=== PATIENT | male | born 1970 | race Caucasian/White ===

== ENCOUNTER 2016-08-19 01:20 | Emergency (ER) | payer OTHER, SELFPAY ==
[2016-08-19 01:26] VITALS: BP 137/78; PULSE 76; O2SAT 100
--- NOTE | 2016-08-19 01:47 | ERPHSYRPT ---
- History of Present Illness Time Seen by Provider: 08/19/16 01:30 Source: patient Exam Limitations: clinical condition Patient Subjective Stated Complaint: reports that a heavy bottle fell from a top shelf et struck his left shoulder while at work - reports continued pain x 2 days Triage Nursing Assessment: ambulatory to treatment area - steady gait - moves all extremities with equal strength. alert/oriented - pleasant affect. skin pwd - no rash/injury. resps easy - non-labored Physician History: PATIENT STATES WHILE AT WORK 4 DAYS AGO A CLEANING BOTTLE FELL OFF TOP SHELF ONTO THE PATIENTS'S LEFT SHOULDER WHILE USING A MOP. HE HAS PERSISTENT PAIN DISCOMFORT, DENIES SWELLING OR DEFORMITY OF SHOUDLER. Occurred: days ago Method of Injury: direct blow Quality: constant Severity of Pain-Max: mild Severity of Pain-Current: mild Extremities Pain Location: shoulder: left Modifying Factors: Improves With: movement Associated Symptoms: none Allergies/Adverse Reactions: "breathing treatments" Allergy (Severe, Uncoded 08/19/16 01:27) Home Medications: Alprazolam 0.25 mg [xanAX 0.25 MG] 0.25 mg PO BID 01/12/15 [History] Carvedilol 3.125 mg [Coreg 3.125 MG] 3.125 mg PO BID 09/07/15 [History] Lisinopril 5 mg [Zestril 5 MG] 5 mg PO BID 09/07/15 [History] Omeprazole 20 MG [Prilosec 20 mg] 20 mg PO DAILY 09/07/15 [History] Amitriptyline HCl 25 mg [Elavil 25 mg] 25 mg PO DAILY 04/22/16 [History] Fexofenadine HCl [Dominique] 180 mg PO DAILY 04/22/16 [History] Hx Tetanus, Diphtheria Vaccination/Date Given: Yes Hx Influenza Vaccination/Date Given: No Hx Pneumococcal Vaccination/Date Given: No Immunizations Up to Date: Yes - Review of Systems Constitutional: No Fever, No Chills Eyes: No Symptoms Ears, Nose, & Throat: No Symptoms Respiratory: No Symptoms, No Cough, No Dyspnea Cardiac: No Chest Pain, No Edema, No Syncope Abdominal/Gastrointestinal: No Abdominal Pain, No Nausea, No Vomiting, No Diarrhea Genitourinary Symptoms: No Dysuria Musculoskeletal: Joint Pain, No Back Pain, No Neck Pain Skin: No Rash Neurological: No Dizziness, No Focal Weakness, No Sensory Changes Psychological: No Symptoms Endocrine: No Symptoms All Other Systems: Reviewed and Negative - Past Medical History Pertinent Past Medical History: Yes Neurological History: Seizures ENT History: No Pertinent History Cardiac History: Hypertension Respiratory History: Bronchitis, COPD Endocrine Medical History: No Pertinent History Musculoskeletal History: No Pertinent History GI Medical History: Esophageal Disorder, GERD History: No Pertinent History Psycho-Social History: Anxiety Male Reproductive Disorders: No Pertinent History Other Medical History: arachnoid cyst, hiatal hernia. - Past Surgical History Past Surgical History: Yes Neuro Surgical History: No Pertinent History Cardiac: Cardiac Catheterization Respiratory: No Pertinent History Gastrointestinal: No Pertinent History Genitourinary: No Pertinent History Musculoskeletal: No Pertinent History Male Surgical History: No Pertinent History Other Surgical History: endoscpopy to examine for gastric ulcers as stated per pt - Social History Smoking Status: Never smoker Exposure to second hand smoke: No Drug Use: none Patient Lives Alone: No - Nursing Vital Signs Nursing Vital Signs: Initial Vital Signs Temperature 99.0 F Temperature Source Oral Pulse Rate 76 Respiratory Rate 16 Blood Pressure [Right Arm] 137/78 Pain Intensity 2 - Physical Exam General Appearance: alert Eyes, Ears, Nose, Throat Exam: moist mucous membranes Neck Exam: non-tender, supple Cardiovascular/Respiratory Exam: chest non-tender, normal breath sounds, regular rate/rhythm, no respiratory distress Abdominal Exam: non-tender, No guarding Back Exam: normal inspection, No vertebral tenderness Elbow/Forearm Exam: normal inspection, normal ROM, soft tissue tenderness (OVER LEFT A-C JOINT, NO DEFORMITY OR ECCHYMOSIS) Hand Exam: normal inspection DTR - Upper Extremity Exam: bicep (R): 2+, bicep (L): 2+, tricep (R): 2+, tricep (L): 2+ Neuro/Tendon Exam: normal sensation, normal motor functions Mental Status Exam: alert, 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, cooperative Skin Exam: normal color, warm, dry SpO2 Interpretation: normal SpO2: 100 Oxygen Delivery: Room Air Ordered Tests: Active Orders 24 hr Category Date Time Status SHOULDER Stat Exams 08/19/16 01:40 Taken - Progress Counseled pt/family regarding: diagnosis, need for follow-up, rad results - Departure Time of Disposition: 02:12 Departure Disposition: Home Clinical Impression: LEFT SHOULDER CONTUSION/STRAIN Condition: Stable Critical Care Time: No Referrals: TUAN NOBLE MD [Primary Care Provider] - Additional Instructions: CONTINUE TYLENOL OR MOTRIN NEEDED FOR PAIN DISCOMFORT. CONSULT YOUR FAMILY PHYSICIAN FOR EVALUATION IN THE WEEK.
--- NOTE | 2016-08-19 08:56 | XRAY ---
Indication: Pain following fall. Comparison: None 3 views of the left shoulder obtained. No bony, articular, or soft tissue abnormalities.
== END 2016-08-19 02:33 | disposition home or self-care (01) ==
LOC: ED 01:20
DX: S40.012A Contusion of left shoulder, initial encounter (principal); S43.402A Unspecified sprain of left shoulder joint, initial encounter; W20.8XXA Other cause of strike by thrown, projected or falling object, initial encounter; Y92.69 Other specified industrial and construction area as the place of occurrence of the external cause; Y99.0 Civilian activity done for income or pay
CPT/HCPCS: 73030; 80307; 99283

== ENCOUNTER 2016-09-03 23:35 | Emergency (ER) | payer SELFPAY ==
--- NOTE | 2016-09-04 00:05 | ERPHSYRPT ---
- History of Present Illness Time Seen by Provider: 09/03/16 23:55 Source: patient Exam Limitations: no limitations Patient Subjective Stated Complaint: STATES THAT HE HAS HAD A SINUS INFECTION X 5 DAYS WITH COUGHING - STATES THAT WHILE HE WAS AT WORK, HE GOT DIZZY, FEELING LIKE HIS HEAD WAS SPINNING AND NEARLY PASSED OUT WITH SOME DIAPHORESIS AT THE TIME - STATES HE HAD SOME SHAKING Triage Nursing Assessment: AMBULATORY TO TREATMENT AREA - STEADY GAIT - MOVES ALL EXTREMITIES WITH EQUAL STRENGTH. ALERT/ORIENTED - FLAT AFFECT. SKIN PWD - NO RASH/INJURY. RESPS EASY - NON-LABORED Physician History: The patient is a 46-year-old male who complains of a frontal sinus headache for 5 hours that led to a dizzy spell with shaking and sweating. He denies chest pain. He denies shortness of breath. He says several episodes of sinus headaches in the past. He has taken antibiotics for similar episodes. His past medical history is significant for sinusitis, high blood pressure, GERD, and allergies. He does not smoke. Timing/Duration: hour(s) (5) Severity: mild Modifying Factors: Improves With: other Associated Symptoms: diaphoresis Allergies/Adverse Reactions: "breathing treatments" Allergy (Severe, Uncoded 09/03/16 23:46) Home Medications: Alprazolam 0.25 mg [xanAX 0.25 MG] 0.25 mg PO BID 01/12/15 [History] Carvedilol 3.125 mg [Coreg 3.125 MG] 3.125 mg PO BID 09/07/15 [History] Lisinopril 5 mg [Zestril 5 MG] 5 mg PO BID 09/07/15 [History] Omeprazole 20 MG [Prilosec 20 mg] 20 mg PO DAILY 09/07/15 [History] Amitriptyline HCl 25 mg [Elavil 25 mg] 25 mg PO DAILY 04/22/16 [History] Fexofenadine HCl [Dominique] 180 mg PO DAILY 04/22/16 [History] Hx Tetanus, Diphtheria Vaccination/Date Given: Yes Hx Influenza Vaccination/Date Given: No Hx Pneumococcal Vaccination/Date Given: No Immunizations Up to Date: Yes - Review of Systems Constitutional: No Fever, No Chills Eyes: No Symptoms Ears, Nose, & Throat: No Symptoms Respiratory: Cough Cardiac: No Chest Pain, No Edema, No Syncope Abdominal/Gastrointestinal: No Abdominal Pain, No Nausea, No Vomiting, No Diarrhea Genitourinary Symptoms: No Dysuria Musculoskeletal: No Back Pain, No Neck Pain Skin: No Rash Neurological: Dizziness Psychological: No Symptoms Endocrine: No Symptoms Hematologic/Lymphatic: No Symptoms Immunological/Allergic: No Symptoms All Other Systems: Reviewed and Negative - Past Medical History Pertinent Past Medical History: Yes Neurological History: Seizures ENT History: No Pertinent History Cardiac History: Hypertension Respiratory History: Bronchitis, COPD Endocrine Medical History: No Pertinent History Musculoskeletal History: No Pertinent History GI Medical History: Esophageal Disorder, GERD History: No Pertinent History Psycho-Social History: Anxiety Male Reproductive Disorders: No Pertinent History Other Medical History: arachnoid cyst, hiatal hernia. - Past Surgical History Past Surgical History: Yes Neuro Surgical History: No Pertinent History Cardiac: Cardiac Catheterization Respiratory: No Pertinent History Gastrointestinal: No Pertinent History Genitourinary: No Pertinent History Musculoskeletal: No Pertinent History Male Surgical History: No Pertinent History Other Surgical History: endoscpopy to examine for gastric ulcers as stated per pt - Social History Smoking Status: Never smoker Exposure to second hand smoke: No Drug Use: none Patient Lives Alone: No - Nursing Vital Signs Nursing Vital Signs: Initial Vital Signs Temperature 97.8 F Temperature Source Oral Pulse Rate 64 Respiratory Rate 16 Blood Pressure [Right Arm] 136/83 Pain Intensity 5 - Physical Exam General Appearance: no apparent distress, alert Eye Exam: PERRL/EOMI, eyes nml inspection Ears, Nose, Throat Exam: normal ENT inspection, TMs normal, pharynx normal, moist mucous membranes Neck Exam: normal inspection, non-tender, supple, full range of motion Respiratory Exam: normal breath sounds, lungs clear, No respiratory distress Cardiovascular Exam: regular rate/rhythm, normal heart sounds, normal peripheral pulses Rectal Exam: not done Back Exam: normal inspection, normal range of motion, No CVA tenderness, No vertebral tenderness Extremity Exam: normal inspection, normal range of motion, pelvis stable Neurologic Exam: alert, 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, cooperative, normal mood/affect, nml cerebellar function, nml station & gait, sensation nml, No motor deficits Skin Exam: normal color, warm, dry, No rash Lymphatic Exam: No adenopathy SpO2 Interpretation: normal SpO2: 99 Oxygen Delivery: Room Air - Course EKG Interpreted by Me: RATE, Sinus Rhythm, NORMAL AXIS, NORMAL INTERVALS, NORMAL ST-T - Radiology Exams Chest X-ray Interpretation: Interpreted by me, Negative Ordered Tests: Active Orders 24 hr Category Date Time Status ACCUCHECK [Accucheck] STAT Care 09/03/16 23:50 Active Clean Catch Urine Specimen STAT Care 09/04/16 00:00 Active EKG-ER Only STAT Care 09/03/16 23:53 Active IV Insertion STAT Care 09/03/16 23:52 Active CHEST 2 VIEWS (PA AND LAT) Stat Exams 09/04/16 00:09 Taken CBC W DIFF Stat Lab 09/04/16 00:18 Completed CMP Stat Lab 09/04/16 00:18 Completed TROPONIN Stat Lab 09/04/16 00:18 Completed UA Stat Lab 09/04/16 00:00 Completed Medication Summary Generic Name Dose Route Start Last Admin Trade Name Freq PRN Reason Stop Dose Admin Sodium Chloride 1,000 mls @ 999 mls/hr 09/04/16 00:09 09/04/16 00:14 Sodium Chloride 0.9% 1000 Ml IV 09/04/16 01:09 999 mls/hr .[id number] STA Administration Discontinued Medications Generic Name Dose Route Start Last Admin Trade Name Freq PRN Reason Stop Dose Admin Sodium Chloride Confirm 09/04/16 00:12 Sodium Chloride 0.9% 1000 Ml Administered 09/04/16 00:13 Dose 1,000 mls @ ud .ROUTE .STK-MED ONE Lab/Rad Data: Laboratory Result Diagrams 09/04/16 00:18 09/04/16 00:18 Laboratory Results 09/04/16 09/04/16 09/04/16 Range/Units 00:18 00:18 00:00 WBC 8.9 (4.0-10.5) K/mm3 RBC 4.41 (4.1-5.6) M/mm3 Hgb 12.9 (12.5-18.0) gm/dl Hct 39.0 L (42-50) % MCV 88.4 (78-100) fl MCH 29.3 (26-32) pg MCHC 33.1 (32-36) g/dl RDW 13.4 (11.5-14.0) % Plt Count 236 (150-450) K/mm3 MPV 9.1 (6-9.5) fl Gran % 61.0 (36.0-66.0) % Lymphocytes % 25.3 (24.0-44.0) % Monocytes % 9.6 (0.0-12.0) % Eosinophils % 3.9 (0.00-5.0) % Basophils % 0.2 (0.0-0.4) % Basophils # 0.02 (0-0.4) Sodium 141 (136-145) mEq/L Potassium 4.2 (3.5-5.1) mEq/L Chloride 103 (98-107) mEq/L Carbon Dioxide 28.6 (21-32) mEq/L Anion Gap 14.0 (5-15) MEQ/L BUN 19 (9-20) mg/dL Creatinine 1.40 H (0.55-1.30) mg/dl Estimated GFR 58 ML/MIN Glucose 98 (70-110) MG/DL Calcium 8.6 (8.5-10.1) mg/dL Total Bilirubin 0.3 (0.2-1.0) mg/dL AST 18 (15-37) U/L ALT 27 (12-78) U/L Alkaline Phosphatase 77 (46-116) U/L Troponin I < 0.017 (0.000-0.056) ng/ml Serum Total Protein 7.5 (6.4-8.2) gm/dL Albumin 4.2 (3.4-5.0) g/dL Ur Collection Type CLEAN CATCH Urine Color YELLOW (YELLOW) Urine Appearance CLEAR (CLEAR) Urine pH 5.0 (5-6) Ur Specific [place] 1.020 (1.005-1.025) Urine Protein NEGATIVE (Negative) Urine Glucose (UA) NEGATIVE (NEGATIVE) mg/dL Urine Ketones NEGATIVE (NEGATIVE) Urine Nitrite NEGATIVE (NEGATIVE) Urine Bilirubin NEGATIVE (NEGATIVE) Urine Urobilinogen 0.2 (0-1) mg/dL Urine WBC (Auto) NEGATIVE (NEGATIVE) Urine RBC (Auto) NEGATIVE (0-5) Brad/ul Specimen Received 09/04/17:0000 - Progress Progress: improved Counseled pt/family regarding: lab results, diagnosis, rad results - Departure Time of Disposition: 01:02 Departure Disposition: Home Clinical Impression: Sinusitis, Dizziness Condition: Stable Critical Care Time: No Additional Instructions: You have sinusitis that led to some dizziness tonight. You were given normal saline 1 L by IV in the ER. Take the Augmentin 875 twice a day for 10 days. You were given a work excuse for today and for tomorrow. Follow-up as needed. Prescriptions: Amoxicillin/Potassium Clav [Augmentin 875-125 Tablet] 875 mg PO BID #20 tablet
[2016-09-04] MEDS ORDERED: Sodium Chloride 0.9% 1000 ML 1,000 ML IV STA (00:09)
[2016-09-04] MEDS ORDERED: Sodium Chloride 0.9% 1000 ML 1,000 ML ONE (00:12)
[2016-09-04 00:22] LABS: COMPLETE URINE MICROSCOPIC? NO; Collection Type CLEAN CATCH
[2016-09-04 00:23] LABS: BASOPHIL % 0.2 % (0.0-0.4); Eosinophil % 3.9 % (0.00-5.0); Lymphocytes % 25.3 % (24.0-44.0); Mean Cell Volume 88.4 fl (78-100); Mean Corpuscular Hemoglobin 29.3 pg (26-32); Mean Platelet Volume 9.1 fl (6-9.5); Monocytes % 9.6 % (0.0-12.0); Platelet Count 236 K/mm3 (150-450); Red Blood Count 4.41 M/mm3 (4.1-5.6); Red Cell Distribution Width 13.4 % (11.5-14.0); White Blood Count 8.9 K/mm3 (4.0-10.5)
[2016-09-04 00:40] VITALS: BP 136/83; PULSE 64
[2016-09-04 00:42] LABS: ALBUMIN 4.2 g/dL (3.4-5.0); ALKALINE PHOSPHATASE 77 U/L (46-116); BILIRUBIN,TOTAL 0.3 mg/dL (0.2-1.0); BLOOD UREA NITROGEN 19 mg/dL (9-20); CHLORIDE 103 mEq/L (98-107); Carbon Dioxide 28.6 mEq/L (21-32); Glucose 98 MG/DL (70-110); Potassium 4.2 mEq/L (3.5-5.1); SGOT/AST 18 U/L (15-37); SGPT/ALT 27 U/L (12-78); SODIUM 141 mEq/L (136-145); Total Protein 7.5 gm/dL (6.4-8.2)
[2016-09-04 00:52] LABS: TROPONIN < 0.017 ng/ml (0.000-0.056)
[2016-09-04 01:06] VITALS: O2SAT 99
--- NOTE | 2016-09-04 09:10 | XRAY ---
Indication: Dizziness. Comparison: April 22, 2016. PA/lateral chest again demonstrates a few calcified granulomas. No focal infiltrate, consolidation, or large effusion. Heart is not enlarged. Vascularity normal. Bony thorax intact again with mild degenerative changes. Impression: Stable nonacute chest.
== END 2016-09-04 01:14 | disposition home or self-care (01) ==
LOC: ED 23:35
DX: J32.9 Chronic sinusitis, unspecified (principal); R42 Dizziness and giddiness; I10 Essential (primary) hypertension
CPT/HCPCS: 36000; 36415; 71020; 80053; 81002; 82962; 84484; 85025; 93005; 99284

== ENCOUNTER 2017-01-07 22:35 | Emergency (ER) | payer SELFPAY ==
[2017-01-07] MEDS ORDERED: Sodium Chloride 0.9% 1000 ML 1,000 ML IV STA (22:55)
--- NOTE | 2017-01-07 23:03 | ERPHSYRPT ---
- History of Present Illness Source: patient, family () Exam Limitations: no limitations Physician History: Patient had presyncopal episode while working at [employer] this evening. He is taking a Z-Rayshawn for a sinus infection that was not responsive to Bactrim. He also takes lisinopril and beta tyshawn. Had a pre-syncopal spell similar to this for months ago. Did not fall or have any injuries he was caught by a coworker. There was no loss of consciousness. Apparently gives a history of regular meals and fluid intake. No recent fever or chills. Does have new severe headache however. This is generalized. Witnessed: other (coworker) Prior Episodes: single episode today Precipitating Factors: diaphoresis, pain (RIGHT FLANK AND SEVERE DIFFUSE HEADACHE), rapid heart beat Context: standing, other (ABDOMINAL PAIN WITH NAUSEA) Loss of Consciousness: no loss of consciousness Charcter of event(s): felt faint, almost passed out Allergies/Adverse Reactions: "breathing treatments" Allergy (Severe, Uncoded 09/03/16 23:46) Home Medications: Alprazolam 0.25 mg [xanAX 0.25 MG] 0.25 mg PO BID 01/12/15 [History] Carvedilol 3.125 mg [Coreg 3.125 MG] 3.125 mg PO BID 09/07/15 [History] Lisinopril 5 mg [Zestril 5 MG] 5 mg PO BID 09/07/15 [History] Omeprazole 20 MG [Prilosec 20 mg] 20 mg PO DAILY 09/07/15 [History] Amitriptyline HCl 25 mg [Elavil 25 mg] 25 mg PO DAILY 04/22/16 [History] Fexofenadine HCl [Dominique] 180 mg PO DAILY 04/22/16 [History] Hx Tetanus, Diphtheria Vaccination/Date Given: Yes Hx Influenza Vaccination/Date Given: No Hx Pneumococcal Vaccination/Date Given: No - Past Medical History Pertinent Past Medical History: Yes Neurological History: Seizures ENT History: No Pertinent History Cardiac History: Hypertension Respiratory History: Bronchitis, COPD Endocrine Medical History: No Pertinent History Musculoskeletal History: No Pertinent History GI Medical History: Esophageal Disorder, GERD History: No Pertinent History Psycho-Social History: Anxiety Male Reproductive Disorders: No Pertinent History Other Medical History: arachnoid cyst, hiatal hernia. - Past Surgical History Past Surgical History: Yes Neuro Surgical History: No Pertinent History Cardiac: Cardiac Catheterization Respiratory: No Pertinent History Gastrointestinal: No Pertinent History Genitourinary: No Pertinent History Musculoskeletal: No Pertinent History Male Surgical History: No Pertinent History Other Surgical History: endoscpopy to examine for gastric ulcers as stated per pt - Social History Smoking Status: Never smoker Exposure to second hand smoke: No Drug Use: none Patient Lives Alone: No - Review of Systems Constitutional: No Symptoms Eyes: No Symptoms Ears, Nose, & Throat: No Symptoms Respiratory: No Symptoms Cardiac: No Symptoms Abdominal/Gastrointestinal: Abdominal Pain, Nausea Genitourinary Symptoms: Flank Pain Musculoskeletal: No Symptoms Skin: No Symptoms Neurological: Headache Psychological: No Symptoms Endocrine: No Symptoms Hematologic/Lymphatic: No Symptoms Immunological/Allergic: No Symptoms Physical Exam - Nursing Vital Signs Nursing Vital Signs: Initial Vital Signs Pulse Rate 70 01/07/17 23:14 Respiratory Rate 18 01/07/17 23:14 Blood Pressure 132/84 01/07/17 23:14 O2 Sat by Pulse Oximetry 99 01/07/17 23:14 Pain Scale Pain Intensity 2 - Mcnabb Coma Scale Best Eye Response (Mcnabb): (4) open spontaneously Best Verbal Response (Suzi): (5) oriented Best Motor Response (Mcnabb): (6) obeys commands Suzi Total: 15 - Physical Exam General Appearance: moderate distress Eye Exam: bilateral eye: normal inspection, PERRL, EOMI Ears, Nose, Throat Exam: other (palpable tenderness over the bilateral frontal sinus area.) Neck Exam: supple, full range of motion, No non-tender, No meningismus, No Brudzinski, No Kernig's Respiratory: normal breath sounds, lungs clear Cardiovascular: regular rate/rhythm, normal heart sounds, capillary refill <2 sec Gastrointestinal: tenderness (diffuse and right flank), distention, No guarding , No rebound, No hernia, No hepatomegaly Male Genitalia: normal genitalia, No hernia, No testicular tenderness, No testicular mass Rectal Exam: deferred Back Exam: CVA tenderness (Right) Extremity Exam: normal inspection, normal range of motion, pelvis stable, No calf tenderness, No deformities, No lacerations, No parasthesia, No paralysis, No concha's sign, No inflammation, No swelling Mental Status: alert, 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, 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, 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 Exam: normal hearing, normal speech, PERRL, No abnormal eye position, No abnormal speech, No facial paresthesias, No hearing deficit (L) Coordination/Gait: normal finger to nose Motor/Sensory: no motor deficit, no sensory deficit Skin Exam: normal color, warm, dry, No rash, No petechiae, No jaundice, No abrasion SpO2 Interpretation: normal SpO2: 99 Oxygen Delivery: Room Air - CT Exams Head CT Interpretation: Tele-radiologist Report, Other Abdomen/Pelvis CT Interpretation: Tele-radiologist Report, Other (RETAINED STOOL ASCENDING AND TRANSVERSE COLON ONLY ABNORMALITY) Ordered Tests: Active Orders 24 hr Category Date Time Status Accucheck STAT Care 01/07/17 22:55 Active Senior Manager STAT Care 01/07/17 22:55 Active Clean Catch Urine Specimen STAT Care 01/07/17 23:06 Active EKG-ER Only STAT Care 01/07/17 22:55 Active IV Insertion STAT Care 01/07/17 22:55 Active Orthostatic Vital Signs STAT Care 01/07/17 22:55 Active Pulse Oximetry (ED) STAT Care 01/07/17 22:55 Active ABDOMEN AND PELVIS W/0 CONTRAS [CT] Stat Exams 01/07/17 22:51 Taken HEAD WITHOUT CONTRAST [CT] Stat Exams 01/07/17 23:09 Taken CBC W DIFF Stat Lab 01/07/17 22:55 Completed CMP Stat Lab 01/07/17 22:55 Completed MAGNESIUM Stat Lab 01/07/17 22:55 Completed TROPONIN Q3H Lab 01/07/17 22:55 Completed UA W/RFX UR CULTURE Stat Lab 01/07/17 22:55 Completed Urine Triage Profile Stat Lab 01/07/17 23:04 Completed Medication Summary Discontinued Medications Generic Name Dose Route Start Last Admin Trade Name Freq PRN Reason Stop Dose Admin Sodium Chloride 1,000 mls @ 999 mls/hr 01/07/17 22:55 01/07/17 23:18 Sodium Chloride 0.9% 1000 Ml IV 01/07/17 23:55 999 mls/hr .Q1H1M STA Administration Sodium Chloride Confirm 01/07/17 23:18 Sodium Chloride 0.9% 1000 Ml Administered 01/07/17 23:19 Dose 1,000 mls @ ud .ROUTE .STK-MED ONE Lab/Rad Data: Laboratory Result Diagrams 01/07/17 22:55 01/07/17 22:55 Laboratory Results 01/07/17 01/07/17 01/07/17 Range/Units 23:04 22:55 22:55 WBC (4.0-10.5) K/mm3 RBC (4.1-5.6) M/mm3 Hgb (12.5-18.0) gm/dl Hct (42-50) % MCV (78-100) fl MCH (26-32) pg MCHC (32-36) g/dl RDW (11.5-14.0) % Plt Count (150-450) K/mm3 MPV (6-9.5) fl Gran % (36.0-66.0) % Lymphocytes % (24.0-44.0) % Monocytes % (0.0-12.0) % Eosinophils % (0.00-5.0) % Basophils % (0.0-0.4) % Basophils # (0-0.4) Sodium (136-145) mEq/L Potassium (3.5-5.1) mEq/L Chloride (98-107) mEq/L Carbon Dioxide (21-32) mEq/L Anion Gap (5-15) MEQ/L BUN (9-20) mg/dL Creatinine (0.55-1.30) mg/dl Estimated GFR ML/MIN Glucose (70-110) MG/DL Calcium (8.5-10.1) mg/dL Magnesium 1.8 (1.8-2.4) mg/dL Total Bilirubin (0.2-1.0) mg/dL AST (15-37) U/L ALT (12-78) U/L Alkaline Phosphatase (46-116) U/L Troponin I < 0.017 (0.000-0.056) ng/ml Serum Total Protein (6.4-8.2) gm/dL Albumin (3.4-5.0) g/dL Ur Collection Type Urine Color (YELLOW) Urine Appearance (CLEAR) Urine pH (5-6) Ur Specific Rhodelia (1.005-1.025) Urine Protein (Negative) Urine Ketones (NEGATIVE) Urine Blood (0-5) Brad/ul Urine Nitrite (NEGATIVE) Urine Bilirubin (NEGATIVE) Urine Urobilinogen (0-1) mg/dL Ur Leukocyte Esterase (NEGATIVE) Urine Glucose (NEGATIVE) mg/dL Urine Opiates Level NEG. (NEGATIVE) Ur Methadone NEG. (NEGATIVE) Urine Barbiturates NEG. (NEGATIVE) Ur Phencyclidine (PCP) NEG. (NEGATIVE) Urine Amphetamine NEG. (NEGATIVE) U Benzodiazepine Level POS. (NEGATIVE) Urine Cocaine NEG. (NEGATIVE) Urine Marijuana (THC) NEG. (NEGATIVE) Specimen Received 01/07/17 01/07/17 01/07/17 Range/Units 22:55 22:55 22:55 WBC 10.4 (4.0-10.5) K/mm3 RBC 4.62 (4.1-5.6) M/mm3 Hgb 13.7 (12.5-18.0) gm/dl Hct 41.0 L (42-50) % MCV 88.7 (78-100) fl MCH 29.7 (26-32) pg MCHC 33.4 (32-36) g/dl RDW 13.2 (11.5-14.0) % Plt Count 234 (150-450) K/mm3 MPV 9.7 H (6-9.5) fl Gran % 59.2 (36.0-66.0) % Lymphocytes % 28.4 (24.0-44.0) % Monocytes % 7.1 (0.0-12.0) % Eosinophils % 4.7 (0.00-5.0) % Basophils % 0.6 (0.0-0.4) % Basophils # 0.06 (0-0.4) Sodium 140 (136-145) mEq/L Potassium 3.6 (3.5-5.1) mEq/L Chloride 102 (98-107) mEq/L Carbon Dioxide 27.6 (21-32) mEq/L Anion Gap 13.7 (5-15) MEQ/L BUN 11 (9-20) mg/dL Creatinine 1.27 (0.55-1.30) mg/dl Estimated GFR > 60 ML/MIN Glucose 93 (70-110) MG/DL Calcium 9.0 (8.5-10.1) mg/dL Magnesium (1.8-2.4) mg/dL Total Bilirubin 0.20 (0.2-1.0) mg/dL AST 21 (15-37) U/L ALT 20 (12-78) U/L Alkaline Phosphatase 78 (46-116) U/L Troponin I (0.000-0.056) ng/ml Serum Total Protein 8.0 (6.4-8.2) gm/dL Albumin 4.4 (3.4-5.0) g/dL Ur Collection Type CLEAN CATCH Urine Color YELLOW (YELLOW) Urine Appearance CLEAR (CLEAR) Urine pH 5.0 (5-6) Ur Specific Rhodelia 1.025 (1.005-1.025) Urine Protein NEGATIVE (Negative) Urine Ketones NEGATIVE (NEGATIVE) Urine Blood NEGATIVE (0-5) Brad/ul Urine Nitrite NEGATIVE (NEGATIVE) Urine Bilirubin NEGATIVE (NEGATIVE) Urine Urobilinogen NORMAL (0-1) mg/dL Ur Leukocyte Esterase NEGATIVE (NEGATIVE) Urine Glucose NEGATIVE (NEGATIVE) mg/dL Urine Opiates Level (NEGATIVE) Ur Methadone (NEGATIVE) Urine Barbiturates (NEGATIVE) Ur Phencyclidine (PCP) (NEGATIVE) Urine Amphetamine (NEGATIVE) U Benzodiazepine Level (NEGATIVE) Urine Cocaine (NEGATIVE) Urine Marijuana (THC) (NEGATIVE) Specimen Received 01/07/17:2255 - Progress Progress: improved Progress Note: 01/08/17 00:41Patient feels markedly improved able to emboli without difficulty. No further nausea vomiting abdominal pain and headache is also improved. Abnormal CT of the head was noted. Abdomen is soft without organomegaly masses or rigidity had been slightly distended and tender on admission. Slight right flank pain is also gone. Urinalysis with specific gravity slightly elevated at 1.025 and no blood. EKG cardiac workup negative. Will change her lisinopril to only once a day as it is a most likely medication that causes syncope/presyncope especially in the face of patients on beta blockers which she is on also. No work next 2 days will follow up with Dr. NOBLE on Thursday return to ER for any issues. See discharge diagnosis and instructions. - Departure Time of Disposition: 00:46 Departure Disposition: Home Clinical Impression: Pre-syncope, Intracranial arachnoid cyst, Flank pain, acute Ethmoid sinusitis Qualifiers: Chronicity: subacute Qualified Code(s): J01.20 - Acute ethmoidal sinusitis, unspecified Cephalgia Qualifiers: Headache type: unspecified Headache chronicity pattern: acute headache Intractability: not intractable Qualified Code(s): R51 - Headache Abdominal pain Qualifiers: Abdominal location: generalized Qualified Code(s): R10.84 - Generalized abdominal pain Retained feces Qualifiers: Constipation type: unspecified constipation type Qualified Code(s): K59.00 - Constipation, unspecified Medication adverse effect Qualifiers: Encounter type: initial encounter Qualified Code(s): T88.7XXA - Unspecified adverse effect of drug or medicament, initial encounter Condition: Stable Critical Care Time: No Referrals: TUAN NOBLE MD [Primary Care Provider] - 01/09/17 Instructions: Fainting, Sinusitis, Abdominal Pain-Adult Additional Instructions: Recommend only taking 5 mg lisinopril once a day instead of twice. Otherwise continue other medications.Drink at least 2 quarts of either Powerade or Gatorade daily. No work or Thursday see Dr Noble for recheck on Thursday. Return to emergency room for significant concerns or issues. Rest with no strenuous activity next 2 days.
[2017-01-07 23:09] LABS: BASOPHIL % 0.6 % (0.0-0.4); Collection Type CLEAN CATCH; Eosinophil % 4.7 % (0.00-5.0); Glucose NEGATIVE (NEGATIVE); Granulocytes % 59.2 % (36.0-66.0); Leukocyte Esterase NEGATIVE (NEGATIVE); Lymphocytes % 28.4 % (24.0-44.0); Mean Cell Volume 88.7 fl (78-100); Mean Corpuscular Hemoglobin 29.7 pg (26-32); Mean Platelet Volume 9.7 fl (6-9.5); Monocytes % 7.1 % (0.0-12.0); Platelet Count 234 K/mm3 (150-450); Red Blood Count 4.62 M/mm3 (4.1-5.6); Red Cell Distribution Width 13.2 % (11.5-14.0); White Blood Count 10.4 K/mm3 (4.0-10.5)
[2017-01-07 23:10] LABS: ADD URINE CULTURE? NO (NO); Bilirubin NEGATIVE (NEGATIVE); Blood NEGATIVE Ery/ul (0-5); COMPLETE URINE MICROSCOPIC? NO
[2017-01-07] MEDS ORDERED: Sodium Chloride 0.9% 1000 ML 1,000 ML ONE (23:18)
[2017-01-07 23:32] LABS: ALBUMIN 4.4 g/dL (3.4-5.0); ALKALINE PHOSPHATASE 78 U/L (46-116); ANION GAP 13.7 MEQ/L (5-15); BLOOD UREA NITROGEN 11 mg/dL (9-20); CHLORIDE 102 mEq/L (98-107); Carbon Dioxide 27.6 mEq/L (21-32); Glucose 93 MG/DL (70-110); Potassium 3.6 mEq/L (3.5-5.1); SGOT/AST 21 U/L (15-37); SGPT/ALT 20 U/L (12-78); SODIUM 140 mEq/L (136-145)
[2017-01-08 01:15] VITALS: BP 128/78; PULSE 78
[2017-01-08 05:43] VITALS: O2SAT 99
--- NOTE | 2017-01-08 11:29 | XRAY ---
Exam: CT of the head without IV contrast from 01/07/2017. CTDI: 69.38 Comparison: CT of the head without IV contrast from 04/13/2015. Indication: Near syncopal episode this afternoon while at work. Technique: Non-IV contrast axial images were obtained through the brain. Reconstructed coronal and sagittal images were created and reviewed. Findings: I again see a stable large arachnoid cyst within the left middle cranial fossa measuring approximately 4.7 cm x 4.5 cm x 5.4 cm. The ventricles are of normal size and are midline. No acute intracranial hemorrhage or abnormal extra-axial fluid collection is seen. No focal mass effect or midline shift is seen. The samaniego matter-white matter differentiation appears normal. No acute territorial infarct is seen. The cortical sulci appear unremarkable. I note moderate scattered soft tissue density within both ethmoid sinuses consistent with sinus disease/sinusitis. There also couple small polyps or retention cysts at the anterior medial aspect of the right maxillary sinus. The remainder of the visualized sinuses appears unremarkable. The mastoid air cells appear normal. The calvarium of the skull is intact. Impression: 1. A large arachnoid cyst is again seen filling the left middle cranial fossa representing no change. 2. No acute intracranial bleed or other acute intracranial process is seen. 3. Bilateral ethmoid sinus disease/sinusitis. This appears mildly increased as compared to 04/13/2015. There also couple very small polyps or retention cysts at the anterior medial aspect of the right maxillary sinus.
--- NOTE | 2017-01-08 11:32 | XRAY ---
Exam: CT of the abdomen and pelvis without IV contrast from 01/07/2017. CTDI: 23.65 Comparison: None. Indication: Right upper quadrant abdominal/flank pain, near syncopal episode this afternoon while at work. Technique: Non-IV contrast axial images were obtained through the abdomen and pelvis. Reconstructed coronal and sagittal images were created and reviewed. Findings: The visualized lung bases appear clear. Evaluation of the solid organs is limited without the use of IV contrast, but no gross abnormality of the liver, spleen, pancreas, adrenal glands, or kidneys is seen. Specifically, no renal calculi or hydronephrosis is seen. Both ureters appear of normal diameter and reveal no ureterolith. No urinary bladder stone is seen. The gallbladder is minimally distended, but is grossly unremarkable. No dense calcifications are seen within the gallbladder. The abdominal aorta appears of normal diameter. No abnormal retroperitoneal lymphadenopathy is seen. There is no free intraperitoneal air. A tiny amount of protrusion of intraperitoneal fat into the base of the umbilicus is seen on midline sagittal image #87. No significant ventral abdominal wall defect is seen. No significant bowel distention or obstruction is seen. A moderate amount of stool is seen within the ascending colon and transverse colon. The appendix appears normal. No enlarged pelvic lymph nodes are seen. No free intraperitoneal fluid is seen. The seminal vesicles and prostate gland appear unremarkable. There is some mild herniation of intraperitoneal fat into the proximal inguinal canals, right greater than left. No bowel containing inguinal hernia is seen. Some small nonspecific postinflammatory lymph nodes are seen within each groin. I see no acute fracture or aggressive osseous lesion. There is a prominent Schmorl's node at the anterior aspect of the superior vertebral endplate of L5. There is moderate narrowing of the L4-L5 interspace height which may indicate some degenerative disc disease at this level.. There is also a more subtle Schmorl's node within the anterior aspect of the superior vertebral endplate of L2. Mild osteoarthritic spurring is seen within the lower thoracic spine. Impression: 1. No acute process is seen within the abdomen or pelvis. Specifically, no renal/ureteral stones, hydronephrosis, or obstructive uropathy is seen. 2. Moderate stool retention is seen within the cecum, ascending colon, and transverse colon. The appendix is normal. 3. Small fat-containing bilateral inguinal hernias, a bit larger on the right than left. No bowel containing hernias are seen. 4. Skeletal findings as discussed above.
== END 2017-01-08 01:16 | disposition home or self-care (01) ==
LOC: ED 22:35
DX: R51 Headache (principal); R10.84 Generalized abdominal pain; K59.00 Constipation, unspecified; T88.7XXA Unspecified adverse effect of drug or medicament, initial encounter; R55 Syncope and collapse; G93.0 Cerebral cysts; R10.9 Unspecified abdominal pain; Z79.899 Other long term (current) drug therapy; R11.0 Nausea
CPT/HCPCS: 36000; 36415; 70450; 74176; 80053; 80307; 81002; 82962; 83735; 84484; 85025; 93005; 93041; 96360; 99284

== ENCOUNTER 2017-07-14 00:57 | Emergency (ER) | payer OTHER ==
[2017-07-14] MEDS ORDERED: NORCO 5/325 MG PO ONE (01:22)
[2017-07-14] MEDS ORDERED: NORCO 5/325 MG ONE (01:26)
--- NOTE | 2017-07-14 01:28 | ERPHSYRPT ---
- History of Present Illness Time Seen by Provider: 07/14/17 01:15 Source: patient Exam Limitations: no limitations Patient Subjective Stated Complaint: cough, congestion, chills, dyspnea Triage Nursing Assessment: patient alert and oriented x3, able to answer all questions appropriately, ambulated with steady gait, states dyspnea worse with exertion, none noted during ambulation Physician History: FOR THE PAST 5 DAYS PT HAS HAD A FRONTAL HEADACHE, CHILLS AND A SORE THROAT; FOR THE PAST 2 DAYS A NON-PRODUCTIVE COUGH. PT WAS RX'ED ZITHROMAX AND TESSALON PERLES 4 DAYS AGO BUT DOES NOT FEEL ANY IMPROVEMENT. PT DENIES CHEST PAIN, ABDOMINAL PAIN, NAUSEA, VOMITING. FEVER. Allergies/Adverse Reactions: "breathing treatments" Allergy (Severe, Uncoded 09/03/16 23:46) Home Medications: Alprazolam 0.25 mg [xanAX 0.25 MG] 0.25 mg PO BID 01/12/15 [History] Carvedilol 3.125 mg [Coreg 3.125 MG] 3.125 mg PO BID 09/07/15 [History] Lisinopril 5 mg [Zestril 5 MG] 5 mg PO BID 09/07/15 [History] Omeprazole 20 MG [Prilosec 20 mg] 20 mg PO DAILY 09/07/15 [History] Fexofenadine HCl [Dominique] 180 mg PO DAILY 04/22/16 [History] Azithromycin 250 mg [Zithromax 250 MG TABLET] 250 mg PO ZPACK 07/14/17 [ History] Benzonatate 100 mg PO 07/14/17 [History] Fluticasone Propionate [Flovent Diskus] 50 mcg IH 07/14/17 [History] Hx Tetanus, Diphtheria Vaccination/Date Given: No Hx Influenza Vaccination/Date Given: No Hx Pneumococcal Vaccination/Date Given: No - Review of Systems Constitutional: Chills, No Fever Ears, Nose, & Throat: Throat Pain Respiratory: Cough Cardiac: No Chest Pain Abdominal/Gastrointestinal: No Abdominal Pain, No Nausea, No Vomiting Neurological: Headache (FRONTAL) All Other Systems: Reviewed and Negative - Past Medical History Pertinent Past Medical History: Yes Neurological History: Migraines, Stroke ENT History: No Pertinent History Cardiac History: Coronary Artery Disease, Hypertension, Other Respiratory History: No Pertinent History Endocrine Medical History: No Pertinent History Musculoskeletal History: No Pertinent History GI Medical History: GERD History: No Pertinent History Psycho-Social History: No Pertinent History Male Reproductive Disorders: No Pertinent History Other Medical History: arachnoid cyst, hiatal hernia. - Past Surgical History Past Surgical History: No Neuro Surgical History: No Pertinent History Cardiac: No Pertinent History Respiratory: No Pertinent History Gastrointestinal: No Pertinent History Genitourinary: No Pertinent History Musculoskeletal: No Pertinent History Male Surgical History: No Pertinent History Other Surgical History: endoscpopy to examine for gastric ulcers as stated per pt - Social History Smoking Status: Former smoker How long have you smoked: years Exposure to second hand smoke: No Drug Use: none Patient Lives Alone: No - Nursing Vital Signs Nursing Vital Signs: Initial Vital Signs Temperature 98.2 F 07/14/17 01:05 Pulse Rate 96 H 07/14/17 01:05 Respiratory Rate 20 07/14/17 01:05 Blood Pressure 177/104 07/14/17 01:05 O2 Sat by Pulse Oximetry 99 07/14/17 01:05 Pain Scale Pain Intensity 2 - Physical Exam General Appearance: alert Eye Exam: PERRL/EOMI Ears, Nose, Throat Exam: TMs normal, moist mucous membranes, pharyngeal erythema , other (NASAL TURBINATES ERYTHEMATOUS AND MILDLY EDEMATOUS.) Neck Exam: normal inspection Respiratory Exam: lungs clear Cardiovascular Exam: normal heart sounds Gastrointestinal/Abdomen Exam: soft, normal bowel sounds Back Exam: normal range of motion Extremity Exam: normal inspection, No pedal edema Neurologic Exam: alert, cooperative Skin Exam: warm, dry SpO2 Interpretation: normal SpO2: 99 Oxygen Delivery: Room Air - Course Nursing assessment & vital signs reviewed: Yes Ordered Tests: Active Orders 24 hr Category Date Time Status CBC W DIFF Stat Lab 07/14/17 01:38 Completed CMP Stat Lab 07/14/17 01:38 Completed CULTURE, THROAT Stat Lab 07/14/17 01:38 Received Erythrocyte Sedimentation Rate Stat Lab 07/14/17 01:38 Completed [place] Screen Stat Lab 07/14/17 01:38 Completed STREP SCREEN-BETA A Stat Lab 07/14/17 01:38 Completed Medication Summary Discontinued Medications Generic Name Dose Route Start Last Admin Trade Name Freq PRN Reason Stop Dose Admin Hydrocodone Bitart/Acetaminophen 2 tab 07/14/17 01:22 07/14/17 01:27 [place] 5/325 Mg PO 07/14/17 01:23 2 tab STAT ONE Administration Hydrocodone Bitart/Acetaminophen Confirm 07/14/17 01:26 [place] 5/325 Mg Administered 07/14/17 01:27 Dose 2 tab .ROUTE .STK-MED ONE Diphenhydramine HCl 25 mg 07/14/17 02:19 07/14/17 02:21 Benadryl 25 Mg Capsule PO 07/14/17 02:20 25 mg STAT ONE Administration Diphenhydramine HCl Confirm 07/14/17 02:21 Benadryl 25 Mg Capsule Administered 07/14/17 02:22 Dose 25 mg .ROUTE .STK-MED ONE Lab/Rad Data: Laboratory Result Diagrams 07/14/17 01:38 07/14/17 01:38 Laboratory Results 07/14/17 07/14/17 07/14/17 Range/Units 01:38 01:38 01:38 WBC (4.0-10.5) K/mm3 RBC (4.1-5.6) M/mm3 Hgb (12.5-18.0) gm/dl Hct (42-50) % MCV (78-100) fl MCH (26-32) pg MCHC (32-36) g/dl RDW (11.5-14.0) % Plt Count (150-450) K/mm3 MPV (6-9.5) fl Gran % (36.0-66.0) % Lymphocytes % (24.0-44.0) % Monocytes % (0.0-12.0) % Eosinophils % (0.00-5.0) % Basophils % (0.0-0.4) % Basophils # (0-0.4) ESR (0-15) mm/hr Sodium (136-145) mEq/L Potassium (3.5-5.1) mEq/L Chloride (98-107) mEq/L Carbon Dioxide (21-32) mEq/L Anion Gap (5-15) MEQ/L BUN (9-20) mg/dL Creatinine (0.55-1.30) mg/dl Estimated GFR ML/MIN Glucose (70-110) MG/DL Calcium (8.5-10.1) mg/dL Total Bilirubin (0.2-1.0) mg/dL AST (15-37) U/L ALT (12-78) U/L Alkaline Phosphatase (46-116) U/L Serum Total Protein (6.4-8.2) gm/dL Albumin (3.4-5.0) g/dL Monoscreen NEGATIVE (Negative) Influenza Type A Ag NEGATIVE (NEGATIVE) Influenza Type B Ag POSITIVE (NEGATIVE) RSV (PCR) NEGATIVE (Negative) Streptococcus Screen NEGATIVE (Negative) 07/14/17 07/14/17 Range/Units 01:38 01:38 WBC 3.8 L (4.0-10.5) K/mm3 RBC 4.46 (4.1-5.6) M/mm3 Hgb 13.0 (12.5-18.0) gm/dl Hct 39.2 L (42-50) % MCV 87.9 (78-100) fl MCH 29.1 (26-32) pg MCHC 33.2 (32-36) g/dl RDW 13.7 (11.5-14.0) % Plt Count 132 L (150-450) K/mm3 MPV 9.3 (6-9.5) fl Gran % 49.7 (36.0-66.0) % Lymphocytes % 30.1 (24.0-44.0) % Monocytes % 15.4 H (0.0-12.0) % Eosinophils % 4.5 (0.00-5.0) % Basophils % 0.3 (0.0-0.4) % Basophils # 0.01 (0-0.4) ESR 12 (0-15) mm/hr Sodium 138 (136-145) mEq/L Potassium 3.9 (3.5-5.1) mEq/L Chloride 103 (98-107) mEq/L Carbon Dioxide 25.6 (21-32) mEq/L Anion Gap 13.6 (5-15) MEQ/L BUN 11 (9-20) mg/dL Creatinine 1.16 (0.55-1.30) mg/dl Estimated GFR > 60 ML/MIN Glucose 93 (70-110) MG/DL Calcium 8.7 (8.5-10.1) mg/dL Total Bilirubin 0.30 (0.2-1.0) mg/dL AST 18 (15-37) U/L ALT 14 (12-78) U/L Alkaline Phosphatase 54 (46-116) U/L Serum Total Protein 7.5 (6.4-8.2) gm/dL Albumin 4.0 (3.4-5.0) g/dL Monoscreen (Negative) Influenza Type A Ag (NEGATIVE) Influenza Type B Ag (NEGATIVE) RSV (PCR) (Negative) Streptococcus Screen (Negative) - Departure Time of Disposition: 03:00 Departure Disposition: Home Clinical Impression: PHARYNGITIS, SINUSITIS, INFLUENZA "B" Condition: Stable Critical Care Time: No Referrals: TUAN NOBLE MD [Primary Care Provider] - Instructions: Flu Additional Instructions: FOLLOW UP WITH PRIVATE DOCTOR TOMORROW.
[2017-07-14 01:42] LABS: BASOPHIL % 0.3 % (0.0-0.4); Basophil (Absolute #) 0.01 (0-0.4); Eosinophil % 4.5 % (0.00-5.0); Eosinophil (Absolute #) 0.17 (0-0.5); Granulocytes % 49.7 % (36.0-66.0); Hematocrit 39.2 % (42-50); Lymphocyte (Absolute #) 1.15 (1.0-4.6); Lymphocytes % 30.1 % (24.0-44.0); Mean Cell Volume 87.9 fl (78-100); Mean Corpuscular Hemoglobin 29.1 pg (26-32); Mean Corpuscular Hgb Concent. 33.2 g/dl (32-36); Mean Platelet Volume 9.3 fl (6-9.5); Monocyte (Absolute #) 0.59 (0.0-1.3); Monocytes % 15.4 % (0.0-12.0); Platelet Count 132 K/mm3 (150-450); Red Blood Count 4.46 M/mm3 (4.1-5.6); Red Cell Distribution Width 13.7 % (11.5-14.0); White Blood Count 3.8 K/mm3 (4.0-10.5)
[2017-07-14 01:57] LABS: Erythrocyte Sedimentation Rate 12 mm/hr (0-15)
[2017-07-14 02:01] LABS: ALKALINE PHOSPHATASE 54 U/L (46-116); ANION GAP 13.6 MEQ/L (5-15); BLOOD UREA NITROGEN 11 mg/dL (9-20); CHLORIDE 103 mEq/L (98-107); Calcium 8.7 mg/dL (8.5-10.1); Carbon Dioxide 25.6 mEq/L (21-32); Creatinine 1 1.16 mg/dl (0.55-1.30); EST GLOMERULAR FILTRATION RATE > 60 ML/MIN; Glucose 93 MG/DL (70-110); Potassium 3.9 mEq/L (3.5-5.1); SGOT/AST 18 U/L (15-37); SGPT/ALT 14 U/L (12-78); SODIUM 138 mEq/L (136-145); Total Protein 7.5 gm/dL (6.4-8.2)
[2017-07-14] MEDS ORDERED: BENADRYL 25 MG CAPSULE PO ONE ×2 (02:19→02:58)
[2017-07-14] MEDS ORDERED: BENADRYL 25 MG CAPSULE ONE ×2 (02:21→03:00)
[2017-07-14 02:53] LABS: INFLUENZA A NEGATIVE (NEGATIVE); RESPIRATORY SYNCTIAL VIRUS NEGATIVE (Negative)
[2017-07-14 02:55] LABS: INFLUENZA B POSITIVE (NEGATIVE)
[2017-07-14 03:05] VITALS: BP 123/78; PULSE 70; O2SAT 97
== END 2017-07-14 03:06 | disposition home or self-care (01) ==
LOC: ED 00:57
DX: J02.9 Acute pharyngitis, unspecified (principal); J32.9 Chronic sinusitis, unspecified; J11.1 Influenza due to unidentified influenza virus with other respiratory manifestations
CPT/HCPCS: 36415; 80053; 85025; 85652; 86308; 87070; 87430; 87631; 99283; 99284; A9270-GY

== ENCOUNTER 2017-10-14 00:06 | Emergency (ER) | payer OTHER ==
[2017-10-14] MEDS: BABY ASPIRIN 81 MG CHEW PO ONE (00:26)
[2017-10-14] MEDS ORDERED: BABY ASPIRIN 81 MG CHEW ONE (00:27)
--- NOTE | 2017-10-14 00:32 | ERPHSYRPT ---
- History of Present Illness Time Seen by Provider: 10/14/17 00:25 Source: patient Exam Limitations: no limitations Patient Subjective Stated Complaint: pt states he was sitting outside with his and did not feel good; had a headache, chest pain, and generally did not feel right; took bp at home and it was high so he came in. Triage Nursing Assessment: pt a&o x3; skin p, w, & d; ambulated to room per self ; appears slightly anxious about htn at home; no other distress noted upon arrival. Physician History: 47-year-old white male with history of migraines, CVA, coronary artery disease, high blood pressure, GERD, was had an arachnoid cyst in the past as well as hiatal hernia and anxiety. States that about an hour ago he just didn't feel well had a headache than a half an hour ago began to have pain in the left anterior chest. He said the no real shortness of breath no nausea no vomiting Patient states he took his blood pressure is noted to be high again he also stated his monitor stated that he had an irregular heart rate. Patient complaining of some dull pain in the left anterior chest no shortness of breath no nausea no vomiting. Past medical history includes migraines, CVA, coronary artery disease, high blood pressure, GERD, arachnoid cyst, hiatal hernia, anxiety Past surgical history includes endoscopy for gastric ulcers Timing/Duration: today Severity: moderate Modifying Factors: Improves With: nothing Associated Symptoms: chest pain, headaches, malaise, No nausea, No vomiting, No abdominal pain, No shortness of breath, No heartburn, No diaphoresis, No cough, No chills, No fever, No loss of appetite, No rash, No syncope, No seizure, No weakness Allergies/Adverse Reactions: "breathing treatments" Allergy (Severe, Uncoded 10/14/17 00:21) Home Medications: Carvedilol 3.125 mg [Coreg 3.125 MG] 3.125 mg PO BID 09/07/15 [History] Omeprazole 20 MG [Prilosec 20 mg] 20 mg PO DAILY 09/07/15 [History] Fexofenadine HCl [Dominique] 180 mg PO DAILY 04/22/16 [History] Fluticasone Propionate [Flovent Diskus] 50 mcg IH 07/14/17 [History] Sacubitril/Valsartan [Entresto 49 mg-51 mg Tablet] 49 - 52 mg PO BID 10/14/17 [ History] diazePAM [Diazepam] 2 mg PO BID 10/14/17 [History] Hx Tetanus, Diphtheria Vaccination/Date Given: No Hx Influenza Vaccination/Date Given: No Hx Pneumococcal Vaccination/Date Given: Yes Immunizations Up to Date: No - Review of Systems Constitutional: No Fever, No Chills Eyes: No Symptoms Ears, Nose, & Throat: No Symptoms Respiratory: No Cough, No Dyspnea Cardiac: Chest Pain, No Edema, No Palpitations, No Syncope, No Orthopnea, No PND Abdominal/Gastrointestinal: No Abdominal Pain, No Nausea, No Vomiting, No Diarrhea Genitourinary Symptoms: No Dysuria Musculoskeletal: No Back Pain, No Neck Pain Skin: No Rash Neurological: Headache, No Dizziness, No Focal Weakness, No Irritability, No Lethargy, No Paralysis, No Parasthesia, No Seizure, No Sensory Changes, No Speech Changes, No Tics, No Tremors, No Vertigo Psychological: No Symptoms Endocrine: No Symptoms All Other Systems: Reviewed and Negative - Past Medical History Pertinent Past Medical History: Yes Neurological History: Migraines, Stroke ENT History: No Pertinent History Cardiac History: Coronary Artery Disease, Hypertension, Other Respiratory History: No Pertinent History Endocrine Medical History: No Pertinent History Musculoskeletal History: No Pertinent History GI Medical History: GERD History: No Pertinent History Psycho-Social History: No Pertinent History Male Reproductive Disorders: No Pertinent History Other Medical History: arachnoid cyst, hiatal hernia. - Past Surgical History Past Surgical History: No Neuro Surgical History: No Pertinent History Cardiac: No Pertinent History Respiratory: No Pertinent History Gastrointestinal: No Pertinent History Genitourinary: No Pertinent History Musculoskeletal: No Pertinent History Male Surgical History: No Pertinent History Other Surgical History: endoscpopy to examine for gastric ulcers as stated per pt - Social History Smoking Status: Never smoker How long have you smoked: years Exposure to second hand smoke: Yes Drug Use: none Patient Lives Alone: No - Nursing Vital Signs Nursing Vital Signs: Initial Vital Signs Temperature 97.3 F 10/14/17 00:12 Pulse Rate 92 H 10/14/17 00:12 Respiratory Rate 18 10/14/17 00:12 Blood Pressure 171/101 10/14/17 00:12 O2 Sat by Pulse Oximetry 100 10/14/17 00:12 Pain Scale Pain Intensity 1 - Physical Exam General Appearance: no apparent distress, alert Eye Exam: PERRL/EOMI, eyes nml inspection Ears, Nose, Throat Exam: normal ENT inspection, TMs normal, pharynx normal, moist mucous membranes Neck Exam: normal inspection, non-tender, supple, full range of motion Respiratory Exam: normal breath sounds, lungs clear, No respiratory distress Cardiovascular Exam: regular rate/rhythm, normal heart sounds, normal peripheral pulses Gastrointestinal/Abdomen Exam: soft, normal bowel sounds, No tenderness, No mass Back Exam: normal inspection, normal range of motion, No CVA tenderness, No vertebral tenderness Extremity Exam: normal inspection, normal range of motion, pelvis stable Neurologic Exam: alert, 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, cooperative, normal mood/affect, nml cerebellar function, nml station & gait, sensation nml, No motor deficits Skin Exam: normal color Lymphatic Exam: No adenopathy SpO2 Interpretation: normal (100 Tylenol with him at the left and hi%) SpO2: 100 Oxygen Delivery: Room Air - Course Nursing assessment & vital signs reviewed: Yes EKG Interpreted by Me: RATE (89 bpm), NORMAL AXIS, Other (EKG: Sinus rhythm 89 bpm normal axis no acute ST or T wave changes poor R-wave progression anteriorly no acute changes as compared to January 07 2017) - Radiology Exams Chest X-ray Interpretation: Interpreted by me, Other (no acute disease process) Ordered Tests: Active Orders 24 hr Category Date Time Status EKG-ER Only STAT Care 10/14/17 00:23 Active IV Insertion STAT Care 10/14/17 00:23 Active Pulse Oximetry (ED) STAT Care 10/14/17 00:23 Active CHEST 1 VIEW (PORTABLE) Stat Exams 10/14/17 00:23 Taken CBC W DIFF Stat Lab 10/14/17 00:40 Completed CMP Stat Lab 10/14/17 00:40 Completed D-DIMER QUANTITATION Stat Lab 10/14/17 00:40 Completed TROPONIN Q3H Lab 10/14/17 00:40 Completed TROPONIN Q3H Lab 10/14/17 03:10 Completed TROPONIN Q3H Lab 10/14/17 06:30 Ordered TROPONIN Q3H Lab 10/14/17 09:30 Ordered TROPONIN Q3H Lab 10/14/17 12:30 Ordered Medication Summary Generic Name Dose Route Start Last Admin Trade Name Freq PRN Reason Stop Dose Admin Sodium Chloride 1,000 mls @ 999 mls/hr 10/14/17 03:40 10/14/17 03:30 Sodium Chloride 0.9% 1000 Ml IV 10/14/17 04:40 999 mls/hr .Q1H1M STA Administration Discontinued Medications Generic Name Dose Route Start Last Admin Trade Name Tio PRN Reason Stop Dose Admin Aspirin 324 mg 10/14/17 00:23 10/14/17 00:26 Baby Aspirin 81 Mg Chew PO 10/14/17 00:24 324 mg STAT ONE Administration Aspirin Confirm 10/14/17 00:27 Baby Aspirin 81 Mg Chew Administered 10/14/17 00:28 Dose 324 mg .ROUTE .STK-MED ONE Sodium Chloride Confirm 10/14/17 03:41 Sodium Chloride 0.9% 1000 Ml Administered 10/14/17 03:42 Dose 1,000 mls @ ud .ROUTE .[employer]-MED ONE Lab/Rad Data: Laboratory Result Diagrams 10/14/17 00:40 10/14/17 00:40 Laboratory Results 10/14/17 10/14/17 10/14/17 Range/Units 03:10 00:40 00:40 WBC (4.0-10.5) K/mm3 RBC (4.1-5.6) M/mm3 Hgb (12.5-18.0) gm/dl Hct (42-50) % MCV (78-100) fl MCH (26-32) pg MCHC (32-36) g/dl RDW (11.5-14.0) % Plt Count (150-450) K/mm3 MPV (6-9.5) fl Gran % (36.0-66.0) % Eos # (Auto) (0-0.5) Absolute Lymphs (auto) (1.0-4.6) Absolute Monos (auto) (0.0-1.3) Lymphocytes % (24.0-44.0) % Monocytes % (0.0-12.0) % Eosinophils % (0.00-5.0) % Basophils % (0.0-0.4) % Absolute Granulocytes (1.4-6.9) Basophils # (0-0.4) D-Dimer < 215 L (215-500) ng/mL Sodium (137-145) mmol/L Potassium (3.5-5.1) mmol/L Chloride (98-107) mmol/L Carbon Dioxide (22-30) mmol/L Anion Gap (5-15) MEQ/L BUN (9-20) mg/dL Creatinine (0.66-1.25) mg/dL Estimated GFR ML/MIN Glucose (74-106) mg/dL Calcium (8.4-10.2) mg/dL Total Bilirubin (0.2-1.3) mg/dL AST (17-59) U/L ALT (0-50) U/L Alkaline Phosphatase (38-126) U/L Troponin I < 0.012 < 0.012 (0.000-0.034) ng/mL Serum Total Protein (6.3-8.2) g/dL Albumin (3.5-5.0) g/dL 10/14/17 10/14/17 Range/Units 00:40 00:40 WBC 8.0 (4.0-10.5) K/mm3 RBC 5.36 (4.1-5.6) M/mm3 Hgb 16.1 (12.5-18.0) gm/dl Hct 47.5 (42-50) % MCV 88.6 (78-100) fl MCH 30.0 (26-32) pg MCHC 33.9 (32-36) g/dl RDW 13.1 (11.5-14.0) % Plt Count 188 (150-450) K/mm3 MPV 9.3 (6-9.5) fl Gran % 64.0 (36.0-66.0) % Eos # (Auto) 0.23 (0-0.5) Absolute Lymphs (auto) 2.08 (1.0-4.6) Absolute Monos (auto) 0.52 (0.0-1.3) Lymphocytes % 26.2 (24.0-44.0) % Monocytes % 6.5 (0.0-12.0) % Eosinophils % 2.9 (0.00-5.0) % Basophils % 0.4 (0.0-0.4) % Absolute Granulocytes 5.09 (1.4-6.9) Basophils # 0.03 (0-0.4) D-Dimer (215-500) ng/mL Sodium 143 (137-145) mmol/L Potassium 3.8 (3.5-5.1) mmol/L Chloride 99 (98-107) mmol/L Carbon Dioxide 26 (22-30) mmol/L Anion Gap 21.8 H (5-15) MEQ/L BUN 12 (9-20) mg/dL Creatinine 1.12 (0.66-1.25) mg/dL Estimated GFR > 60.0 ML/MIN Glucose 79 (74-106) mg/dL Calcium 10.5 H (8.4-10.2) mg/dL Total Bilirubin 0.50 (0.2-1.3) mg/dL AST 26 (17-59) U/L ALT 24 (0-50) U/L Alkaline Phosphatase 88 (38-126) U/L Troponin I (0.000-0.034) ng/mL Serum Total Protein 9.6 H (6.3-8.2) g/dL Albumin 5.5 H (3.5-5.0) g/dL - Progress Progress: improved Progress Note: 10/14/17 03:41 47-year-old white male with history of migraines CVA coronary artery disease high blood pressure GERD was had an arachnoid cyst also history of anxiety. Arrives with complaints of headache followed by left-sided chest pain approximately one hour. Patient with a essentially normal EKG initial troponin within normal limits Patient's chemistry shows an increased anion gap of 21 O2 sats are within normal limits CBC within normal limits chest x-ray unremarkable d-dimer is normal limits. Will give patient 1 L of normal saline. Repeat troponin is pending. 10/14/17 04:38 Patient's blood pressure is improved patient has a normal troponin 2 normal EKG normal chest x-ray. Chemistry essentially normal except for elevated anion gap. Patient was given aspirin in the emergency room. Patient given 1 L of fluids. Case is discussed with Dr. Noble Will plan on discharging patient patient to return home plenty of fluids Tylenol every 4 hours as needed for pain follow-up with Dr. Noble call his office to schedule a follow-up. Return for acute distress or for severe symptoms. - Departure Time of Disposition: 04:37 Departure Disposition: Home Clinical Impression: Non-cardiac chest pain, increased anion gap Hypertension Qualifiers: Hypertension type: unspecified Qualified Code(s): I10 - Essential (primary) hypertension Condition: Fair Critical Care Time: No Referrals: TUAN NOBLE MD [Primary Care Provider] - Additional Instructions: Return home, rest. Plenty of fluids. Follow-up with Dr. Noble. Return for acute distress or for severe symptoms. Tylenol every 4 hours as needed for pain.
[2017-10-14 02:49] LABS: BASOPHIL % 0.4 % (0.0-0.4); Basophil (Absolute #) 0.03 (0-0.4); Eosinophil % 2.9 % (0.00-5.0); Eosinophil (Absolute #) 0.23 (0-0.5); Granulocyte Absolute (ANC) 5.09 (1.4-6.9); Hematocrit 47.5 % (42-50); Hemoglobin 16.1 gm/dl (12.5-18.0); Lymphocyte (Absolute #) 2.08 (1.0-4.6); Lymphocytes % 26.2 % (24.0-44.0); Mean Cell Volume 88.6 fl (78-100); Mean Corpuscular Hgb Concent. 33.9 g/dl (32-36); Mean Platelet Volume 9.3 fl (6-9.5); Monocyte (Absolute #) 0.52 (0.0-1.3); Monocytes % 6.5 % (0.0-12.0); Platelet Count 188 K/mm3 (150-450); Red Blood Count 5.36 M/mm3 (4.1-5.6); Red Cell Distribution Width 13.1 % (11.5-14.0)
[2017-10-14 02:52] LABS: ALBUMIN 5.5 g/dL (3.5-5.0); ALKALINE PHOSPHATASE 88 U/L (38-126); BLOOD UREA NITROGEN 12 mg/dL (9-20); CHLORIDE 99 mmol/L (98-107); Calcium 10.5 mg/dL (8.4-10.2); Carbon Dioxide 26 mmol/L (22-30); Creatinine 1 1.12 mg/dL (0.66-1.25); Glucose 79 mg/dL (74-106); Potassium 3.8 mmol/L (3.5-5.1); SGOT/AST 26 U/L (17-59); SGPT/ALT 24 U/L (0-50); SODIUM 143 mmol/L (137-145); Total Protein 9.6 g/dL (6.3-8.2)
[2017-10-14 02:54] LABS: ANION GAP 21.8 MEQ/L (5-15)
[2017-10-14] MEDS: Sodium Chloride 0.9% 1000 ML 1,000 ML IV STA (03:30)
[2017-10-14 03:36] VITALS: O2SAT 100
[2017-10-14] MEDS ORDERED: Sodium Chloride 0.9% 1000 ML 1,000 ML ONE (03:41)
[2017-10-14 04:51] VITALS: BP 149/89; PULSE 56
--- NOTE | 2017-10-14 08:54 | XRAY ---
Indication: Chest pain. Comparison: September 04, 2016. Portable chest underinflated today crowding the lung bases. There remains a few tiny scattered calcified granulomas. No focal infiltrate, consolidation, or large effusion. Heart is not enlarged. Bony thorax intact again with mild degenerative changes. Impression: Nonacute underinflated chest with chronic features.
== END 2017-10-14 05:02 | disposition home or self-care (01) ==
LOC: ED 00:06
DX: R07.89 Other chest pain (principal); I10 Essential (primary) hypertension; R79.89 Other specified abnormal findings of blood chemistry; R51 Headache; Z79.899 Other long term (current) drug therapy
CPT/HCPCS: 36000; 36415; 71045; 80053; 84484; 85025; 85379; 93005; 96360; 99284; A9270-GY

== ENCOUNTER 2018-02-07 18:05 | Emergency (ER) | payer SELFPAY ==
[2018-02-07 18:28] VITALS: O2SAT 99
--- NOTE | 2018-02-07 18:43 | ERPHSYRPT ---
- History of Present Illness Time Seen by Provider: 02/07/18 18:25 Source: patient, family Patient Subjective Stated Complaint: states sinus surgery last thursday and today developed a lump under left eye. slightly tender to touch. Triage Nursing Assessment: small raised red area to left cheek just below eye Physician History: 47 y/o white male presents to ER 5 days after sinus surgery. pt is on norco and keflex. pt concerned about sl red and raised area on left cheek. no increase in pain. no fever. Timing/Duration: gradual onset Severity: mild ENT Location: facial (left cheek) Prearrival Treatment: no prearrival treatment Modifying Factors: Improves With: nothing Associated Symptoms: denies symptoms Allergies/Adverse Reactions: "breathing treatments" Allergy (Severe, Uncoded 02/07/18 18:14) Home Medications: Carvedilol 3.125 mg [Coreg 3.125 MG] 3.125 mg PO BID 09/07/15 [History] Omeprazole 20 MG [Prilosec 20 mg] 20 mg PO DAILY 09/07/15 [History] Fexofenadine HCl [Dominique] 180 mg PO DAILY 04/22/16 [History] Fluticasone Propionate [Flovent Diskus] 50 mcg IH 07/14/17 [History] Sacubitril/Valsartan [Entresto 49 mg-51 mg Tablet] 49 - 52 mg PO BID 10/14/17 [ History] diazePAM [Diazepam] 2 mg PO BID 10/14/17 [History] Hx Tetanus, Diphtheria Vaccination/Date Given: No Hx Influenza Vaccination/Date Given: No Hx Pneumococcal Vaccination/Date Given: Yes - Review of Systems Constitutional: No Symptoms, No Fever, No Chills Eyes: No Symptoms, No Discharge Ears, Nose, & Throat: No Symptoms, No Ear Pain, No Ear Discharge Respiratory: No Symptoms, No Cough, No Dyspnea, No Dyspnea on Exertion (ESTRADA), No Stridor, No Wheezing Cardiac: No Symptoms, No Chest Pain, No Palpitations, No Syncope Abdominal/Gastrointestinal: No Symptoms, No Abdominal Pain, No Nausea, No Vomiting, No Diarrhea Genitourinary Symptoms: No Symptoms, No Dysuria, No Frequency, No Hematuria, No Flank Pain Musculoskeletal: No Symptoms Skin: Other (raised area left cheek) Neurological: No Symptoms Psychological: No Symptoms Endocrine: No Symptoms Hematologic/Lymphatic: No Symptoms Immunological/Allergic: No Symptoms All Other Systems: Reviewed and Negative - Past Medical History Pertinent Past Medical History: Yes Neurological History: Migraines, Stroke ENT History: No Pertinent History Cardiac History: Coronary Artery Disease, Hypertension, Other Respiratory History: No Pertinent History Endocrine Medical History: No Pertinent History Musculoskeletal History: No Pertinent History GI Medical History: GERD History: No Pertinent History Psycho-Social History: No Pertinent History Male Reproductive Disorders: No Pertinent History Other Medical History: arachnoid cyst, hiatal hernia. - Past Surgical History Past Surgical History: Yes Neuro Surgical History: No Pertinent History Cardiac: No Pertinent History Respiratory: No Pertinent History Gastrointestinal: No Pertinent History Genitourinary: No Pertinent History Musculoskeletal: No Pertinent History Male Surgical History: No Pertinent History Other Surgical History: endoscpopy to examine for gastric ulcers as stated per pt; sinus surgery - Social History Smoking Status: Never smoker How long have you smoked: years Exposure to second hand smoke: Yes Drug Use: none Patient Lives Alone: No - Nursing Vital Signs Nursing Vital Signs: Initial Vital Signs Temperature 98 F 02/07/18 18:18 Pulse Rate 66 02/07/18 18:18 Respiratory Rate 16 02/07/18 18:18 Blood Pressure 121/88 02/07/18 18:18 O2 Sat by Pulse Oximetry 99 02/07/18 18:18 Pain Scale Pain Intensity [Left Face] 2 Pain Intensity 2 - Physical Exam General Appearance: no apparent distress, alert Eye Exam: bilateral eye: normal inspection, PERRL, EOMI Ear Exam: bilateral ear: auricle normal Nasal Exam: sinus tenderness (post op) Throat Exam: normal, pharynx normal, No dental tenderness Neck Exam: normal inspection, non-tender, supple, full range of motion, trachea midline Cardiovascular/Respiratory Exam: chest non-tender, normal breath sounds, regular rate/rhythm, heart sounds normal Abdominal Exam: non-tender Neurologic Exam: alert, 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, cooperative, manager of creative services II-XII nml as tested Skin Exam: normal color, warm, dry, other (1cm x 1cm sl raised well circumscribed soft mass well away from surgical site. ? mild localized swelling) SpO2 Interpretation: normal SpO2: 99 Oxygen Delivery: Room Air - Course Nursing assessment & vital signs reviewed: Yes - Progress Progress: unchanged Counseled pt/family regarding: diagnosis, need for follow-up - Departure Time of Disposition: 19:05 Departure Disposition: Home Clinical Impression: Encounter for postoperative wound check Condition: Stable Critical Care Time: No Referrals: TUAN NOBLE MD [Primary Care Provider] - Additional Instructions: continue following postoperative instructions
[2018-02-07 19:11] VITALS: BP 112/85; PULSE 95
== END 2018-02-07 19:12 | disposition home or self-care (01) ==
LOC: ED 18:05
DX: Z48.00 Encounter for change or removal of nonsurgical wound dressing (principal)
CPT/HCPCS: 99283

== ENCOUNTER 2018-02-20 01:06 | Emergency (ER) | payer OTHER ==
--- NOTE | 2018-02-20 01:17 | ERPHSYRPT ---
- History of Present Illness Time Seen by Provider: 02/20/18 01:17 Source: patient, family Exam Limitations: no limitations Physician History: 47 y/o white male presents with right lower extremity discomfort specifically in the calf. denies injury. pt s/p sinus surgery 2 weeks ago. pt here last week with a different postop complaint. pt did not mention any leg issues at that time. Method of Injury: other (no injury. s/p sinus surgery) Occurred: days ago ( a few days ago) Severity of Pain-Max: mild Severity of Pain-Current: mild Lower Extremities Pain: other: right (post calf) Modifying Factors: Improves With: movement Associated Symptoms: No unable to bear weight, No dizzy, No fainted, No seizure , No snapping sensation, No popping sensation Allergies/Adverse Reactions: "breathing treatments" Allergy (Severe, Uncoded 02/07/18 18:14) Home Medications: Carvedilol 3.125 mg [Coreg 3.125 MG] 3.125 mg PO BID 09/07/15 [History] Omeprazole 20 MG [Prilosec 20 mg] 20 mg PO DAILY 09/07/15 [History] Fexofenadine HCl [Dominique] 180 mg PO DAILY 04/22/16 [History] Fluticasone Propionate [Flovent Diskus] 50 mcg IH 07/14/17 [History] Sacubitril/Valsartan [Entresto 49 mg-51 mg Tablet] 49 - 52 mg PO BID 10/14/17 [ History] diazePAM [Diazepam] 2 mg PO BID 10/14/17 [History] Hx Tetanus, Diphtheria Vaccination/Date Given: No Hx Influenza Vaccination/Date Given: No Hx Pneumococcal Vaccination/Date Given: Yes - Review of Systems Constitutional: No Symptoms, No Fever, No Chills Eyes: No Symptoms, No Discharge, No Eye Pain Ears, Nose, & Throat: No Symptoms, No Ear Pain, No Ear Discharge Respiratory: No Symptoms, No Cough, No Dyspnea, No Stridor, No Wheezing Cardiac: No Symptoms, No Chest Pain, No Edema, No Palpitations, No Syncope Abdominal/Gastrointestinal: No Symptoms, No Abdominal Pain, No Nausea, No Vomiting, No Diarrhea Genitourinary Symptoms: No Symptoms, No Dysuria, No Frequency, No Hematuria Musculoskeletal: Other Neurological: No Symptoms, No Gait Changes, No Headache, No Irritability ( tender right calf to palpation) Psychological: Anxiety Endocrine: No Symptoms Hematologic/Lymphatic: No Symptoms Immunological/Allergic: No Symptoms All Other Systems: Reviewed and Negative - Past Medical History Pertinent Past Medical History: Yes Neurological History: Migraines, Stroke ENT History: No Pertinent History Cardiac History: Coronary Artery Disease, Hypertension, Other Respiratory History: No Pertinent History Endocrine Medical History: No Pertinent History Musculoskeletal History: No Pertinent History GI Medical History: GERD History: No Pertinent History Psycho-Social History: No Pertinent History Male Reproductive Disorders: No Pertinent History Other Medical History: arachnoid cyst, hiatal hernia. - Past Surgical History Past Surgical History: Yes Neuro Surgical History: No Pertinent History Cardiac: No Pertinent History Respiratory: No Pertinent History Gastrointestinal: No Pertinent History Genitourinary: No Pertinent History Musculoskeletal: No Pertinent History Male Surgical History: No Pertinent History Other Surgical History: endoscpopy to examine for gastric ulcers as stated per pt; sinus surgery - Social History Smoking Status: Never smoker How long have you smoked: years Exposure to second hand smoke: Yes Drug Use: none Patient Lives Alone: No - Nursing Vital Signs Nursing Vital Signs: Initial Vital Signs Pulse Rate 78 02/20/18 01:06 Respiratory Rate 16 02/20/18 01:06 Blood Pressure 107/72 02/20/18 01:06 O2 Sat by Pulse Oximetry 98 02/20/18 01:06 Pain Scale Pain Intensity 3 - Physical Exam General Appearance: no apparent distress, alert, anxiety Eyes, Ears, Nose, Throat Exam: normal ENT inspection Neck Exam: normal inspection, non-tender, supple, full range of motion Cardiovascular/Respiratory Exam: chest non-tender, normal breath sounds, regular rate/rhythm, heart sounds normal, no respiratory distress Gastrointestinal/Abdominal Exam: non-tender, soft, No guarding Back Exam: normal inspection, normal range of motion, No CVA tenderness, No vertebral tenderness Hips Exam: bilateral: non-tender, normal inspection, normal range of motion, no evidence of injury Legs Exam: bilateral leg: non-tender, normal inspection, normal range of motion , no evidence of injury Knees Exam: bilateral knee: non-tender, normal inspection, normal range of motion, no evidence of injury Ankle Exam: bilateral ankle: non-tender, normal inspection, normal range of motion, no evidence of injury Foot Exam: bilateral foot: non-tender, normal inspection, normal range of motion , no evidence of injury Neuro/Tendon Exam: normal sensation, normal motor functions, normal tendon functions Mental Status Exam: alert, 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, cooperative Skin Exam: normal color, warm, dry SpO2 Interpretation: normal Oxygen Delivery: Room Air - Course Nursing assessment & vital signs reviewed: Yes Ordered Tests: Active Orders 24 hr Category Date Time Status D-DIMER QUANTITATION Stat Lab 02/20/18 01:53 Ordered - Progress Progress: unchanged Counseled pt/family regarding: lab results, diagnosis, need for follow-up - Departure Time of Disposition: 01:53 Departure Disposition: Home Clinical Impression: Musculoskeletal pain Condition: Stable Critical Care Time: No Referrals: TUAN NOBLE MD [Primary Care Provider] - Additional Instructions: ambulate often at home. follow up with primary doctor for further management
[2018-02-20 02:21] VITALS: BP 102/68; PULSE 74; O2SAT 99
== END 2018-02-20 02:38 | disposition home or self-care (01) ==
LOC: ED 01:06
DX: M79.1 Myalgia (principal); Z79.899 Other long term (current) drug therapy; Z98.890 Other specified postprocedural states
CPT/HCPCS: 36415; 85379; 99283

== ENCOUNTER 2018-03-06 23:26 | Emergency (ER) | payer OTHER ==
[2018-03-06 23:39] VITALS: O2SAT 100
[2018-03-06] MEDS ORDERED: MORPHINE SULFATE 4 MG INJ IM ONE (23:48)
[2018-03-06] MEDS ORDERED: AMOXIL 500 MG PO ONE (23:49)
[2018-03-06] MEDS ORDERED: MORPHINE SULFATE 4 MG INJ ONE (23:51)
[2018-03-06] MEDS ORDERED: AMOXIL 500 MG ONE (23:51)
--- NOTE | 2018-03-06 23:55 | ERPHSYRPT ---
- History of Present Illness Time Seen by Provider: 03/06/18 23:43 Source: patient Exam Limitations: no limitations Patient Subjective Stated Complaint: Toothache on the left upper side Triage Nursing Assessment: Pt c/o of toothache pain on left side of mouth that started on the top but now the entire left side hurts, pain began last night, BP 173/117, afebrile, rates pain 8/10, hand on face guarding cheek, no other issues at this time Physician History: 47-year-old white male arrives with complaint of a toothache since yesterday evening. Patient states the pain began near his left upper incisor yesterday evening and has progressed to include a the left anterior maxillary teeth. Patient with history of dental caries. Past medical history includes migraines, stroke, coronary artery disease, high blood pressure, GERD, arachnoid cyst, hiatal hernia. Past surgical history includes endoscopy. Patient is a former smoker he does chew tobacco. Patient denies alcohol or illicit drug use. Timing/Duration: yesterday Severity: moderate Modifying Factors: Improves With: nothing Associated Symptoms: No nausea, No vomiting, No abdominal pain, No shortness of breath, No heartburn, No diaphoresis, No cough, No chills, No chest pain, No fever, No headaches, No loss of appetite, No malaise, No rash, No syncope, No seizure, No weakness Allergies/Adverse Reactions: "breathing treatments" Allergy (Severe, Uncoded 02/07/18 18:14) Home Medications: Carvedilol 3.125 mg [Coreg 3.125 MG] 12.5 mg PO BID 09/07/15 [History] Omeprazole 20 MG [Prilosec 20 mg] 20 mg PO DAILY 09/07/15 [History] Fexofenadine HCl [Dominique] 180 mg PO DAILY 04/22/16 [History] Fluticasone Propionate [Flovent Diskus] 50 mcg IH BID 07/14/17 [History] Sacubitril/Valsartan [Entresto 49 mg-51 mg Tablet] 49 - 52 mg PO BID 10/14/17 [ History] diazePAM [Diazepam] 2 mg PO BID 10/14/17 [History] Hx Tetanus, Diphtheria Vaccination/Date Given: No Hx Influenza Vaccination/Date Given: No Hx Pneumococcal Vaccination/Date Given: Yes - Review of Systems Constitutional: No Fever, No Chills Eyes: No Symptoms Ears, Nose, & Throat: Mouth Pain, No Ear Pain, No Ear Discharge, No Hearing Changes, No Tinnitus, No Nose Pain, No Nose Congestion, No Nose Discharge, No Sinus Drainage, No Epistaxis (acute), No Mouth Swelling, No Loose Teeth, No Throat Pain, No Throat Swelling, No Hoarse, No Painful Swallowing, No Snoring, No Stridor Respiratory: No Cough, No Dyspnea Cardiac: No Chest Pain, No Edema, No Syncope Abdominal/Gastrointestinal: No Abdominal Pain, No Nausea, No Vomiting, No Diarrhea Genitourinary Symptoms: No Dysuria Musculoskeletal: No Back Pain, No Neck Pain Skin: No Rash Neurological: No Dizziness, No Focal Weakness, No Sensory Changes Psychological: No Symptoms Endocrine: No Symptoms All Other Systems: Reviewed and Negative - Past Medical History Pertinent Past Medical History: Yes Neurological History: Migraines, Stroke ENT History: No Pertinent History Cardiac History: Coronary Artery Disease, Hypertension, Other Respiratory History: No Pertinent History Endocrine Medical History: No Pertinent History Musculoskeletal History: No Pertinent History GI Medical History: GERD History: No Pertinent History Psycho-Social History: No Pertinent History Male Reproductive Disorders: No Pertinent History Other Medical History: arachnoid cyst, hiatal hernia. - Past Surgical History Past Surgical History: Yes Neuro Surgical History: No Pertinent History Cardiac: No Pertinent History Respiratory: No Pertinent History Gastrointestinal: No Pertinent History Genitourinary: No Pertinent History Musculoskeletal: No Pertinent History Male Surgical History: No Pertinent History Other Surgical History: endoscpopy to examine for gastric ulcers as stated per pt; sinus surgery - Social History Smoking Status: Former smoker How long have you smoked: years Exposure to second hand smoke: Yes Drug Use: none Patient Lives Alone: No - Nursing Vital Signs Nursing Vital Signs: Initial Vital Signs Temperature 97.9 F 03/06/18 23:31 Pulse Rate 60 03/06/18 23:31 Blood Pressure 173/117 03/06/18 23:31 O2 Sat by Pulse Oximetry 100 03/06/18 23:31 Pain Scale Pain Intensity 8 - Physical Exam General Appearance: mild distress Eye Exam: PERRL/EOMI, eyes nml inspection, other (fundi are unremarkable) Ears, Nose, Throat Exam: normal ENT inspection, TMs normal, pharynx normal, moist mucous membranes, other (patient with poor dentition left maxillary incisor tender) Neck Exam: normal inspection, non-tender, supple, full range of motion Respiratory Exam: normal breath sounds, lungs clear, No respiratory distress Cardiovascular Exam: regular rate/rhythm, normal heart sounds, normal peripheral pulses Gastrointestinal/Abdomen Exam: soft, normal bowel sounds, No tenderness, No mass Back Exam: normal inspection, normal range of motion, No CVA tenderness, No vertebral tenderness Extremity Exam: normal inspection, normal range of motion, pelvis stable Neurologic Exam: alert, 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, cooperative, web applications architect II-XII nml as tested, normal mood/affect, nml cerebellar function, nml station & gait, sensation nml, No motor deficits Skin Exam: normal color, warm, dry, No rash Lymphatic Exam: No adenopathy SpO2 Interpretation: normal (100%) SpO2: 100 Oxygen Delivery: Room Air - Course Nursing assessment & vital signs reviewed: Yes Ordered Tests: Medication Summary Discontinued Medications Generic Name Dose Route Start Last Admin Trade Name Priteshq PRN Reason Stop Dose Admin Amoxicillin 500 mg 03/06/18 23:49 03/06/18 23:52 Amoxil 500 Mg PO 03/06/18 23:50 500 mg STAT ONE Administration Amoxicillin Confirm 03/06/18 23:51 Amoxil 500 Mg Administered 03/06/18 23:52 Dose 500 mg .ROUTE .STK-MED ONE Morphine Sulfate 4 mg 03/06/18 23:48 03/06/18 23:53 Morphine Sulfate 4 Mg Inj IM 03/06/18 23:49 4 mg STAT ONE Administration Morphine Sulfate Confirm 03/06/18 23:51 Morphine Sulfate 4 Mg Inj Administered 03/06/18 23:52 Dose 4 mg .ROUTE .STK-MED ONE - Progress Progress: improved Progress Note: 03/06/18 23:52 Patient with carious tooth and dental pain symptoms since last night. Patient states the pain began in the left maxillary central incisors and radiated to the other anterior lateral left maxillary teeth. Patient with extremely poor dentition patient does chew tobacco. Patient's blood pressure is markedly elevated today however he states he saw his family doctor yesterday it was normal likely blood pressure elevation secondary to pain. Will go ahead and give patient morphine 4 mg IM amoxicillin 500 mg by mouth. Will send patient home with amoxicillin 500 mg orally 3 times a day for 10 days also will send patient home with a small amount of Depue. Patient denies substance abuse or dependency. check inspect was queried patient without any recent narcotic prescriptions. 03/07/18 00:38 Patient feeling better states she is pain-free. Blood pressure still elevated however patient states he plans to take his entresto and carvedilol when he gets home. Will discharge. - Departure Time of Disposition: 00:39 Departure Disposition: Home Clinical Impression: Pain, dental, Dental caries Condition: Fair Critical Care Time: No Referrals: TUAN NOBLE MD [Primary Care Provider] - Additional Instructions: Return home. Amoxicillin as prescribed. Depue as prescribed. Chewing tobacco is hazardous to your health you should stop. Follow-up with your dentist. Return for acute distress or for severe symptoms. Prescriptions: Amoxicillin 500 mg PO TID #30 capsule Hydrocodone/Acetaminophen [Depue 5-325 Tablet] 1 each PO Q4-6HPRN PRN #12 tablet MDD 6 tablets PRN Reason: Pain
[2018-03-07 00:54] VITALS: BP 159/106; PULSE 68
== END 2018-03-07 00:57 | disposition home or self-care (01) ==
LOC: ED 23:26
DX: K08.89 Other specified disorders of teeth and supporting structures (principal); K02.9 Dental caries, unspecified; Z79.899 Other long term (current) drug therapy
CPT/HCPCS: 96372; 99283; J2270; A9270-GY

== ENCOUNTER 2018-03-19 21:13 | Emergency (ER) | payer OTHER ==
--- NOTE | 2018-03-19 22:02 | ERPHSYRPT ---
- History of Present Illness Time Seen by Provider: 03/19/18 21:52 Source: patient, family Exam Limitations: no limitations Patient Subjective Stated Complaint: pt is alert and oriented. pt is ambulatory. pt comes in with c/o sob since 1915. pt was working at the time of onset. pt also has c/o dizziness, lightheadedness, headache, left arm and leg numbness and tingling, left "breast area" pain. pt radial pulses equal. no diaphoresis noted. Triage Nursing Assessment: see above Physician History: The patient is a 47-year-old male with his complaining that while working at [employer] this evening around 7:15 PM he became lightheaded and felt like he might pass out, blurry vision, nauseated, trembling, and headache. He tried to rest for several minutes and finally after 2 hours he left work to come into the ER. He has a history of migraine headaches and states this is similar. He had a heart catheterization in 2014 that was "clean". He has a past medical history of migraine headaches, intracranial arachnoid cyst, stable aortic aneurysm, hypertension, and COPD. Timing/Duration: today, hour(s) (2), sudden, improved Severity: moderate Modifying Factors: Improves With: nothing Associated Symptoms: nausea, shortness of breath, syncope (near syncope) Allergies/Adverse Reactions: "breathing treatments" Allergy (Severe, Uncoded 02/07/18 18:14) Home Medications: Carvedilol 3.125 mg [Coreg 3.125 MG] 12.5 mg PO BID 09/07/15 [History] Omeprazole 20 MG [Prilosec 20 mg] 20 mg PO DAILY 09/07/15 [History] Fexofenadine HCl [Dominique] 180 mg PO DAILY 04/22/16 [History] Fluticasone Propionate [Flovent Diskus] 50 mcg IH BID 07/14/17 [History] Sacubitril/Valsartan [Entresto 49 mg-51 mg Tablet] 49 - 51 mg PO BID 10/14/17 [ History] diazePAM [Diazepam] 2 mg PO BID 10/14/17 [History] Hx Tetanus, Diphtheria Vaccination/Date Given: No Hx Influenza Vaccination/Date Given: No Hx Pneumococcal Vaccination/Date Given: Yes Immunizations Up to Date: Yes - Review of Systems Constitutional: No Fever, No Chills Eyes: No Symptoms Ears, Nose, & Throat: No Symptoms Respiratory: Dyspnea on Exertion (ESTRADA) (mild) Cardiac: No Chest Pain, No Edema, No Syncope Abdominal/Gastrointestinal: Nausea Genitourinary Symptoms: No Dysuria Musculoskeletal: No Back Pain, No Neck Pain Skin: No Rash Neurological: No Dizziness, No Focal Weakness, No Sensory Changes Psychological: No Symptoms Endocrine: No Symptoms Hematologic/Lymphatic: No Symptoms Immunological/Allergic: No Symptoms All Other Systems: Reviewed and Negative - Past Medical History Pertinent Past Medical History: Yes Neurological History: Migraines, Stroke ENT History: No Pertinent History Cardiac History: Coronary Artery Disease, Hypertension, Other Respiratory History: No Pertinent History Endocrine Medical History: No Pertinent History Musculoskeletal History: No Pertinent History GI Medical History: GERD History: No Pertinent History Psycho-Social History: No Pertinent History Male Reproductive Disorders: No Pertinent History Other Medical History: arachnoid cyst, hiatal hernia. respiratory arrest 2016 after "breathing treatment". - Past Surgical History Past Surgical History: Yes Neuro Surgical History: No Pertinent History Cardiac: No Pertinent History Respiratory: No Pertinent History Gastrointestinal: No Pertinent History Genitourinary: No Pertinent History Musculoskeletal: No Pertinent History Male Surgical History: No Pertinent History Other Surgical History: endoscpopy to examine for gastric ulcers as stated per pt; sinus surgery - Social History Smoking Status: Former smoker How long have you smoked: years Exposure to second hand smoke: Yes Drug Use: none Patient Lives Alone: No - Nursing Vital Signs Nursing Vital Signs: Initial Vital Signs Temperature 97.7 F 03/19/18 21:14 Pulse Rate 63 03/19/18 21:14 Respiratory Rate 16 03/19/18 21:14 Blood Pressure 184/98 03/19/18 21:14 O2 Sat by Pulse Oximetry 100 03/19/18 21:14 Pain Scale Pain Intensity 6 - Physical Exam General Appearance: no apparent distress, alert Eye Exam: PERRL/EOMI, eyes nml inspection Ears, Nose, Throat Exam: normal ENT inspection, TMs normal, pharynx normal, moist mucous membranes Neck Exam: normal inspection, non-tender, supple, full range of motion Respiratory Exam: normal breath sounds, lungs clear, No respiratory distress Cardiovascular Exam: regular rate/rhythm, normal heart sounds, normal peripheral pulses Gastrointestinal/Abdomen Exam: soft, normal bowel sounds, No tenderness, No mass Rectal Exam: not done Back Exam: normal inspection, normal range of motion, No CVA tenderness, No vertebral tenderness Extremity Exam: normal inspection, normal range of motion, pelvis stable Neurologic Exam: alert, 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, cooperative, normal mood/affect, nml cerebellar function, nml station & gait, sensation nml, No motor deficits Skin Exam: normal color, warm, dry, No rash Lymphatic Exam: No adenopathy SpO2 Interpretation: normal SpO2: 100 Oxygen Delivery: Room Air - Course EKG Interpreted by Me: RATE, Sinus Rhythm, NORMAL AXIS, NORMAL INTERVALS, NORMAL QRS, NORMAL ST-T, Other (no changes compared to EKG from 10/14/17.) - Radiology Exams Chest X-ray Interpretation: Interpreted by me, Negative (stable nonacute under inflated chest, comp 1V chest 10/14/17.) Ordered Tests: Active Orders 24 hr Category Date Time Status EKG-ER Only STAT Care 03/19/18 22:06 Active IV Insertion STAT Care 03/19/18 22:06 Active Orthostatic Vital Signs STAT Care 03/19/18 22:07 Active CHEST 2 VIEWS (PA AND LAT) Stat Exams 03/19/18 22:06 Taken CBC W DIFF Stat Lab 03/19/18 22:00 Completed CMP Stat Lab 03/19/18 22:00 Completed TROPONIN Q3H Lab 03/19/18 22:00 Completed TROPONIN Q3H Lab 03/20/18 01:15 Ordered TROPONIN Q3H Lab 03/20/18 04:15 Ordered TROPONIN Q3H Lab 03/20/18 07:15 Ordered TROPONIN Q3H Lab 03/20/18 10:15 Ordered Medication Summary Discontinued Medications Generic Name Dose Route Start Last Admin Trade Name Freq PRN Reason Stop Dose Admin Sodium Chloride 1,000 mls @ 999 mls/hr 03/19/18 22:06 03/19/18 22:35 Sodium Chloride 0.9% 1000 Ml IV 03/19/18 23:06 999 mls/hr .Q1H1M STA Administration Sodium Chloride Confirm 03/19/18 22:30 Sodium Chloride 0.9% 1000 Ml Administered 03/19/18 22:31 Dose 1,000 mls @ ud .ROUTE .STK-MED ONE Ketorolac Tromethamine 30 mg 03/19/18 22:06 03/19/18 22:35 Toradol 30 Mg Injection IV 03/19/18 22:07 30 mg STAT ONE Administration Ketorolac Tromethamine Confirm 03/19/18 22:30 Toradol 30 Mg Injection Administered 03/19/18 22:31 Dose 30 mg .ROUTE .STK-MED ONE Promethazine HCl 25 mg 03/19/18 22:06 03/19/18 22:36 Phenergan 25 Mg Inj IV 03/19/18 22:07 25 mg STAT ONE Administration Promethazine HCl Confirm 03/19/18 22:30 Phenergan 25 Mg Inj Administered 03/19/18 22:31 Dose 25 mg .ROUTE .STK-MED ONE Lab/Rad Data: Laboratory Result Diagrams 03/19/18 22:00 03/19/18 22:00 Laboratory Results 03/19/18 03/19/18 03/19/18 Range/Units 22:00 22:00 22:00 WBC 7.8 (4.0-10.5) K/mm3 RBC 4.88 (4.1-5.6) M/mm3 Hgb 14.6 (12.5-18.0) gm/dl Hct 44.2 (42-50) % MCV 90.6 (78-100) fl MCH 29.9 (26-32) pg MCHC 33.0 (32-36) g/dl RDW 13.9 (11.5-14.0) % Plt Count 190 (150-450) K/mm3 MPV 9.4 (6-9.5) fl Gran % 64.5 (36.0-66.0) % Eos # (Auto) 0.25 (0-0.5) Absolute Lymphs (auto) 1.92 (1.0-4.6) Absolute Monos (auto) 0.58 (0.0-1.3) Lymphocytes % 24.7 (24.0-44.0) % Monocytes % 7.5 (0.0-12.0) % Eosinophils % 3.2 (0.00-5.0) % Basophils % 0.1 (0.0-0.4) % Absolute Granulocytes 5.00 (1.4-6.9) Basophils # 0.01 (0-0.4) Sodium 141 (137-145) mmol/L Potassium 4.6 (3.5-5.1) mmol/L Chloride 100 (98-107) mmol/L Carbon Dioxide 29 (22-30) mmol/L Anion Gap 15.5 H (5-15) MEQ/L BUN 11 (9-20) mg/dL Creatinine 1.14 (0.66-1.25) mg/dL Estimated GFR > 60.0 ML/MIN Glucose 87 (74-106) mg/dL Calcium 10.0 (8.4-10.2) mg/dL Total Bilirubin 0.50 (0.2-1.3) mg/dL AST 25 (17-59) U/L ALT 17 (0-50) U/L Alkaline Phosphatase 76 (38-126) U/L Troponin I < 0.012 (0.000-0.034) ng/mL Serum Total Protein 8.8 H (6.3-8.2) g/dL Albumin 5.4 H (3.5-5.0) g/dL - Progress Progress: improved Counseled pt/family regarding: lab results, diagnosis, need for follow-up, rad results - Departure Time of Disposition: 23:24 Departure Disposition: Home Clinical Impression: Headache, Dizziness Condition: Stable Critical Care Time: No Referrals: TUAN NOBLE MD [Primary Care Provider] - Additional Instructions: You had a headache and dizziness that we treated with Toradol 30 mg, Phenergan 25 mg, and fluids by IV in the ER. Your laboratory results including an evaluation of the heart were all normal. Follow-up with your primary medical doctor early next week.
[2018-03-19] MEDS ORDERED: Sodium Chloride 0.9% 1000 ML 1,000 ML IV STA (22:06)
[2018-03-19] MEDS ORDERED: Phenergan 25 MG INJ IV ONE (22:06)
[2018-03-19] MEDS ORDERED: TORAdol 30 mg Injection IV ONE (22:06)
[2018-03-19 22:14] LABS: BASOPHIL % 0.1 % (0.0-0.4); Basophil (Absolute #) 0.01 (0-0.4); Eosinophil % 3.2 % (0.00-5.0); Eosinophil (Absolute #) 0.25 (0-0.5); Granulocytes % 64.5 % (36.0-66.0); Hematocrit 44.2 % (42-50); Hemoglobin 14.6 gm/dl (12.5-18.0); Lymphocyte (Absolute #) 1.92 (1.0-4.6); Lymphocytes % 24.7 % (24.0-44.0); Mean Cell Volume 90.6 fl (78-100); Mean Corpuscular Hemoglobin 29.9 pg (26-32); Mean Platelet Volume 9.4 fl (6-9.5); Monocyte (Absolute #) 0.58 (0.0-1.3); Monocytes % 7.5 % (0.0-12.0); Platelet Count 190 K/mm3 (150-450); Red Blood Count 4.88 M/mm3 (4.1-5.6); Red Cell Distribution Width 13.9 % (11.5-14.0); White Blood Count 7.8 K/mm3 (4.0-10.5)
[2018-03-19 22:23] LABS: ALBUMIN 5.4 g/dL (3.5-5.0); ALKALINE PHOSPHATASE 76 U/L (38-126); ANION GAP 15.5 MEQ/L (5-15); BLOOD UREA NITROGEN 11 mg/dL (9-20); CHLORIDE 100 mmol/L (98-107); Carbon Dioxide 29 mmol/L (22-30); Creatinine 1 1.14 mg/dL (0.66-1.25); Glucose 87 mg/dL (74-106); Potassium 4.6 mmol/L (3.5-5.1); SGOT/AST 25 U/L (17-59); SGPT/ALT 17 U/L (0-50); SODIUM 141 mmol/L (137-145); Total Protein 8.8 g/dL (6.3-8.2)
[2018-03-19] MEDS ORDERED: Sodium Chloride 0.9% 1000 ML 1,000 ML ONE (22:30)
[2018-03-19] MEDS ORDERED: Phenergan 25 MG INJ ONE (22:30)
[2018-03-19] MEDS ORDERED: TORAdol 30 mg Injection ONE (22:30)
[2018-03-19 23:54] VITALS: BP 135/88; PULSE 65; O2SAT 97
--- NOTE | 2018-03-20 07:45 | XRAY ---
Indication: Dizziness. Comparison: October 14, 2017. AP/lateral chest remains slightly underinflated without focal infiltrate, consolidation, or large effusion. Heart and mediastinal structures within normal limits. Bony thorax intact again with mild degenerative changes. Impression: Stable nonacute underinflated chest with chronic features.
== END 2018-03-19 23:57 | disposition home or self-care (01) ==
LOC: ED 21:13
DX: R51 Headache (principal); R42 Dizziness and giddiness; R06.02 Shortness of breath; R55 Syncope and collapse; I10 Essential (primary) hypertension; Z79.899 Other long term (current) drug therapy; I25.10 Atherosclerotic heart disease of native coronary artery without angina pectoris
CPT/HCPCS: 36000; 36415; 71046; 80053; 84484; 85025; 93005; 96360; 96374; 96375; 99284; J1885; J2550

== ENCOUNTER 2018-07-19 21:19 | Emergency (ER) | payer OTHER ==
[2018-07-19 21:38] VITALS: O2SAT 100
--- NOTE | 2018-07-19 21:42 | ERPHSYRPT ---
- History of Present Illness Time Seen by Provider: 07/19/18 21:35 Source: patient, family Exam Limitations: no limitations Patient Subjective Stated Complaint: pt states he has had a migraine for the last 4 days. states he has been nauseated for the last 4 days and dry heaving today Triage Nursing Assessment: pt alert and oriented, asnwers questions approp. pt ambulatoryw ith steady gait noted. respirations nonlabored with lungs cta. occasiobnal nonproductive cough noted. pupils equal and reactive. bilat uopper and lower ext strength wnl and equal Physician History: 48 y/o white male presents with 3 to 4 days h/o typical migraine. pt has a cough and pt is being tx for this. his migraine meds are not working. pt has had mild photophobia and n/v. denies cp, abd pain. denies neck pain. denies fever. Timing/Duration: day(s) (3 to 4) Quality: aching, throbbing Head Pain Location: frontal Severity of Pain-Max: moderate Severity of Pain-Current: moderate Recent Head Trauma: no recent headache/trauma, occasional headaches Associated Symptoms: nausea/vomiting, sensitive to light, No confusion, No dizziness, No loss of consciousness, No neck pain Previous symptoms: no recent treatment Allergies/Adverse Reactions: albuterol Allergy (Verified 07/19/18 21:39) Home Medications: Omeprazole 20 MG [Prilosec 20 mg] 20 mg PO DAILY 09/07/15 [History] Fexofenadine HCl [Dominique] 180 mg PO DAILY 04/22/16 [History] Fluticasone Propionate [Flovent Diskus] 50 mcg IH BID 07/14/17 [History] Sacubitril/Valsartan [Entresto 49 mg-51 mg Tablet] 49 - 51 mg PO BID 10/14/17 [ History] diazePAM [Diazepam] 2 mg PO BID 10/14/17 [History] Cephalexin Mh 500 mg [Keflex 500 mg] 500 mg PO QID 07/19/18 [History] Propranolol HCl [Inderal Xl] 80 mg PO HS 07/19/18 [History] Hx Tetanus, Diphtheria Vaccination/Date Given: No Hx Influenza Vaccination/Date Given: No Hx Pneumococcal Vaccination/Date Given: No Immunizations Up to Date: No - Review of Systems Constitutional: No Symptoms Eyes: Photophobia Ears, Nose, & Throat: No Symptoms Respiratory: Cough Cardiac: No Symptoms, No Chest Pain, No Palpitations, No Syncope Abdominal/Gastrointestinal: No Symptoms, No Abdominal Pain, No Nausea, No Vomiting, No Diarrhea Genitourinary Symptoms: No Symptoms, No Dysuria, No Frequency, No Hematuria Musculoskeletal: No Symptoms Skin: No Symptoms Neurological: No Symptoms Psychological: No Symptoms Endocrine: No Symptoms Hematologic/Lymphatic: No Symptoms Immunological/Allergic: No Symptoms All Other Systems: Reviewed and Negative - Past Medical History Pertinent Past Medical History: Yes Neurological History: Migraines, Stroke ENT History: No Pertinent History Cardiac History: Coronary Artery Disease, Hypertension, Other Respiratory History: No Pertinent History Endocrine Medical History: No Pertinent History Musculoskeletal History: No Pertinent History GI Medical History: GERD History: No Pertinent History Psycho-Social History: No Pertinent History Male Reproductive Disorders: No Pertinent History Other Medical History: arachnoid cyst, hiatal hernia. respiratory arrest 2016 after "breathing treatment". - Past Surgical History Past Surgical History: Yes Neuro Surgical History: No Pertinent History Cardiac: No Pertinent History Respiratory: No Pertinent History Gastrointestinal: No Pertinent History Genitourinary: No Pertinent History Musculoskeletal: No Pertinent History Male Surgical History: No Pertinent History Other Surgical History: endoscpopy to examine for gastric ulcers as stated per pt; sinus surgery - Social History Smoking Status: Former smoker How long have you smoked: years Exposure to second hand smoke: Yes Drug Use: none Patient Lives Alone: No - Nursing Vital Signs Nursing Vital Signs: Initial Vital Signs Temperature 97.5 F 07/19/18 21:28 Pulse Rate 63 07/19/18 21:28 Respiratory Rate 18 07/19/18 21:28 Blood Pressure 136/80 07/19/18 21:28 O2 Sat by Pulse Oximetry 100 07/19/18 21:28 Pain Scale Pain Intensity 5 - Physical Exam General Appearance: mild distress, alert, anxiety Eye Exam: PERRL/EOMI, eyes nml inspection Ears, Nose, Throat Exam: normal ENT inspection, moist mucous membranes Neck Exam: normal inspection, non-tender, supple, full range of motion Respiratory Exam: normal breath sounds, lungs clear, airway intact, No chest tenderness, No respiratory distress, No accessory muscle use, No rhonchi, No wheezing, No stridor Cardiovascular Exam: regular rate/rhythm, normal heart sounds, normal peripheral pulses Gastrointestinal/Abdominal Exam: soft, normal bowel sounds, No tenderness, No guarding, No rebound Back Exam: normal inspection, normal range of motion, No CVA tenderness, No vertebral tenderness Extremity Exam: normal inspection, normal range of motion, pelvis stable Mental Status Exam: alert, 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, cooperative warper tender Exam: normal hearing, normal speech, PERRL, tongue midline Coordination/Gait Exam: normal finger to nose, normal gait Motor/Sensory Exam: no motor deficit, no sensory deficit, no pronator drift Skin Exam: normal color, warm, dry Lymphatic Exam: No adenopathy SpO2 Interpretation: normal SpO2: 100 O2 Delivery: Room Air - Course Nursing assessment & vital signs reviewed: Yes Ordered Tests: Medication Summary Discontinued Medications Generic Name Dose Route Start Last Admin Trade Name Priteshq PRN Reason Stop Dose Admin Hydromorphone HCl 1 mg 07/19/18 21:57 Hydromorphone 1 Mg/Ml Ampule IM 07/19/18 21:58 STAT ONE Promethazine HCl 25 mg 07/19/18 21:57 Phenergan 25 Mg Inj IM 07/19/18 21:58 STAT ONE - Progress Progress: re-examined, unchanged Air Movement: good Blood Culture(s) Obtained: No Antibiotics given: No Counseled pt/family regarding: diagnosis, need for follow-up - Departure Time of Disposition: 22:05 Departure Disposition: Home Clinical Impression: Migraine headache Condition: Stable Critical Care Time: No Referrals: TUAN NOBLE MD [Primary Care Provider] - Additional Instructions: follow up with primary doctor for further management.
[2018-07-19] MEDS ORDERED: Hydromorphone 1 mg/ml Ampule IM ONE (21:57)
[2018-07-19] MEDS ORDERED: Phenergan 25 MG INJ IM ONE (21:57)
[2018-07-19] MEDS ORDERED: Hydromorphone 1 mg/ml Ampule ONE (22:05)
[2018-07-19] MEDS ORDERED: Phenergan 25 MG INJ ONE (22:05)
[2018-07-19 22:26] VITALS: BP 104/72; PULSE 60
== END 2018-07-19 22:40 | disposition home or self-care (01) ==
LOC: ED 21:19
DX: G43.909 Migraine, unspecified, not intractable, without status migrainosus (principal); I10 Essential (primary) hypertension; I25.10 Atherosclerotic heart disease of native coronary artery without angina pectoris; K21.9 Gastro-esophageal reflux disease without esophagitis; Z86.73 Personal history of transient ischemic attack (TIA), and cerebral infarction without residual deficits; Z79.899 Other long term (current) drug therapy
CPT/HCPCS: 96372; 99284; J1170; J2550

== ENCOUNTER 2018-12-03 17:52 | Emergency (ER) | payer MEDICAID, OTHER ==
[2018-12-03] MEDS ORDERED: Sodium Chloride 0.9% 1000 ML 1,000 ML IV SCH (18:15)
[2018-12-03] MEDS ORDERED: TYLENOL 325 MG PO STA (18:21)
--- NOTE | 2018-12-03 18:28 | ERPHSYRPT ---
- History of Present Illness Time Seen by Provider: 12/03/18 18:00 Source: patient Exam Limitations: clinical condition Patient Subjective Stated Complaint: states he was dizzy at work and felt like he was going to pass out Triage Nursing Assessment: pt alert and oriented x3, able to ambulate by self, gait was steady, removed his own socks shoes and shirt with no difficulties. skin warm dry and intact, pupils perrla2, Physician History: PATIENT WITH A HISTORY OF CHRONIC MIGRAINE HEADACHE AND DIZZINESS COMPLAINS OF FRONTAL HEADACHE ONSET SINCE 1629 LOCALIZED TO RIGHT FRONTAL SINUS AND ONSET OF DIZZINESS 1 HOUR PRIOR TO ARRIVAL. FELT LIKE HE WAS GOING TO PAST. PRESENTLY EVALUATED BY NEUROLOGIST AND TREATED WITH PROPANOLOL, BRAIN MRI IN PAST CONSISTENT WITH ARACHNOID CYST. HAS A HISTORY OF HEADACHES AND DIZZINESS DAILY. DENIES BLURRED VISION, SLURRED SPEECH, FOCAL NUMBNESS, TINGLING OR WEAKNESS IN EXTREMITIES. Timing/Duration: today Severity: moderate Modifying Factors: Improves With: movement Associated Symptoms: other (FRONTAL HEADACHE WITH DIZZINESS, FELT LIKE ROOM SPINNING) Allergies/Adverse Reactions: albuterol Allergy (Verified 07/19/18 21:39) Home Medications: Omeprazole 20 MG [Prilosec 20 mg] 20 mg PO DAILY 09/07/15 [History] Fexofenadine HCl [Dominique] 180 mg PO DAILY 04/22/16 [History] Fluticasone Propionate [Flovent Diskus] 50 mcg IH BID 07/14/17 [History] Sacubitril/Valsartan [Entresto 49 mg-51 mg Tablet] 49 - 51 mg PO BID 10/14/17 [ History] diazePAM [Diazepam] 2 mg PO BID 10/14/17 [History] Cephalexin Mh 500 mg [Keflex 500 mg] 500 mg PO QID 07/19/18 [History] Propranolol HCl [Inderal Xl] 80 mg PO HS 07/19/18 [History] Hx Tetanus, Diphtheria Vaccination/Date Given: Yes Hx Influenza Vaccination/Date Given: No Hx Pneumococcal Vaccination/Date Given: No Immunizations Up to Date: Yes - Review of Systems Constitutional: No Fever, No Chills Eyes: No Symptoms Ears, Nose, & Throat: No Symptoms Respiratory: No Symptoms, No Cough, No Dyspnea Cardiac: No Symptoms, No Chest Pain, No Edema, No Syncope Abdominal/Gastrointestinal: No Symptoms, No Abdominal Pain, No Nausea, No Vomiting, No Diarrhea Genitourinary Symptoms: No Symptoms, No Dysuria Musculoskeletal: No Symptoms, No Back Pain, No Neck Pain Skin: Skin Lesions, No Rash Neurological: Dizziness, Headache, No Focal Weakness, No Sensory Changes Psychological: No Symptoms Endocrine: No Symptoms Hematologic/Lymphatic: No Symptoms Immunological/Allergic: No Symptoms All Other Systems: Reviewed and Negative - Past Medical History Pertinent Past Medical History: Yes Neurological History: Migraines, Stroke ENT History: No Pertinent History Cardiac History: Coronary Artery Disease, Hypertension, Other Respiratory History: No Pertinent History Endocrine Medical History: No Pertinent History Musculoskeletal History: No Pertinent History GI Medical History: GERD History: No Pertinent History Psycho-Social History: No Pertinent History Male Reproductive Disorders: No Pertinent History Other Medical History: arachnoid cyst, hiatal hernia. respiratory arrest 2016 after "breathing treatment". - Past Surgical History Past Surgical History: Yes Neuro Surgical History: No Pertinent History Cardiac: No Pertinent History Respiratory: No Pertinent History Gastrointestinal: No Pertinent History Genitourinary: No Pertinent History Musculoskeletal: No Pertinent History Male Surgical History: No Pertinent History Other Surgical History: endoscpopy to examine for gastric ulcers as stated per pt; sinus surgery - Social History Smoking Status: Former smoker How long have you smoked: years Exposure to second hand smoke: Yes Drug Use: none Patient Lives Alone: No - Nursing Vital Signs Nursing Vital Signs: Initial Vital Signs Temperature 97.8 F 12/03/18 17:53 Pulse Rate 58 L 12/03/18 17:53 Respiratory Rate 18 12/03/18 17:53 Blood Pressure 153/91 12/03/18 17:53 O2 Sat by Pulse Oximetry 99 12/03/18 17:53 Pain Scale Pain Intensity 5 - Physical Exam General Appearance: no apparent distress, alert Eye Exam: PERRL/EOMI, eyes nml inspection Ears, Nose, Throat Exam: normal ENT inspection, TMs normal, pharynx normal, moist mucous membranes, other (PERCUSSION TENDERNESS FRONTAL SINUSES) Neck Exam: normal inspection, non-tender, supple, full range of motion Respiratory Exam: normal breath sounds, lungs clear, No respiratory distress Cardiovascular Exam: regular rate/rhythm, normal heart sounds, normal peripheral pulses Gastrointestinal/Abdomen Exam: soft, normal bowel sounds, No tenderness, No mass Back Exam: normal inspection, normal range of motion, No CVA tenderness, No vertebral tenderness Extremity Exam: normal inspection, normal range of motion, pelvis stable Neurologic Exam: alert, 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, cooperative, normal mood/affect, nml cerebellar function, nml station & gait, sensation nml, No motor deficits Skin Exam: normal color, warm, dry, No rash Lymphatic Exam: No adenopathy SpO2 Interpretation: normal SpO2: 99 - Course EKG Interpreted by Me: RATE, Sinus Sd, NORMAL AXIS (RATE 52, WITH INFERIOR ANTEROSEPTAL T-WAVE INVERSION) - CT Exams Head CT Interpretation: Tele-radiologist Report (STABLE LARGE 5.1 X 4.4 X 3.8 CM LOW DENSITHY LESION IN THE LEFT ANTERIOR MIDDLE CRANIAL FOSSA C/W ARACHNOID CYST, NO ACUTE INTRCRANIAL FINDINGS.) Ordered Tests: Active Orders 24 hr Category Date Time Status Human Resources Recruiter STAT Care 12/03/18 18:12 Active EKG-ER Only STAT Care 12/03/18 18:14 Active IV Insertion STAT Care 12/03/18 18:20 Active Orthostatic Vital Signs STAT Care 12/03/18 18:15 Active HEAD WITHOUT CONTRAST [CT] Stat Exams 12/03/18 18:13 Taken BMP Stat Lab 12/03/18 18:12 Completed CBC W DIFF Stat Lab 12/03/18 18:12 Completed Medication Summary Generic Name Dose Route Start Last Admin Trade Name Freq PRN Reason Stop Dose Admin Sodium Chloride 1,000 mls @ 100 mls/hr 12/03/18 18:15 12/03/18 18:38 Sodium Chloride 0.9% 1000 Ml IV 01/02/19 18:14 100 mls/hr .Q10H ALEX Administration Discontinued Medications Generic Name Dose Route Start Last Admin Trade Name Freq PRN Reason Stop Dose Admin Acetaminophen 650 mg 12/03/18 18:21 12/03/18 18:38 Tylenol 325 Mg PO 12/03/18 18:22 650 mg STAT STA Administration Acetaminophen Confirm 12/03/18 18:35 Tylenol 325 Mg Administered 12/03/18 18:36 Dose 650 mg .ROUTE .[facility] Lab/Rad Data: Laboratory Result Diagrams 12/03/18 18:12 12/03/18 18:12 Laboratory Results 12/03/18 12/03/18 Range/Units 18:12 18:12 WBC 6.8 (4.0-10.5) K/mm3 RBC 4.58 (4.1-5.6) M/mm3 Hgb 13.6 (12.5-18.0) gm/dl Hct 40.4 L (42-50) % MCV 88.2 (78-100) fl MCH 29.7 (26-32) pg MCHC 33.7 (32-36) g/dl RDW 13.4 (11.5-14.0) % Plt Count 212 (150-450) K/mm3 MPV 10.2 H (6-9.5) fl Gran % 57.4 (36.0-66.0) % Eos # (Auto) 0.12 (0-0.5) Absolute Lymphs (auto) 2.14 (1.0-4.6) Absolute Monos (auto) 0.62 (0.0-1.3) Lymphocytes % 31.4 (24.0-44.0) % Monocytes % 9.1 (0.0-12.0) % Eosinophils % 1.8 (0.00-5.0) % Basophils % 0.3 (0.0-0.4) % Absolute Granulocytes 3.91 (1.4-6.9) Basophils # 0.02 (0-0.4) Sodium 140 (137-145) mmol/L Potassium 3.6 (3.5-5.1) mmol/L Chloride 101 (98-107) mmol/L Carbon Dioxide 29 (22-30) mmol/L Anion Gap 14.1 (5-15) MEQ/L BUN 7 L (9-20) mg/dL Creatinine 1.00 (0.66-1.25) mg/dL Estimated GFR > 60.0 ML/MIN Glucose 90 (74-106) mg/dL Calcium 9.4 (8.4-10.2) mg/dL - Progress Progress Note: 12/03/18 18:31 IV NORMAL SALINE 100ML/HR, TYLENOL 650MG ORALLY - Departure Departure Disposition: Home Clinical Impression: CHRONIC CEPHALGIA, INTRACRANIAL ARACHNOID CYST Condition: Stable Critical Care Time: No Referrals: TUAN NOBLE MD [Primary Care Provider] - Additional Instructions: FOLLOWUP WITH YOUR PRIMARY CARE PROVIDER FOR REFERRAL TO [facility] FOR EVALUATION. TYLENOL OR MOTRIN NEEDED FOR PAIN.
[2018-12-03] MEDS ORDERED: TYLENOL 325 MG ONE (18:35)
[2018-12-03] MEDS ORDERED: Sodium Chloride 0.9% 1000 ML 1,000 ML ONE (18:35)
[2018-12-03 18:55] LABS: BASOPHIL % 0.3 % (0.0-0.4); Basophil (Absolute #) 0.02 (0-0.4); Eosinophil % 1.8 % (0.00-5.0); Eosinophil (Absolute #) 0.12 (0-0.5); Granulocyte Absolute (ANC) 3.91 (1.4-6.9); Granulocytes % 57.4 % (36.0-66.0); Hematocrit 40.4 % (42-50); Hemoglobin 13.6 gm/dl (12.5-18.0); Lymphocyte (Absolute #) 2.14 (1.0-4.6); Lymphocytes % 31.4 % (24.0-44.0); Mean Cell Volume 88.2 fl (78-100); Mean Corpuscular Hemoglobin 29.7 pg (26-32); Mean Corpuscular Hgb Concent. 33.7 g/dl (32-36); Mean Platelet Volume 10.2 fl (6-9.5); Monocyte (Absolute #) 0.62 (0.0-1.3); Monocytes % 9.1 % (0.0-12.0); Platelet Count 212 K/mm3 (150-450); Red Blood Count 4.58 M/mm3 (4.1-5.6); Red Cell Distribution Width 13.4 % (11.5-14.0); White Blood Count 6.8 K/mm3 (4.0-10.5)
[2018-12-03 19:04] VITALS: BP 152/88; PULSE 54
[2018-12-03 19:07] LABS: ANION GAP 14.1 MEQ/L (5-15); BLOOD UREA NITROGEN 7 mg/dL (9-20); CHLORIDE 101 mmol/L (98-107); Calcium 9.4 mg/dL (8.4-10.2); Carbon Dioxide 29 mmol/L (22-30); Glucose 90 mg/dL (74-106); Potassium 3.6 mmol/L (3.5-5.1); SODIUM 140 mmol/L (137-145)
[2018-12-03 19:24] VITALS: O2SAT 99
--- NOTE | 2018-12-03 22:07 | XRAY ---
Indication: Headache. Dizziness. Multiple contiguous axial images obtained through the head without contrast. Comparison: January 07, 2017. Stable large left middle fossa arachnoid cyst. No acute intracranial hemorrhage, hydrocephalus, or midline shifting. Magnaa-white matter differentiation preserved. Bony calvarium intact. Visualized paranasal sinuses and mastoid air cells are clear. Impression: 1. Stable large left middle fossa arachnoid cyst. 2. No new or acute intracranial abnormalities. Comment: Preliminary interpretation was made by [facility]. No critical discrepancy. CTDI 68.32
== END 2018-12-03 19:44 | disposition home or self-care (01) ==
LOC: ED 17:52
DX: R51 Headache (principal); G93.0 Cerebral cysts; I10 Essential (primary) hypertension; I25.10 Atherosclerotic heart disease of native coronary artery without angina pectoris; Z86.73 Personal history of transient ischemic attack (TIA), and cerebral infarction without residual deficits; Z79.899 Other long term (current) drug therapy
CPT/HCPCS: 36000; 36415; 70450; 80048; 85025; 93005; 93041; 96360; 99284; A9270-GY

== ENCOUNTER 2019-01-26 22:34 | Emergency (ER) | payer MEDICAID ==
[2019-01-26] MEDS ORDERED: ULTRAM 50 MG PO ONE (23:27)
[2019-01-26] MEDS ORDERED: Sodium Chloride 0.9% 1000 ML 1,000 ML IV SCH (23:30)
[2019-01-27] MEDS ORDERED: ULTRAM 50 MG ONE (00:02)
[2019-01-27] MEDS ORDERED: Sodium Chloride 0.9% 1000 ML 1,000 ML ONE (00:02)
[2019-01-27 00:04] LABS: BASOPHIL % 0.2 % (0.0-0.4); Basophil (Absolute #) 0.01 (0-0.4); Eosinophil % 1.8 % (0.00-5.0); Eosinophil (Absolute #) 0.11 (0-0.5); Granulocyte Absolute (ANC) 3.49 (1.4-6.9); Granulocytes % 58.4 % (36.0-66.0); Hematocrit 42.3 % (42-50); Hemoglobin 13.8 gm/dl (12.5-18.0); Lymphocyte (Absolute #) 1.33 (1.0-4.6); Lymphocytes % 22.3 % (24.0-44.0); Mean Cell Volume 89.4 fl (78-100); Mean Corpuscular Hemoglobin 29.2 pg (26-32); Mean Corpuscular Hgb Concent. 32.6 g/dl (32-36); Mean Platelet Volume 8.9 fl (6-9.5); Monocyte (Absolute #) 1.03 (0.0-1.3); Monocytes % 17.3 % (0.0-12.0); Platelet Count 143 K/mm3 (150-450); Red Blood Count 4.73 M/mm3 (4.1-5.6); Red Cell Distribution Width 14.3 % (11.5-14.0)
[2019-01-27 00:16] LABS: ALBUMIN 4.3 g/dL (3.5-5.0); ALKALINE PHOSPHATASE 63 U/L (38-126); ANION GAP 11.5 MEQ/L (5-15); BLOOD UREA NITROGEN 8 mg/dL (9-20); CHLORIDE 102 mmol/L (98-107); Carbon Dioxide 31 mmol/L (22-30); Creatinine 1 0.88 mg/dL (0.66-1.25); Glucose 98 mg/dL (74-106); Potassium 4.1 mmol/L (3.5-5.1); SGOT/AST 19 U/L (17-59); SGPT/ALT 15 U/L (0-50); SODIUM 140 mmol/L (137-145); Total Protein 7.4 g/dL (6.3-8.2)
[2019-01-27 00:39] LABS: Group A Strep NEGATIVE (NEGATIVE); INFLUENZA A NEGATIVE (NEGATIVE); INFLUENZA B NEGATIVE (NEGATIVE); RESPIRATORY SYNCTIAL VIRUS NEGATIVE (Negative)
--- NOTE | 2019-01-27 00:52 | ERPHSYRPT ---
- History of Present Illness Source: patient Exam Limitations: no limitations Patient Subjective Stated Complaint: pt states he has been having generalized body aches, cough, and headache at home since yesterday. states his grandkids have recently been diagnosed with viral respiratory infection Triage Nursing Assessment: pt alert and oriented, answers questions approp. pt ambulatory with steady gait noted, respirations nonlabored with lungs cta. occasional nonprodictive cough noted. skin pink warm and dry. Physician History: Pt is a 48 y/o male with a h/o few days of myalgia, cough and sputum. Pt did not take any medication OTC, and today came to the ED. Pt has subjective fevers , but in the ED, his vitals were stable. No chest pain or palpitations. No N/V /D or abdominal pain. No wheezing. No dysuria, frequency and urgency. Timing/Duration: today Cough Quality/Degree: dry cough Modifying Factors: Improves With: nothing Associated Symptoms: fever, cough, other (myalgia) Allergies/Adverse Reactions: albuterol Allergy (Verified 01/26/19 22:53) Home Medications: Omeprazole 20 MG [Prilosec 20 mg] 20 mg PO DAILY 09/07/15 [History] Fexofenadine HCl [Dominique] 180 mg PO DAILY 04/22/16 [History] Sacubitril/Valsartan [Entresto 49 mg-51 mg Tablet] 49 - 51 mg PO BID 10/14/17 [ History] diazePAM [Diazepam] 2 mg PO BID 10/14/17 [History] Propranolol HCl [Inderal Xl] 80 mg PO HS 07/19/18 [History] Hx Tetanus, Diphtheria Vaccination/Date Given: Yes Hx Influenza Vaccination/Date Given: No Hx Pneumococcal Vaccination/Date Given: No Immunizations Up to Date: Yes - Review of Systems Constitutional: Fever, Fatigue, Malaise Eyes: No Symptoms Ears, Nose, & Throat: No Symptoms Respiratory: Cough Cardiac: No Chest Pain, No Edema, No Syncope Abdominal/Gastrointestinal: No Symptoms Musculoskeletal: Myalgias Neurological: No Dizziness, No Focal Weakness, No Sensory Changes - Past Medical History Pertinent Past Medical History: Yes Neurological History: Migraines, Stroke ENT History: No Pertinent History Cardiac History: Coronary Artery Disease, Hypertension, Other Respiratory History: No Pertinent History Endocrine Medical History: No Pertinent History Musculoskeletal History: No Pertinent History GI Medical History: GERD History: No Pertinent History Psycho-Social History: No Pertinent History Male Reproductive Disorders: No Pertinent History Other Medical History: arachnoid cyst, hiatal hernia. respiratory arrest 2016 after "breathing treatment". - Past Surgical History Past Surgical History: Yes Neuro Surgical History: No Pertinent History Cardiac: No Pertinent History Respiratory: No Pertinent History Gastrointestinal: No Pertinent History Genitourinary: No Pertinent History Musculoskeletal: No Pertinent History Male Surgical History: No Pertinent History Other Surgical History: endoscpopy to examine for gastric ulcers as stated per pt; sinus surgery - Social History Smoking Status: Former smoker How long have you smoked: years Exposure to second hand smoke: Yes Drug Use: none Patient Lives Alone: No - Nursing Vital Signs Nursing Vital Signs: Initial Vital Signs Temperature 98.8 F 01/26/19 22:47 Pulse Rate 77 01/26/19 22:47 Respiratory Rate 16 01/26/19 22:47 Blood Pressure 168/94 01/26/19 22:47 O2 Sat by Pulse Oximetry 100 01/26/19 22:47 Pain Scale Pain Intensity 6 - Physical Exam General Appearance: moderate distress Eye Exam: PERRL/EOMI, eyes nml inspection Ears, Nose, Throat Exam: normal ENT inspection, TMs normal, pharynx normal, moist mucous membranes Neck Exam: normal inspection, non-tender, supple, full range of motion Respiratory Exam: normal breath sounds, lungs clear, No respiratory distress Cardiovascular Exam: regular rate/rhythm, normal heart sounds Gastrointestinal/Abdomen Exam: soft, No tenderness Extremity Exam: normal inspection, normal range of motion Neurologic Exam: alert, 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, cooperative, normal mood/affect, sensation nml, No motor deficits SpO2: 98 - Course Nursing assessment & vital signs reviewed: Yes - Radiology Exams Chest X-ray Interpretation: Interpreted by me (underinflated lungs. No PNA or fluid overload.) Ordered Tests: Active Orders 24 hr Category Date Time Status IV Insertion STAT Care 01/27/19 00:00 Active CHEST 2 VIEWS (PA AND LAT) Routine Exams 01/27/19 Ordered CHEST 2 VIEWS (PA AND LAT) Stat Exams 01/26/19 23:25 Ordered CBC W DIFF Stat Lab 01/26/19 23:55 Completed CMP Stat Lab 01/26/19 23:55 Completed D-DIMER QUANTITATION Stat Lab 01/26/19 23:55 Completed Medication Summary Generic Name Dose Route Start Last Admin Trade Name Freq PRN Reason Stop Dose Admin Sodium Chloride 1,000 mls @ 100 mls/hr 01/26/19 23:30 01/27/19 00:05 Sodium Chloride 0.9% 1000 Ml IV 02/25/19 23:29 100 mls/hr .Q10H ALEX Administration Discontinued Medications Generic Name Dose Route Start Last Admin Trade Name Tio PRN Reason Stop Dose Admin Tramadol HCl 50 mg 01/26/19 23:27 01/27/19 00:06 Ultram 50 Mg PO 01/26/19 23:28 50 mg STAT ONE Administration Tramadol HCl Confirm 01/27/19 00:02 Ultram 50 Mg Administered 01/27/19 00:03 Dose 50 mg .ROUTE .[facility] Lab/Rad Data: Laboratory Result Diagrams 01/26/19 23:55 01/26/19 23:55 Laboratory Results 01/26/19 01/26/19 01/26/19 Range/Units 23:55 23:55 23:55 WBC 6.0 (4.0-10.5) K/mm3 RBC 4.73 (4.1-5.6) M/mm3 Hgb 13.8 (12.5-18.0) gm/dl Hct 42.3 (42-50) % MCV 89.4 (78-100) fl MCH 29.2 (26-32) pg MCHC 32.6 (32-36) g/dl RDW 14.3 H (11.5-14.0) % Plt Count 143 L (150-450) K/mm3 MPV 8.9 (6-9.5) fl Gran % 58.4 (36.0-66.0) % Eos # (Auto) 0.11 (0-0.5) Absolute Lymphs (auto) 1.33 (1.0-4.6) Absolute Monos (auto) 1.03 (0.0-1.3) Lymphocytes % 22.3 L (24.0-44.0) % Monocytes % 17.3 H (0.0-12.0) % Eosinophils % 1.8 (0.00-5.0) % Basophils % 0.2 (0.0-0.4) % Absolute Granulocytes 3.49 (1.4-6.9) Basophils # 0.01 (0-0.4) D-Dimer < 215 L (215-500) ng/mL Sodium 140 (137-145) mmol/L Potassium 4.1 (3.5-5.1) mmol/L Chloride 102 (98-107) mmol/L Carbon Dioxide 31 H (22-30) mmol/L Anion Gap 11.5 (5-15) MEQ/L BUN 8 L (9-20) mg/dL Creatinine 0.88 (0.66-1.25) mg/dL Estimated GFR > 60.0 ML/MIN Glucose 98 (74-106) mg/dL Calcium 9.0 (8.4-10.2) mg/dL Total Bilirubin 0.50 (0.2-1.3) mg/dL AST 19 (17-59) U/L ALT 15 (0-50) U/L Alkaline Phosphatase 63 (38-126) U/L Serum Total Protein 7.4 (6.3-8.2) g/dL Albumin 4.3 (3.5-5.0) g/dL Influenza Type A Ag (NEGATIVE) Influenza Type B Ag (NEGATIVE) RSV (PCR) (Negative) Group A Strep Antibody (NEGATIVE) 01/26/19 Range/Units 23:45 WBC (4.0-10.5) K/mm3 RBC (4.1-5.6) M/mm3 Hgb (12.5-18.0) gm/dl Hct (42-50) % MCV (78-100) fl MCH (26-32) pg MCHC (32-36) g/dl RDW (11.5-14.0) % Plt Count (150-450) K/mm3 MPV (6-9.5) fl Gran % (36.0-66.0) % Eos # (Auto) (0-0.5) Absolute Lymphs (auto) (1.0-4.6) Absolute Monos (auto) (0.0-1.3) Lymphocytes % (24.0-44.0) % Monocytes % (0.0-12.0) % Eosinophils % (0.00-5.0) % Basophils % (0.0-0.4) % Absolute Granulocytes (1.4-6.9) Basophils # (0-0.4) D-Dimer (215-500) ng/mL Sodium (137-145) mmol/L Potassium (3.5-5.1) mmol/L Chloride (98-107) mmol/L Carbon Dioxide (22-30) mmol/L Anion Gap (5-15) MEQ/L BUN (9-20) mg/dL Creatinine (0.66-1.25) mg/dL Estimated GFR ML/MIN Glucose (74-106) mg/dL Calcium (8.4-10.2) mg/dL Total Bilirubin (0.2-1.3) mg/dL AST (17-59) U/L ALT (0-50) U/L Alkaline Phosphatase (38-126) U/L Serum Total Protein (6.3-8.2) g/dL Albumin (3.5-5.0) g/dL Influenza Type A Ag NEGATIVE (NEGATIVE) Influenza Type B Ag NEGATIVE (NEGATIVE) RSV (PCR) NEGATIVE (Negative) Group A Strep Antibody NEGATIVE (NEGATIVE) - Progress Progress: unchanged Air Movement: good Progress Note: 01/27/19 00:50 Pt was seen and examined. His lungs were CTA, and on labs, he had no leukocytosis, and normal CMP. CXR showed under inflated lungs, with no infiltrated. Respiratory panel was negative. Pt was safe for d/c to home, and he should get OTC meds, for symptoms relief. He should drink plenty of fluid. Blood Culture(s) Obtained: No Antibiotics given: No Will see patient in: office Counseled pt/family regarding: need for follow-up - Departure Departure Disposition: Home Clinical Impression: Viral URI Condition: Stable Critical Care Time: No Referrals: TUAN NOBLE MD [Primary Care Provider] - Additional Instructions: Pt should f/u with PCP. Drink plenty of fluids, and use OTC meds for symptomatic relief.
[2019-01-27 01:02] VITALS: BP 116/56; PULSE 100; O2SAT 93
--- NOTE | 2019-01-27 10:27 | XRAY ---
Indication: Chest pain, cough, weakness, and malaise. Comparison: January 17, 2018. PA/lateral chest remains slightly underinflated and clear. Heart is not enlarged. Bony thorax intact again with mild degenerative changes. Impression: Stable nonacute chest.
== END 2019-01-27 01:08 | disposition home or self-care (01) ==
LOC: ED 22:34
DX: J06.9 Acute upper respiratory infection, unspecified (principal)
CPT/HCPCS: 36000; 36415; 71046; 80053; 85025; 85379; 87631; 87651; 99284; A9270-GY

== ENCOUNTER 2019-05-12 09:06 | Emergency (ER) | payer SELFPAY ==
[2019-05-12] MEDS ORDERED: Zofran 4 MG/2 ML VIAL IV ONE (09:35)
[2019-05-12] MEDS ORDERED: BABY ASPIRIN 81 MG CHEW PO ONE (09:35)
[2019-05-12] MEDS ORDERED: Nitrostat 0.4 MG (ED) SL ONE ×2 (09:35→09:41)
[2019-05-12] MEDS ORDERED: Sodium Chloride 0.9% 1000 ML 1,000 ML IV STA (09:35)
[2019-05-12] MEDS ORDERED: BABY ASPIRIN 81 MG CHEW ONE (09:41)
[2019-05-12] MEDS ORDERED: Zofran 4 MG/2 ML VIAL ONE (09:41)
[2019-05-12] MEDS ORDERED: Sodium Chloride 0.9% 1000 ML 1,000 ML ONE (09:41)
--- NOTE | 2019-05-12 09:43 | ERPHSYRPT ---
- History of Present Illness Time Seen by Provider: 05/12/19 09:10 Patient Subjective Stated Complaint: Pt states "I woke up this morning and I started to have left leg tingling and then my chest started to hurt a little then my left arm was tingling. the back of my neck has been hurting this morning." Triage Nursing Assessment: Pt presented alert and oriented X 3, skin pwd. Pt ambulates with an upright steady gait, able to speak in clear full sentences. Pt in no apparent respiratory distress. 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 Patient states he slept on his left side last night. This AM he awoke around 7:30 AM. He described tingling in his left arm and leg. Shortly after, his left chest started to hurt. He describes it as achy, non-radiating, associated with no SOB/N/V. He has not tried anything to make it better or worse. He has no falls or trauma. He is otherwise healthy without fever, chills, SOB. He did describe some neck tingling as well. Timing/Duration: today Activities at Onset: none Quality: aching Location: substernal Chest Pain Radiation: no radiation Severity of Pain-Max: none Severity of Pain-Current: none Modifying Factors: Improves With: nothing Associated Symptoms: denies symptoms Aspirin Treatment Today: no aspirin today Allergies/Adverse Reactions: albuterol Allergy (Verified 01/26/19 22:53) Home Medications: Omeprazole 20 MG [Prilosec 20 mg] 20 mg PO DAILY 09/07/15 [History] Fexofenadine HCl [Dominique] 180 mg PO DAILY 04/22/16 [History] Sacubitril/Valsartan [Entresto 49 mg-51 mg Tablet] 49 - 51 mg PO BID 10/14/17 [ History] diazePAM [Diazepam] 2 mg PO BID 10/14/17 [History] Propranolol HCl [Inderal Xl] 80 mg PO HS 07/19/18 [History] Hx Tetanus, Diphtheria Vaccination/Date Given: No Hx Influenza Vaccination/Date Given: No Hx Pneumococcal Vaccination/Date Given: No Immunizations Up to Date: Yes - Review of Systems Constitutional: No Fever, No Chills Eyes: No Symptoms Ears, Nose, & Throat: No Symptoms Respiratory: No Cough, No Dyspnea Cardiac: No Chest Pain, No Edema, No Syncope Abdominal/Gastrointestinal: No Abdominal Pain, No Nausea, No Vomiting, No Diarrhea Genitourinary Symptoms: No Dysuria Musculoskeletal: Other (leg and arm "tingling"), No Back Pain, No Neck Pain Skin: Other, No Rash Neurological: No Dizziness, No Focal Weakness, No Sensory Changes Psychological: No Symptoms Endocrine: No Symptoms All Other Systems: Reviewed and Negative - Past Medical History Pertinent Past Medical History: Yes Neurological History: Migraines, Stroke ENT History: No Pertinent History Cardiac History: Coronary Artery Disease, Hypertension, Other Respiratory History: No Pertinent History Endocrine Medical History: No Pertinent History Musculoskeletal History: No Pertinent History GI Medical History: GERD History: No Pertinent History Psycho-Social History: No Pertinent History Male Reproductive Disorders: No Pertinent History Other Medical History: arachnoid cyst, hiatal hernia. respiratory arrest 2016 after "breathing treatment". - Past Surgical History Past Surgical History: Yes Neuro Surgical History: No Pertinent History Cardiac: No Pertinent History Respiratory: No Pertinent History Gastrointestinal: No Pertinent History Genitourinary: No Pertinent History Musculoskeletal: No Pertinent History Male Surgical History: No Pertinent History Other Surgical History: endoscpopy to examine for gastric ulcers as stated per pt; sinus surgery - Social History Smoking Status: Never smoker How long have you smoked: years Exposure to second hand smoke: Yes Drug Use: none Patient Lives Alone: No - Nursing Vital Signs Nursing Vital Signs: Initial Vital Signs Temperature 98.1 F 05/12/19 09:13 Pulse Rate 56 L 05/12/19 09:13 Respiratory Rate 16 05/12/19 09:13 Blood Pressure 156/93 05/12/19 09:13 O2 Sat by Pulse Oximetry 99 05/12/19 09:13 Pain Scale Pain Intensity 0 - Physical Exam General Appearance: no apparent distress, alert Eye Exam: PERRL/EOMI, eyes nml inspection Ears, Nose, Throat Exam: normal ENT inspection, moist mucous membranes Neck Exam: normal inspection, non-tender, supple, full range of motion Respiratory Exam: normal breath sounds, lungs clear, No respiratory distress Cardiovascular Exam: regular rate/rhythm, normal heart sounds Gastrointestinal/Abdomen Exam: soft, No tenderness, No mass Back Exam: normal inspection, No CVA tenderness, No vertebral tenderness Extremity Exam: normal inspection, normal range of motion Neurologic Exam: alert, 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, cooperative, normal mood/affect, sensation nml, No motor deficits Skin Exam: normal color, warm, dry SpO2: 99 Ordered Tests: Active Orders 24 hr Category Date Time Status Caramel Candy Maker STAT Care 05/12/19 09:36 Active EKG-ER Only STAT Care 05/12/19 09:35 Active IV Insertion STAT Care 05/12/19 09:35 Active CHEST 2 VIEWS (PA AND LAT) Stat Exams 05/12/19 09:36 Completed CBC W DIFF Stat Lab 05/12/19 09:51 Completed CMP Stat Lab 05/12/19 09:35 Completed NT PRO BNP Stat Lab 05/12/19 09:35 Completed TROPONIN Q3H Lab 05/12/19 09:45 Completed TROPONIN Q3H Lab 05/12/19 12:32 Completed Medication Summary Discontinued Medications Generic Name Dose Route Start Last Admin Trade Name Freq PRN Reason Stop Dose Admin Aspirin 324 mg 05/12/19 09:35 05/12/19 09:44 Baby Aspirin 81 Mg Chew PO 05/12/19 09:36 324 mg STAT ONE Administration Aspirin Confirm 05/12/19 09:41 Baby Aspirin 81 Mg Chew Administered 05/12/19 09:42 Dose 324 mg .ROUTE .STK-MED ONE Sodium Chloride 1,000 mls @ 999 mls/hr 05/12/19 09:35 05/12/19 10:57 Sodium Chloride 0.9% 1000 Ml IV 05/12/19 10:35 Infused .Q1H1M STA Infusion Sodium Chloride Confirm 05/12/19 09:41 Sodium Chloride 0.9% 1000 Ml Administered 05/12/19 09:42 Dose 1,000 mls @ ud .ROUTE .STK-MED ONE Nitroglycerin 0.4 mg 05/12/19 09:35 05/12/19 09:44 Nitrostat 0.4 Mg (Ed) SL 05/12/19 09:36 0.4 mg STAT ONE Administration Nitroglycerin Confirm 05/12/19 09:41 Nitrostat 0.4 Mg (Ed) Administered 05/12/19 09:42 Dose 0.4 mg SL .STK-MED ONE Ondansetron HCl 4 mg 05/12/19 09:35 05/12/19 09:43 Zofran 4 Mg/2 Ml Vial IV 12/12/19 09:36 4 mg STAT ONE Administration Ondansetron HCl Confirm 05/12/19 09:41 Zofran 4 Mg/2 Ml Vial Administered 05/12/19 09:42 Dose 4 mg .ROUTE .STK-MED ONE Lab/Rad Data: Laboratory Result Diagrams 05/12/19 09:51 05/12/19 09:35 Laboratory Results 05/12/19 05/12/19 05/12/19 Range/Units 12:32 09:51 09:45 WBC 7.6 (4.0-10.5) K/mm3 RBC 4.50 (4.1-5.6) M/mm3 Hgb 13.5 (12.5-18.0) gm/dl Hct 40.4 L (42-50) % MCV 89.8 (78-100) fl MCH 30.0 (26-32) pg MCHC 33.4 (32-36) g/dl RDW 13.2 (11.5-14.0) % Plt Count 215 (150-450) K/mm3 MPV 9.4 (6-9.5) fl Gran % 61.7 (36.0-66.0) % Eos # (Auto) 0.14 (0-0.5) Absolute Lymphs (auto) 1.97 (1.0-4.6) Absolute Monos (auto) 0.76 (0.0-1.3) Lymphocytes % 26.0 (24.0-44.0) % Monocytes % 10.0 (0.0-12.0) % Eosinophils % 1.8 (0.00-5.0) % Basophils % 0.5 (0.0-0.4) % Absolute Granulocytes 4.68 (1.4-6.9) Basophils # 0.04 (0-0.4) Sodium (137-145) mmol/L Potassium (3.5-5.1) mmol/L Chloride (98-107) mmol/L Carbon Dioxide (22-30) mmol/L Anion Gap (5-15) MEQ/L BUN (9-20) mg/dL Creatinine (0.66-1.25) mg/dL Estimated GFR ML/MIN Glucose (74-106) mg/dL Calcium (8.4-10.2) mg/dL Total Bilirubin (0.2-1.3) mg/dL AST (17-59) U/L ALT (0-50) U/L Alkaline Phosphatase (38-126) U/L Troponin I < 0.012 < 0.012 (0.000-0.034) ng/mL NT-Pro-B Natriuret Pep (0-450) pg/mL Serum Total Protein (6.3-8.2) g/dL Albumin (3.5-5.0) g/dL 05/12/19 Range/Units 09:35 WBC (4.0-10.5) K/mm3 RBC (4.1-5.6) M/mm3 Hgb (12.5-18.0) gm/dl Hct (42-50) % MCV (78-100) fl MCH (26-32) pg MCHC (32-36) g/dl RDW (11.5-14.0) % Plt Count (150-450) K/mm3 MPV (6-9.5) fl Gran % (36.0-66.0) % Eos # (Auto) (0-0.5) Absolute Lymphs (auto) (1.0-4.6) Absolute Monos (auto) (0.0-1.3) Lymphocytes % (24.0-44.0) % Monocytes % (0.0-12.0) % Eosinophils % (0.00-5.0) % Basophils % (0.0-0.4) % Absolute Granulocytes (1.4-6.9) Basophils # (0-0.4) Sodium 144 (137-145) mmol/L Potassium 3.7 (3.5-5.1) mmol/L Chloride 106 (98-107) mmol/L Carbon Dioxide 30 (22-30) mmol/L Anion Gap 11.9 (5-15) MEQ/L BUN 7 L (9-20) mg/dL Creatinine 1.04 (0.66-1.25) mg/dL Estimated GFR > 60.0 ML/MIN Glucose 100 (74-106) mg/dL Calcium 9.5 (8.4-10.2) mg/dL Total Bilirubin 0.50 (0.2-1.3) mg/dL AST 20 (17-59) U/L ALT 12 (0-50) U/L Alkaline Phosphatase 61 (38-126) U/L Troponin I (0.000-0.034) ng/mL NT-Pro-B Natriuret Pep 60.6 (0-450) pg/mL Serum Total Protein 8.3 H (6.3-8.2) g/dL Albumin 4.6 (3.5-5.0) g/dL - Progress Progress: improved Air Movement: good Progress Note: 05/12/19 09:41 Diff dx includes LA, STEMI, PNA, arryhtimia, muskloskeletal problem. -We will obtain EKG, basic labs, aspirin, troponin, fluids, CXR EKG- patient has ST depression in V1-V4, these are present on a previous EKG. 05/12/19 13:33 On reevaluation work up largerly negative. We repeated a 3 hour troponin. This returned a negative again. Patient has no EKG changes or new changes in cardiac markers. Given this, I do believe patient is safe to go home and follow up with architectural draftsperson. I did discuss patient may be having unstable angina. Therefore, if he should develop new or changing chest pain. He should return here immediately. He states his understanding. - Departure Departure Disposition: Home Clinical Impression: Atypical chest pain Condition: Stable Critical Care Time: No Referrals: TUAN NOBLE MD [Primary Care Provider] - Instructions: Angina (DC), Atypical Chest Pain
[2019-05-12 09:50] LABS: Absolute Neutrophil Ct (ANC) 4.68 (1.4-6.9); BASOPHIL % 0.5 % (0.0-0.4); Basophil (Absolute #) 0.04 (0-0.4); Eosinophil % 1.8 % (0.00-5.0); Eosinophil (Absolute #) 0.14 (0-0.5); Hematocrit 40.4 % (42-50); Hemoglobin 13.5 gm/dl (12.5-18.0); Lymphocyte (Absolute #) 1.97 (1.0-4.6); Mean Cell Volume 89.8 fl (78-100); Mean Corpuscular Hgb Concent. 33.4 g/dl (32-36); Mean Platelet Volume 9.4 fl (6-9.5); Monocyte (Absolute #) 0.76 (0.0-1.3); Neutrophil % 61.7 % (36.0-66.0); Platelet Count 215 K/mm3 (150-450); Red Cell Distribution Width 13.2 % (11.5-14.0); White Blood Count 7.6 K/mm3 (4.0-10.5)
[2019-05-12 10:15] LABS: ALBUMIN 4.6 g/dL (3.5-5.0); ALKALINE PHOSPHATASE 61 U/L (38-126); ANION GAP 11.9 MEQ/L (5-15); BLOOD UREA NITROGEN 7 mg/dL (9-20); CHLORIDE 106 mmol/L (98-107); Calcium 9.5 mg/dL (8.4-10.2); Carbon Dioxide 30 mmol/L (22-30); Creatinine 1 1.04 mg/dL (0.66-1.25); Glucose 100 mg/dL (74-106); NT PRO BNP 60.6 pg/mL (0-450); Potassium 3.7 mmol/L (3.5-5.1); SGOT/AST 20 U/L (17-59); SGPT/ALT 12 U/L (0-50); SODIUM 144 mmol/L (137-145); Total Protein 8.3 g/dL (6.3-8.2)
--- NOTE | 2019-05-12 10:23 | XRAY ---
Indication: Short of breath, chest pain, and cough. COPD. Comparison: January 27, 2019. PA/lateral chest remains clear. Heart and mediastinal structures within normal limits. Bony thorax intact again with mild degenerative changes. Impression: Stable nonacute chest.
[2019-05-12 13:08] VITALS: BP 100/78; PULSE 47
[2019-05-12 13:21] VITALS: O2SAT 99
== END 2019-05-12 13:48 | disposition home or self-care (01) ==
LOC: ED 09:06
DX: R07.89 Other chest pain (principal)
CPT/HCPCS: 36000; 36415; 71046; 80053; 83880; 84484; 85025; 93005; 93041; 96360; 96374; 96375; 99284; J2405; A9270-GY

== ENCOUNTER 2019-06-28 10:03 | Emergency (ER) | payer OTHER ==
--- NOTE | 2019-06-28 10:08 | ERPHSYRPT ---
- History of Present Illness Time Seen by Provider: 06/28/19 10:07 Source: patient Exam Limitations: no limitations Physician History: The patient's a 49-year-old male who presents with a chief complaint of diarrhea. He also has secondary complaints of nausea, vomiting and abdominal cramping. Onset reportedly was last night. He reports having multiple episodes of watery diarrhea and noticed some blood whenever he wipes however he does endorse having a history of external hemorrhoids. He denies hematemesis and coffee-ground vomitus. He complained of a subjective fever and chills that started last night as well. His abdominal cramping waxes and wanes and is primarily located to the left lower quadrant. Currently, he is pain-free. He denies recent travel outside of the country her recent sick contacts. The patient is not taking anticoagulants. He denies recent antibiotic use. Timing/Duration: other (Last night) Associated Symptoms: nausea, vomiting, abdominal pain, chills, other (Diarrhea) , No shortness of breath, No diaphoresis, No cough, No chest pain, No headaches Allergies/Adverse Reactions: albuterol Allergy (Verified 06/28/19 10:15) Home Medications: Omeprazole 20 MG [Prilosec 20 mg] 20 mg PO DAILY 09/07/15 [History] Fexofenadine HCl [Dominique] 180 mg PO DAILY 04/22/16 [History] Sacubitril/Valsartan [Entresto 49 mg-51 mg Tablet] 49 - 51 mg PO BID 10/14/17 [ History] diazePAM [Diazepam] 2 mg PO BID 10/14/17 [History] Propranolol HCl [Inderal Xl] 80 mg PO HS 07/19/18 [History] Hx Tetanus, Diphtheria Vaccination/Date Given: No Hx Influenza Vaccination/Date Given: No Hx Pneumococcal Vaccination/Date Given: No - Review of Systems Constitutional: Fever, Chills Eyes: No Symptoms Ears, Nose, & Throat: No Symptoms Respiratory: No Cough, No Cyanosis, No Dyspnea Cardiac: No Symptoms Abdominal/Gastrointestinal: Abdominal Pain, Nausea, Vomiting, Diarrhea, Appetite Changes, No Constipation, No Hematemesis, No Hematochezia, No Melena Genitourinary Symptoms: No Symptoms Musculoskeletal: No Symptoms Skin: No Symptoms Neurological: No Symptoms Psychological: No Symptoms All Other Systems: Reviewed and Negative - Past Medical History Pertinent Past Medical History: Yes Neurological History: Migraines, Stroke ENT History: No Pertinent History Cardiac History: Coronary Artery Disease, Hypertension, Other Respiratory History: No Pertinent History Endocrine Medical History: No Pertinent History Musculoskeletal History: No Pertinent History GI Medical History: GERD History: No Pertinent History Psycho-Social History: No Pertinent History Male Reproductive Disorders: No Pertinent History Other Medical History: arachnoid cyst, hiatal hernia. respiratory arrest 2016 after "breathing treatment". - Past Surgical History Past Surgical History: Yes Neuro Surgical History: No Pertinent History Cardiac: No Pertinent History Respiratory: No Pertinent History Gastrointestinal: No Pertinent History Genitourinary: No Pertinent History Musculoskeletal: No Pertinent History Male Surgical History: No Pertinent History Other Surgical History: endoscpopy to examine for gastric ulcers as stated per pt; sinus surgery - Social History Smoking Status: Never smoker How long have you smoked: years Exposure to second hand smoke: Yes Drug Use: none Patient Lives Alone: No - Nursing Vital Signs Nursing Vital Signs: Initial Vital Signs Temperature 98.9 F 06/28/19 10:06 Pulse Rate 84 06/28/19 10:06 Respiratory Rate 16 06/28/19 10:06 Blood Pressure 127/95 06/28/19 10:06 O2 Sat by Pulse Oximetry 99 06/28/19 10:06 Pain Scale Pain Intensity 2 - Physical Exam General Appearance: no apparent distress Eye Exam: PERRL/EOMI, No photophobia Ears, Nose, Throat Exam: normal ENT inspection, moist mucous membranes Neck Exam: normal inspection, supple Respiratory Exam: normal breath sounds, lungs clear, airway intact, No chest tenderness, No respiratory distress, No diminished breath sounds, No accessory muscle use Cardiovascular Exam: regular rate/rhythm, normal heart sounds, normal peripheral pulses, capillary refill <2 sec, No murmur, No friction rub, No gallop, No tachycardia, No edema Gastrointestinal/Abdomen Exam: soft, normal bowel sounds, No tenderness, No distention, No mass, No guarding, No ecchymosis Back Exam: normal inspection Extremity Exam: normal inspection Neurologic Exam: alert, 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, cooperative Skin Exam: normal color, warm, dry, No rash, No petechiae SpO2 Interpretation: normal O2 Delivery: Room Air Ordered Tests: Active Orders 24 hr Category Date Time Status IV Insertion STAT Care 06/28/19 10:21 Active PO Fluid Challenge STAT Care 06/28/19 10:22 Active BMP Stat Lab 06/28/19 10:20 Completed CBC W DIFF Stat Lab 06/28/19 10:20 Completed Medication Summary Discontinued Medications Generic Name Dose Route Start Last Admin Trade Name Tio PRN Reason Stop Dose Admin Sodium Chloride 1,000 mls @ 999 mls/hr 06/28/19 10:21 06/28/19 12:29 Sodium Chloride 0.9% 1000 Ml IV 06/28/19 11:21 Infused .Q1H1M STA Infusion Sodium Chloride Confirm 06/28/19 10:27 Sodium Chloride 0.9% 1000 Ml Administered 06/28/19 10:28 Dose 1,000 mls @ ud .ROUTE .STK-MED ONE Ondansetron HCl 4 mg 06/28/19 10:21 06/28/19 10:28 Zofran 4 Mg/2 Ml Vial IV 06/28/19 10:22 4 mg STAT ONE Administration Ondansetron HCl Confirm 06/28/19 10:26 Zofran 4 Mg/2 Ml Vial Administered 06/28/19 10:27 Dose 4 mg .ROUTE .STK-MED ONE Lab/Rad Data: Laboratory Result Diagrams 06/28/19 10:20 06/28/19 10:20 Laboratory Results 06/28/19 06/28/19 Range/Units 10:20 10:20 WBC 8.1 (4.0-10.5) K/mm3 RBC 4.85 (4.1-5.6) M/mm3 Hgb 14.3 (12.5-18.0) gm/dl Hct 42.6 (42-50) % MCV 87.8 (78-100) fl MCH 29.5 (26-32) pg MCHC 33.6 (32-36) g/dl RDW 13.5 (11.5-14.0) % Plt Count 186 (150-450) K/mm3 MPV 9.2 (7.5-11.0) fl Gran % 76.5 H (36.0-66.0) % Eos # (Auto) 0.14 (0-0.5) Absolute Lymphs (auto) 0.96 L (1.0-4.6) Absolute Monos (auto) 0.78 (0.0-1.3) Lymphocytes % 11.9 L (24.0-44.0) % Monocytes % 9.7 (0.0-12.0) % Eosinophils % 1.7 (0.00-5.0) % Basophils % 0.2 (0.0-0.4) % Absolute Granulocytes 6.18 (1.4-6.9) Basophils # 0.02 (0-0.4) Sodium 140 (137-145) mmol/L Potassium 3.8 (3.5-5.1) mmol/L Chloride 103 (98-107) mmol/L Carbon Dioxide 26 (22-30) mmol/L Anion Gap 15.2 H (5-15) MEQ/L BUN 8 L (9-20) mg/dL Creatinine 0.96 (0.66-1.25) mg/dL Estimated GFR > 60.0 ML/MIN Glucose 101 (74-106) mg/dL Calcium 9.3 (8.4-10.2) mg/dL - Progress Progress: improved Progress Note: 06/28/19 12:31 The patient was updated with a flap results and diagnosis. He also reportedly was feeling better and his nausea resolved. He is drinking water from a cup without difficulty. He is comfortable with being discharged home. 06/28/19 16:23 Nontoxic in appearance. Labs are reviewed and relatively benign. His abdominal exam is relatively benign, specifically no right lower quadrant tenderness to suggest appendicitis. My suspicion for a serious bacterial illness is low as well.The patient's clinical symptoms seem consistent with a viral gastroenteritis at this time given his vomiting and diarrhea. The reported blood seen on the toilet paper is likely from his external hemorrhoids. The patient was treated symptomatically in the department and ultimately discharged home with a prescription for ondansetron, Bentyl as well as loperamide. He is instructed to remain hydrated and return if his symptoms were to become worse. He agreed with verbally understood the discharge plan. Counseled pt/family regarding: lab results, diagnosis, need for follow-up - Departure Departure Disposition: Home Clinical Impression: Gastroenteritis Condition: Stable Critical Care Time: No Referrals: TUAN NOBLE MD [Primary Care Provider] - Instructions: Nausea -- Adult, Vomiting -- Adult, Viral Gastroenteritis Prescriptions: Dicyclomine HCl 20 mg [Bentyl 20 mg] 20 mg PO Q6H PRN PRN #20 tablet PRN Reason: Pain Ondansetron ODT 4 MG [Zofran Odt 4 mg] 4 mg PO Q6H PRN PRN #10 tab.rapdis PRN Reason: Nausea/Vomiting Loperamide HCl [Loperamide] 2 mg PO Q6-8HPRN PRN #30 tablet PRN Reason: Diarrhea
[2019-06-28 10:15] VITALS: O2SAT 99
[2019-06-28] MEDS ORDERED: Sodium Chloride 0.9% 1000 ML 1,000 ML IV STA (10:21)
[2019-06-28] MEDS ORDERED: Zofran 4 MG/2 ML VIAL IV ONE (10:21)
[2019-06-28] MEDS ORDERED: Zofran 4 MG/2 ML VIAL ONE (10:26)
[2019-06-28] MEDS ORDERED: Sodium Chloride 0.9% 1000 ML 1,000 ML ONE (10:27)
[2019-06-28 10:32] LABS: Absolute Neutrophil Ct (ANC) 6.18 (1.4-6.9); BASOPHIL % 0.2 % (0.0-0.4); Basophil (Absolute #) 0.02 (0-0.4); Eosinophil % 1.7 % (0.00-5.0); Eosinophil (Absolute #) 0.14 (0-0.5); Hematocrit 42.6 % (42-50); Hemoglobin 14.3 gm/dl (12.5-18.0); Lymphocyte (Absolute #) 0.96 (1.0-4.6); Lymphocytes % 11.9 % (24.0-44.0); Mean Cell Volume 87.8 fl (78-100); Mean Corpuscular Hemoglobin 29.5 pg (26-32); Mean Corpuscular Hgb Concent. 33.6 g/dl (32-36); Mean Platelet Volume 9.2 fl (7.5-11.0); Monocyte (Absolute #) 0.78 (0.0-1.3); Monocytes % 9.7 % (0.0-12.0); Neutrophil % 76.5 % (36.0-66.0); Platelet Count 186 K/mm3 (150-450); Red Blood Count 4.85 M/mm3 (4.1-5.6); Red Cell Distribution Width 13.5 % (11.5-14.0); White Blood Count 8.1 K/mm3 (4.0-10.5)
[2019-06-28 10:51] LABS: ANION GAP 15.2 MEQ/L (5-15); BLOOD UREA NITROGEN 8 mg/dL (9-20); CHLORIDE 103 mmol/L (98-107); Calcium 9.3 mg/dL (8.4-10.2); Carbon Dioxide 26 mmol/L (22-30); Creatinine 1 0.96 mg/dL (0.66-1.25); Glucose 101 mg/dL (74-106); Potassium 3.8 mmol/L (3.5-5.1); SODIUM 140 mmol/L (137-145)
[2019-06-28 12:42] VITALS: BP 98/68; PULSE 72
== END 2019-06-28 12:46 | disposition home or self-care (01) ==
LOC: ED 10:03
DX: K52.9 Noninfective gastroenteritis and colitis, unspecified (principal)
CPT/HCPCS: 36000; 36415; 80048; 85025; 96360; 96374; 99284; J2405

== ENCOUNTER 2019-07-28 03:03 | Emergency (ER) | payer OTHER ==
--- NOTE | 2019-07-28 03:47 | ERPHSYRPT ---
- History of Present Illness Time Seen by Provider: 07/28/19 03:30 Source: patient, family Exam Limitations: no limitations Patient Subjective Stated Complaint: pt states that he was at work from 1700- 0100, pt states that he went home and realized that he had swelling in both ankles, pt states he stands the majority of the time at work, pt states he sees a manager personnel selection Triage Nursing Assessment: pt ambulated into the er, pt is axo x3, pt is anxious , hypertensive, trace edema to bilaterial ankles, clear heart tones, strong pedal pulses, strong radial pulses, c/o 2/10 pain BLE Physician History: This is a 49-year-old white male who states that he was standing for 10-1/2 hours while at work today. He noticed that his ankles on both sides were swollen. The right worse than the left. He has some mild pain present on the right ankle. Patient does have a history of coronary artery disease patient denies chest pain and he denies shortness of breath. Patient is not on any anticoagulation therapy. He is not on any diuretics. Patient sees his manager personnel selection, Dr. Richards, next week. His primary care doctor is Dr. Noble. Timing/Duration: today Severity: mild Associated Symptoms: denies symptoms Allergies/Adverse Reactions: albuterol Allergy (Verified 07/28/19 03:26) Home Medications: Omeprazole 20 MG [Prilosec 20 mg] 20 mg PO DAILY 09/07/15 [History] Fexofenadine HCl [Dominique] 180 mg PO DAILY 04/22/16 [History] Sacubitril/Valsartan [Entresto 49 mg-51 mg Tablet] 49 - 51 mg PO BID 10/14/17 [ History] diazePAM [Diazepam] 2 mg PO BID 10/14/17 [History] Propranolol HCl [Inderal Xl] 80 mg PO HS 07/19/18 [History] Hx Tetanus, Diphtheria Vaccination/Date Given: No (unknown) Hx Influenza Vaccination/Date Given: No Hx Pneumococcal Vaccination/Date Given: No - Review of Systems Constitutional: No Symptoms Eyes: No Symptoms Ears, Nose, & Throat: No Symptoms Respiratory: No Symptoms Cardiac: No Symptoms Abdominal/Gastrointestinal: No Symptoms Genitourinary Symptoms: No Symptoms Musculoskeletal: No Symptoms Skin: No Symptoms Neurological: No Symptoms Psychological: No Symptoms Endocrine: No Symptoms Hematologic/Lymphatic: No Symptoms Immunological/Allergic: No Symptoms All Other Systems: Reviewed and Negative - Past Medical History Pertinent Past Medical History: Yes Neurological History: Migraines, Stroke ENT History: No Pertinent History Cardiac History: Coronary Artery Disease, Hypertension, Other Respiratory History: No Pertinent History Endocrine Medical History: No Pertinent History Musculoskeletal History: No Pertinent History GI Medical History: GERD History: No Pertinent History Psycho-Social History: No Pertinent History Male Reproductive Disorders: No Pertinent History Other Medical History: arachnoid cyst, hiatal hernia. respiratory arrest 2016 after "breathing treatment". - Past Surgical History Past Surgical History: Yes Neuro Surgical History: No Pertinent History Cardiac: No Pertinent History Respiratory: No Pertinent History Gastrointestinal: No Pertinent History Genitourinary: No Pertinent History Musculoskeletal: No Pertinent History Male Surgical History: No Pertinent History Other Surgical History: endoscpopy to examine for gastric ulcers as stated per pt; sinus surgery - Social History Smoking Status: Never smoker How long have you smoked: years Exposure to second hand smoke: Yes Drug Use: none Patient Lives Alone: No - Nursing Vital Signs Nursing Vital Signs: Initial Vital Signs Temperature 97.8 F 07/28/19 03:15 Pulse Rate 62 07/28/19 03:15 Blood Pressure 183/103 07/28/19 03:15 O2 Sat by Pulse Oximetry 100 07/28/19 03:15 Pain Scale Pain Intensity 2 - Physical Exam General Appearance: no apparent distress, alert, anxiety Eye Exam: PERRL/EOMI, eyes nml inspection Ears, Nose, Throat Exam: normal ENT inspection, moist mucous membranes Neck Exam: normal inspection, non-tender, supple, full range of motion Respiratory Exam: normal breath sounds, lungs clear, airway intact, No chest tenderness, No respiratory distress Gastrointestinal/Abdomen Exam: No tenderness Rectal Exam: not done Back Exam: normal inspection, normal range of motion, No CVA tenderness, No vertebral tenderness Extremity Exam: normal range of motion, pelvis stable, other (I am not convinced the patient has much swelling in his feet or ankles on either side. Possibly trace on the right side. There is no pitting edema on either side. Pedal pulses are present, adequate and equal bilaterally.) Neurologic Exam: alert, 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, cooperative, weblogic developer II-XII nml as tested, nml cerebellar function, nml station & gait Skin Exam: normal color, warm, dry Lymphatic Exam: No adenopathy SpO2 Interpretation: normal SpO2: 100 O2 Delivery: Room Air Ordered Tests: Active Orders 24 hr Category Date Time Status D-DIMER QUANTITATIVE Stat Lab 07/28/19 04:00 Completed Lab/Rad Data: Laboratory Results 07/28/19 Range/Units 04:00 D-Dimer 367 (215-500) ng/mL - Progress Progress: unchanged Counseled pt/family regarding: lab results, need for follow-up - Departure Departure Disposition: Home Clinical Impression: Bilateral swelling of feet and ankles Condition: Stable Critical Care Time: No Referrals: TUAN NOBLE MD [Primary Care Provider] - Additional Instructions: Follow-up with your primary doctor and manager personnel selection for further management. When not up and ambulating, keep both lower extremities elevated above the level of your heart.
[2019-07-28 04:35] VITALS: BP 146/89; PULSE 58; O2SAT 98
== END 2019-07-28 04:35 | disposition home or self-care (01) ==
LOC: ED 03:03
DX: M79.89 Other specified soft tissue disorders (principal); M25.472 Effusion, left ankle; M25.471 Effusion, right ankle; I10 Essential (primary) hypertension; I25.10 Atherosclerotic heart disease of native coronary artery without angina pectoris; K21.9 Gastro-esophageal reflux disease without esophagitis; Z79.899 Other long term (current) drug therapy
CPT/HCPCS: 36415; 85379; 99283

== ENCOUNTER 2020-08-14 13:58 | Emergency (ER) | payer OTHER ==
--- NOTE | 2020-08-14 14:02 | ERPHSYRPT ---
- History of Present Illness Time Seen by Provider: 08/14/20 14:01 Source: patient, EMS Exam Limitations: no limitations Physician History: This is a 50-year-old white male who has a history of gastroesophageal reflux disease, hypertension, coronary artery disease and migraine headaches and presents to the emergency department via EMS secondary to a fall. Patient has 3 steps going into his home. The second step gave way and he fell hitting his right shoulder right wrist and right knee on the ground. Patient has some neck pain and arrives with a cervical collar in place. He did not hit his head and he has had no loss of consciousness. He is not on any anticoagulation therapy. Patient has no abdominal pain. He denies chest pain. Occurred: just prior to arrival Reason for Fall: fell from standing pos (Middle step of [address] and patient fell) Injuries/Pain Location: neck, upper extremity (Right shoulder right wrist), lower extremity (Right knee) Loss of Consciousness: no loss of consciousness Severity of Pain-Max: mild Severity of Pain-Current: mild Modifying Factors: Improves With: movement Associated Symptoms (Fall): extremity injury, neck pain, No abdominal pain, No back pain, No confusion, No chest pain, No nausea, No shortness of breath, No slurred speech, No vision changes Allergies/Adverse Reactions: albuterol Allergy (Verified 07/28/19 03:26) Home Medications: Omeprazole 20 MG [Prilosec 20 mg] 20 mg PO DAILY 09/07/15 [History] Fexofenadine HCl [Dominique] 180 mg PO DAILY 04/22/16 [History] Sacubitril/Valsartan [Entresto 49 mg-51 mg Tablet] 49 - 51 mg PO BID 10/14/17 [ History] diazePAM [Diazepam] 2 mg PO BID 10/14/17 [History] Propranolol HCl [Inderal Xl] 80 mg PO HS 07/19/18 [History] Hx Tetanus, Diphtheria Vaccination/Date Given: No (unknown) Hx Influenza Vaccination/Date Given: No Hx Pneumococcal Vaccination/Date Given: No Travel Risk - International Travel Have you traveled outside of the country in past 3 weeks: No - Coronavirus Screening Are you exhibiting any of the following symptoms?: No Close contact with a COVID-19 positive Pt in past 14-21 Days: No - Review of Systems Constitutional: No Symptoms Eyes: No Symptoms Ears, Nose, & Throat: No Symptoms Respiratory: No Symptoms Cardiac: No Symptoms Abdominal/Gastrointestinal: No Symptoms Genitourinary Symptoms: No Symptoms Musculoskeletal: Fall, Injury Neurological: No Symptoms Psychological: No Symptoms Endocrine: No Symptoms Hematologic/Lymphatic: No Symptoms Immunological/Allergic: No Symptoms All Other Systems: Reviewed and Negative - Past Medical History Pertinent Past Medical History: Yes Neurological History: Migraines, Stroke ENT History: No Pertinent History Cardiac History: Coronary Artery Disease, Hypertension, Other Respiratory History: No Pertinent History Endocrine Medical History: No Pertinent History Musculoskeletal History: No Pertinent History GI Medical History: GERD History: No Pertinent History Psycho-Social History: No Pertinent History Male Reproductive Disorders: No Pertinent History Other Medical History: arachnoid cyst, hiatal hernia. respiratory arrest 2016 after "breathing treatment". - Past Surgical History Past Surgical History: Yes Neuro Surgical History: No Pertinent History Cardiac: No Pertinent History Respiratory: No Pertinent History Gastrointestinal: No Pertinent History Genitourinary: No Pertinent History Musculoskeletal: No Pertinent History Male Surgical History: No Pertinent History Other Surgical History: endoscpopy to examine for gastric ulcers as stated per pt; sinus surgery - Social History Smoking Status: Never smoker How long have you smoked: years Exposure to second hand smoke: Yes Drug Use: none Patient Lives Alone: No - Nursing Vital Signs Nursing Vital Signs: Initial Vital Signs Temperature 98.2 F 08/14/20 14:00 Pulse Rate 83 08/14/20 14:00 Respiratory Rate 20 08/14/20 14:00 Blood Pressure 145/92 08/14/20 14:00 O2 Sat by Pulse Oximetry 98 08/14/20 14:00 Pain Scale Pain Intensity 4 - [place] Coma Score Best Eye Response ([place]): (4) open spontaneously Best Verbal Response ([place]): (5) oriented Best Motor Response ([place]): (6) obeys commands [place] Total: 15 - Physical Exam General Appearance: no apparent distress, alert, anxiety Head Injury: no evidence of injury Eye Exam: PERRL/EOMI, eyes nml inspection ENT Exam: airway nml, nml ext.inspection, No evidence of ENT injury Neck Exam: supple, trachea midline, normal inspection, c-collar in place Respiratory/Chest Exam: normal breath sounds, No chest tenderness, No respira tory distress, No ecchymosis, No crepitus Cardiovascular Exam: normal heart sounds, regular rate/rhythm Gastrointestinal Exam: soft, normal bowel sounds, No tenderness Back Exam: normal inspection, normal range of motion, No CVA tenderness, No vertebral tenderness Extremity Exam: normal range of motion, pelvis stable, bony point tenderness (Right shoulder, right wrist and right knee) Neurologic Exam: alert, 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, 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, 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, normal mood/affect, sensation nml Skin Exam: normal color, warm, dry, abrasion (Bilateral anterior knees) SpO2 Interpretation: normal O2 Delivery: Room Air - Course Nursing assessment & vital signs reviewed: Yes Ordered Tests: Active Orders 24 hr Category Date Time Status CERVICAL SPINE (2 OR 3 VIEW) Stat Exams 08/14/20 14:02 Completed KNEE (3 VIEWS) Stat Exams 08/14/20 14:02 Completed SHOULDER Stat Exams 08/14/20 14:02 Completed WRIST (MIN 3 VIEWS) Stat Exams 08/14/20 14:02 Completed - Progress Progress: improved, pain not gone completely, re-examined Progress Note: 08/14/20 15:24 All x-rays performed on this patient are negative for any acute fracture or dislocation. The patient was on his way to see his primary care physician for evaluation and treatment of recurrent sinusitis. He had asked me if I could write him a prescription for antibiotics to treat this. He states that is similar to his other episodes of sinusitis. I will do this for him. He was told to follow-up with his primary care physician for any further management of pain issues or sinusitis issues. Counseled pt/family regarding: diagnosis, need for follow-up, rad results - Departure Departure Disposition: Home Clinical Impression: Fall with injury, Abrasion of knee, bilateral, Sinusitis Condition: Stable Critical Care Time: No Referrals: TUAN NOBLE MD [Primary Care Provider] - Additional Instructions: Take your medication as prescribed. Follow-up with your primary care physician for further management of pain issues and sinusitis issues. Keep your abrasion sites clean with soap and water and may use daily antibiotic ointment of choice to abrasion sites. Prescriptions: Hydrocodone/APAP 5/325 [[place] 5/325 mg] 1 each PO Q8H PRN PRN #6 tablet MDD 3 PRN Reason: Pain Azithromycin 250 mg [Zithromax 250 MG TABLET] 250 mg PO ZPACK #6 tablet
[2020-08-14 14:06] VITALS: O2SAT 98
--- NOTE | 2020-08-14 15:12 | XRAY ---
Indication: Pain following fall. Comparison: None 3 view right shoulder obtained. No bony, articular, or soft tissue abnormalities.
--- NOTE | 2020-08-14 15:12 | XRAY ---
Indication: Pain following fall. Comparison: None 5 view cervical spine demonstrates normal alignment with vertebral body heights/disc spaces maintained. Minimal multilevel anterior endplate spurring. No other bony, articular, or soft tissue abnormalities.
--- NOTE | 2020-08-14 15:14 | XRAY ---
Indication: Pain following fall. Comparison: None 3 view right wrist obtained. No bony, articular, or soft tissue abnormalities.
--- NOTE | 2020-08-14 15:14 | XRAY ---
Indication: Pain following fall. Comparison: None 3 view right knee demonstrates small elliptical lateral femoral condyle bone island. No other bony, articular, or soft tissue abnormalities.
[2020-08-14 15:18] VITALS: BP 146/98; PULSE 81
[2020-08-14] MEDS ORDERED: NORCO 5/325 MG PO ONE (15:23)
[2020-08-14] MEDS ORDERED: NORCO 5/325 MG ONE (15:27)
== END 2020-08-14 15:53 | disposition home or self-care (01) ==
LOC: ED 13:58
DX: S80.211A Abrasion, right knee, initial encounter (principal); S80.212A Abrasion, left knee, initial encounter; S40.011A Contusion of right shoulder, initial encounter; S60.211A Contusion of right wrist, initial encounter; S80.01XA Contusion of right knee, initial encounter; W10.8XXA Fall (on) (from) other stairs and steps, initial encounter; J32.9 Chronic sinusitis, unspecified; K21.9 Gastro-esophageal reflux disease without esophagitis; I10 Essential (primary) hypertension; I25.10 Atherosclerotic heart disease of native coronary artery without angina pectoris; Z79.899 Other long term (current) drug therapy; M54.2 Cervicalgia
CPT/HCPCS: 72040; 73030; 73110; 73562; 99284; A9270-GY

== ENCOUNTER 2020-08-23 18:02 | Observation (INO) | payer OTHER ==
[2020-08-23] MEDS: Sodium Chloride 0.9% 1000 ML 1,000 ML IV SCH (18:28)
[2020-08-23 18:37] LABS: Absolute Neutrophil Ct (ANC) 4.57 (1.4-6.9); BASOPHIL % 0.4 % (0.0-0.4); Basophil (Absolute #) 0.03 (0-0.4); Eosinophil % 3.1 % (0.00-5.0); Eosinophil (Absolute #) 0.25 (0-0.5); Hematocrit 38.6 % (42-50); Hemoglobin 12.5 gm/dl (12.5-18.0); Lymphocyte (Absolute #) 2.39 (1.0-4.6); Mean Cell Volume 88.7 fl (78-100); Mean Corpuscular Hemoglobin 28.7 pg (26-32); Mean Corpuscular Hgb Concent. 32.4 g/dl (32-36); Mean Platelet Volume 9.2 fl (7.5-11.0); Monocyte (Absolute #) 0.73 (0.0-1.3); Monocytes % 9.2 % (0.0-12.0); Neutrophil % 57.3 % (36.0-66.0); Platelet Count 217 K/mm3 (150-450); Red Blood Count 4.35 M/mm3 (4.1-5.6); Red Cell Distribution Width 13.6 % (11.5-14.0)
[2020-08-23 19:00] LABS: ALBUMIN 4.5 g/dL (3.5-5.0); ALKALINE PHOSPHATASE 73 U/L (38-126); ANION GAP 18.5 MEQ/L (5-15); BLOOD UREA NITROGEN 10 mg/dL (9-20); CHLORIDE 103 mmol/L (98-107); Calcium 9.6 mg/dL (8.4-10.2); Carbon Dioxide 23 mmol/L (22-30); Creatinine 1 1.02 mg/dL (0.66-1.25); EST GLOMERULAR FILTRATION RATE > 60.0 ML/MIN; ETHYL ALCOHOL < 10 mg/dL (0-10); Glucose 93 mg/dL (74-106); MAGNESIUM 2.2 mg/dL (1.6-2.3); SGOT/AST 42 U/L (17-59); SGPT/ALT 30 U/L (0-50); SODIUM 140 mmol/L (137-145); Total Protein 7.7 g/dL (6.3-8.2)
--- NOTE | 2020-08-23 19:07 | ERPHSYRPT ---
- History of Present Illness Time Seen by Provider: 08/23/20 18:20 Source: patient Exam Limitations: no limitations Patient Subjective Stated Complaint: Pt states that he got a headache around noon and then around 1430 he took some Tylenol and he continues to have a headac he but feels his right side of his face tingling, pt states that he feels his whole body shaking Triage Nursing Assessment: Pt was brought to the ER by his , hypertensive, rates head pain as 6/10, passed NIHS, pulses normal, doesn't appear to be in any distress Physician History: Patient is a 50-year-old male who presents to our ED with complaints of headache. Patient has a history of migraine headaches. Headache today is typical of his usual migraine headaches. Headache started at around noon today. Patient took Tylenol at approximately 1430. Shortly thereafter patient experienced a tingling to the right side of his face. Patient became concerned and came to our ED. Patient's headache rated 6 out of 10. No trauma. No fever. Patient advised that he has a history of a arachnoid cyst in his brain. No associated weakness. No focal or lateralizing symptoms. No fever no neck pain no photophobia. Patient has no meningeal signs. Symptoms are mild to moderate in intensity. No specific worsening improving factors. Patient voices no other complaints or concerns at this time. NIH was performed at bedside immediately upon arrival. NIH score was 0. Timing/Duration: today Severity: moderate Modifying Factors: Improves With: nothing Associated Symptoms: denies symptoms Allergies/Adverse Reactions: albuterol Allergy (Verified 08/23/20 18:17) Home Medications: Omeprazole 20 MG [Prilosec 20 mg] 20 mg PO DAILY 09/07/15 [History] Fexofenadine HCl [Dominique] 180 mg PO DAILY 04/22/16 [History] diazePAM [Diazepam] 2 mg PO BID 10/14/17 [History] Propranolol HCl [Inderal Xl] 80 mg PO HS 07/19/18 [History] Amitriptyline HCl 25 mg [Elavil 25 mg] 25 mg PO DAILY 08/23/20 [History] Losartan Potassium 50 mg [Cozaar 50 MG] 50 mg PO DAILY 08/23/20 [History] Meloxicam 7.5 mg PO DAILY 08/23/20 [History] Hx Tetanus, Diphtheria Vaccination/Date Given: No (unknown) Hx Influenza Vaccination/Date Given: No Hx Pneumococcal Vaccination/Date Given: No Travel Risk - International Travel Have you traveled outside of the country in past 3 weeks: No - Coronavirus Screening Are you exhibiting any of the following symptoms?: No Close contact with a COVID-19 positive Pt in past 14-21 Days: No - Review of Systems Constitutional: No Symptoms, No Fever, No Chills Eyes: No Symptoms Ears, Nose, & Throat: No Symptoms Respiratory: No Symptoms, No Cough, No Dyspnea Cardiac: No Symptoms, No Chest Pain, No Edema, No Syncope Abdominal/Gastrointestinal: No Symptoms, No Abdominal Pain, No Nausea, No Vom iting, No Diarrhea Genitourinary Symptoms: No Symptoms, No Dysuria Musculoskeletal: No Symptoms, No Back Pain, No Neck Pain Skin: No Symptoms, No Rash Neurological: No Symptoms, No Dizziness, No Focal Weakness, No Sensory Changes Psychological: No Symptoms Endocrine: No Symptoms Hematologic/Lymphatic: No Symptoms Immunological/Allergic: No Symptoms All Other Systems: Reviewed and Negative - Past Medical History Pertinent Past Medical History: Yes Neurological History: Migraines, Stroke ENT History: No Pertinent History Cardiac History: Coronary Artery Disease, Hypertension, Other Respiratory History: No Pertinent History Endocrine Medical History: No Pertinent History Musculoskeletal History: No Pertinent History GI Medical History: GERD History: No Pertinent History Psycho-Social History: No Pertinent History Male Reproductive Disorders: No Pertinent History Other Medical History: arachnoid cyst, hiatal hernia. respiratory arrest 2016 after "breathing treatment". - Past Surgical History Past Surgical History: Yes Neuro Surgical History: No Pertinent History Cardiac: No Pertinent History Respiratory: No Pertinent History Gastrointestinal: No Pertinent History Genitourinary: No Pertinent History Musculoskeletal: No Pertinent History Male Surgical History: No Pertinent History Other Surgical History: endoscpopy to examine for gastric ulcers as stated per pt; sinus surgery - Social History Smoking Status: Never smoker How long have you smoked: years Exposure to second hand smoke: Yes Drug Use: none Patient Lives Alone: No - Nursing Vital Signs Nursing Vital Signs: Initial Vital Signs Pulse Rate 85 08/23/20 18:06 Blood Pressure 154/102 08/23/20 18:06 O2 Sat by Pulse Oximetry 100 08/23/20 18:06 Pain Scale Pain Intensity 2 - Physical Exam General Appearance: no apparent distress, alert Eye Exam: PERRL/EOMI, eyes nml inspection Ears, Nose, Throat Exam: normal ENT inspection, TMs normal, pharynx normal, moist mucous membranes Neck Exam: normal inspection, non-tender, supple, full range of motion Respiratory Exam: normal breath sounds, lungs clear, No respiratory distress Cardiovascular Exam: regular rate/rhythm, normal heart sounds, normal peripheral pulses Gastrointestinal/Abdomen Exam: soft, normal bowel sounds, No tenderness, No mass Back Exam: normal inspection, normal range of motion, No CVA tenderness, No vertebral tenderness Extremity Exam: normal inspection, normal range of motion, pelvis stable Neurologic Exam: alert, 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, cooperative, normal mood/affect, nml cerebellar function, nml station & gait, sensation nml, No motor deficits Skin Exam: normal color, warm, dry, No rash Lymphatic Exam: No adenopathy SpO2 Interpretation: normal SpO2: 100 O2 Delivery: Room Air - Course Nursing assessment & vital signs reviewed: Yes EKG Interpreted by Me: RATE (75), Sinus Rhythm, NORMAL AXIS, NORMAL INTERVALS - CT Exams Head CT Interpretation: Tele-radiologist Report (12/03/2018, left middle fossa arachnoid cyst. No new acute findings.) Ordered Tests: Active Orders 24 hr Category Date Time Status Memorandum Statement Clerk STAT Care 08/23/20 18:21 Active EKG-ER Only STAT Care 08/23/20 18:20 Active IV Insertion STAT Care 08/23/20 18:20 Active Pulse Oximetry (ED) STAT Care 08/23/20 18:20 Active HEAD WITHOUT CONTRAST [CT] Stat Exams 08/23/20 18:20 Taken CBC W DIFF Stat Lab 08/23/20 18:34 Completed CMP Stat Lab 08/23/20 18:34 Completed ETHYL ALCOHOL Stat Lab 08/23/20 18:34 Completed MAGNESIUM Stat Lab 08/23/20 18:34 Completed TROPONIN Q3H Lab 08/23/20 18:34 Completed TROPONIN Q3H Lab 08/23/20 21:30 Completed TROPONIN Q3H Lab 08/24/20 00:30 Ordered TROPONIN Q3H Lab 08/24/20 03:30 Ordered TROPONIN Q3H Lab 08/24/20 06:30 Ordered TSH [TSH, 3RD Generation] Stat Lab 08/23/20 18:34 Completed UA W/RFX UR CULTURE Stat Lab 08/23/20 20:31 Completed Urine Triage Profile Stat Lab 08/23/20 20:31 Completed Medication Summary Generic Name Dose Route Start Last Admin Trade Name Priteshq PRN Reason Stop Dose Admin Sodium Chloride 1,000 mls @ 75 mls/hr 08/23/20 18:30 08/23/20 18:28 Sodium Chloride 0.9% 1000 Ml IV 09/22/20 18:29 75 mls/hr .[id number] ALEX Administration Sodium Chloride 1,000 mls @ 75 mls/hr 08/23/20 21:30 Sodium Chloride 0.9% 1000 Ml IV 09/22/20 21:29 .[id number] ALEX Discontinued Medications Generic Name Dose Route Start Last Admin Trade Name Priteshq PRN Reason Stop Dose Admin Aspirin 324 mg 08/23/20 19:15 08/23/20 19:35 Baby Aspirin 81 Mg Chew PO 08/23/20 19:16 324 mg STAT ONE Administration Prochlorperazine Edisylate 10 mg 08/23/20 21:30 08/23/20 21:44 Compazine 10 Mg/2 Ml IV 08/23/20 21:31 10 mg STAT ONE Administration Prochlorperazine Edisylate Confirm 08/23/20 21:33 Compazine 10 Mg/2 Ml Administered 08/23/20 21:34 Dose 10 mg .ROUTE .[facility] Lab/Rad Data: Laboratory Result Diagrams 08/23/20 18:34 08/23/20 18:34 Laboratory Results 08/23/20 08/23/20 08/23/20 Range/Units 21:31 21:30 20:31 WBC (4.0-10.5) K/mm3 RBC (4.1-5.6) M/mm3 Hgb (12.5-18.0) gm/dl Hct (42-50) % MCV (78-100) fl MCH (26-32) pg MCHC (32-36) g/dl RDW (11.5-14.0) % Plt Count (150-450) K/mm3 MPV (7.5-11.0) fl Gran % (36.0-66.0) % Eos # (Auto) (0-0.5) Absolute Lymphs (auto) (1.0-4.6) Absolute Monos (auto) (0.0-1.3) Lymphocytes % (24.0-44.0) % Monocytes % (0.0-12.0) % Eosinophils % (0.00-5.0) % Basophils % (0.0-0.4) % Absolute Granulocytes (1.4-6.9) Basophils # (0-0.4) Sodium (137-145) mmol/L Potassium (3.5-5.1) mmol/L Chloride (98-107) mmol/L Carbon Dioxide (22-30) mmol/L Anion Gap (5-15) MEQ/L BUN (9-20) mg/dL Creatinine (0.66-1.25) mg/dL Estimated GFR ML/MIN Glucose (74-106) mg/dL Calcium (8.4-10.2) mg/dL Magnesium (1.6-2.3) mg/dL Total Bilirubin (0.2-1.3) mg/dL AST (17-59) U/L ALT (0-50) U/L Alkaline Phosphatase (38-126) U/L Troponin I < 0.012 (0.000-0.034) ng/mL Serum Total Protein (6.3-8.2) g/dL Albumin (3.5-5.0) g/dL TSH 3rd Generation (0.47-4.68) mIU/L Urine Color (YELLOW) Urine Appearance (CLEAR) Urine pH (5-6) Ur Specific [place] (1.005-1.025) Urine Protein (Negative) Urine Ketones (NEGATIVE) Urine Blood (0-5) Brad/ul Urine Nitrite (NEGATIVE) Urine Bilirubin (NEGATIVE) Urine Urobilinogen (0-1) mg/dL Ur Leukocyte Esterase (NEGATIVE) Urine WBC (Auto) (0-5) /HPF Urine RBC (Auto) (0-2) /HPF U Epithel Cells (Auto) (FEW) /HPF Urine Bacteria (Auto) (NEGATIVE) /HPF Urine Mucus (Auto) (NEGATIVE) /HPF Urine Culture Reflexed (NO) Urine Glucose (NEGATIVE) mg/dL Urine Opiates Level NEGATIVE (NEGATIVE) Ur Methadone NEGATIVE (NEGATIVE) Urine Barbiturates NEGATIVE (NEGATIVE) Ur Phencyclidine (PCP) NEGATIVE (NEGATIVE) Urine Amphetamine NEGATIVE (NEGATIVE) U Benzodiazepine Level POSITIVE (NEGATIVE) Urine Cocaine NEGATIVE (NEGATIVE) Urine Marijuana (THC) NEGATIVE (NEGATIVE) Ethyl Alcohol (0-10) mg/dL Influenza Type A Ag NEGATIVE (NEGATIVE) Influenza Type B Ag NEGATIVE (NEGATIVE) RSV (PCR) NEGATIVE (Negative) SARS-CoV-2 (PCR) NEGATIVE (NEGATIVE) 08/23/20 08/23/20 08/23/20 Range/Units 20:31 18:34 18:34 WBC (4.0-10.5) K/mm3 RBC (4.1-5.6) M/mm3 Hgb (12.5-18.0) gm/dl Hct (42-50) % MCV (78-100) fl MCH (26-32) pg MCHC (32-36) g/dl RDW (11.5-14.0) % Plt Count (150-450) K/mm3 MPV (7.5-11.0) fl Gran % (36.0-66.0) % Eos # (Auto) (0-0.5) Absolute Lymphs (auto) (1.0-4.6) Absolute Monos (auto) (0.0-1.3) Lymphocytes % (24.0-44.0) % Monocytes % (0.0-12.0) % Eosinophils % (0.00-5.0) % Basophils % (0.0-0.4) % Absolute Granulocytes (1.4-6.9) Basophils # (0-0.4) Sodium (137-145) mmol/L Potassium (3.5-5.1) mmol/L Chloride (98-107) mmol/L Carbon Dioxide (22-30) mmol/L Anion Gap (5-15) MEQ/L BUN (9-20) mg/dL Creatinine (0.66-1.25) mg/dL Estimated GFR ML/MIN Glucose (74-106) mg/dL Calcium (8.4-10.2) mg/dL Magnesium (1.6-2.3) mg/dL Total Bilirubin (0.2-1.3) mg/dL AST (17-59) U/L ALT (0-50) U/L Alkaline Phosphatase (38-126) U/L Troponin I < 0.012 (0.000-0.034) ng/mL Serum Total Protein (6.3-8.2) g/dL Albumin (3.5-5.0) g/dL TSH 3rd Generation 2.080 (0.47-4.68) mIU/L Urine Color COLORLESS (YELLOW) Urine Appearance CLEAR (CLEAR) Urine pH 6.0 (5-6) Ur Specific [place] 1.004 (1.005-1.025) Urine Protein NEGATIVE (Negative) Urine Ketones NEGATIVE (NEGATIVE) Urine Blood NEGATIVE (0-5) Brad/ul Urine Nitrite NEGATIVE (NEGATIVE) Urine Bilirubin NEGATIVE (NEGATIVE) Urine Urobilinogen NEGATIVE (0-1) mg/dL Ur Leukocyte Esterase NEGATIVE (NEGATIVE) Urine WBC (Auto) NONE (0-5) /HPF Urine RBC (Auto) NONE (0-2) /HPF U Epithel Cells (Auto) NONE (FEW) /HPF Urine Bacteria (Auto) NONE (NEGATIVE) /HPF Urine Mucus (Auto) SLIGHT (NEGATIVE) /HPF Urine Culture Reflexed NO (NO) Urine Glucose NEGATIVE (NEGATIVE) mg/dL Urine Opiates Level (NEGATIVE) Ur Methadone (NEGATIVE) Urine Barbiturates (NEGATIVE) Ur Phencyclidine (PCP) (NEGATIVE) Urine Amphetamine (NEGATIVE) U Benzodiazepine Level (NEGATIVE) Urine Cocaine (NEGATIVE) Urine Marijuana (THC) (NEGATIVE) Ethyl Alcohol (0-10) mg/dL Influenza Type A Ag (NEGATIVE) Influenza Type B Ag (NEGATIVE) RSV (PCR) (Negative) SARS-CoV-2 (PCR) (NEGATIVE) 08/23/20 08/23/20 Range/Units 18:34 18:34 WBC 8.0 (4.0-10.5) K/mm3 RBC 4.35 (4.1-5.6) M/mm3 Hgb 12.5 (12.5-18.0) gm/dl Hct 38.6 L (42-50) % MCV 88.7 (78-100) fl MCH 28.7 (26-32) pg MCHC 32.4 (32-36) g/dl RDW 13.6 (11.5-14.0) % Plt Count 217 (150-450) K/mm3 MPV 9.2 (7.5-11.0) fl Gran % 57.3 (36.0-66.0) % Eos # (Auto) 0.25 (0-0.5) Absolute Lymphs (auto) 2.39 (1.0-4.6) Absolute Monos (auto) 0.73 (0.0-1.3) Lymphocytes % 30.0 (24.0-44.0) % Monocytes % 9.2 (0.0-12.0) % Eosinophils % 3.1 (0.00-5.0) % Basophils % 0.4 (0.0-0.4) % Absolute Granulocytes 4.57 (1.4-6.9) Basophils # 0.03 (0-0.4) Sodium 140 (137-145) mmol/L Potassium 4.0 (3.5-5.1) mmol/L Chloride 103 (98-107) mmol/L Carbon Dioxide 23 (22-30) mmol/L Anion Gap 18.5 H (5-15) MEQ/L BUN 10 (9-20) mg/dL Creatinine 1.02 (0.66-1.25) mg/dL Estimated GFR > 60.0 ML/MIN Glucose 93 (74-106) mg/dL Calcium 9.6 (8.4-10.2) mg/dL Magnesium 2.2 (1.6-2.3) mg/dL Total Bilirubin 0.50 (0.2-1.3) mg/dL AST 42 (17-59) U/L ALT 30 (0-50) U/L Alkaline Phosphatase 73 (38-126) U/L Troponin I (0.000-0.034) ng/mL Serum Total Protein 7.7 (6.3-8.2) g/dL Albumin 4.5 (3.5-5.0) g/dL TSH 3rd Generation (0.47-4.68) mIU/L Urine Color (YELLOW) Urine Appearance (CLEAR) Urine pH (5-6) Ur Specific [place] (1.005-1.025) Urine Protein (Negative) Urine Ketones (NEGATIVE) Urine Blood (0-5) Brad/ul Urine Nitrite (NEGATIVE) Urine Bilirubin (NEGATIVE) Urine Urobilinogen (0-1) mg/dL Ur Leukocyte Esterase (NEGATIVE) Urine WBC (Auto) (0-5) /HPF Urine RBC (Auto) (0-2) /HPF U Epithel Cells (Auto) (FEW) /HPF Urine Bacteria (Auto) (NEGATIVE) /HPF Urine Mucus (Auto) (NEGATIVE) /HPF Urine Culture Reflexed (NO) Urine Glucose (NEGATIVE) mg/dL Urine Opiates Level (NEGATIVE) Ur Methadone (NEGATIVE) Urine Barbiturates (NEGATIVE) Ur Phencyclidine (PCP) (NEGATIVE) Urine Amphetamine (NEGATIVE) U Benzodiazepine Level (NEGATIVE) Urine Cocaine (NEGATIVE) Urine Marijuana (THC) (NEGATIVE) Ethyl Alcohol < 10 (0-10) mg/dL Influenza Type A Ag (NEGATIVE) Influenza Type B Ag (NEGATIVE) RSV (PCR) (Negative) SARS-CoV-2 (PCR) (NEGATIVE) - Progress Progress: improved Progress Note: 08/23/20 21:20 Neurologist advises admission for MRI/MRA. Patient received aspirin in our ED. IV fluids infused at 75 cc/h. CT head shows temporal arachnoid cyst. We will admit patient to Dr. Noble who accepts admission pending Covid test result. Plan of care discussed with patient. He agrees to admission at [facility] for further evaluation and treatment. Covid test negative. 08/23/20 22:[address] Yany Will see patient in: hospital (observation) Counseled pt/family regarding: lab results, diagnosis, rad results - Departure Departure Disposition: Observation Clinical Impression: Arachnoid cyst, Migraine, Paresthesia Condition: Stable Critical Care Time: No Referrals: TUNA NOBLE MD [Primary Care Provider] -
[2020-08-23] MEDS ORDERED: BABY ASPIRIN 81 MG CHEW PO ONE (19:15)
[2020-08-23] MEDS ORDERED: Compazine 10 MG/2 ML IV ONE (21:30)
[2020-08-23] MEDS ORDERED: Sodium Chloride 0.9% 1000 ML 1,000 ML IV SCH (21:30)
[2020-08-23] MEDS ORDERED: Compazine 10 MG/2 ML ONE (21:33)
[2020-08-23 21:40] LABS: Appearance CLEAR (CLEAR); Bilirubin NEGATIVE (NEGATIVE); Blood NEGATIVE Ery/ul (0-5); Glucose NEGATIVE (NEGATIVE); Ketones NEGATIVE (NEGATIVE); Leukocyte Esterase NEGATIVE (NEGATIVE); Mucus SLIGHT /HPF (NEGATIVE); Nitrite NEGATIVE (NEGATIVE); Protein,Urine Dip NEGATIVE (Negative); Specific Gravity 1.004 (1.005-1.025); Urobilinogen NEGATIVE mg/dL (0-1)
[2020-08-23 21:53] LABS: Amphetamine,Urine NEGATIVE (NEGATIVE); Barbiturate,Urine NEGATIVE (NEGATIVE); Benzodiazepine,Urine POSITIVE (NEGATIVE); Cocaine,Urine NEGATIVE (NEGATIVE); Methadone,Urine NEGATIVE (NEGATIVE); Opiate,Urine NEGATIVE (NEGATIVE); PCP,Urine NEGATIVE (NEGATIVE); THC,Urine NEGATIVE (NEGATIVE)
[2020-08-23 22:10] LABS: INFLUENZA A NEGATIVE (NEGATIVE); INFLUENZA B NEGATIVE (NEGATIVE); RESPIRATORY SYNCTIAL VIRUS NEGATIVE (Negative)
[2020-08-24] MEDS ORDERED: ELAVIL 25 MG PO SCH (00:18)
[2020-08-24] MEDS ORDERED: CLARITIN 10 MG PO SCH (00:19)
[2020-08-24] MEDS ORDERED: Cozaar 50 MG PO SCH ×2 (00:21→22:00)
[2020-08-24] MEDS ORDERED: MELOXICAM PO SCH (00:21)
[2020-08-24] MEDS ORDERED: Protonix 40MG Tablet PO SCH (00:23)
[2020-08-24] MEDS ORDERED: Inderal 20 MG PO SCH (00:24)
[2020-08-24] MEDS ORDERED: TYLENOL 325 MG PO PRN (00:49)
[2020-08-24] MEDS ORDERED: Cozaar 50 MG ONE (00:58)
[2020-08-24 05:33] LABS: Absolute Neutrophil Ct (ANC) 3.01 (1.4-6.9); BASOPHIL % 0.5 % (0.0-0.4); Basophil (Absolute #) 0.03 (0-0.4); Eosinophil % 4.2 % (0.00-5.0); Eosinophil (Absolute #) 0.25 (0-0.5); Hematocrit 34.7 % (42-50); Hemoglobin 11.2 gm/dl (12.5-18.0); Lymphocyte (Absolute #) 2.01 (1.0-4.6); Lymphocytes % 33.9 % (24.0-44.0); Mean Corpuscular Hemoglobin 28.7 pg (26-32); Mean Corpuscular Hgb Concent. 32.3 g/dl (32-36); Mean Platelet Volume 9.1 fl (7.5-11.0); Monocyte (Absolute #) 0.63 (0.0-1.3); Monocytes % 10.6 % (0.0-12.0); Neutrophil % 50.8 % (36.0-66.0); Platelet Count 171 K/mm3 (150-450); Red Cell Distribution Width 13.6 % (11.5-14.0); White Blood Count 5.9 K/mm3 (4.0-10.5)
[2020-08-24 05:50] LABS: ALBUMIN 3.6 g/dL (3.5-5.0); ALKALINE PHOSPHATASE 67 U/L (38-126); ANION GAP 13.2 MEQ/L (5-15); BLOOD UREA NITROGEN 10 mg/dL (9-20); CHLORIDE 104 mmol/L (98-107); Calcium 8.9 mg/dL (8.4-10.2); Carbon Dioxide 28 mmol/L (22-30); EST GLOMERULAR FILTRATION RATE > 60.0 ML/MIN; Glucose 115 mg/dL (74-106); Potassium 3.8 mmol/L (3.5-5.1); SGOT/AST 27 U/L (17-59); SGPT/ALT 23 U/L (0-50); SODIUM 141 mmol/L (137-145); Total Protein 6.3 g/dL (6.3-8.2)
[2020-08-24 07:18] VITALS: BP 119/74
[2020-08-24] MEDS: Sodium Chloride 0.9% 1000 ML 1,000 ML IV SCH (08:28)
--- NOTE | 2020-08-24 08:44 | XRAY ---
Indication: Headache and numbness. Multiple contiguous axial images obtained through the head without contrast. Comparison: December 03, 2018. Stable large left middle fossa arachnoid cyst. No acute intracranial hemorrhage, hydrocephalus, or mass effect. Fourth ventricle is midline. [place]-white matter differentiation is preserved. Bony calvarium intact. Visualized paranasal sinuses and mastoid air cells are clear. Impression: 1. Stable left middle fossa arachnoid cyst. 2. No new/acute intracranial abnormalities.
[2020-08-24] MEDS ORDERED: Valium 5 MG PO SCH (10:00)
[2020-08-24] MEDS ORDERED: DIAZEPAM 2 MG PO SCH (10:00)
--- NOTE | 2020-08-24 11:34 | XRAY ---
Indication: Migraine, dizziness, and high blood pressure. Right body tingling. Multi-slab 3-D [id number] MRA [place] was performed. Comparison: None. Distal internal carotid arteries are bilaterally symmetric without critical stenosis, obstruction, or AV malformation. Normal carotid terminus with normal branching A1 and M1 segments bilaterally. More distal anterior cerebral, middle cerebral, anterior communicating, and right posterior communicating arteries are normal in MRA appearance. Left posterior communicating artery not seen either occluded or too small for resolution of exam. Posterior circulation demonstrates normal MRA appearance to the basilar artery with normal branching posterior cerebral, superior cerebellar, and anterior inferior cerebellar arteries bilaterally. Impression: Nonvisualization left posterior communicating artery. Remaining MRA [place] is negative.
--- NOTE | 2020-08-24 11:35 | XRAY ---
Indication: Migraine, dizziness, and high blood pressure. Right body tingling. Sagittal, coronal, and axial MRI brain was performed without contrast using T1, T2, FLAIR, diffusion, and ADC sequences. Comparison: September 29, 2008. Grossly stable 4.9 x 5.0 x 5.2 cm left middle fossa arachnoid cyst. No acute intracranial hemorrhage, hydrocephalus, or midline shifting. Diffusion images remain negative for restricted signal. Fourth ventricle is midline. 7/8 cranial nerve complex bilaterally symmetric. Normal flow-void signal within the major intracerebral circulation. Normal appearing craniocervical junction and sella turcica. Paranasal sinuses are clear. Impression: 1. Stable left middle fossa arachnoid cyst. 2. Remaining MRI brain without contrast exam continues to be negative.
[2020-08-24 12:34] VITALS: PULSE 68; O2SAT 97
[2020-08-24] MEDS ORDERED: PROPRANOLOL HCL 80 MG PO SCH (22:00)
--- NOTE | 2020-08-27 16:41 | PCM.SSS ---
History of Present Illness - Chief Complaint Chief Complaint: headache for 1 day History of Present Illness: is a 50 year old male who presents to our ED with complaints of headache. Patient has a history of migraine headaches. Headache today is typical of his usual migraine headaches. Headache started at around noon today. Patient took Tylenol at approximately 1430. Shortly thereafter patient experienced a tingling to the right side of his face. Patient became concerned and came to our ED. Patient's headache rated 6 out of 10. No trauma. No fever. Patient advised that he has a history of a arachnoid cyst in his brain. No associated weakness. No focal or lateralizing symptoms. No fever no neck pain no photophobia. Patient has no meningeal signs. Symptoms are mild to moderate in intensity. No specific worsening improving factors. Patient voices no other complaints or concerns at this time. NIH was performed at bedside immediately upon arrival. NIH score was 0.. - Review of Systems Constitutional: No Fever, No Chills Eyes: No Symptoms Ears, Nose, & Throat: No Symptoms Respiratory: No Cough, No Short Of Breath Cardiac: No Chest Pain, No Edema, No Syncope Abdominal/Gastrointestinal: No Abdominal Pain, No Nausea, No Vomiting, No Diarrhea Genitourinary Symptoms: No Dysuria Musculoskeletal: No Back Pain, No Neck Pain Skin: No Rash Neurological: Headache, Parasthesia, No Dizziness, No Focal Weakness, No Sensory Changes Psychological: No Symptoms Endocrine: No Symptoms Hematologic/Lymphatic: No Symptoms Immunological/Allergic: No Symptoms Medications & Allergies Home Medications: Home Medication List Omeprazole 20 MG [Prilosec 20 mg] 20 mg PO HS 09/07/15 [History Confirmed 08/24/20] Fexofenadine HCl [Dominique] 180 mg PO HS 04/22/16 [History Confirmed 08/24/20] diazePAM [Diazepam] 2 mg PO BID 10/14/17 [History Confirmed 08/23/20] Propranolol HCl [Inderal Xl] 80 mg PO HS 07/19/18 [History Confirmed 08/23/20] Amitriptyline HCl 25 mg [Elavil 25 mg] 25 mg PO HS 08/23/20 [History Confirmed 08/24/20] Losartan Potassium 50 mg [Cozaar 50 MG] 50 mg PO HS 08/23/20 [History Confirmed 08/24/20] Meloxicam 7.5 mg PO HS 08/23/20 [History Confirmed 08/24/20] Allergies/Adverse Reactions: Allergies Allergy/AdvReac Type Severity Reaction Status Date / Time albuterol Allergy Verified 08/23/20 18:17 - Past Medical History Past Medical History: Yes Neurological History: Migraines, Stroke ENT History: No Pertinent History Cardiac History: Coronary Artery Disease, Hypertension, Other Respiratory History: No Pertinent History Endocrine Medical History: No Pertinent History Musculoskelatal History: No Pertinent History GI Medical History: GERD History: No Pertinent History Pyscho-Social History: No Pertinent History Male Reproductive Disorders: No Pertinent History Comment: arachnoid cyst, hiatal hernia. respiratory arrest 2016 after "breathing treatment". - Past Surgical History Past Surgical History: Yes Neuro Surgical History: No Pertinent History Cardiac History: No Pertinent History Respiratory Surgery: No Pertinent History GI Surgical History: No Pertinent History Genitourinary Surgical Hx: No Pertinent History Musculskeletal Surgical Hx: No Pertinent History Male Surgical History: No Pertinent History Other Surgical History: endoscpopy to examine for gastric ulcers as stated per pt; sinus surgery - Social History Smoking Status: Unknown if ever smoked How long have you smoked: years Exposure to second hand smoke: Yes Alcohol: None Drug Use: none - Physical Exam General Appearance: no apparent distress, alert Neurologic Exam: alert, 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, cooperative, normal mood/affect, nml cerebellar function, nml station & gait, sensation nml, No motor deficits Eye Exam: PERRL/EOMI, eyes nml inspection Ears, Nose, Throat Exam: normal ENT inspection, TMs normal, pharynx normal, moist mucous membranes Neck Exam: normal inspection, non-tender, supple, full range of motion Respiratory Exam: normal breath sounds, lungs clear, No respiratory distress Cardiovascular Exam: regular rate/rhythm, normal heart sounds, normal peripheral pulses Gastrointestinal/Abdomen Exam: soft, normal bowel sounds, No tenderness, No mass Back Exam: normal inspection, normal range of motion, No CVA tenderness, No vertebral tenderness Extremity Exam: normal inspection, normal range of motion, pelvis stable Skin Exam: normal color, warm, dry, No rash Lymphatic Exam: No adenopathy Assessment/Plan (1) Headache Status: Acute Qualifiers: Headache type: other headache syndrome Qualified Code(s): G44.89 - Other headache syndrome Code(s): R51 - HEADACHE * DO NOT USE * (2) Intracranial arachnoid cyst Status: Chronic Code(s): G93.0 - CEREBRAL CYSTS Hospital Summary - Hospital Course Hospital Course: Chief Complaint Diagnosis arachnoid cyst, migraine, paresthesia Allergies Allergy/AdvReac Type Severity Reaction Status Date / Time albuterol Allergy Verified 08/23/20 18:17 Home Medications Medication Instructions Recorded Confirmed Last Taken Type Amitriptyline HCl 25 mg [Elavil 25 mg PO HS 08/23/20 08/24/20 08/22/20 History 25 mg] Losartan Potassium 50 mg 50 mg PO HS 08/23/20 08/24/20 08/22/20 History [Cozaar 50 MG] Meloxicam 7.5 mg PO HS 08/23/20 08/24/20 08/22/20 History Current Medications Discontinued Medications Generic Name Dose Route Start Last Admin Trade Name Freq PRN Reason Stop Dose Admin Acetaminophen 650 mg 08/24/20 00:49 Tylenol 325 Mg PO 09/23/20 00:48 Q6H PRN PRN PAIN AND/OR FEVER Amitriptyline HCl 25 mg 08/24/20 00:18 08/24/20 01:02 Elavil 25 Mg PO 09/23/20 00:17 25 mg HS ALEX Administration Aspirin 324 mg 08/23/20 19:15 08/23/20 19:35 Baby Aspirin 81 Mg Chew PO 08/23/20 19:16 324 mg STAT ONE Administration Diazepam 2.5 mg 08/24/20 10:00 08/24/20 10:03 Valium 5 Mg PO 09/23/20 09:59 2.5 mg BID ALEX Administration Sodium Chloride 1,000 mls @ 75 mls/hr 08/23/20 18:30 08/24/20 08:28 Sodium Chloride 0.9% 1000 Ml IV 09/22/20 18:29 75 mls/hr .[id number] ALEX Administration Sodium Chloride 1,000 mls @ 75 mls/hr 08/23/20 21:30 08/24/20 01:07 Sodium Chloride 0.9% 1000 Ml IV 09/22/20 21:29 Not Given .[id number] ALEX Loratadine 10 mg 08/24/20 00:19 08/24/20 01:03 Claritin 10 Mg PO 09/23/20 00:18 10 mg HS ALEX Administration Losartan Potassium 50 mg 08/24/20 00:21 08/24/20 01:02 Cozaar 50 Mg PO 09/23/20 00:20 50 mg DAILY ALEX Administration Losartan Potassium Confirm 08/24/20 00:58 Cozaar 50 Mg Administered 08/24/20 00:59 Dose 50 mg .ROUTE .STK-MED ONE Losartan Potassium 50 mg 08/24/20 22:00 Cozaar 50 Mg PO 09/23/20 21:59 HS ALEX Meloxicam 7.5 mg 08/24/20 00:21 08/24/20 01:02 Meloxicam PO 09/23/20 00:20 7.5 mg HS ALEX Administration Non-Formulary Drug : 80 mg 08/24/20 22:00 (Propranolol Hcl [ PO 09/23/20 21:59 Inderal Xl] 80 Mg) HS [facility] Pantoprazole Sodium 40 mg 08/24/20 00:23 08/24/20 01:03 Protonix 40mg Tablet PO 09/23/20 00:22 40 mg HS ALEX Administration Prochlorperazine Edisylate 10 mg 08/23/20 21:30 08/23/20 21:44 Compazine 10 Mg/2 Ml IV 08/23/20 21:31 10 mg STAT ONE Administration Prochlorperazine Edisylate Confirm 08/23/20 21:33 Compazine 10 Mg/2 Ml Administered 08/23/20 21:34 Dose 10 mg .ROUTE .STK-MED ONE Propranolol HCl 80 mg 08/24/20 00:24 08/24/20 01:03 Inderal 20 Mg PO 09/23/20 00:23 80 mg HS ALEX Administration Intake & Output (Last 24 hours) 08/25/20 08/26/20 08/27/20 08/28/20 11:59 11:59 11:59 11:59 Intake Total 240 Balance 240 - Vitals & Intake/Output Vital Signs: Vital Signs Temperature 97.9 F 08/24/20 07:17 Pulse Rate 68 08/24/20 12:00 Respiratory Rate 18 08/24/20 12:00 Blood Pressure 119/74 08/24/20 07:17 O2 Sat by Pulse Oximetry 97 08/24/20 12:00 Intake & Output: Intake & Output 08/25/20 08/26/20 08/27/20 08/28/20 11:59 11:59 11:59 11:59 Intake Total 240 Balance 240 - Lab Result Diagrams: 08/24/20 04:30 08/24/20 04:30 - Discharge Discharge Date: 08/24/20 Disposition: Home, Self-Care Condition: Stable Prescriptions: Continue Omeprazole 20 MG [Prilosec 20 mg] 20 mg PO HS Fexofenadine HCl [Dominique] 180 mg PO HS diazePAM [Diazepam] 2 mg PO BID Propranolol HCl [Inderal Xl] 80 mg PO HS Meloxicam 7.5 mg PO HS Losartan Potassium 50 mg [Cozaar 50 MG] 50 mg PO HS Amitriptyline HCl 25 mg [Elavil 25 mg] 25 mg PO HS Instructions: Cysts in the Brain Follow up with: TUAN NOBLE MD [Primary Care Provider] - 08/30/20 2:15 pm Forms: Discharge Instructions, Work/School Release Form
== END 2020-08-24 12:47 | disposition home or self-care (01) ==
LOC: ED 18:02 → MED SURG 22:23
PROVIDERS: ADMIT General Practice; ATTEND General Practice
DX: R51.9 Headache, unspecified (principal); Z79.899 Other long term (current) drug therapy; R20.2 Paresthesia of skin; G93.0 Cerebral cysts; I25.10 Atherosclerotic heart disease of native coronary artery without angina pectoris; I10 Essential (primary) hypertension
CPT/HCPCS: 0241U; 36000; 36415; 70450; 70544; 70551; 80053; 80307; 81001; 83735; 84443; 84484; 85025; 93005; 93041; 93268; 94760; 96374; 99285; G0378; G0480; A9270-GY

== ENCOUNTER 2021-03-08 16:46 | Emergency (ER) | payer OTHER ==
[2021-03-08] MEDS ORDERED: Catapres 0.1 MG PO ONE (16:59)
[2021-03-08] MEDS ORDERED: NORVASC 5 MG PO ONE (16:59)
[2021-03-08] MEDS ORDERED: Sodium Chloride 0.9% 1000 ML 1,000 ML IV SCH (17:00)
[2021-03-08 17:28] LABS: Absolute Neutrophil Ct (ANC) 4.51 (1.4-6.9); BASOPHIL % 0.4 % (0.0-0.4); Basophil (Absolute #) 0.03 (0-0.4); Eosinophil % 1.7 % (0.00-5.0); Eosinophil (Absolute #) 0.13 (0-0.5); Hematocrit 37.3 % (42-50); Hemoglobin 12.3 gm/dl (12.5-18.0); Lymphocyte (Absolute #) 2.15 (1.0-4.6); Lymphocytes % 28.9 % (24.0-44.0); Mean Cell Volume 88.8 fl (78-100); Mean Corpuscular Hemoglobin 29.3 pg (26-32); Monocyte (Absolute #) 0.61 (0.0-1.3); Monocytes % 8.2 % (0.0-12.0); Neutrophil % 60.8 % (36.0-66.0); Platelet Count 217 K/mm3 (150-450); Red Cell Distribution Width 13.2 % (11.5-14.0); White Blood Count 7.4 K/mm3 (4.0-10.5)
[2021-03-08 17:37] LABS: PROTIME 11.8 SECONDS (9.4-12.5)
[2021-03-08 17:49] LABS: ALBUMIN 4.4 g/dL (3.5-5.0); ALKALINE PHOSPHATASE 78 U/L (38-126); AMYLASE 78 U/L (30-110); ANION GAP 13.8 MEQ/L (5-15); BLOOD UREA NITROGEN 9 mg/dL (9-20); CHLORIDE 104 mmol/L (98-107); Calcium 9.4 mg/dL (8.4-10.2); Carbon Dioxide 26 mmol/L (22-30); Creatinine 1 1.06 mg/dL (0.66-1.25); EST GLOMERULAR FILTRATION RATE > 60.0 ML/MIN; Glucose 97 mg/dL (74-106); LIPASE 187 U/L (23-300); MAGNESIUM 2.1 mg/dL (1.6-2.3); NT PRO BNP 179 pg/mL (0-450); Potassium 4.2 mmol/L (3.5-5.1); SGOT/AST 24 U/L (17-59); SGPT/ALT 23 U/L (0-50); SODIUM 139 mmol/L (137-145); Total Protein 7.5 g/dL (6.3-8.2)
[2021-03-08] MEDS ORDERED: Sodium Chloride 0.9% 1000 ML 1,000 ML ONE (18:13)
[2021-03-08] MEDS ORDERED: Catapres 0.1 MG ONE (18:13)
[2021-03-08] MEDS ORDERED: NORVASC 5 MG ONE (18:13)
--- NOTE | 2021-03-08 19:55 | ERPHSYRPT ---
- History of Present Illness Time Seen by Provider: 03/08/21 17:20 Historian: patient Exam Limitations: no limitations Patient Subjective Stated Complaint: HTN and AYERS Triage Nursing Assessment: pt to ED c/o HTN and AYERS onset today. pt was at Dr Cantrell office today and BP read 160s/100. pt went home after appointment and checked BP on home monitor and it read 170/107 and with increasing AYERS pt decided to come to ED for eval. on way here [facility] office called him to let him know they called in a new prescription for norvasc and pt stated he was heading to ED. 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 Timing/Duration: today Activities at Onset: none Quality: aching, tightness Location: substernal Chest Pain Radiation: no radiation Severity of Pain-Max: mild Modifying Factors: Improves With: nothing Prior Chest Pain/Cardiac Workup: no prior cardiac workup Nitro Today/Relief: no nitro taken today Aspirin Treatment Today: no aspirin today Allergies/Adverse Reactions: albuterol Allergy (Verified 08/23/20 18:17) Home Medications: Omeprazole 20 MG [Prilosec 20 mg] 20 mg PO HS 09/07/15 [History] Fexofenadine HCl [Dominique] 180 mg PO HS 04/22/16 [History] diazePAM [Diazepam] 2 mg PO BID 10/14/17 [History] Propranolol HCl [Inderal Xl] 80 mg PO HS 07/19/18 [History] Amitriptyline HCl 25 mg [Elavil 25 mg] 25 mg PO HS 08/23/20 [History] Losartan Potassium 50 mg [Cozaar 50 MG] 50 mg PO BID 08/23/20 [History] Meloxicam 7.5 mg PO HS 08/23/20 [History] Primidone 25 mg PO DAILY 09/24/20 [History] Hx Tetanus, Diphtheria Vaccination/Date Given: No Hx Influenza Vaccination/Date Given: No Hx Pneumococcal Vaccination/Date Given: No Immunizations Up to Date: No Travel Risk - International Travel Have you traveled outside of the country in past 3 weeks: No - Coronavirus Screening Are you exhibiting any of the following symptoms?: No Close contact with a COVID-19 positive Pt in past 14-21 Days: No - Vaccine Status Have you recieved a Covid-19 vaccination: No - Review of Systems Constitutional: No Fever, No Chills Eyes: No Symptoms Ears, Nose, & Throat: No Symptoms Respiratory: No Cough, No Dyspnea Cardiac: Chest Pain, No Edema, No Syncope Abdominal/Gastrointestinal: No Abdominal Pain, No Nausea, No Vomiting, No Diarrhea Genitourinary Symptoms: No Dysuria Musculoskeletal: No Back Pain, No Neck Pain Skin: No Rash Neurological: Headache, No Dizziness, No Focal Weakness, No Sensory Changes Psychological: No Symptoms Endocrine: No Symptoms All Other Systems: Reviewed and Negative - Past Medical History Pertinent Past Medical History: Yes Neurological History: Migraines, Stroke ENT History: No Pertinent History Cardiac History: Coronary Artery Disease, Hypertension, Other Respiratory History: No Pertinent History Endocrine Medical History: No Pertinent History Musculoskeletal History: No Pertinent History GI Medical History: GERD History: No Pertinent History Psycho-Social History: No Pertinent History Male Reproductive Disorders: No Pertinent History Other Medical History: arachnoid cyst, hiatal hernia. respiratory arrest 2016 after "breathing treatment". - Past Surgical History Past Surgical History: Yes Neuro Surgical History: No Pertinent History Cardiac: No Pertinent History Respiratory: No Pertinent History Gastrointestinal: No Pertinent History Genitourinary: No Pertinent History Musculoskeletal: No Pertinent History Male Surgical History: No Pertinent History Other Surgical History: Endoscpopy to examine for gastric ulcers as stated per pt; sinus surgery - Social History Smoking Status: Never smoker How long have you smoked: years Exposure to second hand smoke: Yes Drug Use: none Patient Lives Alone: No Significant Family History: no pertinent family hx - Nursing Vital Signs Nursing Vital Signs: Initial Vital Signs Temperature 98.2 F 03/08/21 17:13 Pulse Rate 67 03/08/21 17:13 Respiratory Rate 13 03/08/21 17:13 Blood Pressure 173/110 03/08/21 17:13 O2 Sat by Pulse Oximetry 97 03/08/21 17:13 Pain Scale Pain Intensity 6 - Physical Exam General Appearance: mild distress, alert Eye Exam: PERRL/EOMI, eyes nml inspection Ears, Nose, Throat Exam: normal ENT inspection, moist mucous membranes Neck Exam: normal inspection, non-tender, supple, full range of motion Respiratory Exam: normal breath sounds, lungs clear, No respiratory distress Cardiovascular Exam: regular rate/rhythm, normal heart sounds Gastrointestinal/Abdomen Exam: soft, No tenderness, No mass Back Exam: normal inspection, No CVA tenderness, No vertebral tenderness Extremity Exam: normal inspection, normal range of motion Neurologic Exam: alert, 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, cooperative, normal mood/affect, sensation nml, No motor deficits Skin Exam: normal color, warm, dry SpO2: 100 - Course Nursing assessment & vital signs reviewed: Yes EKG Interpreted by Me: RATE (70), Sinus Rhythm, NORMAL AXIS, NORMAL INTERVALS, NORMAL QRS, Non-specific ST Changes - Radiology Exams Chest X-ray Interpretation: Interpreted by me, Negative (Negative for acute findings) C-Spine X-ray Interpretation: Interpreted by me, Other (Soft tissue of the neck negative) Ordered Tests: Active Orders 24 hr Category Date Time Status Bobbin Marker STAT Care 03/08/21 17:00 Active EKG-ER Only STAT Care 03/08/21 16:59 Active IV Insertion STAT Care 03/08/21 16:59 Active CHEST 1 VIEW (PORTABLE) Stat Exams 03/08/21 17:00 Taken NECK SOFT TISSUE Stat Exams 03/08/21 19:40 Taken AMYLASE Stat Lab 03/08/21 17:17 Completed CBC W DIFF Stat Lab 03/08/21 17:17 Completed CMP Stat Lab 03/08/21 17:17 Completed D-DIMER QUANTITATIVE Stat Lab 03/08/21 17:17 Completed LIPASE Stat Lab 03/08/21 17:17 Completed Lactic Acid Stat Lab 03/08/21 17:17 Completed MAGNESIUM Stat Lab 03/08/21 17:17 Completed NT PRO BNP Stat Lab 03/08/21 17:17 Completed PROTIME WITH INR Stat Lab 03/08/21 17:17 Completed TROPONIN Q3H Lab 03/08/21 17:17 Completed TROPONIN Q3H Lab 03/08/21 20:00 Ordered TROPONIN Q3H Lab 03/08/21 23:00 Ordered TROPONIN Q3H Lab 03/09/21 02:00 Ordered TROPONIN Q3H Lab 03/09/21 05:00 Ordered UA W/RFX UR CULTURE Stat Lab 03/08/21 17:00 Ordered Medication Summary Generic Name Dose Route Start Last Admin Trade Name Freq PRN Reason Stop Dose Admin Sodium Chloride 1,000 mls @ 50 mls/hr 03/08/21 17:00 03/08/21 18:16 Sodium Chloride 0.9% 1000 Ml IV 04/07/21 16:59 50 mls/hr .Q20H ALEX Administration Discontinued Medications Generic Name Dose Route Start Last Admin Trade Name Freq PRN Reason Stop Dose Admin Amlodipine Besylate 10 mg 03/08/21 16:59 03/08/21 18:16 Norvasc 5 Mg PO 03/08/21 17:00 10 mg STAT ONE Administration Amlodipine Besylate Confirm 03/08/21 18:13 Norvasc 5 Mg Administered 03/08/21 18:14 Dose 10 mg .ROUTE .STK-MED ONE Clonidine 0.1 mg 03/08/21 16:59 03/08/21 18:16 Catapres 0.1 Mg PO 03/08/21 17:00 0.1 mg STAT ONE Administration Clonidine Confirm 03/08/21 18:13 Catapres 0.1 Mg Administered 03/08/21 18:14 Dose 0.1 mg .ROUTE .STK-MED ONE Lab/Rad Data: Laboratory Result Diagrams 03/08/21 17:17 03/08/21 17:17 Laboratory Results 03/08/21 03/08/21 03/08/21 Range/Units 17:17 17:17 17:17 WBC (4.0-10.5) K/mm3 RBC (4.1-5.6) M/mm3 Hgb (12.5-18.0) gm/dl Hct (42-50) % MCV (78-100) fl MCH (26-32) pg MCHC (32-36) g/dl RDW (11.5-14.0) % Plt Count (150-450) K/mm3 MPV (7.5-11.0) fl Gran % (36.0-66.0) % Eos # (Auto) (0-0.5) Absolute Lymphs (auto) (1.0-4.6) Absolute Monos (auto) (0.0-1.3) Lymphocytes % (24.0-44.0) % Monocytes % (0.0-12.0) % Eosinophils % (0.00-5.0) % Basophils % (0.0-0.4) % Absolute Granulocytes (1.4-6.9) Basophils # (0-0.4) PT 11.8 (9.4-12.5) SECONDS INR 1.00 (0.8-3.0) D-Dimer 313 (215-500) ng/mL Sodium 139 (137-145) mmol/L Potassium 4.2 (3.5-5.1) mmol/L Chloride 104 (98-107) mmol/L Carbon Dioxide 26 (22-30) mmol/L Anion Gap 13.8 (5-15) MEQ/L BUN 9 (9-20) mg/dL Creatinine 1.06 (0.66-1.25) mg/dL Estimated GFR > 60.0 ML/MIN Glucose 97 (74-106) mg/dL Lactic Acid (0.4-2.0) Calcium 9.4 (8.4-10.2) mg/dL Magnesium 2.1 (1.6-2.3) mg/dL Total Bilirubin 0.50 (0.2-1.3) mg/dL AST 24 (17-59) U/L ALT 23 (0-50) U/L Alkaline Phosphatase 78 (38-126) U/L Troponin I < 0.012 (0.000-0.034) ng/mL NT-Pro-B Natriuret Pep 179 (0-450) pg/mL Serum Total Protein 7.5 (6.3-8.2) g/dL Albumin 4.4 (3.5-5.0) g/dL Amylase 78 (30-110) U/L Lipase 187 (23-300) U/L 03/08/21 03/08/21 Range/Units 17:17 17:17 WBC 7.4 (4.0-10.5) K/mm3 RBC 4.20 (4.1-5.6) M/mm3 Hgb 12.3 L (12.5-18.0) gm/dl Hct 37.3 L (42-50) % MCV 88.8 (78-100) fl MCH 29.3 (26-32) pg MCHC 33.0 (32-36) g/dl RDW 13.2 (11.5-14.0) % Plt Count 217 (150-450) K/mm3 MPV 9.0 (7.5-11.0) fl Gran % 60.8 (36.0-66.0) % Eos # (Auto) 0.13 (0-0.5) Absolute Lymphs (auto) 2.15 (1.0-4.6) Absolute Monos (auto) 0.61 (0.0-1.3) Lymphocytes % 28.9 (24.0-44.0) % Monocytes % 8.2 (0.0-12.0) % Eosinophils % 1.7 (0.00-5.0) % Basophils % 0.4 (0.0-0.4) % Absolute Granulocytes 4.51 (1.4-6.9) Basophils # 0.03 (0-0.4) PT (9.4-12.5) SECONDS INR (0.8-3.0) D-Dimer (215-500) ng/mL Sodium (137-145) mmol/L Potassium (3.5-5.1) mmol/L Chloride (98-107) mmol/L Carbon Dioxide (22-30) mmol/L Anion Gap (5-15) MEQ/L BUN (9-20) mg/dL Creatinine (0.66-1.25) mg/dL Estimated GFR ML/MIN Glucose (74-106) mg/dL Lactic Acid 0.9 (0.4-2.0) Calcium (8.4-10.2) mg/dL Magnesium (1.6-2.3) mg/dL Total Bilirubin (0.2-1.3) mg/dL AST (17-59) U/L ALT (0-50) U/L Alkaline Phosphatase (38-126) U/L Troponin I (0.000-0.034) ng/mL NT-Pro-B Natriuret Pep (0-450) pg/mL Serum Total Protein (6.3-8.2) g/dL Albumin (3.5-5.0) g/dL Amylase (30-110) U/L Lipase (23-300) U/L - Progress Progress: improved Air Movement: good Blood Culture(s) Obtained: No Antibiotics given: No - Departure Departure Disposition: Home Clinical Impression: Hypertension Condition: Stable Critical Care Time: No Referrals: TUAN NOBLE MD [Primary Care Provider] - Instructions: Malignant Hypertension (DC)
[2021-03-08 20:06] VITALS: BP 122/76; PULSE 64; O2SAT 99
--- NOTE | 2021-03-08 22:16 | XRAY ---
Indication: High blood pressure. Comparison: May 12, 2019. Portable chest slightly underinflated and clear. Heart is not enlarged for AP portable technique. Bony thorax intact again with mild degenerative changes. Impression: Nonacute underinflated chest.
--- NOTE | 2021-03-08 22:18 | XRAY ---
Indication: Left neck pain. Comparison: None AP/lateral soft tissue neck negative for radiopaque foreign body. Normal epiglottis. Visual cervical spine intact with minimal/mild C3-C6 degenerative changes.
== END 2021-03-08 20:04 | disposition home or self-care (01) ==
LOC: ED 16:46
DX: I10 Essential (primary) hypertension (principal); R51.9 Headache, unspecified; Z79.899 Other long term (current) drug therapy; I25.10 Atherosclerotic heart disease of native coronary artery without angina pectoris
CPT/HCPCS: 36000; 36415; 70360; 71045; 80053; 82150; 83605; 83690; 83735; 83880; 84484; 85025; 85379; 85610; 93005; 93041; 99284; A9270-GY

== ENCOUNTER 2021-04-16 16:50 | Emergency (ER) | payer OTHER ==
[2012-01-14 10:03] VITALS: BP 124/80
--- NOTE | 2021-04-16 16:52 | ERPHSYRPT ---
- History of Present Illness Time Seen by Provider: 04/16/21 16:52 Source: patient Exam Limitations: no limitations Physician History: This is a 50-year-old white male who is a patient of Dr. Noble and presents with weakness that began yesterday and persisted throughout today. However, this morning he began noticing some dizziness. He did not hit his head. He does have a history of earwax in both ears. There are no new medications he is taking. He does not have any chest pain or shortness of breath per his report. He has no fevers. No other individuals in the family have similar symptoms. Patient stated that he had a COVID-19 infection 2 months ago and the symptoms are not like that. He has no cough. He has no reported fevers. He just "does not feel well". Patient has a history of migraine headaches, CVA in the past, coronary disease, hypertension and gastroesophageal reflux disease. Timing/Duration: yesterday Quality: pressure (Mild generalized) Head Pain Location: global Severity of Pain-Max: mild Severity of Pain-Current: mild Recent Head Trauma: no recent headache/trauma Associated Symptoms: dizziness, weakness, No loss of consciousness, No nausea/vomiting, No sensitive to light Previous symptoms: no prior history Allergies/Adverse Reactions: amlodipine [From Norvasc] Allergy (Intermediate, Verified 04/16/21 17:01) Hives albuterol Allergy (Verified 08/23/20 18:17) sulfamethoxazole [From Bactrim] Adverse Reaction (Intermediate, Verified 04/16/21 17:02) Diarrhea trimethoprim [From Bactrim] Adverse Reaction (Intermediate, Verified 04/16/21 17:02) Diarrhea Home Medications: Omeprazole 20 MG [Prilosec 20 mg] 20 mg PO HS 09/07/15 [History] Fexofenadine HCl [Dominique] 180 mg PO HS 04/22/16 [History] diazePAM [Diazepam] 2 mg PO BID 10/14/17 [History] Propranolol HCl [Inderal Xl] 80 mg PO HS 07/19/18 [History] Amitriptyline HCl 25 mg [Elavil 25 mg] 25 mg PO HS 08/23/20 [History] Losartan Potassium 50 mg [Cozaar 50 MG] 50 mg PO BID 08/23/20 [History] Meloxicam 7.5 mg PO HS 08/23/20 [History] Primidone 25 mg PO DAILY 09/24/20 [History] Hydralazine HCl 10 mg PO BID 04/16/21 [History] Hx Tetanus, Diphtheria Vaccination/Date Given: No Hx Influenza Vaccination/Date Given: No Hx Pneumococcal Vaccination/Date Given: No Travel Risk - International Travel Have you traveled outside of the country in past 3 weeks: No - Coronavirus Screening Are you exhibiting any of the following symptoms?: No Close contact with a COVID-19 positive Pt in past 14-21 Days: No - Vaccine Status Have you recieved a Covid-19 vaccination: No - Review of Systems Constitutional: Weakness Eyes: No Symptoms Ears, Nose, & Throat: No Symptoms Respiratory: No Symptoms Cardiac: No Symptoms Abdominal/Gastrointestinal: No Symptoms Genitourinary Symptoms: No Symptoms Musculoskeletal: No Symptoms Skin: No Symptoms Neurological: Dizziness, Headache Psychological: No Symptoms Endocrine: No Symptoms Hematologic/Lymphatic: No Symptoms Immunological/Allergic: No Symptoms All Other Systems: Reviewed and Negative - Past Medical History Pertinent Past Medical History: Yes Neurological History: Migraines, Stroke ENT History: No Pertinent History Cardiac History: Coronary Artery Disease, Hypertension, Other Respiratory History: No Pertinent History Endocrine Medical History: No Pertinent History Musculoskeletal History: No Pertinent History GI Medical History: GERD History: No Pertinent History Psycho-Social History: No Pertinent History Male Reproductive Disorders: No Pertinent History Other Medical History: arachnoid cyst, hiatal hernia. respiratory arrest 2016 after "breathing treatment". - Past Surgical History Past Surgical History: Yes Neuro Surgical History: No Pertinent History Cardiac: No Pertinent History Respiratory: No Pertinent History Gastrointestinal: No Pertinent History Genitourinary: No Pertinent History Musculoskeletal: No Pertinent History Male Surgical History: No Pertinent History Other Surgical History: Endoscpopy to examine for gastric ulcers as stated per p t; sinus surgery - Social History Smoking Status: Never smoker How long have you smoked: years Exposure to second hand smoke: Yes Drug Use: none Patient Lives Alone: No Significant Family History: no pertinent family hx - Nursing Vital Signs Nursing Vital Signs: Initial Vital Signs Temperature 98.1 F 04/16/21 16:56 Pulse Rate 86 04/16/21 16:56 Respiratory Rate 20 04/16/21 16:56 Blood Pressure 164/94 04/16/21 16:56 O2 Sat by Pulse Oximetry 99 04/16/21 16:56 Pain Scale Pain Intensity 4 - Physical Exam General Appearance: no apparent distress, alert, anxiety Eye Exam: PERRL/EOMI, eyes nml inspection Ears, Nose, Throat Exam: TMs normal, moist mucous membranes, other (Bilateral cerumen in each ear canal. I was able to visualize the tympanic membranes around each canal) Neck Exam: normal inspection, non-tender, supple, full range of motion Respiratory Exam: normal breath sounds, lungs clear, airway intact, No chest tenderness, No respiratory distress Cardiovascular Exam: regular rate/rhythm, normal heart sounds, normal peripheral pulses Gastrointestinal/Abdominal Exam: soft, normal bowel sounds, No tenderness Back Exam: normal inspection, normal range of motion, No CVA tenderness, No vertebral tenderness Extremity Exam: normal inspection, normal range of motion, pelvis stable Mental Status Exam: alert, 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, 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 Exam: normal hearing, normal speech, PERRL, tongue midline Coordination/Gait Exam: normal finger to nose, normal gait, normal cerebellar function Motor/Sensory Exam: no motor deficit, no sensory deficit Skin Exam: normal color, warm, dry Lymphatic Exam: No adenopathy SpO2 Interpretation: normal - Course Nursing assessment & vital signs reviewed: Yes Ordered Tests: Active Orders 24 hr Category Date Time Status EKG-ER Only STAT Care 04/16/21 17:23 Active IV Insertion STAT Care 04/16/21 17:23 Active HEAD WITHOUT CONTRAST [CT] Stat Exams 04/16/21 17:23 Taken CBC W DIFF Stat Lab 04/16/21 17:40 Completed CMP Stat Lab 04/16/21 17:40 Completed INFLUENZA A+B TAY Stat Lab 04/16/21 17:50 Completed MAGNESIUM Stat Lab 04/16/21 17:40 Completed Person Screen Stat Lab 04/16/21 17:40 Completed TROPONIN Q3H Lab 04/16/21 17:40 Completed TROPONIN Q3H Lab 04/16/21 20:30 Ordered TROPONIN Q3H Lab 04/16/21 23:30 Ordered TROPONIN Q3H Lab 04/17/21 02:30 Ordered TROPONIN Q3H Lab 04/17/21 05:30 Ordered UA W/RFX UR CULTURE Stat Lab 04/16/21 17:23 Completed Medication Summary Discontinued Medications Generic Name Dose Route Start Last Admin Trade Name Freq PRN Reason Stop Dose Admin Sodium Chloride 1,000 mls @ 999 mls/hr 04/16/21 17:23 04/16/21 18:55 Sodium Chloride 0.9% 1000 Ml IV 04/16/21 18:23 Infused .Q1H1M STA Infusion Sodium Chloride Confirm 04/16/21 17:29 Sodium Chloride 0.9% 1000 Ml Administered 04/16/21 17:30 Dose 1,000 mls @ ud .ROUTE .STK-MED ONE Lab/Rad Data: Laboratory Result Diagrams 04/16/21 17:40 04/16/21 17:40 Laboratory Results 04/16/21 04/16/21 04/16/21 Range/Units 17:50 17:50 17:40 WBC (4.0-10.5) K/mm3 RBC (4.1-5.6) M/mm3 Hgb (12.5-18.0) gm/dl Hct (42-50) % MCV (78-100) fl MCH (26-32) pg MCHC (32-36) g/dl RDW (11.5-14.0) % Plt Count (150-450) K/mm3 MPV (7.5-11.0) fl Gran % (36.0-66.0) % Eos # (Auto) (0-0.5) Absolute Lymphs (auto) (1.0-4.6) Absolute Monos (auto) (0.0-1.3) Lymphocytes % (24.0-44.0) % Monocytes % (0.0-12.0) % Eosinophils % (0.00-5.0) % Basophils % (0.0-0.4) % Absolute Granulocytes (1.4-6.9) Basophils # (0-0.4) Sodium (137-145) mmol/L Potassium (3.5-5.1) mmol/L Chloride (98-107) mmol/L Carbon Dioxide (22-30) mmol/L Anion Gap (5-15) MEQ/L BUN (9-20) mg/dL Creatinine (0.66-1.25) mg/dL Estimated GFR ML/MIN Glucose (74-106) mg/dL Calcium (8.4-10.2) mg/dL Magnesium (1.6-2.3) mg/dL Total Bilirubin (0.2-1.3) mg/dL AST (17-59) U/L ALT (0-50) U/L Alkaline Phosphatase (38-126) U/L Troponin I (0.000-0.034) ng/mL Serum Total Protein (6.3-8.2) g/dL Albumin (3.5-5.0) g/dL Urine Color (YELLOW) Urine Appearance (CLEAR) Urine pH (5-6) Ur Specific [place] (1.005-1.025) Urine Protein (Negative) Urine Ketones (NEGATIVE) Urine Blood (0-5) Brad/ul Urine Nitrite (NEGATIVE) Urine Bilirubin (NEGATIVE) Urine Urobilinogen (0-1) mg/dL Ur Leukocyte Esterase (NEGATIVE) Urine WBC (Auto) (0-5) /HPF Urine RBC (Auto) (0-2) /HPF U Epithel Cells (Auto) (FEW) /HPF Urine Bacteria (Auto) (NEGATIVE) /HPF Urine Mucus (Auto) (NEGATIVE) /HPF Urine Culture Reflexed (NO) Urine Glucose (NEGATIVE) mg/dL Monoscreen NEGATIVE (Negative) Influenza Type A Ag NEGATIVE (NEGATIVE) Influenza Type B Ag NEGATIVE (NEGATIVE) Group A Strep Antibody NOT DETECTED (NEGATIVE) 04/16/21 04/16/21 04/16/21 Range/Units 17:40 17:40 17:40 WBC 10.3 (4.0-10.5) K/mm3 RBC 4.84 (4.1-5.6) M/mm3 Hgb 13.9 (12.5-18.0) gm/dl Hct 43.2 (42-50) % MCV 89.3 (78-100) fl MCH 28.7 (26-32) pg MCHC 32.2 (32-36) g/dl RDW 13.6 (11.5-14.0) % Plt Count 240 (150-450) K/mm3 MPV 8.9 (7.5-11.0) fl Gran % 66.7 H (36.0-66.0) % Eos # (Auto) 0.18 (0-0.5) Absolute Lymphs (auto) 2.26 (1.0-4.6) Absolute Monos (auto) 0.93 (0.0-1.3) Lymphocytes % 22.0 L (24.0-44.0) % Monocytes % 9.1 (0.0-12.0) % Eosinophils % 1.8 (0.00-5.0) % Basophils % 0.4 (0.0-0.4) % Absolute Granulocytes 6.85 (1.4-6.9) Basophils # 0.04 (0-0.4) Sodium 141 (137-145) mmol/L Potassium 4.3 (3.5-5.1) mmol/L Chloride 100 (98-107) mmol/L Carbon Dioxide 27 (22-30) mmol/L Anion Gap 18.6 H (5-15) MEQ/L BUN 8 L (9-20) mg/dL Creatinine 1.00 (0.66-1.25) mg/dL Estimated GFR > 60.0 ML/MIN Glucose 89 (74-106) mg/dL Calcium 10.0 (8.4-10.2) mg/dL Magnesium 2.2 (1.6-2.3) mg/dL Total Bilirubin 0.60 (0.2-1.3) mg/dL AST 29 (17-59) U/L ALT 21 (0-50) U/L Alkaline Phosphatase 83 (38-126) U/L Troponin I < 0.012 (0.000-0.034) ng/mL Serum Total Protein 8.8 H (6.3-8.2) g/dL Albumin 4.9 (3.5-5.0) g/dL Urine Color (YELLOW) Urine Appearance (CLEAR) Urine pH (5-6) Ur Specific [place] (1.005-1.025) Urine Protein (Negative) Urine Ketones (NEGATIVE) Urine Blood (0-5) Brad/ul Urine Nitrite (NEGATIVE) Urine Bilirubin (NEGATIVE) Urine Urobilinogen (0-1) mg/dL Ur Leukocyte Esterase (NEGATIVE) Urine WBC (Auto) (0-5) /HPF Urine RBC (Auto) (0-2) /HPF U Epithel Cells (Auto) (FEW) /HPF Urine Bacteria (Auto) (NEGATIVE) /HPF Urine Mucus (Auto) (NEGATIVE) /HPF Urine Culture Reflexed (NO) Urine Glucose (NEGATIVE) mg/dL Monoscreen (Negative) Influenza Type A Ag (NEGATIVE) Influenza Type B Ag (NEGATIVE) Group A Strep Antibody (NEGATIVE) 04/16/21 Range/Units 17:23 WBC (4.0-10.5) K/mm3 RBC (4.1-5.6) M/mm3 Hgb (12.5-18.0) gm/dl Hct (42-50) % MCV (78-100) fl MCH (26-32) pg MCHC (32-36) g/dl RDW (11.5-14.0) % Plt Count (150-450) K/mm3 MPV (7.5-11.0) fl Gran % (36.0-66.0) % Eos # (Auto) (0-0.5) Absolute Lymphs (auto) (1.0-4.6) Absolute Monos (auto) (0.0-1.3) Lymphocytes % (24.0-44.0) % Monocytes % (0.0-12.0) % Eosinophils % (0.00-5.0) % Basophils % (0.0-0.4) % Absolute Granulocytes (1.4-6.9) Basophils # (0-0.4) Sodium (137-145) mmol/L Potassium (3.5-5.1) mmol/L Chloride (98-107) mmol/L Carbon Dioxide (22-30) mmol/L Anion Gap (5-15) MEQ/L BUN (9-20) mg/dL Creatinine (0.66-1.25) mg/dL Estimated GFR ML/MIN Glucose (74-106) mg/dL Calcium (8.4-10.2) mg/dL Magnesium (1.6-2.3) mg/dL Total Bilirubin (0.2-1.3) mg/dL AST (17-59) U/L ALT (0-50) U/L Alkaline Phosphatase (38-126) U/L Troponin I (0.000-0.034) ng/mL Serum Total Protein (6.3-8.2) g/dL Albumin (3.5-5.0) g/dL Urine Color STRAW (YELLOW) Urine Appearance CLEAR (CLEAR) Urine pH 5.0 (5-6) Ur Specific [place] 1.008 (1.005-1.025) Urine Protein NEGATIVE (Negative) Urine Ketones NEGATIVE (NEGATIVE) Urine Blood NEGATIVE (0-5) Brad/ul Urine Nitrite NEGATIVE (NEGATIVE) Urine Bilirubin NEGATIVE (NEGATIVE) Urine Urobilinogen NEGATIVE (0-1) mg/dL Ur Leukocyte Esterase NEGATIVE (NEGATIVE) Urine WBC (Auto) NONE (0-5) /HPF Urine RBC (Auto) NONE (0-2) /HPF U Epithel Cells (Auto) NONE (FEW) /HPF Urine Bacteria (Auto) NONE (NEGATIVE) /HPF Urine Mucus (Auto) SLIGHT (NEGATIVE) /HPF Urine Culture Reflexed NO (NO) Urine Glucose NEGATIVE (NEGATIVE) mg/dL Monoscreen (Negative) Influenza Type A Ag (NEGATIVE) Influenza Type B Ag (NEGATIVE) Group A Strep Antibody (NEGATIVE) - Progress Progress: improved, re-examined Air Movement: good Progress Note: 04/16/21 20:08 CT scan of head without contrast shows stable left middle fossa arachnoid cyst. No new/acute findings. There is a stable remote lacunar infarct right basal ganglia. Blood Culture(s) Obtained: No Antibiotics given: No Counseled pt/family regarding: lab results, diagnosis, need for follow-up, rad results - Departure Departure Disposition: Home Clinical Impression: Dizziness Condition: Stable Critical Care Time: No Referrals: TUAN NOBLE MD [Primary Care Provider] - Follow up/PCP as directed Additional Instructions: Take all your medications as prescribed. Follow-up with your primary care physician and neurologist for further management.
[2021-04-16] MEDS ORDERED: Sodium Chloride 0.9% 1000 ML 1,000 ML IV STA (17:23)
[2021-04-16] MEDS ORDERED: Sodium Chloride 0.9% 1000 ML 1,000 ML ONE (17:29)
[2021-04-16 18:10] LABS: Absolute Neutrophil Ct (ANC) 6.85 (1.4-6.9); BASOPHIL % 0.4 % (0.0-0.4); Basophil (Absolute #) 0.04 (0-0.4); Eosinophil % 1.8 % (0.00-5.0); Eosinophil (Absolute #) 0.18 (0-0.5); Hematocrit 43.2 % (42-50); Hemoglobin 13.9 gm/dl (12.5-18.0); Lymphocyte (Absolute #) 2.26 (1.0-4.6); Mean Cell Volume 89.3 fl (78-100); Mean Corpuscular Hemoglobin 28.7 pg (26-32); Mean Corpuscular Hgb Concent. 32.2 g/dl (32-36); Mean Platelet Volume 8.9 fl (7.5-11.0); Monocyte (Absolute #) 0.93 (0.0-1.3); Monocytes % 9.1 % (0.0-12.0); Neutrophil % 66.7 % (36.0-66.0); Platelet Count 240 K/mm3 (150-450); Red Blood Count 4.84 M/mm3 (4.1-5.6); Red Cell Distribution Width 13.6 % (11.5-14.0); White Blood Count 10.3 K/mm3 (4.0-10.5)
[2021-04-16 18:36] LABS: INFLUENZA A NEGATIVE (NEGATIVE); INFLUENZA B NEGATIVE (NEGATIVE)
[2021-04-16 18:37] LABS: ALBUMIN 4.9 g/dL (3.5-5.0); ALKALINE PHOSPHATASE 83 U/L (38-126); ANION GAP 18.6 MEQ/L (5-15); BLOOD UREA NITROGEN 8 mg/dL (9-20); CHLORIDE 100 mmol/L (98-107); Carbon Dioxide 27 mmol/L (22-30); EST GLOMERULAR FILTRATION RATE > 60.0 ML/MIN; Glucose 89 mg/dL (74-106); MAGNESIUM 2.2 mg/dL (1.6-2.3); Potassium 4.3 mmol/L (3.5-5.1); SGOT/AST 29 U/L (17-59); SGPT/ALT 21 U/L (0-50); SODIUM 141 mmol/L (137-145); Total Protein 8.8 g/dL (6.3-8.2)
[2021-04-16 18:45] LABS: Appearance CLEAR (CLEAR); Bilirubin NEGATIVE (NEGATIVE); Blood NEGATIVE Ery/ul (0-5); Glucose NEGATIVE (NEGATIVE); Ketones NEGATIVE (NEGATIVE); Leukocyte Esterase NEGATIVE (NEGATIVE); Mucus SLIGHT /HPF (NEGATIVE); Nitrite NEGATIVE (NEGATIVE); Protein,Urine Dip NEGATIVE (Negative); Specific Gravity 1.008 (1.005-1.025); Urobilinogen NEGATIVE mg/dL (0-1)
--- NOTE | 2021-04-17 08:48 | XRAY ---
Indication: Dizziness. Multiple contiguous axial images obtained through the head without contrast. Comparison: September 24, 2020. Grossly stable left middle fossa arachnoid cyst. No acute intracranial hemorrhage, hydrocephalus, or mass effect. Fourth ventricle is midline. [place]-white matter differentiation preserved. Bony calvarium intact. Visualized paranasal sinuses and mastoid air cells are clear. Impression: Stable left middle fossa arachnoid cyst. No new or acute intracranial abnormalities.
== END 2021-04-16 20:20 | disposition home or self-care (01) ==
LOC: ED 16:50
DX: R42 Dizziness and giddiness (principal); R53.1 Weakness; I10 Essential (primary) hypertension
CPT/HCPCS: 36000; 36415; 70450; 80053; 81001; 83735; 84484; 85025; 86308; 87400; 87651; 93005; 96360; 99284

== ENCOUNTER 2021-10-23 06:39 | Emergency (ER) | payer OTHER ==
[2021-10-23] MEDS ORDERED: Zofran 4 MG/2 ML VIAL ONE (07:09)
[2021-10-23] MEDS ORDERED: Sodium Chloride 0.9% 1000 ML 1,000 ML ONE (07:09)
[2021-10-23] MEDS: Sodium Chloride 0.9% 1000 ML 1,000 ML IV STA (07:12)
[2021-10-23] MEDS: Zofran 4 MG/2 ML VIAL IV ONE (07:12)
[2021-10-23 07:29] LABS: Absolute Neutrophil Ct (ANC) 5.78 x10^3/uL (1.4-6.9); Basophil (Absolute #) 0.04 x10^3/uL (0-0.4); Eosinophil % 1.2 % (0.00-5.0); Hematocrit 39.5 % (42-50); Hemoglobin 12.7 g/dL (12.5-18.0); Lymphocyte (Absolute #) 1.53 x10^3/uL (1.0-4.6); Lymphocytes % 18.9 % (24.0-44.0); Mean Cell Volume 88.6 fL (78-100); Mean Corpuscular Hemoglobin 28.5 pg (26-32); Mean Corpuscular Hgb Concent. 32.2 g/dL (32-36); Mean Platelet Volume 8.4 fL (7.5-11.0); Monocyte (Absolute #) 0.64 x10^3/uL (0.0-1.3); Monocytes % 7.9 % (0.0-12.0); Neutrophil % 71.4 % (36.0-66.0); Platelet Count 176 x10^3/uL (150-450); Red Blood Count 4.46 x10^6/uL (4.1-5.6); Red Cell Distribution Width 13.1 % (11.5-14.0); White Blood Count 8.1 x10^3/uL (4.0-10.5)
--- NOTE | 2021-10-23 07:33 | ERPHSYRPT ---
- History of Present Illness Time Seen by Provider: 10/23/21 07:00 Historian: patient Exam Limitations: no limitations Patient Subjective Stated Complaint: C/O right sided abdominal pain. Patient states it is hard for him to describe the pain in words. The pain is "constant but not too bad." States he was seen for this on Thursday by Dr. Noble and put on antibiotics; states he has taken 2 doses so far. C/O nausea without vomiting. Triage Nursing Assessment: Patient ambulated into the ED without difficulties. He is alert and oriented and answering questions appropriately. No SOB. Bowel Sounds present. C/O increased tenderness with right abdominal palpation. Physician History: Patient is a 51-year-old male who presents with a chief complaint of right-sided abdominal pain and right flank pain. This started approximately 10 days ago he saw Dr. Adams at on Thursday was diagnosed with abdominal distention for his sy mptoms of being gassy belching and a single diarrhea stool as well as nausea. Dr. Adams put him on Levaquin 1 daily he has had 2 doses. Today he awoke nauseated with the right flank and right abdominal pain he also complained of some neck pain he has had no fever or chills although he has had some sweats and has had no previous abdominal surgeries. Timing/Duration: day(s) (10) Activities at Onset: none Quality: cramping Abdominal Pain Onset Location: RUQ, RLQ, flank Severity of Pain-Max: moderate Severity of Pain-Current: moderate Modifying Factors: Improves With: nothing Associated Symptoms: nausea Allergies/Adverse Reactions: amlodipine [From Norvasc] Allergy (Intermediate, Verified 10/23/21 06:51) Hives albuterol Allergy (Verified 10/23/21 06:51) sulfamethoxazole [From Bactrim] Adverse Reaction (Intermediate, Verified 10/23/21 06:51) Diarrhea trimethoprim [From Bactrim] Adverse Reaction (Intermediate, Verified 10/23/21 06:51) Diarrhea Home Medications: Omeprazole 20 MG [Prilosec 20 mg] 20 mg PO HS 09/07/15 [History] Fexofenadine HCl [Dominique] 180 mg PO HS 04/22/16 [History] diazePAM [Diazepam] 2 mg PO BID 10/14/17 [History] Propranolol HCl [Inderal Xl] 80 mg PO HS 07/19/18 [History] Amitriptyline HCl 25 mg [Amitriptyline 25 mg Tablet] 25 mg PO HS 08/23/20 [History] Losartan Potassium 50 mg [Cozaar 50 MG] 50 mg PO BID 08/23/20 [History] Meloxicam 7.5 mg PO HS 08/23/20 [History] Primidone 25 mg PO DAILY 09/24/20 [History] Atogepant [Qulipta] 60 mg PO DAILY 10/23/21 [History] Doxazosin Mesylate 1 tab PO DAILY 10/23/21 [History] levoFLOXacin [Levofloxacin] 1 tab PO DAILY 10/23/21 [History] Hx Tetanus, Diphtheria Vaccination/Date Given: Yes Hx Influenza Vaccination/Date Given: No Hx Pneumococcal Vaccination/Date Given: No Immunizations Up to Date: Yes Travel Risk - International Travel Have you traveled outside of the country in past 3 weeks: No - Coronavirus Screening Are you exhibiting any of the following symptoms?: No Close contact with a COVID-19 positive Pt in past 14-21 Days: No - Vaccine Status Have you recieved a Covid-19 vaccination: Yes [employer]: [employer] - Vaccination Dates Date of 2cond Vaccination (if applicable): NO - Review of Systems Constitutional: No Fever, No Chills Eyes: No Symptoms Ears, Nose, & Throat: No Symptoms Respiratory: No Cough, No Dyspnea Cardiac: No Chest Pain, No Edema, No Syncope Abdominal/Gastrointestinal: Abdominal Pain, Nausea, No Vomiting, No Diarrhea Genitourinary Symptoms: No Dysuria Musculoskeletal: No Back Pain, No Neck Pain Skin: No Rash Neurological: No Dizziness, No Focal Weakness, No Sensory Changes Psychological: No Symptoms Endocrine: Excessive Sweating All Other Systems: Reviewed and Negative - Past Medical History Pertinent Past Medical History: Yes Neurological History: Migraines, Peripheral Neuropathy, Stroke ENT History: No Pertinent History Cardiac History: Angina, Hypertension Respiratory History: Bronchitis Endocrine Medical History: No Pertinent History Musculoskeletal History: No Pertinent History GI Medical History: GERD History: No Pertinent History Psycho-Social History: Anxiety Male Reproductive Disorders: No Pertinent History Other Medical History: CVA, SEASONAL ALLERGIES - Past Surgical History Past Surgical History: Yes Neuro Surgical History: No Pertinent History Cardiac: No Pertinent History Respiratory: No Pertinent History Gastrointestinal: No Pertinent History Genitourinary: No Pertinent History Musculoskeletal: No Pertinent History Male Surgical History: No Pertinent History Other Surgical History: Endoscpopy to examine for gastric ulcers as stated per pt; sinus surgery - Social History Smoking Status: Never smoker How long have you smoked: years Exposure to second hand smoke: Yes Drug Use: none Patient Lives Alone: No Significant Family History: no pertinent family hx - Nursing Vital Signs Nursing Vital Signs: Initial Vital Signs Temperature 97.4 F 10/23/21 06:52 Pulse Rate 66 10/23/21 06:52 Respiratory Rate 18 10/23/21 06:52 Blood Pressure 127/84 10/23/21 06:52 O2 Sat by Pulse Oximetry 96 10/23/21 06:52 Pain Scale Pain Intensity 5 - Physical Exam General Appearance: no apparent distress, alert Eye Exam: PERRL/EOMI, eyes nml inspection Ears, Nose, Throat Exam: normal ENT inspection, pharynx normal, moist mucous membranes Neck Exam: normal inspection, non-tender, supple, full range of motion Respiratory Exam: normal breath sounds, lungs clear, No respiratory distress Cardiovascular Exam: regular rate/rhythm, normal heart sounds Gastrointestinal/Abdomen Exam: soft, tenderness (Minimal tenderness), No mass Back Exam: normal inspection, normal range of motion, No CVA tenderness, No vertebral tenderness Extremity Exam: normal inspection, normal range of motion, pelvis stable Neurologic Exam: alert, 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, cooperative, normal mood/affect, nml cerebellar function, sensation nml, No motor deficits Skin Exam: normal color, warm, dry SpO2 Interpretation: normal SpO2: 96 O2 Delivery: Room Air - Course Nursing assessment & vital signs reviewed: Yes EKG Interpreted by Me: RATE (64), Sinus Rhythm, NORMAL AXIS, NORMAL INTERVALS, NORMAL QRS, Non-specific ST Changes - Radiology Exams Chest X-ray Interpretation: Interpreted by me (There is evidence of a hiatal hernia but no other acute findings no definite infiltrates) C-Spine X-ray Interpretation: Interpreted by me (No acute findings some degenerative changes.) - CT Exams Abdomen/Pelvis CT Interpretation: Other (No definite abscess obstruction etc.) Ordered Tests: Active Orders 24 hr Category Date Time Status EKG-ER Only STAT Care 10/23/21 07:02 Active IV Insertion STAT Care 10/23/21 07:02 Active ABDOMEN AND PELVIS W/0 CONTRAS [CT] Stat Exams 10/23/21 07:02 Completed CERVICAL SPINE (2 OR 3 VIEW) Stat Exams 10/23/21 08:33 Taken CHEST 1 VIEW (PORTABLE) Stat Exams 10/23/21 07:02 Completed AMYLASE Stat Lab 10/23/21 07:21 Completed CBC W DIFF Stat Lab 10/23/21 07:21 Completed CMP Stat Lab 10/23/21 07:21 Completed LIPASE Stat Lab 10/23/21 07:21 Completed Lactic Acid Stat Lab 10/23/21 07:20 Completed TROPONIN Q3H Lab 10/23/21 07:21 Completed TROPONIN Q3H Lab 10/23/21 10:15 Ordered TROPONIN Q3H Lab 10/23/21 13:15 Ordered TROPONIN Q3H Lab 10/23/21 16:15 Ordered TROPONIN Q3H Lab 10/23/21 19:15 Ordered UA W/RFX CULTURE Stat Lab 10/23/21 07:26 Completed Medication Summary Discontinued Medications Generic Name Dose Route Start Last Admin Trade Name Freq PRN Reason Stop Dose Admin Sodium Chloride 1,000 mls @ 999 mls/hr 10/23/21 07:02 10/23/21 08:25 Sodium Chloride 0.9% 1000 Ml IV 10/23/21 08:02 Infused .Q1H1M STA Infusion Sodium Chloride Confirm 10/23/21 07:09 Sodium Chloride 0.9% 1000 Ml Administered 10/23/21 07:10 Dose 1,000 mls @ ud .ROUTE .STK-MED ONE Ondansetron HCl 4 mg 10/23/21 07:02 10/23/21 07:12 Ondansetron Hcl 4 Mg/2 Ml Vial IV 10/23/21 07:03 4 mg STAT ONE Administration Ondansetron HCl Confirm 10/23/21 07:09 Ondansetron Hcl 4 Mg/2 Ml Vial Administered 10/23/21 07:10 Dose 4 mg .ROUTE .STK-MED ONE Lab/Rad Data: Laboratory Result Diagrams 10/23/21 07:21 10/23/21 07:21 Laboratory Results 10/23/21 10/23/21 10/23/21 Range/Units 07:26 07:21 07:21 WBC (4.0-10.5) x10^3/uL RBC (4.1-5.6) x10^6/uL Hgb (12.5-18.0) g/dL Hct (42-50) % MCV (78-100) fL MCH (26-32) pg MCHC (32-36) g/dL RDW (11.5-14.0) % Plt Count (150-450) x10^3/uL MPV (7.5-11.0) fL Gran % (36.0-66.0) % Immature Gran % (Auto) (0.00-0.4) % Nucleat RBC Rel Count (0.00-0.1) % Eos # (Auto) (0-0.5) x10^3/uL Immature Gran # (Auto) (0.00-0.03) x10^3u/L Absolute Lymphs (auto) (1.0-4.6) x10^3/uL Absolute Monos (auto) (0.0-1.3) x10^3/uL Absolute Nucleated RBC (0.00-0.01) x10^3u/L Lymphocytes % (24.0-44.0) % Monocytes % (0.0-12.0) % Eosinophils % (0.00-5.0) % Basophils % (0.0-0.4) % Absolute Granulocytes (1.4-6.9) x10^3/uL Basophils # (0-0.4) x10^3/uL Sodium 140 (137-145) mmol/L Potassium 4.1 (3.5-5.1) mmol/L Chloride 101 (98-107) mmol/L Carbon Dioxide 29 (22-30) mmol/L Anion Gap 14.5 (5-15) MEQ/L BUN 12 (9-20) mg/dL Creatinine 1.21 (0.66-1.25) mg/dL Estimated GFR > 60.0 ML/MIN Glucose 107 H (74-106) mg/dL Lactic Acid (0.4-2.0) Calcium 9.0 (8.4-10.2) mg/dL Total Bilirubin 0.50 (0.2-1.3) mg/dL AST 18 (17-59) U/L ALT 13 (0-50) U/L Alkaline Phosphatase 72 (38-126) U/L Troponin I < 0.012 (0.000-0.034) ng/mL Serum Total Protein 6.7 (6.3-8.2) g/dL Albumin 3.9 (3.5-5.0) g/dL Amylase 69 (30-110) U/L Lipase 125 (23-300) U/L Urinalys Dipstick Clnc MAIN LAB Urine Color YELLOW (YELLOW) Urine Appearance CLEAR (CLEAR) Urine pH 6.0 (5-6) Ur Specific [place] >=1.030 (1.005-1.025) POC Urine Protein Conf TRACE (Negative) Urine Ketones NEGATIVE (NEGATIVE) Urine Nitrite NEGATIVE (NEGATIVE) Urine Bilirubin NEGATIVE (NEGATIVE) Urine Urobilinogen 0.2 (0-1) mg/dL Urine Leukocytes NEGATIVE (NEGATIVE) Urine WBC (Auto) 0-2 (0-5) /HPF Urine RBC (Auto) NONE (0-2) /HPF U Hyaline Cast (Auto) 26-50 (0-2) /LPF U Epithel Cells (Auto) NONE (FEW) /HPF Urine Bacteria (Auto) NONE (NEGATIVE) /HPF Urine RBC NEGATIVE (0-5) Brad/ul Urine Mucus (Auto) MANY (NEGATIVE) /HPF Ur Culture Indicated? NO Urine Glucose NEGATIVE (NEGATIVE) mg/dL 10/23/21 10/23/21 Range/Units 07:21 07:20 WBC 8.1 (4.0-10.5) x10^3/uL RBC 4.46 (4.1-5.6) x10^6/uL Hgb 12.7 (12.5-18.0) g/dL Hct 39.5 L (42-50) % MCV 88.6 (78-100) fL MCH 28.5 (26-32) pg MCHC 32.2 (32-36) g/dL RDW 13.1 (11.5-14.0) % Plt Count 176 (150-450) x10^3/uL MPV 8.4 (7.5-11.0) fL Gran % 71.4 H (36.0-66.0) % Immature Gran % (Auto) 0.1 (0.00-0.4) % Nucleat RBC Rel Count 0.0 (0.00-0.1) % Eos # (Auto) 0.10 (0-0.5) x10^3/uL Immature Gran # (Auto) 0.01 (0.00-0.03) x10^3u/L Absolute Lymphs (auto) 1.53 (1.0-4.6) x10^3/uL Absolute Monos (auto) 0.64 (0.0-1.3) x10^3/uL Absolute Nucleated RBC 0.00 (0.00-0.01) x10^3u/L Lymphocytes % 18.9 L (24.0-44.0) % Monocytes % 7.9 (0.0-12.0) % Eosinophils % 1.2 (0.00-5.0) % Basophils % 0.5 (0.0-0.4) % Absolute Granulocytes 5.78 (1.4-6.9) x10^3/uL Basophils # 0.04 (0-0.4) x10^3/uL Sodium (137-145) mmol/L Potassium (3.5-5.1) mmol/L Chloride (98-107) mmol/L Carbon Dioxide (22-30) mmol/L Anion Gap (5-15) MEQ/L BUN (9-20) mg/dL Creatinine (0.66-1.25) mg/dL Estimated GFR ML/MIN Glucose (74-106) mg/dL Lactic Acid 1.1 (0.4-2.0) Calcium (8.4-10.2) mg/dL Total Bilirubin (0.2-1.3) mg/dL AST (17-59) U/L ALT (0-50) U/L Alkaline Phosphatase (38-126) U/L Troponin I (0.000-0.034) ng/mL Serum Total Protein (6.3-8.2) g/dL Albumin (3.5-5.0) g/dL Amylase (30-110) U/L Lipase (23-300) U/L Urinalys Dipstick Clnc Urine Color (YELLOW) Urine Appearance (CLEAR) Urine pH (5-6) Ur Specific [place] (1.005-1.025) POC Urine Protein Conf (Negative) Urine Ketones (NEGATIVE) Urine Nitrite (NEGATIVE) Urine Bilirubin (NEGATIVE) Urine Urobilinogen (0-1) mg/dL Urine Leukocytes (NEGATIVE) Urine WBC (Auto) (0-5) /HPF Urine RBC (Auto) (0-2) /HPF U Hyaline Cast (Auto) (0-2) /LPF U Epithel Cells (Auto) (FEW) /HPF Urine Bacteria (Auto) (NEGATIVE) /HPF Urine RBC (0-5) Brad/ul Urine Mucus (Auto) (NEGATIVE) /HPF Ur Culture Indicated? Urine Glucose (NEGATIVE) mg/dL - Progress Progress: unchanged - Departure Departure Disposition: Home Clinical Impression: Gastroenteritis, Cervical pain (neck) Condition: Stable Critical Care Time: No Referrals: TUAN NOBLE MD [Primary Care Provider] - Follow up/PCP as directed Instructions: Viral Gastroenteritis, Adult (DC) Prescriptions: Metronidazole 500 mg [Flagyl 500 MG] 500 mg PO TID #21 tablet
[2021-10-23 07:47] LABS: Hyaline Casts 26-50 /LPF (0-2); Mucus MANY /HPF (NEGATIVE); WBC 0-2 /HPF (0-5)
[2021-10-23 07:48] LABS: Appearance CLEAR (CLEAR); Bilirubin NEGATIVE (NEGATIVE); Glucose NEGATIVE (NEGATIVE); Ketones NEGATIVE (NEGATIVE); Specific Gravity >=1.030 (1.005-1.025)
[2021-10-23 07:49] LABS: Dipstick done @ ? MAIN LAB; Nitrite NEGATIVE (NEGATIVE); Protein,Urine Dip TRACE (Negative); RBC NEGATIVE Ery/ul (0-5); Urobilinogen 0.2 mg/dL (0-1)
[2021-10-23 07:50] LABS: Urine Cultured Indicated? NO
[2021-10-23 08:07] VITALS: PULSE 66
[2021-10-23 08:23] LABS: ALBUMIN 3.9 g/dL (3.5-5.0); ALKALINE PHOSPHATASE 72 U/L (38-126); AMYLASE 69 U/L (30-110); ANION GAP 14.5 MEQ/L (5-15); BLOOD UREA NITROGEN 12 mg/dL (9-20); CHLORIDE 101 mmol/L (98-107); Carbon Dioxide 29 mmol/L (22-30); Creatinine 1 1.21 mg/dL (0.66-1.25); EST GLOMERULAR FILTRATION RATE > 60.0 ML/MIN; Glucose 107 mg/dL (74-106); LIPASE 125 U/L (23-300); Potassium 4.1 mmol/L (3.5-5.1); SGOT/AST 18 U/L (17-59); SGPT/ALT 13 U/L (0-50); SODIUM 140 mmol/L (137-145); Total Protein 6.7 g/dL (6.3-8.2)
--- NOTE | 2021-10-23 09:11 | XRAY ---
Indication: Pain. Comparison: March 08, 2021. Portable chest remains slightly underinflated and clear. Heart not enlarged. Bony thorax intact again with mild degenerative changes. No new/acute findings.
--- NOTE | 2021-10-23 09:11 | XRAY ---
Indication: Right lower quadrant pain. Multiple contiguous axial images obtained through the abdomen and pelvis without contrast. Comparison: January 07, 2017. Lung bases remain clear. Heart not enlarged. Stable small hiatal hernia. Noncontrasted stomach and bowel loops appear nonobstructed again with normal appendix. No free fluid/air. Remaining liver, gallbladder, pancreas, spleen, adrenal glands, kidneys, ureters, bladder, and aorta are unremarkable for noncontrast exam. Osseous structures intact again with L4 Schmorl node. Stable small bilateral fatty inguinal hernias. Impression: 1. Stable small hiatal hernia, small bilateral fatty inguinal hernias, and L4 Schmorl node. 2. Remaining CT abdomen/pelvis without contrast exam is again negative.
[2021-10-23 09:22] VITALS: BP 100/59; O2SAT 98
--- NOTE | 2021-10-23 09:25 | XRAY ---
Indication: Chronic neck pain. No known injury. Comparison: August 14, 2020 AP, lateral, and swimmer's view cervical spine unchanged again demonstrating normal alignment with mild osteopenia and minimal multilevel anterior endplate spurring. No new/acute abnormalities.
== END 2021-10-23 09:25 | disposition home or self-care (01) ==
LOC: ED 06:39
DX: K52.9 Noninfective gastroenteritis and colitis, unspecified (principal); M54.2 Cervicalgia; R10.11 Right upper quadrant pain; R10.31 Right lower quadrant pain; R11.0 Nausea; I10 Essential (primary) hypertension; Z79.899 Other long term (current) drug therapy
CPT/HCPCS: 36000; 36415; 71045; 72040; 74176; 80053; 81015; 82150; 83605; 83690; 84484; 85025; 93005; 96360; 96374; 99284; J2405

== ENCOUNTER 2021-12-29 17:54 | Emergency (ER) | payer OTHER ==
[2021-12-29] MEDS ORDERED: TORAdol 30 mg Injection IM ONE (19:55)
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
[2021-12-29] MEDS ORDERED: TORAdol 30 mg Injection ONE (20:12)
[2021-12-29 20:18] VITALS: BP 183/96; PULSE 63; O2SAT 100
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
== END 2021-12-29 20:25 | disposition home or self-care (01) ==
LOC: ED 17:54
DX: S16.1XXA Strain of muscle, fascia and tendon at neck level, initial encounter (principal); S29.011A Strain of muscle and tendon of front wall of thorax, initial encounter; V87.7XXA Person injured in collision between other specified motor vehicles (traffic), initial encounter; Y92.414 Local residential or business street as the place of occurrence of the external cause; I10 Essential (primary) hypertension; E78.5 Hyperlipidemia, unspecified; Z79.899 Other long term (current) drug therapy
CPT/HCPCS: 70450; 71250; 72125; 96372; 99285; J1885

== ENCOUNTER 2022-01-24 09:59 | Emergency (ER) | payer OTHER ==
--- NOTE | 2022-01-24 10:31 | ERPHSYRPT ---
- History of Present Illness Time Seen by Provider: 01/24/22 10:31 Source: patient Exam Limitations: no limitations Physician History: This is a 51-year-old white male patient of Dr. 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 This includes multiple complaints including dry mouth, headache, body aches, shortnes s of breath and mild abdominal pain. Patient has known gallbladder disease issues and has not had a full evaluation by general surgeon at this point. Patient has appointment to see his primary care provider today at 4:00 PM. However, he was concerned that something was really wrong and wanted to be evaluated beforehand. Patient denies chest pain. He denies nausea vomiting or diarrhea. Patient was tested for COVID a week ago and that test was negative. Patient has a history of migraine headaches, CVA, coronary artery disease, hypertension, gastroesophageal reflux disease, peripheral neuropathy and anxiety issues. Timing/Duration: day(s) (At least 10 days) Severity: mild Character of Deficits: none Deficits: no difficulties Baseline/Normal Cognition: alert 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 Current Cognition: alert 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 Baseline Gait: walks w/o assistance Associated Symptoms: fatigue, weakness Allergies/Adverse Reactions: amlodipine [From Norvasc] Allergy (Intermediate, Verified 01/24/22 10:34) Hives albuterol Allergy (Verified 01/24/22 10:34) sulfamethoxazole [From Bactrim] Adverse Reaction (Intermediate, Verified 01/24/22 10:34) Diarrhea trimethoprim [From Bactrim] Adverse Reaction (Intermediate, Verified 01/24/22 10:34) Diarrhea Home Medications: Omeprazole 20 MG [Prilosec 20 mg] 20 mg PO HS 09/07/15 [History] Fexofenadine HCl [Dominique] 180 mg PO HS 04/22/16 [History] diazePAM [Diazepam] 2 mg PO BID 10/14/17 [History] Propranolol HCl [Inderal Xl] 80 mg PO HS 07/19/18 [History] Amitriptyline HCl 25 mg [Amitriptyline 25 mg Tablet] 25 mg PO HS 08/23/20 [History] Losartan Potassium 50 mg [Cozaar 50 MG] 50 mg PO BID 08/23/20 [History] Meloxicam 7.5 mg PO HS 08/23/20 [History] Atogepant [Qulipta] 60 mg PO DAILY 10/23/21 [History] Doxazosin Mesylate 2 tab PO DAILY 10/23/21 [History] Fluticasone Propionate [24 Hour Allergy] 1 spray IH BID 01/03/22 [History] Hx Tetanus, Diphtheria Vaccination/Date Given: Yes Hx Influenza Vaccination/Date Given: No Hx Pneumococcal Vaccination/Date Given: No Travel Risk - International Travel Have you traveled outside of the country in past 3 weeks: No - Coronavirus Screening Are you exhibiting any of the following symptoms?: Yes Symptoms: Cough: New Onset, Shortness of Breath - Vaccine Status Have you recieved a Covid-19 vaccination: Yes 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: [employer] - Vaccination Dates Date of 2cond Vaccination (if applicable): not received - Review of Systems Constitutional: Weakness Eyes: No Symptoms Ears, Nose, & Throat: No Symptoms Respiratory: Dyspnea (Mild) Cardiac: No Symptoms Abdominal/Gastrointestinal: No Symptoms Genitourinary Symptoms: No Symptoms Musculoskeletal: Arthralgias, Myalgias Skin: No Symptoms Neurological: Headache Psychological: Anxiety Endocrine: No Symptoms Hematologic/Lymphatic: No Symptoms Immunological/Allergic: No Symptoms All Other Systems: Reviewed and Negative - Past Medical History Pertinent Past Medical History: Yes Neurological History: Migraines, Peripheral Neuropathy, Stroke ENT History: No Pertinent History Cardiac History: Angina, Hypertension Respiratory History: Bronchitis Endocrine Medical History: No Pertinent History Musculoskeletal History: No Pertinent History GI Medical History: GERD History: No Pertinent History Psycho-Social History: Anxiety Male Reproductive Disorders: No Pertinent History Other Medical History: CVA, SEASONAL ALLERGIES - Past Surgical History Past Surgical History: Yes Neuro Surgical History: No Pertinent History Cardiac: No Pertinent History Respiratory: No Pertinent History Gastrointestinal: No Pertinent History Genitourinary: No Pertinent History Musculoskeletal: No Pertinent History Male Surgical History: No Pertinent History Other Surgical History: Endoscpopy to examine for gastric ulcers as stated per pt; sinus surgery - Social History Smoking Status: Never smoker How long have you smoked: years Exposure to second hand smoke: Yes Drug Use: none Patient Lives Alone: No Significant Family History: no pertinent family hx - Nursing Vital Signs Nursing Vital Signs: Initial Vital Signs Temperature 96.8 F 01/24/22 10:18 Pulse Rate 74 01/24/22 10:18 Blood Pressure 138/94 01/24/22 10:18 O2 Sat by Pulse Oximetry 99 01/24/22 10:18 Pain Scale Pain Intensity 5 - [place] Coma Scale Best Eye Response ([place]): (4) open spontaneously Best Verbal Response ([place]): (5) oriented Best Motor Response ([place]): (6) obeys commands Suzi Total: 15 - Physical Exam General Appearance: no apparent distress, alert, anxiety Eye Exam: bilateral eye: normal inspection, PERRL, EOMI Ears, Nose, Throat Exam: normal ENT inspection, moist mucous membranes Neck Exam: normal inspection, non-tender, supple, full range of motion Respiratory: normal breath sounds, lungs clear, airway intact, No chest tenderness, No respiratory distress Cardiovascular: regular rate/rhythm, normal heart sounds, normal peripheral pulses Gastrointestinal: soft, normal bowel sounds, No tenderness Rectal Exam: not done Back Exam: normal inspection, normal range of motion, No CVA tenderness, No vertebral tenderness Extremity Exam: normal inspection, normal range of motion, pelvis stable Mental Status: alert, 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, 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 tube wrapper Exam: normal hearing, normal speech, PERRL, tongue midline Coordination/Gait: normal finger to nose, normal gait, normal cerebellar function Motor/Sensory: no motor deficit, no sensory deficit, no pronator drift Skin Exam: normal color, warm, dry SpO2 Interpretation: normal SpO2: 99 O2 Delivery: Room Air - Course Nursing assessment & vital signs reviewed: Yes Ordered Tests: Active Orders 24 hr Category Date Time Status EKG-ER Only STAT Care 01/24/22 10:50 Active IV Insertion STAT Care 01/24/22 10:50 Active CBC W DIFF Stat Lab 01/24/22 11:02 Completed CMP Stat Lab 01/24/22 11:02 Completed MAGNESIUM Stat Lab 01/24/22 11:02 Completed T4 (Thyroxine) Stat Lab 01/24/22 11:02 Completed TROPONIN Q4H Lab 01/24/22 11:02 Completed TROPONIN Q4H Lab 01/24/22 15:00 Ordered TROPONIN Q4H Lab 01/24/22 19:00 Ordered TSH, 3RD Generation Stat Lab 01/24/22 11:02 Completed UA W/RFX CULTURE Stat Lab 01/24/22 10:55 Completed Medication Summary Discontinued Medications Generic Name Dose Route Start Last Admin Trade Name Freq PRN Reason Stop Dose Admin Sodium Chloride 1,000 mls @ 999 mls/hr 01/24/22 10:50 01/24/22 12:17 Sodium Chloride 0.9% 1000 Ml IV 01/24/22 11:50 Infused .Q1H1M STA Infusion Sodium Chloride Confirm 01/24/22 11:01 Sodium Chloride 0.9% 1000 Ml Administered 01/24/22 11:02 Dose 1,000 mls @ ud .ROUTE .K-MED ONE Lab/Rad Data: Laboratory Result Diagrams 01/24/22 11:02 01/24/22 11:02 Laboratory Results 01/24/22 01/24/22 01/24/22 Range/Units 11:04 11:02 11:02 WBC (4.0-10.5) x10^3/uL RBC (4.1-5.6) x10^6/uL Hgb (12.5-18.0) g/dL Hct (42-50) % MCV (78-100) fL MCH (26-32) pg MCHC (32-36) g/dL RDW (11.5-14.0) % Plt Count (150-450) x10^3/uL MPV (7.5-11.0) fL Gran % (36.0-66.0) % Immature Gran % (Auto) (0.00-0.4) % Nucleat RBC Rel Count (0.00-0.1) % Eos # (Auto) (0-0.5) x10^3/uL Immature Gran # (Auto) (0.00-0.03) x10^3u/L Absolute Lymphs (auto) (1.0-4.6) x10^3/uL Absolute Monos (auto) (0.0-1.3) x10^3/uL Absolute Nucleated RBC (0.00-0.01) x10^3u/L Lymphocytes % (24.0-44.0) % Monocytes % (0.0-12.0) % Eosinophils % (0.00-5.0) % Basophils % (0.0-0.4) % Absolute Granulocytes (1.4-6.9) x10^3/uL Basophils # (0-0.4) x10^3/uL Sodium 137 (137-145) mmol/L Potassium 4.4 (3.5-5.1) mmol/L Chloride 104 (98-107) mmol/L Carbon Dioxide 24 (22-30) mmol/L Anion Gap 14.3 (5-15) MEQ/L BUN 15 (9-20) mg/dL Creatinine 1.09 (0.66-1.25) mg/dL Estimated GFR > 60.0 ML/MIN Glucose 117 H (74-106) mg/dL Calcium 9.1 (8.4-10.2) mg/dL Magnesium 2.1 (1.6-2.3) mg/dL Total Bilirubin 0.40 (0.2-1.3) mg/dL AST 24 (17-59) U/L ALT 15 (0-50) U/L Alkaline Phosphatase 73 (38-126) U/L Troponin I < 0.012 (0.000-0.034) ng/mL Serum Total Protein 7.5 (6.3-8.2) g/dL Albumin 4.4 (3.5-5.0) g/dL Thyroxine (T4) 9.20 (5.53-10.96) ug/dL TSH 3rd Generation 1.280 (0.47-4.68) mIU/L Urinalys Dipstick Clnc Urine Color (YELLOW) Urine Appearance (CLEAR) Urine pH (5-6) Ur Specific Embudo (1.005-1.025) POC Urine Protein Conf (Negative) Urine Ketones (NEGATIVE) Urine Nitrite (NEGATIVE) Urine Bilirubin (NEGATIVE) Urine Urobilinogen (0-1) mg/dL Urine Leukocytes (NEGATIVE) Urine WBC (Auto) (0-5) /HPF Urine RBC (Auto) (0-2) /HPF U Epithel Cells (Auto) (FEW) /HPF Urine Bacteria (Auto) (NEGATIVE) /HPF Urine RBC (0-5) Brad/ul Ur Culture Indicated? Urine Glucose (NEGATIVE) mg/dL Influenza Type A Ag NEGATIVE (NEGATIVE) Influenza Type B Ag NEGATIVE (NEGATIVE) RSV (PCR) NEGATIVE (Negative) SARS-CoV-2 (PCR) NEGATIVE (NEGATIVE) 01/24/22 01/24/22 Range/Units 11:02 10:55 WBC 5.6 (4.0-10.5) x10^3/uL RBC 4.08 L (4.1-5.6) x10^6/uL Hgb 11.6 L (12.5-18.0) g/dL Hct 36.1 L (42-50) % MCV 88.5 (78-100) fL MCH 28.4 (26-32) pg MCHC 32.1 (32-36) g/dL RDW 13.0 (11.5-14.0) % Plt Count 166 (150-450) x10^3/uL MPV 8.8 (7.5-11.0) fL Gran % 69.2 H (36.0-66.0) % Immature Gran % (Auto) 0.2 (0.00-0.4) % Nucleat RBC Rel Count 0.0 (0.00-0.1) % Eos # (Auto) 0.14 (0-0.5) x10^3/uL Immature Gran # (Auto) 0.01 (0.00-0.03) x10^3u/L Absolute Lymphs (auto) 1.21 (1.0-4.6) x10^3/uL Absolute Monos (auto) 0.35 (0.0-1.3) x10^3/uL Absolute Nucleated RBC 0.00 (0.00-0.01) x10^3u/L Lymphocytes % 21.5 L (24.0-44.0) % Monocytes % 6.2 (0.0-12.0) % Eosinophils % 2.5 (0.00-5.0) % Basophils % 0.4 (0.0-0.4) % Absolute Granulocytes 3.91 (1.4-6.9) x10^3/uL Basophils # 0.02 (0-0.4) x10^3/uL Sodium (137-145) mmol/L Potassium (3.5-5.1) mmol/L Chloride (98-107) mmol/L Carbon Dioxide (22-30) mmol/L Anion Gap (5-15) MEQ/L BUN (9-20) mg/dL Creatinine (0.66-1.25) mg/dL Estimated GFR ML/MIN Glucose (74-106) mg/dL Calcium (8.4-10.2) mg/dL Magnesium (1.6-2.3) mg/dL Total Bilirubin (0.2-1.3) mg/dL AST (17-59) U/L ALT (0-50) U/L Alkaline Phosphatase (38-126) U/L Troponin I (0.000-0.034) ng/mL Serum Total Protein (6.3-8.2) g/dL Albumin (3.5-5.0) g/dL Thyroxine (T4) (5.53-10.96) ug/dL TSH 3rd Generation (0.47-4.68) mIU/L Urinalys Dipstick Clnc MAIN LAB Urine Color YELLOW (YELLOW) Urine Appearance CLEAR (CLEAR) Urine pH 5.5 (5-6) Ur Specific [place] <=1.005 (1.005-1.025) POC Urine Protein Conf NEGATIVE (Negative) Urine Ketones NEGATIVE (NEGATIVE) Urine Nitrite NEGATIVE (NEGATIVE) Urine Bilirubin NEGATIVE (NEGATIVE) Urine Urobilinogen 0.2 (0-1) mg/dL Urine Leukocytes NEGATIVE (NEGATIVE) Urine WBC (Auto) NONE (0-5) /HPF Urine RBC (Auto) NONE (0-2) /HPF U Epithel Cells (Auto) NONE (FEW) /HPF Urine Bacteria (Auto) RARE (NEGATIVE) /HPF Urine RBC NEGATIVE (0-5) Brad/ul Ur Culture Indicated? NO Urine Glucose NEGATIVE (NEGATIVE) mg/dL Influenza Type A Ag (NEGATIVE) Influenza Type B Ag (NEGATIVE) RSV (PCR) (Negative) SARS-CoV-2 (PCR) (NEGATIVE) - Progress Progress: unchanged - Departure Departure Disposition: Home Clinical Impression: Generalized weakness Condition: Stable Critical Care Time: No Referrals: TUAN NOBLE MD [Primary Care Provider] - Follow up/PCP as directed Additional Instructions: Drink plenty of fluids. Keep your appointment with your primary care provider. Continue your medications as prescribed.
[2022-01-24] MEDS ORDERED: Sodium Chloride 0.9% 1000 ML 1,000 ML IV STA (10:50)
[2022-01-24] MEDS ORDERED: Sodium Chloride 0.9% 1000 ML 1,000 ML ONE (11:01)
[2022-01-24 11:02] LABS: Absolute Neutrophil Ct (ANC) 3.91 x10^3/uL (1.4-6.9); Basophil (Absolute #) 0.02 x10^3/uL (0-0.4); Eosinophil % 2.5 % (0.00-5.0); Eosinophil (Absolute #) 0.14 x10^3/uL (0-0.5); Hematocrit 36.1 % (42-50); Hemoglobin 11.6 g/dL (12.5-18.0); Lymphocyte (Absolute #) 1.21 x10^3/uL (1.0-4.6); Lymphocytes % 21.5 % (24.0-44.0); Mean Cell Volume 88.5 fL (78-100); Mean Corpuscular Hemoglobin 28.4 pg (26-32); Mean Corpuscular Hgb Concent. 32.1 g/dL (32-36); Mean Platelet Volume 8.8 fL (7.5-11.0); Monocyte (Absolute #) 0.35 x10^3/uL (0.0-1.3); Monocytes % 6.2 % (0.0-12.0); Neutrophil % 69.2 % (36.0-66.0); Platelet Count 166 x10^3/uL (150-450); Red Blood Count 4.08 x10^6/uL (4.1-5.6); White Blood Count 5.6 x10^3/uL (4.0-10.5)
[2022-01-24 11:02] LABS: Appearance CLEAR (CLEAR); Bilirubin NEGATIVE (NEGATIVE); Glucose NEGATIVE (NEGATIVE); Ketones NEGATIVE (NEGATIVE); Ph 5.5 (5-6); RBC NEGATIVE Ery/ul (0-5); Specific Gravity <=1.005 (1.005-1.025)
[2022-01-24 11:03] LABS: Bacteria RARE /HPF (NEGATIVE); Dipstick done @ ? MAIN LAB; Nitrite NEGATIVE (NEGATIVE); Protein,Urine Dip NEGATIVE (Negative); Urobilinogen 0.2 mg/dL (0-1)
[2022-01-24 11:04] LABS: Urine Cultured Indicated? NO
[2022-01-24 11:25] VITALS: BP 129/86; PULSE 56
[2022-01-24 11:34] LABS: INFLUENZA A NEGATIVE (NEGATIVE); INFLUENZA B NEGATIVE (NEGATIVE); RESPIRATORY SYNCTIAL VIRUS NEGATIVE (Negative); SARS-CoV-2 Xpert Express NEGATIVE (NEGATIVE)
[2022-01-24 11:44] LABS: ALBUMIN 4.4 g/dL (3.5-5.0); ALKALINE PHOSPHATASE 73 U/L (38-126); ANION GAP 14.3 MEQ/L (5-15); BLOOD UREA NITROGEN 15 mg/dL (9-20); CHLORIDE 104 mmol/L (98-107); Calcium 9.1 mg/dL (8.4-10.2); Carbon Dioxide 24 mmol/L (22-30); Creatinine 1 1.09 mg/dL (0.66-1.25); EST GLOMERULAR FILTRATION RATE > 60.0 ML/MIN; Glucose 117 mg/dL (74-106); MAGNESIUM 2.1 mg/dL (1.6-2.3); Potassium 4.4 mmol/L (3.5-5.1); SGOT/AST 24 U/L (17-59); SGPT/ALT 15 U/L (0-50); SODIUM 137 mmol/L (137-145); Total Protein 7.5 g/dL (6.3-8.2)
[2022-01-24 12:18] VITALS: O2SAT 99
== END 2022-01-24 12:25 | disposition home or self-care (01) ==
LOC: ED 09:59
DX: R53.1 Weakness (principal); R51.9 Headache, unspecified; R68.2 Dry mouth, unspecified; M79.10 Myalgia, unspecified site; R06.02 Shortness of breath; R10.9 Unspecified abdominal pain; I10 Essential (primary) hypertension; Z79.899 Other long term (current) drug therapy
CPT/HCPCS: 0241U; 36000; 36415; 80053; 81015; 83735; 84436; 84443; 84484; 85025; 93005; 96360; 99284

== ENCOUNTER 2022-01-27 22:11 | Emergency (ER) | payer OTHER ==
--- NOTE | 2022-01-27 22:57 | ERPHSYRPT ---
- History of Present Illness Time Seen by Provider: 01/27/22 22:50 Source: patient Exam Limitations: no limitations Physician History: This is a 51-year-old white male patient of Dr. Noble who presents to the emergency department today secondary to multiple complaints including not feeling well, high blood pressure, tachycardia, dry mouth, dizziness, headache and chest pain. In addition he has had some intermittent right lower quadrant abdominal pain. Patient has known gallbladder issues and has not had his surgeon schedule the gallbladder removal as of yet. Patient had the similar symptoms when I saw him in this emergency department on 01/24/2022. Patient was also seen by his primary care physician earlier in the day on 01/27/2022. Patient has a history of hypertension, gastroesophageal reflux disease, peripheral neuropathy, chronic angina, CVA and anxiety issues. Patient has had several radiographic studies in the last less than 1 month time. A CAT scan of the head was done without contrast which is negative for any intracranial abnormality. He is also had a CT of the chest which does not show any intrathoracic acute abnormality. Patient was concerned this evening when he was taking his blood pressure he had a sudden "spike" of his blood pressure and heart rate. He contacted the [employer] 24-hour hotline and they recommended that he be evaluated in the hospital emergency department. His primary care provider gave the patient an injection of steroid as well as an injection of Rocephin to treat sinusitis that the patient was convinced he had. Has sinus pressure. He did not receive any other continued steroid or antibiotic prescription. Timing/Duration: other (Several weeks) Severity: mild Associated Symptoms: nausea, abdominal pain, chest pain, headaches, other (By mouth) Allergies/Adverse Reactions: amlodipine [From Norvasc] Allergy (Intermediate, Verified 01/27/22 22:45) Hives albuterol Allergy (Verified 01/27/22 22:45) sulfamethoxazole [From Bactrim] Adverse Reaction (Intermediate, Verified 01/27/22 22:45) Diarrhea trimethoprim [From Bactrim] Adverse Reaction (Intermediate, Verified 01/27/22 22:45) Diarrhea Home Medications: Omeprazole 20 MG [Prilosec 20 mg] 20 mg PO HS 09/07/15 [History] Fexofenadine HCl [Dominique] 180 mg PO HS 04/22/16 [History] diazePAM [Diazepam] 2 mg PO BID 10/14/17 [History] Propranolol HCl [Inderal Xl] 80 mg PO HS 07/19/18 [History] Amitriptyline HCl 25 mg [Amitriptyline 25 mg Tablet] 25 mg PO HS 08/23/20 [History] Losartan Potassium 50 mg [Cozaar 50 MG] 50 mg PO BID 08/23/20 [History] Meloxicam 7.5 mg PO HS 08/23/20 [History] Atogepant [Qulipta] 60 mg PO QHS 10/23/21 [History] Doxazosin Mesylate 2 mg PO QHS 10/23/21 [History] Fluticasone Propionate [24 Hour Allergy] 1 spray IH BID 01/03/22 [History] Hx Tetanus, Diphtheria Vaccination/Date Given: Yes Hx Influenza Vaccination/Date Given: No Hx Pneumococcal Vaccination/Date Given: No Travel Risk - International Travel Have you traveled outside of the country in past 3 weeks: No - Coronavirus Screening Are you exhibiting any of the following symptoms?: No Close contact with a COVID-19 positive Pt in past 14-21 Days: No - Vaccine Status Have you recieved a Covid-19 vaccination: Yes 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[employer] - Vaccination Dates Date of 2cond Vaccination (if applicable): not received - Review of Systems Constitutional: No Symptoms Eyes: No Symptoms Ears, Nose, & Throat: Other (Dry mouth) Respiratory: No Symptoms Cardiac: Chest Pain Abdominal/Gastrointestinal: Abdominal Pain (Right side), Nausea Genitourinary Symptoms: No Symptoms Musculoskeletal: No Symptoms Skin: No Symptoms Neurological: Dizziness, Headache Psychological: Anxiety Endocrine: No Symptoms Hematologic/Lymphatic: No Symptoms Immunological/Allergic: No Symptoms All Other Systems: Reviewed and Negative - Past Medical History Pertinent Past Medical History: Yes Neurological History: Migraines, Peripheral Neuropathy, Stroke ENT History: No Pertinent History Cardiac History: Angina, Hypertension Respiratory History: Bronchitis Endocrine Medical History: No Pertinent History Musculoskeletal History: No Pertinent History GI Medical History: GERD History: No Pertinent History Psycho-Social History: Anxiety Male Reproductive Disorders: No Pertinent History Other Medical History: CVA, SEASONAL ALLERGIES - Past Surgical History Past Surgical History: Yes Neuro Surgical History: No Pertinent History Cardiac: No Pertinent History Respiratory: No Pertinent History Gastrointestinal: No Pertinent History Genitourinary: No Pertinent History Musculoskeletal: No Pertinent History Male Surgical History: No Pertinent History Other Surgical History: Endoscpopy to examine for gastric ulcers as stated per pt; sinus surgery - Social History Smoking Status: Never smoker How long have you smoked: years Exposure to second hand smoke: Yes Drug Use: none Patient Lives Alone: No Significant Family History: no pertinent family hx - Nursing Vital Signs Nursing Vital Signs: Initial Vital Signs Pulse Rate 77 01/27/22 22:51 Respiratory Rate 20 01/27/22 22:51 Blood Pressure 183/107 01/27/22 22:51 O2 Sat by Pulse Oximetry 95 01/27/22 22:51 Pain Scale Pain Intensity 3 - Physical Exam General Appearance: no apparent distress, alert, anxiety Eye Exam: PERRL/EOMI, eyes nml inspection Ears, Nose, Throat Exam: normal ENT inspection, moist mucous membranes Neck Exam: normal inspection, non-tender, supple, full range of motion Respiratory Exam: normal breath sounds, lungs clear, airway intact, No chest tenderness, No respiratory distress Cardiovascular Exam: regular rate/rhythm, normal heart sounds, normal peripheral pulses Gastrointestinal/Abdomen Exam: soft, normal bowel sounds, No tenderness Rectal Exam: not done Back Exam: normal inspection, normal range of motion, No CVA tenderness, No vertebral tenderness Extremity Exam: normal inspection, normal range of motion, pelvis stable Neurologic Exam: alert, 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, cooperative, 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 nml as tested, normal mood/affect, nml cerebellar function, nml station & gait, sensation nml Skin Exam: normal color, warm, dry Lymphatic Exam: adenopathy SpO2 Interpretation: normal O2 Delivery: Room Air - Course Nursing assessment & vital signs reviewed: Yes EKG Interpreted by Me: RATE (76), Sinus Rhythm, Left [place] Deviation, NORMAL INTERVALS, NORMAL QRS, NORMAL ST-T, Other (No acute ischemic changes on today's EKG.) Ordered Tests: Active Orders 24 hr Category Date Time Status EKG-ER Only STAT Care 01/28/22 00:14 Active BMP Stat Lab 01/28/22 00:25 Completed CBC W DIFF Stat Lab 01/28/22 00:14 Completed TROPONIN Q4H Lab 01/28/22 00:25 Completed TROPONIN Q4H Lab 01/28/22 04:15 Ordered TROPONIN Q4H Lab 01/28/22 08:15 Ordered Lab/Rad Data: Laboratory Result Diagrams 01/28/22 00:14 01/28/22 00:25 Laboratory Results 01/28/22 01/28/22 01/28/22 Range/Units 00:25 00:25 00:14 WBC 13.4 H (4.0-10.5) x10^3/uL RBC 4.62 (4.1-5.6) x10^6/uL Hgb 13.3 (12.5-18.0) g/dL Hct 41.5 L (42-50) % MCV 89.8 (78-100) fL MCH 28.8 (26-32) pg MCHC 32.0 (32-36) g/dL RDW 12.9 (11.5-14.0) % Plt Count 186 (150-450) x10^3/uL MPV 8.8 (7.5-11.0) fL Gran % 94.0 H (36.0-66.0) % Immature Gran % (Auto) 0.3 (0.00-0.4) % Nucleat RBC Rel Count 0.0 (0.00-0.1) % Eos # (Auto) 0 (0-0.5) x10^3/uL Immature Gran # (Auto) 0.04 H (0.00-0.03) x10^3u/L Absolute Lymphs (auto) 0.66 L (1.0-4.6) x10^3/uL Absolute Monos (auto) 0.10 (0.0-1.3) x10^3/uL Absolute Nucleated RBC 0.00 (0.00-0.01) x10^3u/L Lymphocytes % 4.9 L (24.0-44.0) % Monocytes % 0.7 (0.0-12.0) % Eosinophils % 0.0 (0.00-5.0) % Basophils % 0.1 (0.0-0.4) % Absolute Granulocytes 12.54 H (1.4-6.9) x10^3/uL Basophils # 0.02 (0-0.4) x10^3/uL Sodium 136 L (137-145) mmol/L Potassium 4.8 (3.5-5.1) mmol/L Chloride 104 (98-107) mmol/L Carbon Dioxide 21 L (22-30) mmol/L Anion Gap 15.8 H (5-15) MEQ/L BUN 11 (9-20) mg/dL Creatinine 0.98 (0.66-1.25) mg/dL Estimated GFR > 60.0 ML/MIN Glucose 151 H (74-106) mg/dL Calcium 9.5 (8.4-10.2) mg/dL Troponin I < 0.012 (0.000-0.034) ng/mL - Progress Progress: unchanged Counseled pt/family regarding: lab results, diagnosis, need for follow-up, rad results - Departure Departure Disposition: Home Clinical Impression: Sinus pressure Condition: Stable Critical Care Time: No Referrals: TUAN NOBLE MD [Primary Care Provider] - Follow up/PCP as directed Additional Instructions: Take all your medication as prescribed. Take your antibiotics as prescribed. Follow-up with your primary care provider for further evaluation and management. Prescriptions: Azithromycin 250 mg [Zithromax 250 MG TABLET] 250 mg PO ZPACK #6 tablet
[2022-01-28 00:06] VITALS: BP 174/100; PULSE 70; O2SAT 95
[2022-01-28 00:32] LABS: Absolute Neutrophil Ct (ANC) 12.54 x10^3/uL (1.4-6.9); Basophil (Absolute #) 0.02 x10^3/uL (0-0.4); Eosinophil (Absolute #) 0 x10^3/uL (0-0.5); Hematocrit 41.5 % (42-50); Hemoglobin 13.3 g/dL (12.5-18.0); Lymphocyte (Absolute #) 0.66 x10^3/uL (1.0-4.6); Lymphocytes % 4.9 % (24.0-44.0); Mean Cell Volume 89.8 fL (78-100); Mean Corpuscular Hemoglobin 28.8 pg (26-32); Mean Platelet Volume 8.8 fL (7.5-11.0); Monocytes % 0.7 % (0.0-12.0); Platelet Count 186 x10^3/uL (150-450); Red Blood Count 4.62 x10^6/uL (4.1-5.6); Red Cell Distribution Width 12.9 % (11.5-14.0); White Blood Count 13.4 x10^3/uL (4.0-10.5)
[2022-01-28 01:09] LABS: ANION GAP 15.8 MEQ/L (5-15); BLOOD UREA NITROGEN 11 mg/dL (9-20); CHLORIDE 104 mmol/L (98-107); Calcium 9.5 mg/dL (8.4-10.2); Carbon Dioxide 21 mmol/L (22-30); Creatinine 1 0.98 mg/dL (0.66-1.25); EST GLOMERULAR FILTRATION RATE > 60.0 ML/MIN; Glucose 151 mg/dL (74-106); Potassium 4.8 mmol/L (3.5-5.1); SODIUM 136 mmol/L (137-145)
== END 2022-01-28 02:05 | disposition home or self-care (01) ==
LOC: ED 22:11
DX: J32.9 Chronic sinusitis, unspecified (principal); I10 Essential (primary) hypertension; R00.0 Tachycardia, unspecified; R42 Dizziness and giddiness; R51.9 Headache, unspecified; R07.9 Chest pain, unspecified; R10.31 Right lower quadrant pain; R68.2 Dry mouth, unspecified; Z79.899 Other long term (current) drug therapy
CPT/HCPCS: 36415; 80048; 84484; 85025; 93005; 99283

== ENCOUNTER 2022-02-13 05:39 | Day surgery (SDC) | payer OTHER ==
--- NOTE | 2022-01-15 12:34 | HP ---
DATE OF SURGERY: 01/16/2022 HISTORY OF PRESENT ILLNESS: The patient is a 51-year-old male presented to us with biliary dyskinesia. The patient reported some right-side pain and epigastric pain. He reports nausea, vomiting and diarrhea. He does not know of any triggers. He is eating okay. He has no pain with eating. He does report some acid reflux that is getting worse. The patient has not had a colonoscopy to date. PAST MEDICAL HISTORY: Hypertension. Heart disease. Anxiety. PAST SURGICAL HISTORY: Sinus surgery. Heart catheterization. ALLERGIES: ALBUTEROL. MEDICATIONS: Meloxicam, Dominique, losartan, Inderal, diazepam, amitriptyline, dicyclomine, doxazocin, pantoprazole, clonidine, hydralazine. FAMILY HISTORY: Throat cancer. Pancreas cancer. SOCIAL HISTORY: Former smoker. REVIEW OF SYSTEMS: CONSTITUTIONAL: Denies fever or chills. CHEST: Denies shortness of breath. CVS: Denies chest pain. ABDOMEN: Reports abdominal pain. PHYSICAL EXAMINATION: GENERAL: No acute distress. CHEST: Nonlabored. No shortness of breath. CVS: Regular rate and rhythm. ABDOMEN: Soft, nontender. IMPRESSION: A patient with HIDA scan of 15%. However, patient is reporting at this time to have more epigastric pain and reflux-type symptoms. We want to proceed with endoscopy before cholecystectomy at this time. Diagnosis will be epigastric pain and screening colonoscopy. PLAN: EGD and colonoscopy with Dr. Vijay Kellogg. As dictated by Yuridia Booth NP.
--- NOTE | 2022-02-10 15:15 | HP ---
DATE OF SURGERY: 02/13/2022 HISTORY OF PRESENT ILLNESS: The patient is a 51-year-old originally presented to the office for gallbladder. The patient did not want the gallbladder and stated that he is modifying his diet and will see how that goes. He is not up-to-date on colonoscopy. He complains of some right sided pain and epigastric pain obviously probably from the gallbladder. He denies nausea, vomiting, diarrhea. He has reflux and has been on some medicine at some point. PAST MEDICAL HISTORY: Hypertension, heart disease, anxiety. PAST SURGICAL HISTORY: EGD in the past. Sinus surgery. Heart cath. ALLERGIES: AMLODIPINE. ALBUTEROL. SULFAMETHOXAZOLE. TRIMETHOPRIM. MEDICATIONS: Diazepam, losartan, meloxicam, amitriptyline, doxazosin, propranolol, clonidine, hydralazine. FAMILY HISTORY: Throat cancer. Pancreas cancer. SOCIAL HISTORY: Former smoker. REVIEW OF SYSTEMS: CONSTITUTIONAL: Denies fever or chills. CHEST: Denies shortness of breath. CVS: Denies chest pain. ABDOMEN: Reports epigastric pain. Denies nausea, vomiting, diarrhea, constipation or rectal bleeding. PHYSICAL EXAMINATION: GENERAL: No acute distress. CHEST: Nonlabored. No shortness of breath. CVS: Regular rate and rhythm. ABDOMEN: Soft. IMPRESSION: Epigastric pain and screening colonoscopy. PLAN: EGD and colonoscopy with Dr. Vijay Kellogg. As dictated by Yuridia Booth NP.
[2022-02-13] MEDS ORDERED: Lactated Ringers 1,000 ML IV SCH (06:30)
[2022-02-13] MEDS ORDERED: Xylocaine-Mpf 2% 5 Ml Vial ONE (09:34)
[2022-02-13] MEDS ORDERED: DIPRIVAN 200 MG/20 ML IV ONE ×2 (09:34→10:22)
[2022-02-13] MEDS ORDERED: ATROPINE SULFATE 1MG ONE (10:19)
[2022-02-13 11:15] VITALS: BP 109/72; PULSE 65; O2SAT 96
--- NOTE | 2022-02-13 11:46 | OP ---
SURGERY DATE/TIME: 02/13/2022 1001 PREOPERATIVE DIAGNOSES: 1) Epigastric pain, right upper quadrant pain. 2) Patient presents for screening colonoscopic examination. POSTOPERATIVE DIAGNOSES: PROCEDURES: 1) EGD. 2) Colonoscopy with cold biopsy polyp x1. SURGEON: Vijay Kellogg M.D. STOCK MOVER: Sneha Pitts, [facility]. ANESTHESIA: MAC. COMPLICATIONS: None. CONDITION: Stable. INDICATION: A patient requiring evaluation. He has right upper quadrant pain. He may possibly have gallbladder disease. It is felt that he had enough symptoms and they were vague enough to proceed with endoscopic examination first. DESCRIPTION OF PROCEDURE: He is taken to endoscopy. Scope introduced. Esophagus normal down to gastroesophageal junction. Grade 2/4 gastroesophageal reflux disease and a 1 inch hiatal hernia. Fundus, body, antrum satisfactory. Pylorus satisfactory. Duodenal bulb satisfactory. Scope withdrawn looped upon itself. A 1 inch hiatal hernia. Scope withdrawn. Anal digital examination normal. Scope advanced to the cecum. Base of the cecum, ileocecal valve and appendiceal orifice normal. Ascending, hepatic, transverse, splenic, descending, sigmoid, rectum and anus there was some muscular hypertrophy of the sigmoid but there were no diverticula today. There were mild internal hemorrhoids. There was a 4 mm polyp in the mid sigmoid that was taken with cold biopsy forceps. The patient tolerated the procedure satisfactorily. Follow up in five years.
== END 2022-02-13 11:29 | disposition home or self-care (01) ==
LOC: SDC 05:39
PROVIDERS: ATTEND Surgery
DX: Z12.11 Encounter for screening for malignant neoplasm of colon (principal); K44.9 Diaphragmatic hernia without obstruction or gangrene; K21.9 Gastro-esophageal reflux disease without esophagitis; R10.13 Epigastric pain; R10.11 Right upper quadrant pain; K64.8 Other hemorrhoids
CPT/HCPCS: J0461; J2704

== ENCOUNTER 2022-05-08 05:52 | Day surgery (SDC) | payer OTHER ==
--- NOTE | 2022-05-07 11:35 | HP ---
DATE OF SURGERY: 05/08/2022 HISTORY OF PRESENT ILLNESS: The patient is a 52-year-old male who presents with complaints of right-sided abdominal pain, epigastric pain and all of this is radiating to the back. He went to the emergency room. He apparently had a HIDA scan. He does report some nausea, vomiting and diarrhea. He does not really know what the triggers are. He does take acid reflux medication but getting worse. His HIDA scan was 15%. PAST MEDICAL HISTORY: Hypertension, anxiety, reflux, gastroesophageal reflux disease, heart disease, coronary artery disease, arthritis. PAST SURGICAL HISTORY: Sinus surgery. Heart cath. ALLERGIES: AMLODIPINE. ALBUTEROL. AUGMENTIN. BACTRIM. MEDICATIONS: Meloxicam, losartan, Inderal, diazepam, amitriptyline, omeprazole, clonidine. FAMILY HISTORY: Throat cancer. Pancreas cancer. SOCIAL HISTORY: Former smoker. REVIEW OF SYSTEMS: CONSTITUTIONAL: Denies fever or chills. CHEST: Denies shortness of breath. CVS: Denies chest pain. ABDOMEN: Reports epigastric pain, right upper quadrant pain. PHYSICAL EXAMINATION: GENERAL: No acute distress. CHEST: Nonlabored. No shortness of breath. CVS: Regular rate and rhythm. ABDOMEN: Soft. IMPRESSION: Epigastric pain, right upper quadrant pain, screening. PLAN: EGD and colonoscopy with Dr. Vijay Kellogg. As dictated by Yuridia Booth NP.
[2022-05-08] MEDS ORDERED: Reglan 10 MG/2 ML IV ONE (06:17)
[2022-05-08] MEDS ORDERED: Versed 2 MG/2 ML Injection IV ONE (06:17)
[2022-05-08] MEDS ORDERED: Sensorcaine 0.25% 10 ML ONE (06:24)
[2022-05-08] MEDS ORDERED: SUBLIMAZE 100 MCG/2 ML ONE ×3 (06:26→09:56)
[2022-05-08] MEDS ORDERED: DIPRIVAN 200 MG/20 ML IV ONE (06:27)
[2022-05-08] MEDS ORDERED: Decadron 4 MG INJ ONE (06:28)
[2022-05-08] MEDS ORDERED: Zofran 4 MG/2 ML VIAL ONE (06:28)
[2022-05-08] MEDS ORDERED: Zemuron 100 MG/10 ML ONE (06:28)
[2022-05-08] MEDS ORDERED: Xylocaine-Mpf 2% 5 Ml Vial ONE (06:28)
[2022-05-08] MEDS ORDERED: Lactated Ringers 1,000 ML IV SCH ×2 (06:30→09:00)
[2022-05-08] MEDS ORDERED: MEFOXIN 2 GM PREMIX** 2 GM/50 ML ML IV SCH (07:00)
[2022-05-08] MEDS ORDERED: Ephedrine Sulfate 50 MG/ML ONE (08:40)
[2022-05-08] MEDS ORDERED: Epinephrine Preservative Free 1 MG/ML ONE (08:48)
[2022-05-08] MEDS ORDERED: ATROPINE SULFATE 1MG ONE (08:53)
[2022-05-08] MEDS ORDERED: BRIDION 200MG/2ML IV ONE (09:17)
[2022-05-08] MEDS ORDERED: TRANDATE 20 MG/4 ML SYRINGE IV ONE (09:40)
[2022-05-08] MEDS ORDERED: Pepcid 20 MG VIAL IV SCH (10:00)
[2022-05-08] MEDS ORDERED: APRESOLINE 20 MG/ML INJ ONE (10:12)
--- NOTE | 2022-05-08 10:33 | OP ---
SURGERY DATE/TIME: 05/08/2022814 PREOPERATIVE DIAGNOSIS: Nonfunctioning gallbladder. POSTOPERATIVE DIAGNOSIS: Nonfunctioning gallbladder. There were visible cholesterolosis particles. PROCEDURE: Laparoscopic cholecystectomy. SURGEON: Dr. Vijay Kellogg. ANESTHESIA: General. ESTIMATED BLOOD LOSS: None. COMPLICATIONS: None. CONDITION: Stable. INDICATIONS: The patient presents with gallbladder dyskinesia with nonfunctioning gallbladder. DESCRIPTION OF PROCEDURE AND FINDINGS: Taken to surgery. General anesthetic, routine prep and drape. Veress needle was fairly robust having moved up into the left about 2 inches from the umbilicus. Insufflated nicely. Four - 5 ports. He was quite robust. He had a generous amount of fat tissue. With care and patience the liver was elevated upwards. The cystic duct defined. Cystic artery defined. Both structures triply clipped and transected. Clips noted across and well approximated. Gallbladder rolled out of gallbladder fossa. The gallbladder delivered through the epigastric port with mild widening probably to about 8. This was totally tucked in and buried in the fat. There is no way for it to herniate therefore no hole closure device was used. The gallbladder had been successfully extracted. The field was dry. CO2 was exsufflated. Skin closed with 4-0 Vicryl and Steri-Strips. The patient tolerated the procedure satisfactorily.
[2022-05-08 11:44] VITALS: O2SAT 97
[2022-05-08 11:48] VITALS: BP 148/80; PULSE 72
== END 2022-05-08 11:35 | disposition home or self-care (01) ==
LOC: SDC 05:52
PROVIDERS: ATTEND Surgery
DX: K82.4 Cholesterolosis of gallbladder (principal); K82.8 Other specified diseases of gallbladder; Z80.1 Family history of malignant neoplasm of trachea, bronchus and lung; Z80.0 Family history of malignant neoplasm of digestive organs
CPT/HCPCS: 93005; J0171; J0360; J0461; J0694; J1100; J2250; J2405; J2704; J3010

== ENCOUNTER 2022-09-13 18:59 | Observation (INO) | payer OTHER ==
--- NOTE | 2022-09-13 19:28 | ERPHSYRPT ---
- History of Present Illness Time Seen by Provider: 09/13/22 19:22 Historian: patient, old records Exam Limitations: no limitations Patient Subjective Stated Complaint: pt here for chest pain to center of [facility], nonradiating started an hour ago. with high blood pressure, Triage Nursing Assessment: pt alert, resp easy, face mask in place, skin w/d/p, chest clear, Physician History: pt has chest pain and is diagnosed with angina following with cardio but no bypass or stents and had cath in 2014 told no blockages. However was told he had a decreased ejection fraction on echo of heart. seen at heart center last month but not admitted. Chest clear . Ht reg without M. abd soft nontender without peritoneal signs or m asses. Ext with trace edema. Timing/Duration: today Activities at Onset: none Quality: aching, burning Location: substernal Chest Pain Radiation: no radiation Severity of Pain-Max: moderate Severity of Pain-Current: moderate Associated Symptoms: denies symptoms Prior Chest Pain/Cardiac Workup: angina Nitro Today/Relief: 0.4 mg x 1, provided by ED, mild relief (unknown if related to nitro but has gradually decreased over time course.) Aspirin Treatment Today: 81 mg x 4, provided by ED Allergies/Adverse Reactions: albuterol Allergy (Severe, Verified 09/13/22 19:01) Anaphylactic Reaction resp arrest amlodipine [From Norvasc] Allergy (Intermediate, Verified 09/13/22 19:01) Hives amoxicillin [From Augmentin] Adverse Reaction (Intermediate, Verified 09/13/22 19:01) Diarrhea clavulanic acid [From Augmentin] Adverse Reaction (Intermediate, Verified 09/13/22 19:01) Diarrhea sulfamethoxazole [From Bactrim] Adverse Reaction (Intermediate, Verified 09/13/22 19:01) Diarrhea trimethoprim [From Bactrim] Adverse Reaction (Intermediate, Verified 09/13/22 19:01) Diarrhea Home Medications: Omeprazole 20 MG [Prilosec 20 mg] 20 mg PO HS 09/07/15 [History] Fexofenadine HCl [Dominique] 180 mg PO HS 04/22/16 [History] diazePAM [Diazepam] 2 mg PO BID 10/14/17 [History] Propranolol HCl [Inderal Xl] 80 mg PO HS 07/19/18 [History] Amitriptyline HCl 25 mg [Amitriptyline 25 mg Tablet] 25 mg PO HS 08/23/20 [History] Losartan Potassium 50 mg [Cozaar 50 MG] 50 mg PO BID 08/23/20 [History] Atogepant [Qulipta] 60 mg PO QHS 10/23/21 [History] Doxazosin Mesylate 2 mg PO DAILY 10/23/21 [History] Oxcarbazepine [Oxtellar Xr] 150 mg PO DAILY 09/13/22 [History] Hx Tetanus, Diphtheria Vaccination/Date Given: Yes Hx Influenza Vaccination/Date Given: No Hx Pneumococcal Vaccination/Date Given: No Immunizations Up to Date: Yes Travel Risk - International Travel Have you traveled outside of the country in past 3 weeks: No - Coronavirus Screening Are you exhibiting any of the following symptoms?: No Close contact with a COVID-19 positive Pt in past 14-21 Days: No - Vaccine Status Have you recieved a Covid-19 vaccination: Yes 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: [employer] - Vaccination Dates Date of 2cond Vaccination (if applicable): not received - Review of Systems Constitutional: No Fever, No Chills Eyes: No Symptoms Ears, Nose, & Throat: No Symptoms Respiratory: No Cough, No Dyspnea Cardiac: Chest Pain, No Edema, No Syncope Abdominal/Gastrointestinal: No Abdominal Pain, No Nausea, No Vomiting, No Diarrhea Genitourinary Symptoms: No Dysuria Musculoskeletal: No Back Pain, No Neck Pain Skin: No Rash Neurological: No Dizziness, No Focal Weakness, No Sensory Changes Psychological: No Symptoms Endocrine: No Symptoms Hematologic/Lymphatic: No Symptoms Immunological/Allergic: No Symptoms All Other Systems: Reviewed and Negative - Past Medical History Pertinent Past Medical History: Yes Neurological History: Migraines, Peripheral Neuropathy, Stroke, TIA ENT History: No Pertinent History Cardiac History: Angina, Hypertension Respiratory History: Bronchitis Endocrine Medical History: No Pertinent History Musculoskeletal History: No Pertinent History GI Medical History: GERD History: No Pertinent History Psycho-Social History: Anxiety Male Reproductive Disorders: No Pertinent History Other Medical History: CVA, SEASONAL ALLERGIES, leaking valve in heart - Past Surgical History Past Surgical History: Yes Neuro Surgical History: No Pertinent History Cardiac: No Pertinent History Respiratory: No Pertinent History Gastrointestinal: No Pertinent History Genitourinary: No Pertinent History Musculoskeletal: No Pertinent History Male Surgical History: No Pertinent History Other Surgical History: Endoscpopy to examine for gastric ulcers as stated per pt; sinus surgery,egd,colonoscopy - Social History Smoking Status: Never smoker How long have you smoked: years Exposure to second hand smoke: Yes Drug Use: none Patient Lives Alone: No Significant Family History: no pertinent family hx - Nursing Vital Signs Nursing Vital Signs: Initial Vital Signs Temperature 97.8 F 09/13/22 19:03 Pulse Rate 68 09/13/22 19:03 Respiratory Rate 18 09/13/22 19:03 Blood Pressure 175/102 09/13/22 19:03 O2 Sat by Pulse Oximetry 99 09/13/22 19:03 Pain Scale Pain Intensity 2 - Physical Exam General Appearance: no apparent distress, alert Eye Exam: PERRL/EOMI, eyes nml inspection Ears, Nose, Throat Exam: normal ENT inspection, moist mucous membranes Neck Exam: normal inspection, non-tender, supple, full range of motion Respiratory Exam: normal breath sounds, lungs clear, No respiratory distress Cardiovascular Exam: regular rate/rhythm, normal heart sounds Gastrointestinal/Abdomen Exam: soft, No tenderness, No mass Rectal Exam: deferred Back Exam: normal inspection, No CVA tenderness, No vertebral tenderness Extremity Exam: normal inspection, normal range of motion Neurologic Exam: alert, 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, cooperative, normal mood/affect, sensation nml, No motor deficits Skin Exam: normal color, warm, dry SpO2 Interpretation: normal SpO2: 99 O2 Delivery: Room Air - Course Nursing assessment & vital signs reviewed: Yes EKG Interpreted by Me: Sinus Rhythm, NORMAL AXIS, NORMAL INTERVALS, NORMAL QRS, Non-specific ST Changes Ordered Tests: Active Orders 24 hr Category Date Time Status Bicycle Assembler STAT Care 09/13/22 19:30 Active EKG-ER Only STAT Care 09/13/22 19:29 Active IV Insertion STAT Care 09/13/22 19:29 Active Pulse Oximetry (ED) STAT Care 09/13/22 19:29 Active CHEST 1 VIEW (PORTABLE) Stat Exams 09/13/22 19:30 Completed AMYLASE Stat Lab 09/13/22 19:51 Completed CBC W DIFF Stat Lab 09/13/22 19:51 Completed CMP Stat Lab 09/13/22 19:51 Completed D-DIMER QUANTITATIVE Stat Lab 09/13/22 19:51 Completed LIPASE Stat Lab 09/13/22 19:51 Completed Lactic Acid Stat Lab 09/13/22 20:00 Completed NT PRO BNPII Stat Lab 09/13/22 19:51 Completed TROPONIN Q4H Lab 09/13/22 19:51 Completed TROPONIN Q4H Lab 09/13/22 23:30 Ordered TROPONIN Q4H Lab 09/14/22 03:30 Ordered UA W/RFX UR CULTURE Stat Lab 09/13/22 22:20 Ordered Medication Summary Generic Name Dose Route Start Last Admin Trade Name Freq PRN Reason Stop Dose Admin Sodium Chloride 1,000 mls @ 50 mls/hr 09/13/22 19:30 09/13/22 19:51 Sodium Chloride 0.9% 1000 Ml IV 10/13/22 19:29 50 mls/hr .Q20H ALEX Administration Discontinued Medications Generic Name Dose Route Start Last Admin Trade Name Freq PRN Reason Stop Dose Admin Aspirin 324 mg 09/13/22 19:29 09/13/22 19:51 Aspirin 81 Mg Tab.Chew PO 09/13/22 19:30 324 mg STAT ONE Administration Nitroglycerin 0.4 mg 09/13/22 19:29 09/13/22 19:50 Nitroglycerin 0.4 Mg (Ed) 0.4 Mg Tab.Subl SL 09/13/22 19:30 0.4 mg STAT ONE Administration Lab/Rad Data: Laboratory Result Diagrams 09/13/22 19:51 09/13/22 19:51 Laboratory Results 09/13/22 09/13/22 09/13/22 Range/Units 20:00 19:51 19:51 WBC (4.0-10.5) x10^3/uL RBC (4.1-5.6) x10^6/uL Hgb (12.5-18.0) g/dL Hct (42-50) % MCV (78-100) fL MCH (26-32) pg MCHC (32-36) g/dL RDW (11.5-14.0) % Plt Count (150-450) x10^3/uL MPV (7.5-11.0) fL Gran % (36.0-66.0) % Immature Gran % (Auto) (0.00-0.4) % Nucleat RBC Rel Count (0.00-0.1) % Eos # (Auto) (0-0.5) x10^3/uL Immature Gran # (Auto) (0.00-0.03) x10^3u/L Absolute Lymphs (auto) (1.0-4.6) x10^3/uL Absolute Monos (auto) (0.0-1.3) x10^3/uL Absolute Nucleated RBC (0.00-0.01) x10^3u/L Lymphocytes % (24.0-44.0) % Monocytes % (0.0-12.0) % Eosinophils % (0.00-5.0) % Basophils % (0.0-0.4) % Absolute Granulocytes (1.4-6.9) x10^3/uL Basophils # (0-0.4) x10^3/uL D-Dimer < 0.19 (0.0-0.50) mg/L Sodium (137-145) mmol/L Potassium (3.5-5.1) mmol/L Chloride (98-107) mmol/L Carbon Dioxide (22-30) mmol/L Anion Gap (5-15) MEQ/L BUN (9-20) mg/dL Creatinine (0.66-1.25) mg/dL Estimated GFR ML/MIN Glucose (74-106) mg/dL Lactic Acid 0.8 (0.4-2.0) Calcium (8.4-10.2) mg/dL Total Bilirubin (0.2-1.3) mg/dL AST (17-59) U/L ALT (0-50) U/L Alkaline Phosphatase (38-126) U/L Troponin I < 0.012 (0.000-0.034) ng/mL NT-Pro-B Natriuret Pep 160 (<300) pg/mL Serum Total Protein (6.3-8.2) g/dL Albumin (3.5-5.0) g/dL Amylase (30-110) U/L Lipase (23-300) U/L 09/13/22 09/13/22 Range/Units 19:51 19:51 WBC 7.2 (4.0-10.5) x10^3/uL RBC 4.29 (4.1-5.6) x10^6/uL Hgb 12.2 L (12.5-18.0) g/dL Hct 37.5 L (42-50) % MCV 87.4 (78-100) fL MCH 28.4 (26-32) pg MCHC 32.5 (32-36) g/dL RDW 13.1 (11.5-14.0) % Plt Count 163 (150-450) x10^3/uL MPV 8.6 (7.5-11.0) fL Gran % 64.9 (36.0-66.0) % Immature Gran % (Auto) 0.1 (0.00-0.4) % Nucleat RBC Rel Count 0.0 (0.00-0.1) % Eos # (Auto) 0.23 (0-0.5) x10^3/uL Immature Gran # (Auto) 0.01 (0.00-0.03) x10^3u/L Absolute Lymphs (auto) 1.65 (1.0-4.6) x10^3/uL Absolute Monos (auto) 0.58 (0.0-1.3) x10^3/uL Absolute Nucleated RBC 0.00 (0.00-0.01) x10^3u/L Lymphocytes % 23.0 L (24.0-44.0) % Monocytes % 8.1 (0.0-12.0) % Eosinophils % 3.2 (0.00-5.0) % Basophils % 0.7 (0.0-0.4) % Absolute Granulocytes 4.65 (1.4-6.9) x10^3/uL Basophils # 0.05 (0-0.4) x10^3/uL D-Dimer (0.0-0.50) mg/L Sodium 137 (137-145) mmol/L Potassium 4.4 (3.5-5.1) mmol/L Chloride 98 (98-107) mmol/L Carbon Dioxide 30 (22-30) mmol/L Anion Gap 13.8 (5-15) MEQ/L BUN 12 (9-20) mg/dL Creatinine 1.06 (0.66-1.25) mg/dL Estimated GFR > 60.0 ML/MIN Glucose 100 (74-106) mg/dL Lactic Acid (0.4-2.0) Calcium 8.8 (8.4-10.2) mg/dL Total Bilirubin 0.30 (0.2-1.3) mg/dL AST 23 (17-59) U/L ALT 20 (0-50) U/L Alkaline Phosphatase 82 (38-126) U/L Troponin I (0.000-0.034) ng/mL NT-Pro-B Natriuret Pep (<300) pg/mL Serum Total Protein 6.8 (6.3-8.2) g/dL Albumin 3.9 (3.5-5.0) g/dL Amylase 76 (30-110) U/L Lipase 192 (23-300) U/L - Progress Progress: improved, re-examined Air Movement: good Progress Note: 09/13/22 19:26 collaborated Hx independently from nurses who have seen him here before , from present in ER, and from outside medical records from [facility]. 09/13/22 20:21 09/13/22 20:22 Discussed plan to consult telehospitalist and Radiologic Electronic Specialist interventional cardiologist to discuss case and pt and agree with plan. 09/13/22 21:[address] [facility] reveal hx of CAD but nonoclusive in 2016 from 2015 cath in their report. So no CABG or stent at that time and none reported since. 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 09/13/22 22:[address] 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 Will consult with hospitalist for potential observation here in hospital. Dr. Dudley agrees to obs for CP here in hospital. 09/13/22 22:40 descussed all above with pt and family and they also agree with this plan. 09/13/22 22:46 Blood Culture(s) Obtained: No Antibiotics given: No Discussed with DrAngelica: Other (Dr. Browning will see in office after obs here rules out RI. Dr. Dudley is telehosp and will see by tele in hosp) Counseled pt/family regarding: lab results, diagnosis, need for follow-up, rad results Medical Desision Making - Independent Historian Additional History obtained from: Spouse - External Record(s) Reviewed Records reviewed as a part of evaluation & management: Discharge Summary - Discussion of managment Care discussed with:: hospitalist Reviewed:: Test results, Need for additional workup Agreed on:: Treatment plan, need for follow-up, decision to admit, place in obs Will see patient: in hospital - Departure Departure Disposition: Observation Clinical Impression: Chest pain Condition: Good Critical Care Time: No Referrals: TUAN NOBLE MD [Primary Care Provider] - Follow up/PCP as directed
[2022-09-13] MEDS ORDERED: Nitrostat 0.4 MG (ED) SL ONE (19:29)
[2022-09-13] MEDS ORDERED: BABY ASPIRIN 81 MG CHEW PO ONE (19:29)
[2022-09-13] MEDS ORDERED: Sodium Chloride 0.9% 1000 ML 1,000 ML IV SCH (19:30)
[2022-09-13] MEDS ORDERED: Sodium Chloride 0.9% 1000 ML 1,000 ML ONE (19:45)
[2022-09-13 19:54] LABS: Absolute Neutrophil Ct (ANC) 4.65 x10^3/uL (1.4-6.9); BASOPHIL % 0.7 % (0.0-0.4); Basophil (Absolute #) 0.05 x10^3/uL (0-0.4); Eosinophil % 3.2 % (0.00-5.0); Eosinophil (Absolute #) 0.23 x10^3/uL (0-0.5); Hematocrit 37.5 % (42-50); Hemoglobin 12.2 g/dL (12.5-18.0); IMMATURE GRAN # 0.01 x10^3u/L (0.00-0.03); IMMATURE GRAN % 0.1 % (0.00-0.4); Lymphocyte (Absolute #) 1.65 x10^3/uL (1.0-4.6); Mean Cell Volume 87.4 fL (78-100); Mean Corpuscular Hemoglobin 28.4 pg (26-32); Mean Corpuscular Hgb Concent. 32.5 g/dL (32-36); Mean Platelet Volume 8.6 fL (7.5-11.0); Monocyte (Absolute #) 0.58 x10^3/uL (0.0-1.3); Monocytes % 8.1 % (0.0-12.0); Neutrophil % 64.9 % (36.0-66.0); Platelet Count 163 x10^3/uL (150-450); Red Blood Count 4.29 x10^6/uL (4.1-5.6); Red Cell Distribution Width 13.1 % (11.5-14.0); White Blood Count 7.2 x10^3/uL (4.0-10.5)
[2022-09-13 20:15] LABS: ALBUMIN 3.9 g/dL (3.5-5.0); ALKALINE PHOSPHATASE 82 U/L (38-126); AMYLASE 76 U/L (30-110); ANION GAP 13.8 MEQ/L (5-15); BLOOD UREA NITROGEN 12 mg/dL (9-20); CHLORIDE 98 mmol/L (98-107); Calcium 8.8 mg/dL (8.4-10.2); Carbon Dioxide 30 mmol/L (22-30); Creatinine 1 1.06 mg/dL (0.66-1.25); EST GLOMERULAR FILTRATION RATE > 60.0 ML/MIN; Glucose 100 mg/dL (74-106); LIPASE 192 U/L (23-300); Potassium 4.4 mmol/L (3.5-5.1); SGOT/AST 23 U/L (17-59); SGPT/ALT 20 U/L (0-50); SODIUM 137 mmol/L (137-145); Total Protein 6.8 g/dL (6.3-8.2)
[2022-09-13 20:20] LABS: NT PRO BNPII 160 pg/mL (<300); TROPONIN < 0.012 ng/mL (0.000-0.034)
--- NOTE | 2022-09-13 21:41 | XRAY ---
Indication: Chest pain. Comparison: October 23, 2021 Portable chest remain slightly underinflated and clear. Heart and mediastinal structures within normal limits. Bony thorax intact again with mild degenerative changes. Impression: Continued nonacute chest.
[2022-09-13 23:16] LABS: Appearance Clear (Clear); Bacteria None Seen /HPF (None Seen); Bilirubin Negative (Negative); Blood Negative (Negative); Epithelial Cells None Seen /HPF (None Seen); Glucose, Urine Negative (Negative); Hyaline Casts NONE SEEN /LPF (0-2); Ketones Negative (Negative); Leukocyte Esterase Negative (Negative); Nitrite Negative (Negative); Protein,Urine Dip Negative (Negative); RBC 0-2 /HPF (0-5); Urobilinogen 0.2 mg/dL (0.2); WBC 0-2 /HPF (0-5)
[2022-09-13 23:19] LABS: ADD URINE CULTURE? NO (NO)
[2022-09-13 23:43] LABS: INFLUENZA A NEGATIVE (NEGATIVE); INFLUENZA B NEGATIVE (NEGATIVE); RESPIRATORY SYNCTIAL VIRUS NEGATIVE (NEGATIVE); SARS-CoV-2 Xpert Express NEGATIVE (NEGATIVE)
[2022-09-14] MEDS ORDERED: Zofran 4 MG/2 ML VIAL IV PRN (00:11)
[2022-09-14] MEDS ORDERED: Senokot-S Tablet PO PRN (00:11)
[2022-09-14] MEDS ORDERED: HUMULIN R SQ PRN (00:11)
[2022-09-14] MEDS ORDERED: MILK OF MAGNESIA 30 ML PO PRN (00:11)
[2022-09-14] MEDS ORDERED: MAALOX ES 30 ML UNIT DOSE PO PRN (00:11)
[2022-09-14] MEDS ORDERED: TYLENOL 325 MG PO PRN (00:11)
[2022-09-14] MEDS ORDERED: Sodium Chloride 0.9% 500 ML 500 ML IV SCH (00:11)
--- NOTE | 2022-09-14 01:28 | PCM.HP ---
History of Present Illness - Chief Complaint Chief Complaint: chest pain Date: 09/14/22 History of Present Illness: This is a 52-year-old male admitted for evaluation of chest pain. He has past medical history of hypertension, migraines, stroke, GERD. He presented to the ED this evening for evaluation of substernal chest pain that was began after going to the bathroom. Pain progressed and radiated down the left arm and was associated with dizziness. He is unable to describe pain. In the ED pain subsided and then re-occurred briefly. Currently he reports discomfort in left chest he rates at 1/10. On arrival he was afebrile, heart rate 68, blood press ure 175/102, respiratory rate 18, sat 99% his labs were significant for WBC 7.2, hemoglobin 12.2, platelets 163, creatinine 1.06, D-dimer negative, troponin negative x2, BNP 160 chest x-ray was negative for acute findings. In the ED he received 81 mg aspirin and nitro 0.5 mg x 1. - Review of Systems Eyes: No Symptoms Ears, Nose, & Throat: No Symptoms Respiratory: No Symptoms Cardiac: Chest Pain Abdominal/Gastrointestinal: Nausea Genitourinary Symptoms: No Symptoms Musculoskeletal: No Symptoms Skin: No Symptoms Neurological: Dizziness Psychological: No Symptoms Endocrine: No Symptoms Hematologic/Lymphatic: No Symptoms Medications & Allergies Home Medications: Home Medication List Omeprazole 20 MG [Prilosec 20 mg] 20 mg PO HS 09/07/15 [History Confirmed 09/13/22] Fexofenadine HCl [Dominique] 180 mg PO HS 04/22/16 [History Confirmed 09/13/22] diazePAM [Diazepam] 2 mg PO BID 10/14/17 [History Confirmed 09/13/22] Propranolol HCl [Inderal Xl] 80 mg PO DAILY 07/19/18 [History Confirmed 09/14/22] Amitriptyline HCl 25 mg [Amitriptyline 25 mg Tablet] 25 mg PO HS 08/23/20 [History Confirmed 09/13/22] Losartan Potassium 50 mg [Cozaar 50 MG] 50 mg PO BID 08/23/20 [History Confirmed 09/13/22] Atogepant [Qulipta] 60 mg PO QHS 10/23/21 [History Confirmed 09/13/22] Doxazosin Mesylate 2 mg PO HS 10/23/21 [History Confirmed 09/14/22] Meloxicam 7.5 mg PO HS #0 05/08/22 [Rx Confirmed 09/13/22] Oxcarbazepine [Oxtellar Xr] 150 mg PO HS 09/13/22 [History Confirmed 09/14/22] Allergies/Adverse Reactions: Allergies Allergy/AdvReac Type Severity Reaction Status Date / Time albuterol Allergy Severe Anaphylactic Verified 09/13/22 19:01 Reaction amlodipine [From Norvasc] Allergy Intermediate Hives Verified 09/13/22 19:01 amoxicillin [From Augmentin] AdvReac Intermediate Diarrhea Verified 09/13/22 19:01 clavulanic acid AdvReac Intermediate Diarrhea Verified 09/13/22 19:01 [From Augmentin] sulfamethoxazole AdvReac Intermediate Diarrhea Verified 09/13/22 19:01 [From Bactrim] trimethoprim [From Bactrim] AdvReac Intermediate Diarrhea Verified 09/13/22 19:01 - Past Medical History Past Medical History: Yes Neurological History: Migraines, Peripheral Neuropathy, Stroke, TIA ENT History: No Pertinent History Cardiac History: Angina, Hypertension Respiratory History: Bronchitis Endocrine Medical History: No Pertinent History Musculoskelatal History: No Pertinent History GI Medical History: GERD History: No Pertinent History Pyscho-Social History: Anxiety Male Reproductive Disorders: No Pertinent History Comment: CVA, SEASONAL ALLERGIES, leaking valve in heart - Past Surgical History Past Surgical History: Yes Neuro Surgical History: No Pertinent History Cardiac History: No Pertinent History Respiratory Surgery: No Pertinent History GI Surgical History: No Pertinent History Genitourinary Surgical Hx: No Pertinent History Musculskeletal Surgical Hx: No Pertinent History Male Surgical History: No Pertinent History Other Surgical History: Endoscpopy to examine for gastric ulcers as stated per pt; sinus surgery,egd,colonoscopy - Social History Smoking Status: Former smoker How long have you smoked: years Exposure to second hand smoke: Yes Alcohol: None Drug Use: none Significant Family History: no pertinent family hx - Physical Exam Vital Signs: Vital Signs - 24 hr Temp Pulse Pulse Resp BP Pulse Ox 09/14/22 01:03 55 L 18 96 09/14/22 00:16 97.6 F 64 18 153/82 97 09/13/22 23:00 98.1 F 58 L 16 160/102 16 L 09/13/22 22:47 99 09/13/22 21:00 62 16 171/107 99 09/13/22 20:00 66 20 152/97 99 09/13/22 19:35 99 09/13/22 19:08 68 09/13/22 19:03 97.8 F 68 18 175/102 99 General Appearance: no apparent distress Neurologic Exam: alert, 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 Eye Exam: PERRL/EOMI, eyes nml inspection Ears, Nose, Throat Exam: normal ENT inspection Neck Exam: normal inspection Respiratory Exam: normal breath sounds Cardiovascular Exam: regular rate/rhythm Gastrointestinal/Abdomen Exam: soft, normal bowel sounds Back Exam: normal inspection Extremity Exam: normal inspection Skin Exam: normal color, warm, dry Results - Labs Lab/Micro Results: Lab Results-Last 24 Hours 09/13/22 09/13/22 09/13/22 Range/Units 19:51 19:51 19:51 WBC 7.2 (4.0-10.5) x10^3/uL RBC 4.29 (4.1-5.6) x10^6/uL Hgb 12.2 L (12.5-18.0) g/dL Hct 37.5 L (42-50) % MCV 87.4 (78-100) fL MCH 28.4 (26-32) pg MCHC 32.5 (32-36) g/dL RDW 13.1 (11.5-14.0) % Plt Count 163 (150-450) x10^3/uL MPV 8.6 (7.5-11.0) fL Gran % 64.9 (36.0-66.0) % Immature Gran % (Auto) 0.1 (0.00-0.4) % Nucleat RBC Rel Count 0.0 (0.00-0.1) % Eos # (Auto) 0.23 (0-0.5) x10^3/uL Immature Gran # (Auto) 0.01 (0.00-0.03) x10^3u/L Absolute Lymphs (auto) 1.65 (1.0-4.6) x10^3/uL Absolute Monos (auto) 0.58 (0.0-1.3) x10^3/uL Absolute Nucleated RBC 0.00 (0.00-0.01) x10^3u/L Lymphocytes % 23.0 L (24.0-44.0) % Monocytes % 8.1 (0.0-12.0) % Eosinophils % 3.2 (0.00-5.0) % Basophils % 0.7 (0.0-0.4) % Absolute Granulocytes 4.65 (1.4-6.9) x10^3/uL Basophils # 0.05 (0-0.4) x10^3/uL D-Dimer < 0.19 (0.0-0.50) mg/L Sodium 137 (137-145) mmol/L Potassium 4.4 (3.5-5.1) mmol/L Chloride 98 (98-107) mmol/L Carbon Dioxide 30 (22-30) mmol/L Anion Gap 13.8 (5-15) MEQ/L BUN 12 (9-20) mg/dL Creatinine 1.06 (0.66-1.25) mg/dL Estimated GFR > 60.0 ML/MIN Glucose 100 (74-106) mg/dL Lactic Acid (0.4-2.0) Calcium 8.8 (8.4-10.2) mg/dL Total Bilirubin 0.30 (0.2-1.3) mg/dL AST 23 (17-59) U/L ALT 20 (0-50) U/L Alkaline Phosphatase 82 (38-126) U/L Troponin I (0.000-0.034) ng/mL NT-Pro-B Natriuret Pep (<300) pg/mL Serum Total Protein 6.8 (6.3-8.2) g/dL Albumin 3.9 (3.5-5.0) g/dL Amylase 76 (30-110) U/L Lipase 192 (23-300) U/L Urine Color (Yellow) Urine Appearance (Clear) Urine pH (4.6-8.0) Ur Specific [place] (1.005-1.030) Urine Protein (Negative) Urine Glucose (UA) (Negative) mg/dL Urine Ketones (Negative) Urine Blood (Negative) Urine Nitrite (Negative) Urine Bilirubin (Negative) Urine Urobilinogen (0.2) mg/dL Ur Leukocyte Esterase (Negative) U Hyaline Cast (Auto) (0-2) /LPF Urine Microscopic RBC (0-5) /HPF Urine Microscopic WBC (0-5) /HPF Ur Epithelial Cells (None Seen) /HPF Urine Bacteria (None Seen) /HPF Urine Culture Reflexed (NO) Influenza Type A Ag (NEGATIVE) Influenza Type B Ag (NEGATIVE) RSV (PCR) (NEGATIVE) SARS-CoV-2 (PCR) (NEGATIVE) 09/13/22 09/13/22 09/13/22 Range/Units 19:51 20:00 22:20 WBC (4.0-10.5) x10^3/uL RBC (4.1-5.6) x10^6/uL Hgb (12.5-18.0) g/dL Hct (42-50) % MCV (78-100) fL MCH (26-32) pg MCHC (32-36) g/dL RDW (11.5-14.0) % Plt Count (150-450) x10^3/uL MPV (7.5-11.0) fL Gran % (36.0-66.0) % Immature Gran % (Auto) (0.00-0.4) % Nucleat RBC Rel Count (0.00-0.1) % Eos # (Auto) (0-0.5) x10^3/uL Immature Gran # (Auto) (0.00-0.03) x10^3u/L Absolute Lymphs (auto) (1.0-4.6) x10^3/uL Absolute Monos (auto) (0.0-1.3) x10^3/uL Absolute Nucleated RBC (0.00-0.01) x10^3u/L Lymphocytes % (24.0-44.0) % Monocytes % (0.0-12.0) % Eosinophils % (0.00-5.0) % Basophils % (0.0-0.4) % Absolute Granulocytes (1.4-6.9) x10^3/uL Basophils # (0-0.4) x10^3/uL D-Dimer (0.0-0.50) mg/L Sodium (137-145) mmol/L Potassium (3.5-5.1) mmol/L Chloride (98-107) mmol/L Carbon Dioxide (22-30) mmol/L Anion Gap (5-15) MEQ/L BUN (9-20) mg/dL Creatinine (0.66-1.25) mg/dL Estimated GFR ML/MIN Glucose (74-106) mg/dL Lactic Acid 0.8 (0.4-2.0) Calcium (8.4-10.2) mg/dL Total Bilirubin (0.2-1.3) mg/dL AST (17-59) U/L ALT (0-50) U/L Alkaline Phosphatase (38-126) U/L Troponin I < 0.012 (0.000-0.034) ng/mL NT-Pro-B Natriuret Pep 160 (<300) pg/mL Serum Total Protein (6.3-8.2) g/dL Albumin (3.5-5.0) g/dL Amylase (30-110) U/L Lipase (23-300) U/L Urine Color Yellow (Yellow) Urine Appearance Clear (Clear) Urine pH 6.0 (4.6-8.0) Ur Specific [place] 1.010 (1.005-1.030) Urine Protein Negative (Negative) Urine Glucose (UA) Negative (Negative) mg/dL Urine Ketones Negative (Negative) Urine Blood Negative (Negative) Urine Nitrite Negative (Negative) Urine Bilirubin Negative (Negative) Urine Urobilinogen 0.2 (0.2) mg/dL Ur Leukocyte Esterase Negative (Negative) U Hyaline Cast (Auto) NONE SEEN (0-2) /LPF Urine Microscopic RBC 0-2 (0-5) /HPF Urine Microscopic WBC 0-2 (0-5) /HPF Ur Epithelial Cells None Seen (None Seen) /HPF Urine Bacteria None Seen (None Seen) /HPF Urine Culture Reflexed NO (NO) Influenza Type A Ag (NEGATIVE) Influenza Type B Ag (NEGATIVE) RSV (PCR) (NEGATIVE) SARS-CoV-2 (PCR) (NEGATIVE) 09/13/22 09/13/22 Range/Units 23:04 23:04 WBC (4.0-10.5) x10^3/uL RBC (4.1-5.6) x10^6/uL Hgb (12.5-18.0) g/dL Hct (42-50) % MCV (78-100) fL MCH (26-32) pg MCHC (32-36) g/dL RDW (11.5-14.0) % Plt Count (150-450) x10^3/uL MPV (7.5-11.0) fL Gran % (36.0-66.0) % Immature Gran % (Auto) (0.00-0.4) % Nucleat RBC Rel Count (0.00-0.1) % Eos # (Auto) (0-0.5) x10^3/uL Immature Gran # (Auto) (0.00-0.03) x10^3u/L Absolute Lymphs (auto) (1.0-4.6) x10^3/uL Absolute Monos (auto) (0.0-1.3) x10^3/uL Absolute Nucleated RBC (0.00-0.01) x10^3u/L Lymphocytes % (24.0-44.0) % Monocytes % (0.0-12.0) % Eosinophils % (0.00-5.0) % Basophils % (0.0-0.4) % Absolute Granulocytes (1.4-6.9) x10^3/uL Basophils # (0-0.4) x10^3/uL D-Dimer (0.0-0.50) mg/L Sodium (137-145) mmol/L Potassium (3.5-5.1) mmol/L Chloride (98-107) mmol/L Carbon Dioxide (22-30) mmol/L Anion Gap (5-15) MEQ/L BUN (9-20) mg/dL Creatinine (0.66-1.25) mg/dL Estimated GFR ML/MIN Glucose (74-106) mg/dL Lactic Acid (0.4-2.0) Calcium (8.4-10.2) mg/dL Total Bilirubin (0.2-1.3) mg/dL AST (17-59) U/L ALT (0-50) U/L Alkaline Phosphatase (38-126) U/L Troponin I < 0.012 (0.000-0.034) ng/mL NT-Pro-B Natriuret Pep (<300) pg/mL Serum Total Protein (6.3-8.2) g/dL Albumin (3.5-5.0) g/dL Amylase (30-110) U/L Lipase (23-300) U/L Urine Color (Yellow) Urine Appearance (Clear) Urine pH (4.6-8.0) Ur Specific [place] (1.005-1.030) Urine Protein (Negative) Urine Glucose (UA) (Negative) mg/dL Urine Ketones (Negative) Urine Blood (Negative) Urine Nitrite (Negative) Urine Bilirubin (Negative) Urine Urobilinogen (0.2) mg/dL Ur Leukocyte Esterase (Negative) U Hyaline Cast (Auto) (0-2) /LPF Urine Microscopic RBC (0-5) /HPF Urine Microscopic WBC (0-5) /HPF Ur Epithelial Cells (None Seen) /HPF Urine Bacteria (None Seen) /HPF Urine Culture Reflexed (NO) Influenza Type A Ag NEGATIVE (NEGATIVE) Influenza Type B Ag NEGATIVE (NEGATIVE) RSV (PCR) NEGATIVE (NEGATIVE) SARS-CoV-2 (PCR) NEGATIVE (NEGATIVE) - Radiology Impressions Radiology Exams & Impressions: Radiology Procedures Category Date Time Status CHEST 1 VIEW (PORTABLE) Stat Exams 09/13/22 19:30 Completed - Other Procedures and Tests Respiratory Therapy 09/14/22 03:30 EKG ROUTINE 09/15/22 05:00 EKG ROUTINE 09/16/22 05:00 EKG ROUTINE Assessment/Plan (1) Chest pain Current Visit: Yes Status: Acute Assessment & Plan: ASSESSMENT #Chest pain #Hypertension #H/o Migraines PLAN -Trend troponin -Monitor on telemetry -Resume home oral medications blood pressure -Resume Home meds -Check A1c, Lipid pain Full Code Prophylaxis: Lovenox Entire encounter performed via telemedicine Code(s): R07.9 - CHEST PAIN, UNSPECIFIED Telemedicine Encounter - Telemedicine Encounter Telemedicine Encounter: The entirety of this encounter was performed via Telemedicine"
[2022-09-14] MEDS ORDERED: AMITRIPTYLINE 25 MG TABLET PO SCH (01:33)
[2022-09-14] MEDS ORDERED: MELOXICAM PO SCH (01:37)
[2022-09-14] MEDS ORDERED: Protonix 40MG Tablet PO SCH (01:37)
[2022-09-14] MEDS ORDERED: APRESOLINE 20 MG/ML INJ IV PRN (01:38)
[2022-09-14] MEDS ORDERED: CARDURA 2 MG PO SCH (01:45)
[2022-09-14] MEDS: Valium 5 MG PO SCH ×2 (02:03→10:02)
[2022-09-14] MEDS: Cozaar 50 MG PO SCH ×2 (02:03→12:34)
[2022-09-14 04:16] LABS: ANION GAP 11.4 MEQ/L (5-15); BLOOD UREA NITROGEN 10 mg/dL (9-20); CHLORIDE 98 mmol/L (98-107); Calcium 8.6 mg/dL (8.4-10.2); Carbon Dioxide 31 mmol/L (22-30); Cholesterol 185 mg/dL (50-200); Creatinine 1 0.95 mg/dL (0.66-1.25); EST GLOMERULAR FILTRATION RATE > 60.0 ML/MIN; Glucose 102 mg/dL (74-106); HDL CHOLESTEROL 45 mg/dL (40-60); LDL, DIRECT 101 mg/dL (30-100); MAGNESIUM 2.1 mg/dL (1.6-2.3); Risk Ratio 4.2; SODIUM 136 mmol/L (137-145); TRIGLYCERIDE 180 mg/dL (30-150)
[2022-09-14 04:28] LABS: Absolute Neutrophil Ct (ANC) 3.57 x10^3/uL (1.4-6.9); BASOPHIL % 0.6 % (0.0-0.4); Basophil (Absolute #) 0.04 x10^3/uL (0-0.4); Eosinophil % 3.1 % (0.00-5.0); Hematocrit 36.3 % (42-50); IMMATURE GRAN # 0.02 x10^3u/L (0.00-0.03); IMMATURE GRAN % 0.3 % (0.00-0.4); Lymphocyte (Absolute #) 2.02 x10^3/uL (1.0-4.6); Lymphocytes % 31.6 % (24.0-44.0); Mean Cell Volume 86.6 fL (78-100); Mean Corpuscular Hemoglobin 28.6 pg (26-32); Mean Corpuscular Hgb Concent. 33.1 g/dL (32-36); Mean Platelet Volume 8.6 fL (7.5-11.0); Monocyte (Absolute #) 0.55 x10^3/uL (0.0-1.3); Monocytes % 8.6 % (0.0-12.0); Neutrophil % 55.8 % (36.0-66.0); Platelet Count 151 x10^3/uL (150-450); Red Blood Count 4.19 x10^6/uL (4.1-5.6); Red Cell Distribution Width 13.1 % (11.5-14.0); White Blood Count 6.4 x10^3/uL (4.0-10.5)
[2022-09-14] MEDS ORDERED: Pepcid 20 MG PO SCH (10:00)
[2022-09-14] MEDS ORDERED: Ecotrin 325 MG PO SCH (10:00)
[2022-09-14] MEDS ORDERED: ECOTRIN 81 MG PO SCH (10:00)
[2022-09-14] MEDS ORDERED: PROPRANOLOL HCL 80 MG PO SCH (10:00)
[2022-09-14] MEDS ORDERED: ENOXAPARIN SODIUM SQ SCH (10:00)
[2022-09-14 11:53] VITALS: BP 155/79; PULSE 67; O2SAT 98
--- NOTE | 2022-09-14 13:03 | PCM.DS ---
Discharge Summary Date of Admission: 09/14/22 00:08 Admitting Physician: RAH SEVERINO MD Primary Care Provider: AIDE,TUAN Allergies Allergies albuterol Allergy (Severe, Verified 09/13/22 19:01) Anaphylactic Reaction resp arrest amlodipine [From Norvasc] Allergy (Intermediate, Verified 09/13/22 19:01) Hives amoxicillin [From Augmentin] Adverse Reaction (Intermediate, Verified 09/13/22 19:01) Diarrhea clavulanic acid [From Augmentin] Adverse Reaction (Intermediate, Verified 09/13/22 19:01) Diarrhea sulfamethoxazole [From Bactrim] Adverse Reaction (Intermediate, Verified 09/13/22 19:01) Diarrhea trimethoprim [From Bactrim] Adverse Reaction (Intermediate, Verified 09/13/22 19:01) Diarrhea Hospital Summary - Hospital Course Hospital Course: with significant past medical history of hypertension COPD hypothyroidism has been not feeling well for at least last 1 week. He has been feeling short of breath weak lethargic and not able to eat or drink well for last 1 week. Patient also complains of low-grade fever with mild chills. Patient denies any nausea vomiting diarrhea constipation blood in the urine or stool. Timing/Duration: week(s) (one week) Severity of Dyspnea-Max: mild Severity of Dyspnea-Current: mild Possible Cause: no prior episodes Associated Symptoms: weakness Chief Complaint Diagnosis chest pain Admission Date Date 09/14/22 Allergies Allergy/AdvReac Type Severity Reaction Status Date / Time albuterol Allergy Severe Anaphylactic Verified 09/13/22 19:01 Reaction amlodipine [From Norvasc] Allergy Intermediate Hives Verified 09/13/22 19:01 amoxicillin [From Augmentin] AdvReac Intermediate Diarrhea Verified 09/13/22 19:01 clavulanic acid AdvReac Intermediate Diarrhea Verified 09/13/22 19:01 [From Augmentin] sulfamethoxazole AdvReac Intermediate Diarrhea Verified 09/13/22 19:01 [From Bactrim] trimethoprim [From Bactrim] AdvReac Intermediate Diarrhea Verified 09/13/22 19:01 Vital Signs (Last 24 hours) Temp Pulse Pulse Resp BP Pulse Ox 09/14/22 11:52 98.0 F 67 16 155/79 98 09/14/22 10:00 122/69 09/14/22 07:43 98.1 F 63 16 85/58 97 09/14/22 03:54 97.5 F 58 L 17 113/68 96 09/14/22 01:03 55 L 18 96 09/14/22 00:16 97.6 F 64 18 153/82 97 09/13/22 23:00 98.1 F 58 L 16 160/102 16 L 09/13/22 22:47 99 09/13/22 21:00 62 16 171/107 99 09/13/22 20:00 66 20 152/97 99 09/13/22 19:35 99 09/13/22 19:08 68 09/13/22 19:03 97.8 F 68 18 175/102 99 Home Medications Medication Instructions Recorded Confirmed Last Taken Type Oxcarbazepine [Oxtellar Xr] 300 mg PO HS 09/13/22 09/14/22 Unknown History Current Medications Generic Name Dose Route Start Last Admin Trade Name Freq PRN Reason Stop Dose Admin Acetaminophen 650 mg 09/14/22 00:11 Acetaminophen 325 Mg Tablet PO 10/14/22 00:10 Q4H PRN PRN PAIN AND/OR FEVER Al Hydrox/Mg Hydrox/Simethicone 30 ml 09/14/22 00:11 Mag Hydrox/Al Hydrox/Simeth 30 Ml Udcup PO 10/14/22 00:10 Q4H PRN PRN INDIGESTION Amitriptyline HCl 25 mg 09/14/22 01:33 09/14/22 02:03 Amitriptyline Hcl 25 Mg Tablet PO 10/14/22 01:32 25 mg HS ALEX Administration Aspirin 81 mg 09/14/22 10:00 09/14/22 10:02 Aspirin 81 Mg Tablet.Ec PO 10/14/22 09:59 81 mg DAILY ALEX Administration Diazepam 2.5 mg 09/14/22 01:35 09/14/22 10:02 Diazepam 5 Mg Tablet PO 10/14/22 01:34 2.5 mg BID ALEX Administration Doxazosin Mesylate 2 mg 09/14/22 01:45 09/14/22 02:04 Doxazosin Mesylate 2 Mg Tablet PO 10/14/22 01:44 2 mg HS ALEX Administration Enoxaparin Sodium 40 mg 09/14/22 10:00 09/14/22 10:04 Enoxaparin Sodium 40 Mg/0.4 Ml Syringe SQ 10/14/22 09:59 Not Given DAILY ALEX Famotidine 20 mg 09/14/22 10:00 09/14/22 10:02 Famotidine 20 Mg Tablet PO 10/14/22 09:59 20 mg BID ALEX Administration Hydralazine HCl 10 mg 09/14/22 01:38 Hydralazine Hcl 20 Mg/Ml Vial IV 10/14/22 01:37 Q4H PRN PRN HYPERTENSION Sodium Chloride 500 mls @ 20 mls/hr 09/14/22 00:11 09/14/22 07:17 Sodium Chloride 0.9% 500 Ml IV 10/14/22 00:10 Not Given .Q24H ALEX Insulin Human Regular 0 unit 09/14/22 00:11 Insulin Regular, Human 1 Unit SQ 10/14/22 00:10 UD PRN HYPERGLYCEMIA Loratadine 10 mg 09/14/22 22:00 Loratadine 10 Mg Tablet PO 10/14/22 21:59 HS ALEX Losartan Potassium 50 mg 09/14/22 01:34 09/14/22 12:34 Losartan Potassium 50 Mg Tablet PO 10/14/22 01:33 50 mg BID ALEX Administration Magnesium Hydroxide 30 - 60 ml 09/14/22 00:11 Magnesium Hydroxide 30 Ml Udcup PO 10/14/22 00:10 QDP PRN CONSTIPATION Meloxicam 7.5 mg 09/14/22 01:37 09/14/22 02:03 Meloxicam 7.5 Mg Tablet PO 10/14/22 01:36 7.5 mg HS ALEX Administration Ondansetron HCl 4 mg 09/14/22 00:11 Ondansetron Hcl 4 Mg/2 Ml Vial IV 10/14/22 00:10 Q4H PRN PRN NAUSEA/VOMITING Pantoprazole Sodium 40 mg 09/14/22 01:37 09/14/22 02:04 Protonix (Pantoprazole) 40 Mg Tablet PO 10/14/22 01:36 40 mg HS ALEX Administration Senna/Docusate Sodium 2 udtab 09/14/22 00:11 Senna/Docusate Sodium 1 Udtab Tablet PO 10/14/22 00:10 BID PRN PRN CONSTIPATION Discontinued Medications Generic Name Dose Route Start Last Admin Trade Name Freq PRN Reason Stop Dose Admin Aspirin 324 mg 09/13/22 19:29 09/13/22 19:51 Aspirin 81 Mg Tab.Chew PO 09/13/22 19:30 324 mg STAT ONE Administration Aspirin 325 mg 09/14/22 10:00 Aspirin 325 Mg Tablet.Ec PO 10/14/22 09:59 DAILY ALEX Sodium Chloride 1,000 mls @ 50 mls/hr 09/13/22 19:30 09/13/22 19:51 Sodium Chloride 0.9% 1000 Ml IV 10/13/22 19:29 50 mls/hr .Q20H ALEX Administration Sodium Chloride Confirm 09/13/22 19:45 Sodium Chloride 0.9% 1000 Ml Administered 09/13/22 19:46 Dose 1,000 mls @ ud .ROUTE .STK-MED ONE Nitroglycerin 0.4 mg 09/13/22 19:29 09/13/22 19:50 Nitroglycerin 0.4 Mg (Ed) 0.4 Mg Tab.Subl SL 09/13/22 19:30 0.4 mg STAT ONE Administration Non-Formulary Medication 1 each 09/14/22 22:00 Non-Formulary Drug 1 Each Each PO 10/14/22 21:59 HS ALEX Non-Formulary Medication 1 each 09/14/22 22:00 Non-Formulary Drug 1 Each Each PO 10/14/22 21:59 HS ALEX Intake & Output (Last 24 hours) 09/12/22 09/13/22 09/14/22 09/15/22 11:59 11:59 11:59 11:59 Intake Total 371 Balance 371 Weight 111 kg Laboratory Results (Last 24 hours) 09/14/22 09/14/22 09/14/22 07:36 03:46 03:46 WBC 6.4 RBC 4.19 Hgb 12.0 L Hct 36.3 L MCV 86.6 MCH 28.6 MCHC 33.1 RDW 13.1 Plt Count 151 MPV 8.6 Gran % 55.8 Immature Gran % (Auto) 0.3 Nucleat RBC Rel Count 0.0 Eos # (Auto) 0.20 Immature Gran # (Auto) 0.02 Absolute Lymphs (auto) 2.02 Absolute Monos (auto) 0.55 Absolute Nucleated RBC 0.00 Lymphocytes % 31.6 Monocytes % 8.6 Eosinophils % 3.1 Basophils % 0.6 Absolute Granulocytes 3.57 Basophils # 0.04 D-Dimer Sodium 136 L Potassium 4.0 Chloride 98 Carbon Dioxide 31 H Anion Gap 11.4 BUN 10 Creatinine 0.95 Estimated GFR > 60.0 Glucose 102 POC Glucometer 102 Lactic Acid Calcium 8.6 Magnesium 2.1 Total Bilirubin AST ALT Alkaline Phosphatase Troponin I NT-Pro-B Natriuret Pep Serum Total Protein Albumin Triglycerides 180 H Cholesterol 185 LDL Cholesterol 101 H HDL Cholesterol 45 Heart Disease Risk Ratio 4.2 Amylase Lipase Urine Color Urine Appearance Urine pH Ur Specific Emery Urine Protein Urine Glucose (UA) Urine Ketones Urine Blood Urine Nitrite Urine Bilirubin Urine Urobilinogen Ur Leukocyte Esterase U Hyaline Cast (Auto) Urine Microscopic RBC Urine Microscopic WBC Ur Epithelial Cells Urine Bacteria Urine Culture Reflexed Influenza Type A Ag Influenza Type B Ag RSV (PCR) SARS-CoV-2 (PCR) 09/14/22 09/13/22 09/13/22 03:42 23:04 23:04 WBC RBC Hgb Hct MCV MCH MCHC RDW Plt Count MPV Gran % Immature Gran % (Auto) Nucleat RBC Rel Count Eos # (Auto) Immature Gran # (Auto) Absolute Lymphs (auto) Absolute Monos (auto) Absolute Nucleated RBC Lymphocytes % Monocytes % Eosinophils % Basophils % Absolute Granulocytes Basophils # D-Dimer Sodium Potassium Chloride Carbon Dioxide Anion Gap BUN Creatinine Estimated GFR Glucose POC Glucometer Lactic Acid Calcium Magnesium Total Bilirubin AST ALT Alkaline Phosphatase Troponin I < 0.012 < 0.012 NT-Pro-B Natriuret Pep Serum Total Protein Albumin Triglycerides Cholesterol LDL Cholesterol HDL Cholesterol Heart Disease Risk Ratio Amylase Lipase Urine Color Urine Appearance Urine pH Ur Specific Emery Urine Protein Urine Glucose (UA) Urine Ketones Urine Blood Urine Nitrite Urine Bilirubin Urine Urobilinogen Ur Leukocyte Esterase U Hyaline Cast (Auto) Urine Microscopic RBC Urine Microscopic WBC Ur Epithelial Cells Urine Bacteria Urine Culture Reflexed Influenza Type A Ag NEGATIVE Influenza Type B Ag NEGATIVE RSV (PCR) NEGATIVE SARS-CoV-2 (PCR) NEGATIVE 09/13/22 09/13/22 09/13/22 22:20 20:00 19:51 WBC RBC Hgb Hct MCV MCH MCHC RDW Plt Count MPV Gran % Immature Gran % (Auto) Nucleat RBC Rel Count Eos # (Auto) Immature Gran # (Auto) Absolute Lymphs (auto) Absolute Monos (auto) Absolute Nucleated RBC Lymphocytes % Monocytes % Eosinophils % Basophils % Absolute Granulocytes Basophils # D-Dimer Sodium Potassium Chloride Carbon Dioxide Anion Gap BUN Creatinine Estimated GFR Glucose POC Glucometer Lactic Acid 0.8 Calcium Magnesium Total Bilirubin AST ALT Alkaline Phosphatase Troponin I < 0.012 NT-Pro-B Natriuret Pep 160 Serum Total Protein Albumin Triglycerides Cholesterol LDL Cholesterol HDL Cholesterol Heart Disease Risk Ratio Amylase Lipase Urine Color Yellow Urine Appearance Clear Urine pH 6.0 Ur Specific Emery 1.010 Urine Protein Negative Urine Glucose (UA) Negative Urine Ketones Negative Urine Blood Negative Urine Nitrite Negative Urine Bilirubin Negative Urine Urobilinogen 0.2 Ur Leukocyte Esterase Negative U Hyaline Cast (Auto) NONE SEEN Urine Microscopic RBC 0-2 Urine Microscopic WBC 0-2 Ur Epithelial Cells None Seen Urine Bacteria None Seen Urine Culture Reflexed NO Influenza Type A Ag Influenza Type B Ag RSV (PCR) SARS-CoV-2 (PCR) 09/13/22 09/13/22 09/13/22 19:51 19:51 19:51 WBC 7.2 RBC 4.29 Hgb 12.2 L Hct 37.5 L MCV 87.4 MCH 28.4 MCHC 32.5 RDW 13.1 Plt Count 163 MPV 8.6 Gran % 64.9 Immature Gran % (Auto) 0.1 Nucleat RBC Rel Count 0.0 Eos # (Auto) 0.23 Immature Gran # (Auto) 0.01 Absolute Lymphs (auto) 1.65 Absolute Monos (auto) 0.58 Absolute Nucleated RBC 0.00 Lymphocytes % 23.0 L Monocytes % 8.1 Eosinophils % 3.2 Basophils % 0.7 Absolute Granulocytes 4.65 Basophils # 0.05 D-Dimer < 0.19 Sodium 137 Potassium 4.4 Chloride 98 Carbon Dioxide 30 Anion Gap 13.8 BUN 12 Creatinine 1.06 Estimated GFR > 60.0 Glucose 100 POC Glucometer Lactic Acid Calcium 8.8 Magnesium Total Bilirubin 0.30 AST 23 ALT 20 Alkaline Phosphatase 82 Troponin I NT-Pro-B Natriuret Pep Serum Total Protein 6.8 Albumin 3.9 Triglycerides Cholesterol LDL Cholesterol HDL Cholesterol Heart Disease Risk Ratio Amylase 76 Lipase 192 Urine Color Urine Appearance Urine pH Ur Specific Emery Urine Protein Urine Glucose (UA) Urine Ketones Urine Blood Urine Nitrite Urine Bilirubin Urine Urobilinogen Ur Leukocyte Esterase U Hyaline Cast (Auto) Urine Microscopic RBC Urine Microscopic WBC Ur Epithelial Cells Urine Bacteria Urine Culture Reflexed Influenza Type A Ag Influenza Type B Ag RSV (PCR) SARS-CoV-2 (PCR) Orders (Last 24 hours) Category Date Time Status Bedrest with BRP/BSC ROUTINE Activity 09/14/22 00:11 Active Gas Main And Line Fitter STAT Care 09/13/22 19:30 Completed Code Status Order ROUTINE Care 09/14/22 00:11 Active EKG-ER Only STAT Care 09/13/22 19:29 Completed IV Care Q6H Care 09/14/22 00:11 Active IV Insertion STAT Care 09/13/22 19:29 Completed Implement Chest Pain Pathway ROUTINE Care 09/14/22 00:[address] in Observation ROUTINE Care 09/14/22 00:11 Active Pulse Oximetry (ED) STAT Care 09/13/22 19:29 Completed Hank Light Apply ROUTINE Care 09/14/22 00:11 Active Telemetry q6h Care 09/14/22 00:11 Active Weight,Daily 0600 Care 09/14/22 00:11 Active Heart-Healthy Diet Diet 09/14/22 Breakfast Active Discharge Routine Discharge 09/14/22 Ordered CHEST 1 VIEW (PORTABLE) Stat Exams 09/13/22 19:30 Completed AMYLASE Stat Lab 09/13/22 19:51 Completed BMP AM.LAB Lab 09/14/22 03:46 Completed CBC W DIFF AM.LAB Lab 09/14/22 03:46 Completed CBC W DIFF Stat Lab 09/13/22 19:51 Completed CMP Stat Lab 09/13/22 19:51 Completed COVID/FLU/RSV Panel Stat Lab 09/13/22 23:04 Completed D-DIMER QUANTITATIVE Stat Lab 09/13/22 19:51 Completed LIPASE Stat Lab 09/13/22 19:51 Completed LIPID PROFILE Routine Lab 09/14/22 03:46 Completed Lactic Acid Stat Lab 09/13/22 20:00 Completed MAGNESIUM AM.LAB Lab 09/14/22 03:46 Completed NT PRO BNPII Stat Lab 09/13/22 19:51 Completed POCT GLUCOSE Stat Lab 09/14/22 07:36 Completed TROPONIN Q4H Lab 09/13/22 19:51 Completed TROPONIN Q4H Lab 09/13/22 23:04 Completed TROPONIN Q4H Lab 09/14/22 03:42 Completed TSH [TSH, 3RD Generation] AM.LAB Lab 09/15/22 04:00 Ordered UA W/RFX UR CULTURE Stat Lab 09/13/22 22:20 Completed Acetaminophen 325 mg [Tylenol 325 mg] Med 09/14/22 00:11 Active 650 mg PO Q4H PRN PRN Amitriptyline HCl 25 mg [Amitriptyline 25 mg Tablet] Med 09/14/22 01:33 Active 25 mg PO HS Aspirin 81 gm Chew [Baby Aspirin 81 mg Chew] Med 09/13/22 19:29 Discontinued 324 mg PO STAT ONE Aspirin EC 325 mg [Ecotrin 325 MG] Med 09/14/22 10:00 Discontinued 325 mg PO DAILY Aspirin EC 81 mg [Ecotrin 81 mg] Med 09/14/22 10:00 Active 81 mg PO DAILY Diazepam 5 mg [Valium 5 MG] Med 09/14/22 01:35 Active 2.5 mg PO BID Doxazosin Mesylate 2 mg [Cardura 2 mg] Med 09/14/22 01:45 Active 2 mg PO HS Enoxaparin Sodium [Enoxaparin Sodium] Med 09/14/22 10:00 Active 40 mg SQ DAILY Famotidine 20 mg [Pepcid 20 MG] Med 09/14/22 10:00 Active 20 mg PO BID HydrALAzine HCL 20 MG INJ [Apresoline 20 mg/ml Inj Med 09/14/22 01:38 Active *] 10 mg IV Q4H PRN PRN Insulin Regular, Human [Humulin R] Med 09/14/22 00:11 Active See Dose Instructions SQ UD PRN Loratadine 10 mg [Claritin 10 mg] Med 09/14/22 22:00 Active 10 mg PO HS Losartan Potassium 50 mg [Cozaar 50 MG] Med 09/14/22 01:34 Active 50 mg PO BID Mag Hydrox/Al Hydrox/Simeth [Maalox Es 30 ml Unit Med 09/14/22 00:11 Active Dose] 30 ml PO Q4H PRN PRN Magnesium Hydroxide 30 ml [Milk of Magnesia 30 ml Med 09/14/22 00:11 Active ] 30 - 60 ml PO QDP PRN Meloxicam Med 09/14/22 01:37 Active 7.5 mg PO HS NaCl 0.9% 1000 ml [Sodium Chloride 0.9% 1000 ML] 1,000 Med 09/13/22 19:45 Discontinued ml .ROUTE UD NaCl 0.9% 1000 ml [Sodium Chloride 0.9% 1000 ML] 1,000 Med 09/13/22 19:30 Discontinued ml IV 50 mls/hr NaCl 0.9% 500 ml [Sodium Chloride 0.9% 500 ML] 500 ml Med 09/14/22 00:11 Active IV 20 mls/hr Nitroglycerin 0.4 mg (Ed) [Nitrostat 0.4 MG (ED)] Med 09/13/22 19:29 Discontinued 0.4 mg SL STAT ONE Non-Formulary Drug [Non-Formulary Item] Med 09/14/22 22:00 Discontinued 1 each PO HS Non-Formulary Drug [Non-Formulary Item] Med 09/14/22 22:00 Discontinued 1 each PO HS Ondansetron HCl 4 mg/2 ml [Zofran 4 MG/2 ML VIAL] Med 09/14/22 00:11 Active 4 mg IV Q4H PRN PRN PANTOPRAZOLE 40 mg Tablet [Protonix 40MG Tablet] Med 09/14/22 01:37 Active 40 mg PO HS Senna/Docusate Sodium Tab [Senokot-S Tablet] Med 09/14/22 00:11 Active 2 udtab PO BID PRN PRN EKG Q8HX2,QAMX3,PRN RT 09/14/22 00:11 Completed EKG ROUTINE RT 09/14/22 03:30 Completed EKG ROUTINE RT 09/15/22 05:00 Active EKG ROUTINE RT 09/16/22 05:00 Active Pulse Oximetry Q4H RT 09/14/22 00:11 Completed Respiratory Therapy Consult ONCE RT 09/14/22 00:11 Completed - Vitals & Intake/Output Vital Signs: Vital Signs Temperature 98.0 F 09/14/22 11:52 Pulse Rate 67 09/14/22 11:52 Respiratory Rate 16 09/14/22 11:52 Blood Pressure 155/79 09/14/22 11:52 O2 Sat by Pulse Oximetry 98 09/14/22 11:52 Intake & Output: Intake & Output 09/12/22 09/13/22 09/14/22 09/15/22 11:59 11:59 11:59 11:59 Intake Total 371 Balance 371 Weight 111 kg - Lab Result Diagrams: 09/14/22 03:46 09/14/22 03:46 Lab Results-Last 24 Hrs: Lab Results-Last 24 Hours 09/13/22 09/13/22 09/13/22 Range/Units 19:51 19:51 19:51 WBC 7.2 (4.0-10.5) x10^3/uL RBC 4.29 (4.1-5.6) x10^6/uL Hgb 12.2 L (12.5-18.0) g/dL Hct 37.5 L (42-50) % MCV 87.4 (78-100) fL MCH 28.4 (26-32) pg MCHC 32.5 (32-36) g/dL RDW 13.1 (11.5-14.0) % Plt Count 163 (150-450) x10^3/uL MPV 8.6 (7.5-11.0) fL Gran % 64.9 (36.0-66.0) % Immature Gran % (Auto) 0.1 (0.00-0.4) % Nucleat RBC Rel Count 0.0 (0.00-0.1) % Eos # (Auto) 0.23 (0-0.5) x10^3/uL Immature Gran # (Auto) 0.01 (0.00-0.03) x10^3u/L Absolute Lymphs (auto) 1.65 (1.0-4.6) x10^3/uL Absolute Monos (auto) 0.58 (0.0-1.3) x10^3/uL Absolute Nucleated RBC 0.00 (0.00-0.01) x10^3u/L Lymphocytes % 23.0 L (24.0-44.0) % Monocytes % 8.1 (0.0-12.0) % Eosinophils % 3.2 (0.00-5.0) % Basophils % 0.7 (0.0-0.4) % Absolute Granulocytes 4.65 (1.4-6.9) x10^3/uL Basophils # 0.05 (0-0.4) x10^3/uL D-Dimer < 0.19 (0.0-0.50) mg/L Sodium 137 (137-145) mmol/L Potassium 4.4 (3.5-5.1) mmol/L Chloride 98 (98-107) mmol/L Carbon Dioxide 30 (22-30) mmol/L Anion Gap 13.8 (5-15) MEQ/L BUN 12 (9-20) mg/dL Creatinine 1.06 (0.66-1.25) mg/dL Estimated GFR > 60.0 ML/MIN Glucose 100 (74-106) mg/dL POC Glucometer (74 to 106) mg/dL Lactic Acid (0.4-2.0) Calcium 8.8 (8.4-10.2) mg/dL Magnesium (1.6-2.3) mg/dL Total Bilirubin 0.30 (0.2-1.3) mg/dL AST 23 (17-59) U/L ALT 20 (0-50) U/L Alkaline Phosphatase 82 (38-126) U/L Troponin I (0.000-0.034) ng/mL NT-Pro-B Natriuret Pep (<300) pg/mL Serum Total Protein 6.8 (6.3-8.2) g/dL Albumin 3.9 (3.5-5.0) g/dL Triglycerides (30-150) mg/dL Cholesterol (50-200) mg/dL LDL Cholesterol (30-100) mg/dL HDL Cholesterol (40-60) mg/dL Heart Disease Risk Ratio Amylase 76 (30-110) U/L Lipase 192 (23-300) U/L Urine Color (Yellow) Urine Appearance (Clear) Urine pH (4.6-8.0) Ur Specific Emery (1.005-1.030) Urine Protein (Negative) Urine Glucose (UA) (Negative) mg/dL Urine Ketones (Negative) Urine Blood (Negative) Urine Nitrite (Negative) Urine Bilirubin (Negative) Urine Urobilinogen (0.2) mg/dL Ur Leukocyte Esterase (Negative) U Hyaline Cast (Auto) (0-2) /LPF Urine Microscopic RBC (0-5) /HPF Urine Microscopic WBC (0-5) /HPF Ur Epithelial Cells (None Seen) /HPF Urine Bacteria (None Seen) /HPF Urine Culture Reflexed (NO) Influenza Type A Ag (NEGATIVE) Influenza Type B Ag (NEGATIVE) RSV (PCR) (NEGATIVE) SARS-CoV-2 (PCR) (NEGATIVE) 09/13/22 09/13/22 09/13/22 Range/Units 19:51 20:00 22:20 WBC (4.0-10.5) x10^3/uL RBC (4.1-5.6) x10^6/uL Hgb (12.5-18.0) g/dL Hct (42-50) % MCV (78-100) fL MCH (26-32) pg MCHC (32-36) g/dL RDW (11.5-14.0) % Plt Count (150-450) x10^3/uL MPV (7.5-11.0) fL Gran % (36.0-66.0) % Immature Gran % (Auto) (0.00-0.4) % Nucleat RBC Rel Count (0.00-0.1) % Eos # (Auto) (0-0.5) x10^3/uL Immature Gran # (Auto) (0.00-0.03) x10^3u/L Absolute Lymphs (auto) (1.0-4.6) x10^3/uL Absolute Monos (auto) (0.0-1.3) x10^3/uL Absolute Nucleated RBC (0.00-0.01) x10^3u/L Lymphocytes % (24.0-44.0) % Monocytes % (0.0-12.0) % Eosinophils % (0.00-5.0) % Basophils % (0.0-0.4) % Absolute Granulocytes (1.4-6.9) x10^3/uL Basophils # (0-0.4) x10^3/uL D-Dimer (0.0-0.50) mg/L Sodium (137-145) mmol/L Potassium (3.5-5.1) mmol/L Chloride (98-107) mmol/L Carbon Dioxide (22-30) mmol/L Anion Gap (5-15) MEQ/L BUN (9-20) mg/dL Creatinine (0.66-1.25) mg/dL Estimated GFR ML/MIN Glucose (74-106) mg/dL POC Glucometer (74 to 106) mg/dL Lactic Acid 0.8 (0.4-2.0) Calcium (8.4-10.2) mg/dL Magnesium (1.6-2.3) mg/dL Total Bilirubin (0.2-1.3) mg/dL AST (17-59) U/L ALT (0-50) U/L Alkaline Phosphatase (38-126) U/L Troponin I < 0.012 (0.000-0.034) ng/mL NT-Pro-B Natriuret Pep 160 (<300) pg/mL Serum Total Protein (6.3-8.2) g/dL Albumin (3.5-5.0) g/dL Triglycerides (30-150) mg/dL Cholesterol (50-200) mg/dL LDL Cholesterol (30-100) mg/dL HDL Cholesterol (40-60) mg/dL Heart Disease Risk Ratio Amylase (30-110) U/L Lipase (23-300) U/L Urine Color Yellow (Yellow) Urine Appearance Clear (Clear) Urine pH 6.0 (4.6-8.0) Ur Specific Emery 1.010 (1.005-1.030) Urine Protein Negative (Negative) Urine Glucose (UA) Negative (Negative) mg/dL Urine Ketones Negative (Negative) Urine Blood Negative (Negative) Urine Nitrite Negative (Negative) Urine Bilirubin Negative (Negative) Urine Urobilinogen 0.2 (0.2) mg/dL Ur Leukocyte Esterase Negative (Negative) U Hyaline Cast (Auto) NONE SEEN (0-2) /LPF Urine Microscopic RBC 0-2 (0-5) /HPF Urine Microscopic WBC 0-2 (0-5) /HPF Ur Epithelial Cells None Seen (None Seen) /HPF Urine Bacteria None Seen (None Seen) /HPF Urine Culture Reflexed NO (NO) Influenza Type A Ag (NEGATIVE) Influenza Type B Ag (NEGATIVE) RSV (PCR) (NEGATIVE) SARS-CoV-2 (PCR) (NEGATIVE) 09/13/22 09/13/22 09/14/22 Range/Units 23:04 23:04 03:42 WBC (4.0-10.5) x10^3/uL RBC (4.1-5.6) x10^6/uL Hgb (12.5-18.0) g/dL Hct (42-50) % MCV (78-100) fL MCH (26-32) pg MCHC (32-36) g/dL RDW (11.5-14.0) % Plt Count (150-450) x10^3/uL MPV (7.5-11.0) fL Gran % (36.0-66.0) % Immature Gran % (Auto) (0.00-0.4) % Nucleat RBC Rel Count (0.00-0.1) % Eos # (Auto) (0-0.5) x10^3/uL Immature Gran # (Auto) (0.00-0.03) x10^3u/L Absolute Lymphs (auto) (1.0-4.6) x10^3/uL Absolute Monos (auto) (0.0-1.3) x10^3/uL Absolute Nucleated RBC (0.00-0.01) x10^3u/L Lymphocytes % (24.0-44.0) % Monocytes % (0.0-12.0) % Eosinophils % (0.00-5.0) % Basophils % (0.0-0.4) % Absolute Granulocytes (1.4-6.9) x10^3/uL Basophils # (0-0.4) x10^3/uL D-Dimer (0.0-0.50) mg/L Sodium (137-145) mmol/L Potassium (3.5-5.1) mmol/L Chloride (98-107) mmol/L Carbon Dioxide (22-30) mmol/L Anion Gap (5-15) MEQ/L BUN (9-20) mg/dL Creatinine (0.66-1.25) mg/dL Estimated GFR ML/MIN Glucose (74-106) mg/dL POC Glucometer (74 to 106) mg/dL Lactic Acid (0.4-2.0) Calcium (8.4-10.2) mg/dL Magnesium (1.6-2.3) mg/dL Total Bilirubin (0.2-1.3) mg/dL AST (17-59) U/L ALT (0-50) U/L Alkaline Phosphatase (38-126) U/L Troponin I < 0.012 < 0.012 (0.000-0.034) ng/mL NT-Pro-B Natriuret Pep (<300) pg/mL Serum Total Protein (6.3-8.2) g/dL Albumin (3.5-5.0) g/dL Triglycerides (30-150) mg/dL Cholesterol (50-200) mg/dL LDL Cholesterol (30-100) mg/dL HDL Cholesterol (40-60) mg/dL Heart Disease Risk Ratio Amylase (30-110) U/L Lipase (23-300) U/L Urine Color (Yellow) Urine Appearance (Clear) Urine pH (4.6-8.0) Ur Specific Emery (1.005-1.030) Urine Protein (Negative) Urine Glucose (UA) (Negative) mg/dL Urine Ketones (Negative) Urine Blood (Negative) Urine Nitrite (Negative) Urine Bilirubin (Negative) Urine Urobilinogen (0.2) mg/dL Ur Leukocyte Esterase (Negative) U Hyaline Cast (Auto) (0-2) /LPF Urine Microscopic RBC (0-5) /HPF Urine Microscopic WBC (0-5) /HPF Ur Epithelial Cells (None Seen) /HPF Urine Bacteria (None Seen) /HPF Urine Culture Reflexed (NO) Influenza Type A Ag NEGATIVE (NEGATIVE) Influenza Type B Ag NEGATIVE (NEGATIVE) RSV (PCR) NEGATIVE (NEGATIVE) SARS-CoV-2 (PCR) NEGATIVE (NEGATIVE) 09/14/22 09/14/22 09/14/22 Range/Units 03:46 03:46 07:36 WBC 6.4 (4.0-10.5) x10^3/uL RBC 4.19 (4.1-5.6) x10^6/uL Hgb 12.0 L (12.5-18.0) g/dL Hct 36.3 L (42-50) % MCV 86.6 (78-100) fL MCH 28.6 (26-32) pg MCHC 33.1 (32-36) g/dL RDW 13.1 (11.5-14.0) % Plt Count 151 (150-450) x10^3/uL MPV 8.6 (7.5-11.0) fL Gran % 55.8 (36.0-66.0) % Immature Gran % (Auto) 0.3 (0.00-0.4) % Nucleat RBC Rel Count 0.0 (0.00-0.1) % Eos # (Auto) 0.20 (0-0.5) x10^3/uL Immature Gran # (Auto) 0.02 (0.00-0.03) x10^3u/L Absolute Lymphs (auto) 2.02 (1.0-4.6) x10^3/uL Absolute Monos (auto) 0.55 (0.0-1.3) x10^3/uL Absolute Nucleated RBC 0.00 (0.00-0.01) x10^3u/L Lymphocytes % 31.6 (24.0-44.0) % Monocytes % 8.6 (0.0-12.0) % Eosinophils % 3.1 (0.00-5.0) % Basophils % 0.6 (0.0-0.4) % Absolute Granulocytes 3.57 (1.4-6.9) x10^3/uL Basophils # 0.04 (0-0.4) x10^3/uL D-Dimer (0.0-0.50) mg/L Sodium 136 L (137-145) mmol/L Potassium 4.0 (3.5-5.1) mmol/L Chloride 98 (98-107) mmol/L Carbon Dioxide 31 H (22-30) mmol/L Anion Gap 11.4 (5-15) MEQ/L BUN 10 (9-20) mg/dL Creatinine 0.95 (0.66-1.25) mg/dL Estimated GFR > 60.0 ML/MIN Glucose 102 (74-106) mg/dL POC Glucometer 102 (74 to 106) mg/dL Lactic Acid (0.4-2.0) Calcium 8.6 (8.4-10.2) mg/dL Magnesium 2.1 (1.6-2.3) mg/dL Total Bilirubin (0.2-1.3) mg/dL AST (17-59) U/L ALT (0-50) U/L Alkaline Phosphatase (38-126) U/L Troponin I (0.000-0.034) ng/mL NT-Pro-B Natriuret Pep (<300) pg/mL Serum Total Protein (6.3-8.2) g/dL Albumin (3.5-5.0) g/dL Triglycerides 180 H (30-150) mg/dL Cholesterol 185 (50-200) mg/dL LDL Cholesterol 101 H (30-100) mg/dL HDL Cholesterol 45 (40-60) mg/dL Heart Disease Risk Ratio 4.2 Amylase (30-110) U/L Lipase (23-300) U/L Urine Color (Yellow) Urine Appearance (Clear) Urine pH (4.6-8.0) Ur Specific Emery (1.005-1.030) Urine Protein (Negative) Urine Glucose (UA) (Negative) mg/dL Urine Ketones (Negative) Urine Blood (Negative) Urine Nitrite (Negative) Urine Bilirubin (Negative) Urine Urobilinogen (0.2) mg/dL Ur Leukocyte Esterase (Negative) U Hyaline Cast (Auto) (0-2) /LPF Urine Microscopic RBC (0-5) /HPF Urine Microscopic WBC (0-5) /HPF Ur Epithelial Cells (None Seen) /HPF Urine Bacteria (None Seen) /HPF Urine Culture Reflexed (NO) Influenza Type A Ag (NEGATIVE) Influenza Type B Ag (NEGATIVE) RSV (PCR) (NEGATIVE) SARS-CoV-2 (PCR) (NEGATIVE) Micro Results-Entire Visit: Accuchecks Date 09/14/22 Time 07:38 - Radiology Exams Ordered Rad Exams-Entire Visit: Radiology Procedures Category Date Time Status CHEST 1 VIEW (PORTABLE) Stat Exams 09/13/22 19:30 Completed - Procedures and Test Procedures and Tests throughout Hospitalization: Therapy Orders & Screens 09/14/22 00:11 EKG [id number],QAMX3,PRN Comment: Respiratory Therapy Consult ONCE Comment: Reason For Exam: 09/14/22 03:30 EKG ROUTINE Comment: Diagnosis: chest pain 09/15/22 05:00 EKG ROUTINE Comment: Diagnosis: chest pain 09/16/22 05:00 EKG ROUTINE Comment: Diagnosis: chest pain Discharge Exam General Appearance: no apparent distress, alert Neurologic Exam: alert, 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, cooperative, normal mood/affect, nml cerebellar function, sensation nml, No motor deficits Eye Exam: PERRL, EOMI, eyes nml inspection Ears, Nose, Throat Exam: normal ENT inspection, pharynx normal, moist mucous membranes Neck Exam: normal inspection, non-tender, supple, full range of motion Respiratory Exam: normal breath sounds, lungs clear, No respiratory distress Cardiovascular Exam: regular rate/rhythm, normal heart sounds Gastrointestinal/Abdomen Exam: soft, No tenderness, No mass Male Genitalia Exam: deferred Rectal Exam: deferred Back Exam: normal inspection, normal range of motion, No CVA tenderness, No vertebral tenderness Extremity Exam: normal inspection, normal range of motion Skin Exam: normal color, warm, dry Final Diagnosis/Problem List - Final Discharge Diagnosis/Problem (1) Chest pain Current Visit: Yes Status: Resolved Code(s): R07.9 - CHEST PAIN, UNSPECIFIED (2) Abdominal pain Current Visit: Yes Status: Chronic Code(s): R10.9 - UNSPECIFIED ABDOMINAL PAIN - Discharge Discharge Date: 09/14/22 Disposition: Home, Self-Care Condition: Stable Prescriptions: Continue Omeprazole 20 MG [Prilosec 20 mg] 20 mg PO HS Fexofenadine HCl [Dominique] 180 mg PO HS diazePAM [Diazepam] 2 mg PO BID Propranolol HCl [Inderal Xl] 80 mg PO DAILY Losartan Potassium 50 mg [Cozaar 50 MG] 50 mg PO BID Amitriptyline HCl 25 mg [Amitriptyline 25 mg Tablet] 25 mg PO HS Doxazosin Mesylate 2 mg PO HS Atogepant [Qulipta] 60 mg PO QHS Meloxicam 7.5 mg PO HS #0 Oxcarbazepine [Oxtellar Xr] 300 mg PO HS Instructions: [place] Diet, Chest Pain (DC) Follow up with: MER UMAÑA [CONSULTING PHYSICIAN] - Call for Appointment TUAN NOBLE MD [Primary Care Provider] - Call for Appointment
[2022-09-14] MEDS ORDERED: FEXOFENADINE HCL 180 MG PO SCH (22:00)
[2022-09-14] MEDS ORDERED: CLARITIN 10 MG PO SCH (22:00)
[2022-09-14] MEDS ORDERED: NON-FORMULARY ITEM PO SCH ×2 (22:00)
[2022-09-14] MEDS ORDERED: NON-FORMULARY ITEM (Atogepant [Qulipta] 60 MG Tablet) PO SCH (22:00)
[2022-09-14] MEDS ORDERED: OXCARBAZEPINE 150 MG PO SCH (22:00)
== END 2022-09-14 13:15 | disposition home or self-care (01) ==
LOC: ED 18:59 → MED SURG 09-14 00:08
PROVIDERS: ADMIT Internal Medicine; ATTEND General Practice
DX: R07.9 Chest pain, unspecified (principal); R10.9 Unspecified abdominal pain; I10 Essential (primary) hypertension; J44.9 Chronic obstructive pulmonary disease, unspecified; E03.9 Hypothyroidism, unspecified; Z79.899 Other long term (current) drug therapy; Z20.828 Contact with and (suspected) exposure to other viral communicable diseases
CPT/HCPCS: 0241U; 36000; 36415; 71045; 80048; 80053; 80061; 81001; 82150; 82947; 83605; 83690; 83721; 83735; 83880; 84484; 85025; 85379; 93005; 93041; 94760; 99284; 93268; 96360; G0378; A9270-GY

== ENCOUNTER 2022-12-17 12:48 | Emergency (ER) | payer OTHER ==
--- NOTE | 2022-12-17 12:53 | ERPHSYRPT ---
- History of Present Illness Time Seen by Provider: 12/17/22 12:53 Source: patient Exam Limitations: no limitations Physician History: This is a 52-year-old very anxious white male patient of Dr. Noble and presents to the emergency department with complaint of sudden onset of shortness of breath that occurred at 630 this morning. The symptoms have resolved prior to arrival to the emergency department. Patient has an appointment to see his primary care provider on 12/19/2022. Patient recently completed Cipro for treatment of gastroenteritis. Patient also complains of some left upper anterior chest pressure. Patient has a history of hypertension, gastroesopha geal reflux disease, peripheral neuropathy, CVA, chronic angina, recurrent bronchitis and anxiety issues. Timing/Duration: today, resolved prior to arrival Activities at Onset: none Severity of Dyspnea-Max: mild Severity of Dyspnea-Current: none Possible Cause: occasional episodes Associated Symptoms: anxiety, chest pain/discomfort (Left anterior chest wall pressure), No hemoptysis Allergies/Adverse Reactions: albuterol Allergy (Severe, Verified 12/17/22 12:52) Anaphylactic Reaction resp arrest amlodipine [From Norvasc] Allergy (Intermediate, Verified 12/17/22 12:52) Hives amoxicillin [From Augmentin] Adverse Reaction (Intermediate, Verified 12/17/22 12:52) Diarrhea clavulanic acid [From Augmentin] Adverse Reaction (Intermediate, Verified 12/17/22 12:52) Diarrhea sulfamethoxazole [From Bactrim] Adverse Reaction (Intermediate, Verified 12/17/22 12:52) Diarrhea trimethoprim [From Bactrim] Adverse Reaction (Intermediate, Verified 12/17/22 12:52) Diarrhea Home Medications: Fexofenadine HCl [Dominique] 180 mg PO HS 04/22/16 [History] diazePAM [Diazepam] 2 mg PO BID 10/14/17 [History] Propranolol HCl [Inderal Xl] 80 mg PO DAILY 07/19/18 [History] Amitriptyline HCl 25 mg [Amitriptyline 25 mg Tablet] 25 mg PO HS 08/23/20 [History] Losartan Potassium 50 mg [Cozaar 50 MG] 50 mg PO DAILY 08/23/20 [History] Atogepant [Qulipta] 60 mg PO QHS 10/23/21 [History] Doxazosin Mesylate 2 mg PO HS 10/23/21 [History] OXcarbazepine [Trileptal] 1 tab PO BID 12/17/22 [History] PANTOPRAZOLE 40 mg Tablet [Protonix 40MG Tablet] 1 tab PO BID 12/17/22 [History] Hx Tetanus, Diphtheria Vaccination/Date Given: Yes Hx Influenza Vaccination/Date Given: No Hx Pneumococcal Vaccination/Date Given: No Travel Risk - International Travel Have you traveled outside of the country in past 3 weeks: No - Coronavirus Screening Are you exhibiting any of the following symptoms?: No Close contact with a COVID-19 positive Pt in past 14-21 Days: No - Vaccine Status Have you recieved a Covid-19 vaccination: Yes 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: [employer] - Vaccination Dates Date of 2cond Vaccination (if applicable): not received - Review of Systems Constitutional: No Symptoms Eyes: No Symptoms Ears, Nose, & Throat: No Symptoms Respiratory: No Symptoms Cardiac: No Symptoms Abdominal/Gastrointestinal: No Symptoms Genitourinary Symptoms: No Symptoms Musculoskeletal: No Symptoms Skin: No Symptoms Neurological: No Symptoms Psychological: No Symptoms Endocrine: No Symptoms Hematologic/Lymphatic: No Symptoms Immunological/Allergic: No Symptoms All Other Systems: Reviewed and Negative - Past Medical History Pertinent Past Medical History: Yes Neurological History: Migraines, Peripheral Neuropathy, Stroke, TIA ENT History: No Pertinent History Cardiac History: Angina, Hypertension Respiratory History: Bronchitis Endocrine Medical History: No Pertinent History Musculoskeletal History: No Pertinent History GI Medical History: GERD History: No Pertinent History Psycho-Social History: Anxiety Male Reproductive Disorders: No Pertinent History Other Medical History: CVA, SEASONAL ALLERGIES, leaking valve in heart - Past Surgical History Past Surgical History: Yes Neuro Surgical History: No Pertinent History Cardiac: No Pertinent History Respiratory: No Pertinent History Gastrointestinal: No Pertinent History Genitourinary: No Pertinent History Musculoskeletal: No Pertinent History Male Surgical History: No Pertinent History Other Surgical History: Endoscpopy to examine for gastric ulcers as stated per pt; sinus surgery,egd,colonoscopy - Social History Smoking Status: Former smoker How long have you smoked: years Exposure to second hand smoke: Yes Drug Use: none Patient Lives Alone: No Significant Family History: no pertinent family hx - Nursing Vital Signs Nursing Vital Signs: Initial Vital Signs Temperature 97.5 F 12/17/22 12:55 Pulse Rate 63 12/17/22 12:55 Respiratory Rate 18 12/17/22 12:55 Blood Pressure 118/80 12/17/22 12:55 O2 Sat by Pulse Oximetry 100 12/17/22 12:55 Pain Scale Pain Intensity 3 - Physical Exam General Appearance: no apparent distress, alert, anxiety Eye Exam: PERRL/EOMI, eyes nml inspection Ears, Nose, Throat Exam: hearing grossly normal, normal ENT inspection, normal pharynx Neck Exam: normal inspection, non-tender, supple, full range of motion Respiratory Exam: normal breath sounds, lungs clear, airway intact, No chest tenderness, No respiratory distress Cardiovascular/Chest Exam: normal heart sounds, regular rate/rhythm Abdominal/Gastrointestinal Exam: soft, normal bowel sounds, No tenderness Rectal Exam: not done Extremity Exam: non-tender Neurologic Exam: alert, 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, cooperative, advanced practice rn II-XII nml as tested, normal mood/affect, nml cerebellar function, nml station & gait, sensation nml Skin Exam: normal color, warm, dry Lymphatic Exam: No adenopathy SpO2 Interpretation: normal O2 Delivery: Room Air - Course Nursing assessment & vital signs reviewed: Yes EKG Interpreted by Me: RATE (59), Left [place] Deviation (Borderline), NORMAL INTERVALS, NORMAL QRS, NORMAL ST-T, Other (No acute ischemic changes on today's twelve-lead EKG.) Ordered Tests: Active Orders 24 hr Category Date Time Status News Internship STAT Care 12/17/22 13:06 Active EKG-ER Only STAT Care 12/17/22 13:05 Active IV Insertion STAT Care 12/17/22 13:05 Active Pulse Oximetry (ED) STAT Care 12/17/22 13:05 Active CHEST 1 VIEW (PORTABLE) Stat Exams 12/17/22 13:06 Taken CBC W DIFF Stat Lab 12/17/22 13:05 Completed CMP Stat Lab 12/17/22 13:15 Completed NT PRO BNPII Stat Lab 12/17/22 13:15 Completed TROPONIN Q4H Lab 12/17/22 13:15 Completed TROPONIN Q4H Lab 12/17/22 17:15 Ordered TROPONIN Q4H Lab 12/17/22 21:15 Ordered Lab/Rad Data: Laboratory Result Diagrams 12/17/22 13:05 12/17/22 13:15 Laboratory Results 07/19/23 07/19/23 07/19/23 Range/Units 13:15 13:15 13:05 WBC 8.8 (4.0-10.5) x10^3/uL RBC 4.74 (4.1-5.6) x10^6/uL Hgb 13.4 (12.5-18.0) g/dL Hct 39.9 L (42-50) % MCV 84.2 (78-100) fL MCH 28.3 (26-32) pg MCHC 33.6 (32-36) g/dL RDW 13.0 (11.5-14.0) % Plt Count 187 (150-450) x10^3/uL MPV 8.5 (7.5-11.0) fL Gran % 71.8 H (36.0-66.0) % Immature Gran % (Auto) 0.3 (0.00-0.4) % Nucleat RBC Rel Count 0.0 (0.00-0.1) % Eos # (Auto) 0.07 (0-0.5) x10^3/uL Immature Gran # (Auto) 0.03 (0.00-0.03) x10^3u/L Absolute Lymphs (auto) 1.66 (1.0-4.6) x10^3/uL Absolute Monos (auto) 0.68 (0.0-1.3) x10^3/uL Absolute Nucleated RBC 0.00 (0.00-0.01) x10^3u/L Lymphocytes % 18.9 L (24.0-44.0) % Monocytes % 7.7 (0.0-12.0) % Eosinophils % 0.8 (0.00-5.0) % Basophils % 0.5 (0.0-0.4) % Absolute Granulocytes 6.32 (1.4-6.9) x10^3/uL Basophils # 0.04 (0-0.4) x10^3/uL Sodium 133 L (137-145) mmol/L Potassium 4.5 (3.5-5.1) mmol/L Chloride 93 L (98-107) mmol/L Carbon Dioxide 30 (22-30) mmol/L Anion Gap 15.0 (5-15) MEQ/L BUN 9 (9-20) mg/dL Creatinine 1.91 H (0.66-1.25) mg/dL Estimated GFR 39.7 ML/MIN Glucose 108 H (74-106) mg/dL Calcium 9.4 (8.4-10.2) mg/dL Total Bilirubin 0.60 (0.2-1.3) mg/dL AST 23 (17-59) U/L ALT 17 (0-50) U/L Alkaline Phosphatase 101 (38-126) U/L Troponin I < 0.012 (0.000-0.034) ng/mL NT-Pro-B Natriuret Pep 27.0 (<300) pg/mL Serum Total Protein 8.6 H (6.3-8.2) g/dL Albumin 4.7 (3.5-5.0) g/dL - Progress Progress: improved, re-examined Air Movement: good Progress Note: 12/17/22 13:10 Patient's medical issue is 1 of moderate complexity. The level complexity and the work-up performed is based on review of the patient's past medical history, review the patient's medication list, review the patient's drug allergy list, history of present illness and physical findings on examination. Patient has been here in the past for chest pain or shortness of breath issues. He has chronic angina and recurrent bronchitis. He also has significant anxiety issues. He has a follow-up appointment with his primary care provider on 11/30. The work-up in this patient includes placement of an intravenous line, twelve-lead EKG, CBC, CMP, BNP, troponin level, chest x-ray and viral swabs. I will review the results of the work-up and if negative, or no acute, emergent findings, patient will follow-up with his primary care provider in 2 days. 12/17/22 14:01 Chest x-ray was interpreted by me. Patient patient films not taken at full inspiratory cycle. No acute cardiopulmonary process appreciated. Blood Culture(s) Obtained: No Antibiotics given: No Counseled pt/family regarding: lab results, diagnosis, need for follow-up, rad results Medical Desision Making - Diagnostic Testing Diagnostic test were ordered, analyzed, and reviewed by me: Yes Radiological Interpretation: Interpreted by me - Risk of complications Minimal Risk: Minimal risk of morbidity - Departure Departure Disposition: Home Clinical Impression: Shortness of breath Condition: Stable Critical Care Time: No Referrals: TUAN NOBLE MD [Primary Care Provider] - Follow up/PCP as directed Additional Instructions: Continue medication as prescribed. Follow-up with your primary care provider appointment on 12/19/2022.
[2022-12-17 13:14] LABS: Absolute Neutrophil Ct (ANC) 6.32 x10^3/uL (1.4-6.9); BASOPHIL % 0.5 % (0.0-0.4); Basophil (Absolute #) 0.04 x10^3/uL (0-0.4); Eosinophil % 0.8 % (0.00-5.0); Eosinophil (Absolute #) 0.07 x10^3/uL (0-0.5); Hematocrit 39.9 % (42-50); Hemoglobin 13.4 g/dL (12.5-18.0); IMMATURE GRAN # 0.03 x10^3u/L (0.00-0.03); IMMATURE GRAN % 0.3 % (0.00-0.4); Lymphocyte (Absolute #) 1.66 x10^3/uL (1.0-4.6); Lymphocytes % 18.9 % (24.0-44.0); Mean Cell Volume 84.2 fL (78-100); Mean Corpuscular Hemoglobin 28.3 pg (26-32); Mean Corpuscular Hgb Concent. 33.6 g/dL (32-36); Mean Platelet Volume 8.5 fL (7.5-11.0); Monocyte (Absolute #) 0.68 x10^3/uL (0.0-1.3); Monocytes % 7.7 % (0.0-12.0); Neutrophil % 71.8 % (36.0-66.0); Platelet Count 187 x10^3/uL (150-450); Red Blood Count 4.74 x10^6/uL (4.1-5.6); White Blood Count 8.8 x10^3/uL (4.0-10.5)
[2022-12-17 13:48] LABS: ALBUMIN 4.7 g/dL (3.5-5.0); BILIRUBIN,TOTAL 0.6 mg/dL (0.2-1.3); Calcium 9.4 mg/dL (8.4-10.2); Creatinine 1 1.91 mg/dL (0.66-1.25); EST GLOMERULAR FILTRATION RATE 39.7 ML/MIN; Potassium 4.5 mmol/L (3.5-5.1); Total Protein 8.6 g/dL (6.3-8.2)
--- NOTE | 2022-12-17 14:09 | XRAY ---
Indication: Short of breath. Comparison: September 13, 2022 Portable chest is now underinflated. No focal infiltrate, consolidation, or large effusion. Heart not enlarged. Bony thorax intact again with mild degenerative changes. Impression: Nonacute underinflated chest.
[2022-12-17 14:11] LABS: INFLUENZA A NEGATIVE (NEGATIVE); INFLUENZA B NEGATIVE (NEGATIVE); RESPIRATORY SYNCTIAL VIRUS NEGATIVE (NEGATIVE); SARS-CoV-2 Xpert Express NEGATIVE (NEGATIVE)
[2022-12-17 14:16] VITALS: BP 109/65; PULSE 57; O2SAT 100
== END 2022-12-17 14:16 | disposition home or self-care (01) ==
LOC: ED 12:48
DX: R06.02 Shortness of breath (principal); R07.9 Chest pain, unspecified; I10 Essential (primary) hypertension; Z79.899 Other long term (current) drug therapy
CPT/HCPCS: 0241U; 36000; 36415; 71045; 80053; 83880; 84484; 85025; 93005; 93041; 94760; 99284

== ENCOUNTER 2023-02-11 20:25 | Observation (INO) | payer OTHER ==
--- NOTE | 2023-02-11 20:51 | ERPHSYRPT ---
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 states he was given Z pack today from Dr Noble for sinus infx and took that at 1700. SOB and pain started about 1830 following that. pt states that he was at doc office and this happened before, was told if it happens again to come to ED for eval. Physician History: Patient is a 52-year-old male presents to our ED for evaluation of chest pain shortness of breath. Chest pain tends to radiate to his left shoulder. Patient has a on awake counselor Dr. Richards. Patient states that he spoke to his primary care doctor today regarding symptoms. Patient has been experiencing sinus congestion and some dizziness. Patient was diagnosed with a sinusitis. Patient's primary care doctor called in a prescription for a Z-[place]. However shortly thereafter patient developed his shortness of breath and chest discomfort. Patient symptoms are constant. Symptoms are moderate in intensity. No specific worsening improving factors. No trauma no fever. Patient voices no other complaints or concerns at this time. Portions of this note were created with voice recognition technology. There may be grammatical, spelling, punctuation or sound alike errors Timing/Duration: today Activities at Onset: none Quality: aching Location: substernal Chest Pain Radiation: arm Severity of Pain-Max: moderate Severity of Pain-Current: mild Modifying Factors: Improves With: nothing Associated Symptoms: dizziness Nitro Today/Relief: no nitro taken today Aspirin Treatment Today: no aspirin today Allergies/Adverse Reactions: albuterol Allergy (Severe, Verified 02/11/23 20:35) Anaphylactic Reaction resp arrest amlodipine [From Norvasc] Allergy (Intermediate, Verified 02/11/23 20:35) Hives amoxicillin [From Augmentin] Adverse Reaction (Intermediate, Verified 02/11/23 20:35) Diarrhea clavulanic acid [From Augmentin] Adverse Reaction (Intermediate, Verified 02/11/23 20:35) Diarrhea sulfamethoxazole [From Bactrim] Adverse Reaction (Intermediate, Verified 02/11/23 20:35) Diarrhea trimethoprim [From Bactrim] Adverse Reaction (Intermediate, Verified 02/11/23 20:35) Diarrhea Home Medications: Fexofenadine HCl [Dominique] 180 mg PO HS 04/22/16 [History] diazePAM [Diazepam] 2 mg PO BID 10/14/17 [History] Propranolol HCl [Inderal Xl] 80 mg PO DAILY 07/19/18 [History] Amitriptyline HCl 25 mg [Amitriptyline 25 mg Tablet] 25 mg PO HS 08/23/20 [History] Losartan Potassium 50 mg [Cozaar 50 MG] 50 mg PO DAILY 08/23/20 [History] Atogepant [Qulipta] 60 mg PO QHS 10/23/21 [History] Doxazosin Mesylate 2 mg PO HS 10/23/21 [History] OXcarbazepine [Trileptal] 1 tab PO BID 12/17/22 [History] PANTOPRAZOLE 40 mg Tablet [Protonix 40MG Tablet] 1 tab PO BID 12/17/22 [History] Hx Tetanus, Diphtheria Vaccination/Date Given: Yes Hx Influenza Vaccination/Date Given: No Hx Pneumococcal Vaccination/Date Given: No Travel Risk - International Travel Have you traveled outside of the country in past 3 weeks: No - Coronavirus Screening Are you exhibiting any of the following symptoms?: Yes Symptoms: Shortness of Breath Close contact with a COVID-19 positive Pt in past 14-21 Days: No - Vaccine Status Have you recieved a Covid-19 vaccination: Yes 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: [employer] - Vaccination Dates Date of 2cond Vaccination (if applicable): not received - Review of Systems Constitutional: No Symptoms, No Fever, No Chills Eyes: No Symptoms Ears, Nose, & Throat: No Symptoms Respiratory: No Symptoms, No Cough, No Dyspnea Cardiac: No Symptoms, No Chest Pain, No Edema, No Syncope Abdominal/Gastrointestinal: No Symptoms, No Abdominal Pain, No Nausea, No Vomiting, No Diarrhea Genitourinary Symptoms: No Symptoms, No Dysuria Musculoskeletal: No Symptoms, No Back Pain, No Neck Pain Skin: No Symptoms, No Rash Neurological: No Symptoms, No Dizziness, No Focal Weakness, No Sensory Changes Psychological: No Symptoms Endocrine: No Symptoms Hematologic/Lymphatic: No Symptoms Immunological/Allergic: No Symptoms All Other Systems: Reviewed and Negative - Past Medical History Pertinent Past Medical History: Yes Neurological History: Migraines, Peripheral Neuropathy, Stroke, TIA ENT History: No Pertinent History Cardiac History: Angina, Hypertension Respiratory History: Bronchitis Endocrine Medical History: No Pertinent History Musculoskeletal History: No Pertinent History GI Medical History: GERD History: No Pertinent History Psycho-Social History: Anxiety Male Reproductive Disorders: No Pertinent History Other Medical History: CVA, SEASONAL ALLERGIES, leaking valve in heart - Past Surgical History Past Surgical History: Yes Neuro Surgical History: No Pertinent History Cardiac: No Pertinent History Respiratory: No Pertinent History Gastrointestinal: No Pertinent History Genitourinary: No Pertinent History Musculoskeletal: No Pertinent History Male Surgical History: No Pertinent History Other Surgical History: Endoscpopy to examine for gastric ulcers as stated per pt; sinus surgery,egd,colonoscopy - Social History Smoking Status: Former smoker How long have you smoked: years Exposure to second hand smoke: Yes Drug Use: none Patient Lives Alone: No Significant Family History: no pertinent family hx - Nursing Vital Signs Nursing Vital Signs: Initial Vital Signs Temperature 97.6 F 02/11/23 20:26 Pulse Rate 63 02/11/23 20:26 Respiratory Rate 24 02/11/23 20:26 Blood Pressure 178/96 02/11/23 20:26 O2 Sat by Pulse Oximetry 100 02/11/23 20:26 Pain Scale Pain Intensity 4 - Physical Exam General Appearance: no apparent distress, alert Eye Exam: PERRL/EOMI, eyes nml inspection Ears, Nose, Throat Exam: normal ENT inspection, moist mucous membranes Neck Exam: normal inspection, non-tender, supple, full range of motion Respiratory Exam: normal breath sounds, lungs clear, airway intact, No respiratory distress Cardiovascular Exam: regular rate/rhythm, normal heart sounds, normal peripheral pulses Gastrointestinal/Abdomen Exam: soft, No tenderness, No mass Back Exam: normal inspection, No CVA tenderness, No vertebral tenderness Extremity Exam: normal inspection, normal range of motion Neurologic Exam: alert, 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, cooperative, normal mood/affect, sensation nml, No motor deficits Skin Exam: normal color, warm, dry Lymphatic Exam: No adenopathy SpO2 Interpretation: normal SpO2: 100 O2 Delivery: Room Air - Course Nursing assessment & vital signs reviewed: Yes EKG Interpreted by Me: RATE (65), Sinus Rhythm, NORMAL AXIS, NORMAL INTERVALS - Radiology Exams Chest X-ray Interpretation: Interpreted by me (Nonacute chest) Ordered Tests: Active Orders 24 hr Category Date Time Status Senior Finance Manager STAT Care 02/11/23 20:49 Active EKG-ER Only STAT Care 02/11/23 20:48 Active IV Insertion STAT Care 02/11/23 20:48 Active Pulse Oximetry (ED) STAT Care 02/11/23 20:48 Active CHEST 1 VIEW (PORTABLE) Stat Exams 02/11/23 22:11 Taken BLOOD CULTURE Stat Lab 02/11/23 21:05 Received CBC W DIFF Stat Lab 02/11/23 21:05 Completed CMP Stat Lab 02/11/23 21:05 Completed D-DIMER QUANTITATIVE Stat Lab 02/11/23 21:05 Completed TROPONIN Q4H Lab 02/11/23 21:05 Completed TROPONIN Q4H Lab 02/12/23 01:00 Ordered TROPONIN Q4H Lab 02/12/23 05:00 Ordered Transfer Order Routine Transfer 02/11/23 Ordered Medication Summary Discontinued Medications Generic Name Dose Route Start Last Admin Trade Name Freq PRN Reason Stop Dose Admin Aspirin 324 mg 02/11/23 21:32 02/11/23 21:38 Aspirin 81 Mg Tab.Chew PO 02/11/23 21:33 324 mg STAT ONE Administration Aspirin Confirm 02/11/23 21:37 Aspirin 81 Mg Tab.Chew Administered 02/11/23 21:38 Dose 324 mg .ROUTE .STK-MED ONE Lab/Rad Data: Laboratory Result Diagrams 02/11/23 21:05 02/11/23 21:05 Laboratory Results 02/11/23 02/11/23 02/11/23 Range/Units 21:05 21:05 21:05 WBC (4.0-10.5) x10^3/uL RBC (4.1-5.6) x10^6/uL Hgb (12.5-18.0) g/dL Hct (42-50) % MCV (78-100) fL MCH (26-32) pg MCHC (32-36) g/dL RDW (11.5-14.0) % Plt Count (150-450) x10^3/uL MPV (7.5-11.0) fL Gran % (36.0-66.0) % Immature Gran % (Auto) (0.00-0.4) % Nucleat RBC Rel Count (0.00-0.1) % Eos # (Auto) (0-0.5) x10^3/uL Immature Gran # (Auto) (0.00-0.03) x10^3u/L Absolute Lymphs (auto) (1.0-4.6) x10^3/uL Absolute Monos (auto) (0.0-1.3) x10^3/uL Absolute Nucleated RBC (0.00-0.01) x10^3u/L Lymphocytes % (24.0-44.0) % Monocytes % (0.0-12.0) % Eosinophils % (0.00-5.0) % Basophils % (0.0-0.4) % Absolute Granulocytes (1.4-6.9) x10^3/uL Basophils # (0-0.4) x10^3/uL D-Dimer 0.22 (0.0-0.50) mg/L Sodium 133 L (137-145) mmol/L Potassium 3.9 (3.5-5.1) mmol/L Chloride 97 L (98-107) mmol/L Carbon Dioxide 26 (22-30) mmol/L Anion Gap 13.7 (5-15) MEQ/L BUN 7 L (9-20) mg/dL Creatinine 1.09 (0.66-1.25) mg/dL Estimated GFR > 60.0 ML/MIN Glucose 96 (74-106) mg/dL Calcium 8.9 (8.4-10.2) mg/dL Total Bilirubin 0.40 (0.2-1.3) mg/dL AST 22 (17-59) U/L ALT 23 (0-50) U/L Alkaline Phosphatase 81 (38-126) U/L Troponin I < 0.012 (0.000-0.034) ng/mL Serum Total Protein 7.0 (6.3-8.2) g/dL Albumin 4.2 (3.5-5.0) g/dL 02/11/23 Range/Units 21:05 WBC 7.2 (4.0-10.5) x10^3/uL RBC 4.23 (4.1-5.6) x10^6/uL Hgb 12.3 L (12.5-18.0) g/dL Hct 36.9 L (42-50) % MCV 87.2 (78-100) fL MCH 29.1 (26-32) pg MCHC 33.3 (32-36) g/dL RDW 12.9 (11.5-14.0) % Plt Count 185 (150-450) x10^3/uL MPV 8.8 (7.5-11.0) fL Gran % 59.0 (36.0-66.0) % Immature Gran % (Auto) 0.3 (0.00-0.4) % Nucleat RBC Rel Count 0.0 (0.00-0.1) % Eos # (Auto) 0.14 (0-0.5) x10^3/uL Immature Gran # (Auto) 0.02 (0.00-0.03) x10^3u/L Absolute Lymphs (auto) 2.13 (1.0-4.6) x10^3/uL Absolute Monos (auto) 0.62 (0.0-1.3) x10^3/uL Absolute Nucleated RBC 0.00 (0.00-0.01) x10^3u/L Lymphocytes % 29.5 (24.0-44.0) % Monocytes % 8.6 (0.0-12.0) % Eosinophils % 1.9 (0.00-5.0) % Basophils % 0.7 (0.0-0.4) % Absolute Granulocytes 4.26 (1.4-6.9) x10^3/uL Basophils # 0.05 (0-0.4) x10^3/uL D-Dimer (0.0-0.50) mg/L Sodium (137-145) mmol/L Potassium (3.5-5.1) mmol/L Chloride (98-107) mmol/L Carbon Dioxide (22-30) mmol/L Anion Gap (5-15) MEQ/L BUN (9-20) mg/dL Creatinine (0.66-1.25) mg/dL Estimated GFR ML/MIN Glucose (74-106) mg/dL Calcium (8.4-10.2) mg/dL Total Bilirubin (0.2-1.3) mg/dL AST (17-59) U/L ALT (0-50) U/L Alkaline Phosphatase (38-126) U/L Troponin I (0.000-0.034) ng/mL Serum Total Protein (6.3-8.2) g/dL Albumin (3.5-5.0) g/dL - Progress Progress: improved Air Movement: good Progress Note: Patient a 52-year-old male presents to our ED for evaluation of shortness of breath dizziness and some chest pain rating to his left shoulder. Patient has a past medical history significant for stroke TIA angina hypertension and a "leaking heart valve". Physical exam essentially nonremarkable. Laboratory testing includes EKG which revealed normal sinus rhythm. Chest x-ray shows no acute pathology. CBC CMP essentially unremarkable. D-dimer negative. Initial troponin negative. Patient received aspirin in our ED. Patient denies any active symptomology at this time. Patient received a 324 mg dose of chewable aspirin in our ED. Heart score is 4 which indicates 12 to 16.6% of major adverse coronary event. Patient will be admitted for further evaluation and treatment. Plan of care discussed with Dr. Ruiz 9:42 PM. excepts admission to observation. Portions of this note were created with voice recognition technology. There may be grammatical, spelling, punctuation or sound alike errors Complexity of problem addressed is moderate acute complicated No critical care time Complex of data reviewed and analyzed is extensive. Test ordered. Test reviewed and analyzed including laboratory and imaging study findings. Clinical correlation made between the findings and history and physical examination. Plan of care established and discussed with Dr. Ruiz who accepts admission to observation. Risk complication and or risk morbidity/mortality of patient management is high. Patient requires hospitalization for further evaluation and treatment. Vital stable. Time spent to admit patient approximately 15 minutes. Plan of care established for shared decision making. Portions of this note were created with voice recognition technology. There may be grammatical, spelling, punctuation or sound alike errors 02/11/23 23:05 02/11/23 23:12 Blood Culture(s) Obtained: No Antibiotics given: No Discussed with : Chandana Will see patient in: hospital (observation) Counseled pt/family regarding: lab results, diagnosis, rad results - Departure Departure Disposition: Observation Clinical Impression: Shortness of breath, Chest pain, Dizziness, ACS (acute coronary syndrome) Condition: Stable Critical Care Time: No Referrals: TUAN NOBLE MD [Primary Care Provider] - Follow up/PCP as directed Additional Instructions: Discharge/Care Plan CANDYJUSTYNA was seen on 02/11/23 in the Emergency Room. The patient was counseled regarding Diagnosis,Lab results, Imaging studies, need for follow up and when to return to the Emergency Room. Prescriptions given: Discharge Note I have spoken with the patient and/or caregivers. I have explained the patient's condition, diagnosis and treatment plan based on the information available to me at this time. I have answered the patient's and/or caregiver's questions and addressed any concerns. The patient and/or caregivers have as good understanding of the patient's diagnosis, condition and treatment plan as can be expected at this point. The vital signs have been stable. The patient's condition is stable and appropriate for discharge from the emergency department. The patient will pursue further outpatient evaluation with the primary care physician or other designated or consulting physician as outlined in the discharge instructions. The patient and/or caregivers are agreeable to this plan of care and follow-up instructions have been explained in detail. The patient and/or caregivers have received these instruction. The patient/and or caregivers are aware that any significant change in condition or worsening of symptoms should prompt an immediate return to this or the closest emergency department or call 911.
[2023-02-11 21:23] LABS: Absolute Neutrophil Ct (ANC) 4.26 x10^3/uL (1.4-6.9); BASOPHIL % 0.7 % (0.0-0.4); Basophil (Absolute #) 0.05 x10^3/uL (0-0.4); Eosinophil % 1.9 % (0.00-5.0); Eosinophil (Absolute #) 0.14 x10^3/uL (0-0.5); Hematocrit 36.9 % (42-50); Hemoglobin 12.3 g/dL (12.5-18.0); IMMATURE GRAN # 0.02 x10^3u/L (0.00-0.03); IMMATURE GRAN % 0.3 % (0.00-0.4); Lymphocyte (Absolute #) 2.13 x10^3/uL (1.0-4.6); Lymphocytes % 29.5 % (24.0-44.0); Mean Cell Volume 87.2 fL (78-100); Mean Corpuscular Hemoglobin 29.1 pg (26-32); Mean Corpuscular Hgb Concent. 33.3 g/dL (32-36); Mean Platelet Volume 8.8 fL (7.5-11.0); Monocyte (Absolute #) 0.62 x10^3/uL (0.0-1.3); Monocytes % 8.6 % (0.0-12.0); Platelet Count 185 x10^3/uL (150-450); Red Blood Count 4.23 x10^6/uL (4.1-5.6); Red Cell Distribution Width 12.9 % (11.5-14.0); White Blood Count 7.2 x10^3/uL (4.0-10.5)
[2023-02-11] MEDS ORDERED: BABY ASPIRIN 81 MG CHEW PO ONE (21:32)
[2023-02-11] MEDS ORDERED: BABY ASPIRIN 81 MG CHEW ONE (21:37)
[2023-02-11 21:39] LABS: ALBUMIN 4.2 g/dL (3.5-5.0); ALKALINE PHOSPHATASE 81 U/L (38-126); ANION GAP 13.7 MEQ/L (5-15); BLOOD UREA NITROGEN 7 mg/dL (9-20); CHLORIDE 97 mmol/L (98-107); Calcium 8.9 mg/dL (8.4-10.2); Carbon Dioxide 26 mmol/L (22-30); Creatinine 1 1.09 mg/dL (0.66-1.25); EST GLOMERULAR FILTRATION RATE > 60.0 ML/MIN; Glucose 96 mg/dL (74-106); Potassium 3.9 mmol/L (3.5-5.1); SGOT/AST 22 U/L (17-59); SGPT/ALT 23 U/L (0-50); SODIUM 133 mmol/L (137-145)
[2023-02-12] MEDS ORDERED: MILK OF MAGNESIA 30 ML PO PRN ×2 (01:25→07:09)
[2023-02-12] MEDS ORDERED: Zofran 4 MG/2 ML VIAL IV PRN (01:25)
[2023-02-12] MEDS ORDERED: TYLENOL 325 MG PO PRN (01:25)
[2023-02-12] MEDS ORDERED: Nitrostat 0.4 MG Tablet SL PRN (01:25)
[2023-02-12] MEDS ORDERED: Senokot-S Tablet PO PRN (01:25)
[2023-02-12] MEDS ORDERED: CARDURA 2 MG ONE (01:59)
[2023-02-12] MEDS ORDERED: NON-FORMULARY ITEM (Fexofenadine Hcl [Allegra] 180 MG) PO SCH (02:00)
[2023-02-12] MEDS ORDERED: Protonix 40MG Tablet PO SCH ×2 (02:00→22:00)
[2023-02-12] MEDS ORDERED: MELOXICAM PO SCH ×2 (02:00→22:00)
[2023-02-12] MEDS ORDERED: ATOGEPANT 60 MG PO SCH (02:00)
[2023-02-12] MEDS ORDERED: DOXAZOSIN MESYLATE 2 MG PO SCH (02:00)
[2023-02-12] MEDS ORDERED: AMITRIPTYLINE 25 MG TABLET PO SCH ×2 (02:00→22:00)
[2023-02-12] MEDS ORDERED: OXCARBAZEPINE 150 MG PO SCH ×2 (02:00→10:00)
[2023-02-12] MEDS ORDERED: DIAZEPAM 2 MG PO SCH ×2 (02:00→10:00)
[2023-02-12 02:01] LABS: INFLUENZA A NEGATIVE (NEGATIVE); INFLUENZA B NEGATIVE (NEGATIVE); RESPIRATORY SYNCTIAL VIRUS NEGATIVE (NEGATIVE); SARS-CoV-2 Xpert Express NEGATIVE (NEGATIVE)
--- NOTE | 2023-02-12 03:35 | PCM.HP ---
History of Present Illness - Chief Complaint Chief Complaint: Shortness of breath, dizziness, chest pain Date: 02/11/23 History of Present Illness: is a 52 year old male who presents to the hospital with chest pain, left shoulder pain, and shortness of breath. The patient has a known history of HTN and has seen Dr. Richards with a negative cardiac stress test reported in the past year. The patient was recently seen by Dr. Marks on the day of presentation, and was diagnosed with sinusitis and was prescribed azithromycin, with one dose taken. The patient's dyspnea and chest discomfort began at 18:30 on the day of presentation. The chest pain is located on the left pectoral area without radiation, and with an "aching" quality. He has recently experienced congestion and dizziness. - Review of Systems Constitutional: No Symptoms Eyes: No Symptoms Ears, Nose, & Throat: Nose Congestion Respiratory: Short Of Breath Cardiac: Chest Pain Abdominal/Gastrointestinal: No Symptoms Genitourinary Symptoms: No Symptoms Musculoskeletal: No Symptoms Skin: No Symptoms Neurological: Dizziness Psychological: No Symptoms Endocrine: No Symptoms Hematologic/Lymphatic: No Symptoms Immunological/Allergic: No Symptoms All Other Systems: Reviewed and Negative Medications & Allergies Home Medications: Home Medication List Fexofenadine HCl [Dominique] 180 mg PO HS 04/22/16 [History Confirmed 02/11/23] diazePAM [Diazepam] 2 mg PO BID 10/14/17 [History Confirmed 02/11/23] Propranolol HCl [Inderal Xl] 80 mg PO DAILY 07/19/18 [History Confirmed 02/11/23] Amitriptyline HCl 25 mg [Amitriptyline 25 mg Tablet] 25 mg PO HS 08/23/20 [History Confirmed 02/11/23] Losartan Potassium 50 mg [Cozaar 50 MG] 50 mg PO DAILY 08/23/20 [History Confirmed 02/11/23] Atogepant [Qulipta] 60 mg PO QHS 10/23/21 [History Confirmed 02/11/23] Doxazosin Mesylate 2 mg PO HS 10/23/21 [History Confirmed 02/11/23] Meloxicam 7.5 mg PO HS #0 05/08/22 [Rx Confirmed 02/11/23] OXcarbazepine [Trileptal] 150 mg PO BID 12/17/22 [History Confirmed 02/11/23] PANTOPRAZOLE 40 mg Tablet [Protonix 40MG Tablet] 40 mg PO QHS 12/17/22 [History Confirmed 02/11/23] Allergies/Adverse Reactions: Allergies Allergy/AdvReac Type Severity Reaction Status Date / Time albuterol Allergy Severe Anaphylactic Verified 02/11/23 23:32 Reaction amlodipine [From Norvasc] Allergy Intermediate Hives Verified 02/11/23 23:32 amoxicillin [From Augmentin] AdvReac Intermediate Diarrhea Verified 02/11/23 23:32 clavulanic acid AdvReac Intermediate Diarrhea Verified 02/11/23 23:32 [From Augmentin] sulfamethoxazole AdvReac Intermediate Diarrhea Verified 02/11/23 23:32 [From Bactrim] trimethoprim [From Bactrim] AdvReac Intermediate Diarrhea Verified 02/11/23 23:32 - Past Medical History Past Medical History: Yes Neurological History: Migraines, Peripheral Neuropathy, Stroke, TIA ENT History: No Pertinent History Cardiac History: Angina, Hypertension Respiratory History: Bronchitis Endocrine Medical History: No Pertinent History Musculoskelatal History: No Pertinent History GI Medical History: GERD History: No Pertinent History Pyscho-Social History: Anxiety Male Reproductive Disorders: No Pertinent History Comment: CVA, SEASONAL ALLERGIES, 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 PT STATES HE IS HAVIN G SOME GI PROBLEMS, PT IS SEEING GI DR. - Past Surgical History Past Surgical History: Yes Neuro Surgical History: No Pertinent History Cardiac History: No Pertinent History Respiratory Surgery: No Pertinent History GI Surgical History: No Pertinent History Genitourinary Surgical Hx: No Pertinent History Musculskeletal Surgical Hx: No Pertinent History Male Surgical History: No Pertinent History Other Surgical History: Endoscpopy to examine for gastric ulcers as stated per pt; sinus surgery,egd,colonoscopy - Social History Smoking Status: Never smoker How long have you smoked: years Exposure to second hand smoke: Yes Alcohol: None Drug Use: none Significant Family History: no pertinent family hx - Physical Exam Vital Signs: Vital Signs - 24 hr Temp Pulse Resp BP BP Pulse Ox 02/12/23 01:25 98 02/11/23 23:59 63 02/11/23 23:42 98 02/11/23 23:25 97.0 F 68 18 165/78 100 02/11/23 23:16 100 02/11/23 22:00 59 L 18 157/95 02/11/23 21:30 62 24 157/95 02/11/23 21:25 60 23 157/95 02/11/23 20:48 02/11/23 20:30 58 L 17 178/96 02/11/23 20:26 97.6 F 63 19 178/96 100 General Appearance: no apparent distress, alert Neurologic Exam: alert, 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, 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, 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, normal mood/affect, nml cerebellar function Eye Exam: PERRL/EOMI, eyes nml inspection Ears, Nose, Throat Exam: normal ENT inspection Neck Exam: normal inspection, non-tender, supple, full range of motion Respiratory Exam: normal breath sounds, lungs clear Cardiovascular Exam: regular rate/rhythm, normal heart sounds Gastrointestinal/Abdomen Exam: soft, normal bowel sounds Back Exam: normal range of motion Extremity Exam: normal inspection, normal range of motion Skin Exam: normal color Results - Labs Lab/Micro Results: Lab Results-Last 24 Hours 02/11/23 02/11/23 02/11/23 Range/Units 21:05 21:05 21:05 WBC 7.2 (4.0-10.5) x10^3/uL RBC 4.23 (4.1-5.6) x10^6/uL Hgb 12.3 L (12.5-18.0) g/dL Hct 36.9 L (42-50) % MCV 87.2 (78-100) fL MCH 29.1 (26-32) pg MCHC 33.3 (32-36) g/dL RDW 12.9 (11.5-14.0) % Plt Count 185 (150-450) x10^3/uL MPV 8.8 (7.5-11.0) fL Gran % 59.0 (36.0-66.0) % Immature Gran % (Auto) 0.3 (0.00-0.4) % Nucleat RBC Rel Count 0.0 (0.00-0.1) % Eos # (Auto) 0.14 (0-0.5) x10^3/uL Immature Gran # (Auto) 0.02 (0.00-0.03) x10^3u/L Absolute Lymphs (auto) 2.13 (1.0-4.6) x10^3/uL Absolute Monos (auto) 0.62 (0.0-1.3) x10^3/uL Absolute Nucleated RBC 0.00 (0.00-0.01) x10^3u/L Lymphocytes % 29.5 (24.0-44.0) % Monocytes % 8.6 (0.0-12.0) % Eosinophils % 1.9 (0.00-5.0) % Basophils % 0.7 (0.0-0.4) % Absolute Granulocytes 4.26 (1.4-6.9) x10^3/uL Basophils # 0.05 (0-0.4) x10^3/uL D-Dimer (0.0-0.50) mg/L Sodium 133 L (137-145) mmol/L Potassium 3.9 (3.5-5.1) mmol/L Chloride 97 L (98-107) mmol/L Carbon Dioxide 26 (22-30) mmol/L Anion Gap 13.7 (5-15) MEQ/L BUN 7 L (9-20) mg/dL Creatinine 1.09 (0.66-1.25) mg/dL Estimated GFR > 60.0 ML/MIN Glucose 96 (74-106) mg/dL Calcium 8.9 (8.4-10.2) mg/dL Total Bilirubin 0.40 (0.2-1.3) mg/dL AST 22 (17-59) U/L ALT 23 (0-50) U/L Alkaline Phosphatase 81 (38-126) U/L Troponin I < 0.012 (0.000-0.034) ng/mL Serum Total Protein 7.0 (6.3-8.2) g/dL Albumin 4.2 (3.5-5.0) g/dL Influenza Type A Ag (NEGATIVE) Influenza Type B Ag (NEGATIVE) RSV (PCR) (NEGATIVE) SARS-CoV-2 (PCR) (NEGATIVE) 02/11/23 02/11/23 02/12/23 Range/Units 21:05 23:30 00:10 WBC (4.0-10.5) x10^3/uL RBC (4.1-5.6) x10^6/uL Hgb (12.5-18.0) g/dL Hct (42-50) % MCV (78-100) fL MCH (26-32) pg MCHC (32-36) g/dL RDW (11.5-14.0) % Plt Count (150-450) x10^3/uL MPV (7.5-11.0) fL Gran % (36.0-66.0) % Immature Gran % (Auto) (0.00-0.4) % Nucleat RBC Rel Count (0.00-0.1) % Eos # (Auto) (0-0.5) x10^3/uL Immature Gran # (Auto) (0.00-0.03) x10^3u/L Absolute Lymphs (auto) (1.0-4.6) x10^3/uL Absolute Monos (auto) (0.0-1.3) x10^3/uL Absolute Nucleated RBC (0.00-0.01) x10^3u/L Lymphocytes % (24.0-44.0) % Monocytes % (0.0-12.0) % Eosinophils % (0.00-5.0) % Basophils % (0.0-0.4) % Absolute Granulocytes (1.4-6.9) x10^3/uL Basophils # (0-0.4) x10^3/uL D-Dimer 0.22 (0.0-0.50) mg/L Sodium (137-145) mmol/L Potassium (3.5-5.1) mmol/L Chloride (98-107) mmol/L Carbon Dioxide (22-30) mmol/L Anion Gap (5-15) MEQ/L BUN (9-20) mg/dL Creatinine (0.66-1.25) mg/dL Estimated GFR ML/MIN Glucose (74-106) mg/dL Calcium (8.4-10.2) mg/dL Total Bilirubin (0.2-1.3) mg/dL AST (17-59) U/L ALT (0-50) U/L Alkaline Phosphatase (38-126) U/L Troponin I < 0.012 (0.000-0.034) ng/mL Serum Total Protein (6.3-8.2) g/dL Albumin (3.5-5.0) g/dL Influenza Type A Ag NEGATIVE (NEGATIVE) Influenza Type B Ag NEGATIVE (NEGATIVE) RSV (PCR) NEGATIVE (NEGATIVE) SARS-CoV-2 (PCR) NEGATIVE (NEGATIVE) - Radiology Impressions Radiology Exams & Impressions: Radiology Procedures Category Date Time Status CHEST 1 VIEW (PORTABLE) Stat Exams 02/11/23 22:11 Taken - Other Procedures and Tests Respiratory Therapy 02/12/23 01:25 EKG Q8HX2,QAMX3,PRN 02/12/23 05:00 EKG ROUTINE 02/13/23 05:00 EKG ROUTINE 02/14/23 05:00 EKG ROUTINE 02/15/23 05:00 EKG ROUTINE Assessment/Plan (1) Chest pain Current Visit: No Status: Resolved Assessment & Plan: Serial troponins and EKGs, on telemetry monitoring. Placed on ASA. Reassuring that the patient had a negative cardiac stress test within the past year. Can refer to Dr. Richards for follow up as an outpatient. Code(s): R07.9 - CHEST PAIN, UNSPECIFIED (2) Sinusitis Current Visit: No Status: Acute Assessment & Plan: Diagnosed at PCP office. Received azithromycin (first dose in evening). Can continue tomorrow at home after anticipated discharge. Will need to follow up with PCP. Code(s): J32.9 - CHRONIC SINUSITIS, UNSPECIFIED (3) Hypertension Current Visit: No Status: Acute Assessment & Plan: Continue current regimen and monitor BP. Code(s): I10 - ESSENTIAL (PRIMARY) HYPERTENSION Telemedicine Encounter - Telemedicine Encounter Telemedicine Encounter: The entirety of this encounter was performed via Telemedicine"
[2023-02-12 05:45] LABS: Risk Ratio 4.3
--- NOTE | 2023-02-12 05:45 | PCM.NOTE ---
Date and Time: 02/12/23 0543 Subjective Assessment: is a 52 year old male who presents to the hospital with chest pain, left shoulder pain, and shortness of breath. The patient has a known history of HTN and has seen Dr. Richards with a negative cardiac stress test reported in the past year. The patient was recently seen by Dr. Marks on the day of presentation, and was diagnosed with sinusitis and was prescribed azithromycin, with one dose taken. The patient's dyspnea and chest discomfort began at 18:30 on the day of presentation. The chest pain is located on the left pectoral area without radiation, and with an "aching" quality. He has recently experienced congestion and dizziness. OBJECTIVE DATA Vital Signs: Vital Signs - 24 hr Temp Pulse Resp BP BP Pulse Ox 02/12/23 04:00 97.8 F 71 18 94/59 99 02/12/23 01:25 98 02/11/23 23:59 63 02/11/23 23:42 98 02/11/23 23:25 97.0 F 68 18 165/78 100 02/11/23 23:16 100 02/11/23 22:00 59 L 18 157/95 100 02/11/23 21:30 62 24 157/95 100 02/11/23 21:25 60 23 157/95 100 02/11/23 20:48 100 02/11/23 20:30 58 L 17 178/96 100 02/11/23 20:26 97.6 F 63 19 178/96 100 Pain Assessment - Last Documented Pain Intensity 0 Intake and Output: Intake & Output 02/09/23 02/10/23 02/11/23 02/12/23 11:59 11:59 11:59 11:59 Intake Total 200 Balance 200 Weight 109.3 kg Lab Results: Lab Results-Last 24 Hours 02/11/23 02/11/23 02/11/23 Range/Units 21:05 21:05 21:05 WBC 7.2 (4.0-10.5) x10^3/uL RBC 4.23 (4.1-5.6) x10^6/uL Hgb 12.3 L (12.5-18.0) g/dL Hct 36.9 L (42-50) % MCV 87.2 (78-100) fL MCH 29.1 (26-32) pg MCHC 33.3 (32-36) g/dL RDW 12.9 (11.5-14.0) % Plt Count 185 (150-450) x10^3/uL MPV 8.8 (7.5-11.0) fL Gran % 59.0 (36.0-66.0) % Immature Gran % (Auto) 0.3 (0.00-0.4) % Nucleat RBC Rel Count 0.0 (0.00-0.1) % Eos # (Auto) 0.14 (0-0.5) x10^3/uL Immature Gran # (Auto) 0.02 (0.00-0.03) x10^3u/L Absolute Lymphs (auto) 2.13 (1.0-4.6) x10^3/uL Absolute Monos (auto) 0.62 (0.0-1.3) x10^3/uL Absolute Nucleated RBC 0.00 (0.00-0.01) x10^3u/L Lymphocytes % 29.5 (24.0-44.0) % Monocytes % 8.6 (0.0-12.0) % Eosinophils % 1.9 (0.00-5.0) % Basophils % 0.7 (0.0-0.4) % Absolute Granulocytes 4.26 (1.4-6.9) x10^3/uL Basophils # 0.05 (0-0.4) x10^3/uL D-Dimer (0.0-0.50) mg/L Sodium 133 L (137-145) mmol/L Potassium 3.9 (3.5-5.1) mmol/L Chloride 97 L (98-107) mmol/L Carbon Dioxide 26 (22-30) mmol/L Anion Gap 13.7 (5-15) MEQ/L BUN 7 L (9-20) mg/dL Creatinine 1.09 (0.66-1.25) mg/dL Estimated GFR > 60.0 ML/MIN Glucose 96 (74-106) mg/dL Calcium 8.9 (8.4-10.2) mg/dL Total Bilirubin 0.40 (0.2-1.3) mg/dL AST 22 (17-59) U/L ALT 23 (0-50) U/L Alkaline Phosphatase 81 (38-126) U/L Troponin I < 0.012 (0.000-0.034) ng/mL Serum Total Protein 7.0 (6.3-8.2) g/dL Albumin 4.2 (3.5-5.0) g/dL Influenza Type A Ag (NEGATIVE) Influenza Type B Ag (NEGATIVE) RSV (PCR) (NEGATIVE) SARS-CoV-2 (PCR) (NEGATIVE) 02/11/23 02/11/23 02/12/23 Range/Units 21:05 23:30 00:10 WBC (4.0-10.5) x10^3/uL RBC (4.1-5.6) x10^6/uL Hgb (12.5-18.0) g/dL Hct (42-50) % MCV (78-100) fL MCH (26-32) pg MCHC (32-36) g/dL RDW (11.5-14.0) % Plt Count (150-450) x10^3/uL MPV (7.5-11.0) fL Gran % (36.0-66.0) % Immature Gran % (Auto) (0.00-0.4) % Nucleat RBC Rel Count (0.00-0.1) % Eos # (Auto) (0-0.5) x10^3/uL Immature Gran # (Auto) (0.00-0.03) x10^3u/L Absolute Lymphs (auto) (1.0-4.6) x10^3/uL Absolute Monos (auto) (0.0-1.3) x10^3/uL Absolute Nucleated RBC (0.00-0.01) x10^3u/L Lymphocytes % (24.0-44.0) % Monocytes % (0.0-12.0) % Eosinophils % (0.00-5.0) % Basophils % (0.0-0.4) % Absolute Granulocytes (1.4-6.9) x10^3/uL Basophils # (0-0.4) x10^3/uL D-Dimer 0.22 (0.0-0.50) mg/L Sodium (137-145) mmol/L Potassium (3.5-5.1) mmol/L Chloride (98-107) mmol/L Carbon Dioxide (22-30) mmol/L Anion Gap (5-15) MEQ/L BUN (9-20) mg/dL Creatinine (0.66-1.25) mg/dL Estimated GFR ML/MIN Glucose (74-106) mg/dL Calcium (8.4-10.2) mg/dL Total Bilirubin (0.2-1.3) mg/dL AST (17-59) U/L ALT (0-50) U/L Alkaline Phosphatase (38-126) U/L Troponin I < 0.012 (0.000-0.034) ng/mL Serum Total Protein (6.3-8.2) g/dL Albumin (3.5-5.0) g/dL Influenza Type A Ag NEGATIVE (NEGATIVE) Influenza Type B Ag NEGATIVE (NEGATIVE) RSV (PCR) NEGATIVE (NEGATIVE) SARS-CoV-2 (PCR) NEGATIVE (NEGATIVE) Radiology Exams: Radiology Procedures Category Date Time Status CHEST 1 VIEW (PORTABLE) Stat Exams 02/11/23 22:11 Taken Assessment/Plan (1) Chest pain Current Visit: Yes Status: Acute Assessment & Plan: Serial troponins and EKGs, on telemetry monitoring. Placed on ASA. Reassuring that the patient had a negative cardiac stress test within the past year. Can refer to Dr. Richards for follow up as an outpatient. Code(s): R07.9 - CHEST PAIN, UNSPECIFIED (2) Hypertension Current Visit: No Status: Acute Assessment & Plan: Continue current regimen and monitor BP. Code(s): I10 - ESSENTIAL (PRIMARY) HYPERTENSION (3) Sinusitis Current Visit: No Status: Acute Assessment & Plan: Diagnosed at PCP office. Received azithromycin (first dose in evening). Can continue tomorrow at home after anticipated discharge. Will need to follow up with PCP. Code(s): J32.9 - CHRONIC SINUSITIS, UNSPECIFIED
[2023-02-12] MEDS ORDERED: MEDICATION INTERVENTION MC SCH (07:30)
[2023-02-12 07:41] VITALS: O2SAT 96
[2023-02-12 08:00] LABS: Absolute Neutrophil Ct (ANC) 3.74 x10^3/uL (1.4-6.9); BASOPHIL % 0.5 % (0.0-0.4); Basophil (Absolute #) 0.03 x10^3/uL (0-0.4); Eosinophil % 1.9 % (0.00-5.0); Eosinophil (Absolute #) 0.12 x10^3/uL (0-0.5); Hematocrit 35.1 % (42-50); Hemoglobin 11.6 g/dL (12.5-18.0); IMMATURE GRAN # 0.01 x10^3u/L (0.00-0.03); IMMATURE GRAN % 0.2 % (0.00-0.4); Lymphocyte (Absolute #) 1.97 x10^3/uL (1.0-4.6); Lymphocytes % 30.4 % (24.0-44.0); Mean Corpuscular Hemoglobin 28.4 pg (26-32); Mean Platelet Volume 8.9 fL (7.5-11.0); Monocyte (Absolute #) 0.61 x10^3/uL (0.0-1.3); Monocytes % 9.4 % (0.0-12.0); Neutrophil % 57.6 % (36.0-66.0); Platelet Count 176 x10^3/uL (150-450); Red Blood Count 4.08 x10^6/uL (4.1-5.6); White Blood Count 6.5 x10^3/uL (4.0-10.5)
--- NOTE | 2023-02-12 08:50 | XRAY ---
Indication: Short of breath. Comparison: December 17, 2022 Portable chest remains slightly underinflated and clear. Heart not enlarged. Bony thorax intact again with mild degenerative changes. No new/acute findings.
[2023-02-12 09:44] LABS: ALBUMIN 3.7 g/dL (3.5-5.0); ALKALINE PHOSPHATASE 79 U/L (38-126); ANION GAP 13.5 MEQ/L (5-15); BLOOD UREA NITROGEN 10 mg/dL (9-20); CHLORIDE 102 mmol/L (98-107); Calcium 8.7 mg/dL (8.4-10.2); Carbon Dioxide 25 mmol/L (22-30); Creatinine 1 1.09 mg/dL (0.66-1.25); EST GLOMERULAR FILTRATION RATE > 60.0 ML/MIN; Glucose 109 mg/dL (74-106); Potassium 3.7 mmol/L (3.5-5.1); SGOT/AST 21 U/L (17-59); SGPT/ALT 21 U/L (0-50); SODIUM 137 mmol/L (137-145); Total Protein 6.3 g/dL (6.3-8.2)
[2023-02-12] MEDS ORDERED: Trileptal 300 MG Tablet PO SCH (10:00)
[2023-02-12] MEDS ORDERED: NON-FORMULARY ITEM PO SCH (10:00)
[2023-02-12] MEDS ORDERED: ENOXAPARIN SODIUM SQ SCH (10:00)
[2023-02-12] MEDS ORDERED: Valium 5 MG PO SCH (10:00)
[2023-02-12] MEDS ORDERED: Ecotrin 325 MG PO SCH (10:00)
[2023-02-12] MEDS ORDERED: PROPRANOLOL HCL 80 MG PO SCH (10:00)
[2023-02-12] MEDS ORDERED: Cozaar 50 MG PO SCH (10:00)
[2023-02-12 11:11] VITALS: BP 97/59; PULSE 65; RESP 17; TEMP 97.3
--- NOTE | 2023-02-12 12:43 | PCM.DS ---
Discharge Summary Date of Admission: 02/11/23 23:19 Date of Discharge: 02/12/23 Admitting Physician: KUNAL MCGINNIS MD Primary Care Provider: TUAN NOBLE Allergies Allergies albuterol Allergy (Severe, Verified 02/11/23 23:32) Anaphylactic Reaction resp arrest amlodipine [From Norvasc] Allergy (Intermediate, Verified 02/11/23 23:32) Hives amoxicillin [From Augmentin] Adverse Reaction (Intermediate, Verified 02/11/23 23:32) Diarrhea clavulanic acid [From Augmentin] Adverse Reaction (Intermediate, Verified 23:32) Diarrhea sulfamethoxazole [From Bactrim] Adverse Reaction (Intermediate, Verified 3 23:32) Diarrhea trimethoprim [From Bactrim] Adverse Reaction (Intermediate, Verified 02/11/23 23:32) Diarrhea Hospital Summary - Hospital Course Hospital Course: is a 52 year old male who presented to the hospital 02/12/23 with chest pain, left shoulder pain, and shortness of breath. The patient has a known history of HTN and has seen Dr. Richards with a negative cardiac stress test reported in the past year. The patient was recently seen by Dr. Noble on the day of presentation, and was diagnosed with sinusitis and was prescribed azithromycin, with one dose taken. The patient's dyspnea and chest discomfort began at 18:30 on the day of presentation. The chest pain was located on the left pectoral area without radiation, and with an "aching" quality. He has recently experienced congestion and dizziness. No overnight events noted. Patient no longer with CP. He does endorse abdominal pain for which he states he has had prior and is seeing GI for. Repeat EKG unremarkable, trop series negative. Patient follows with Dr. Richards and is advised close follow up for further evaluation on discharge. New Diagnosis: Chest pain New Medications: none Follow Up: PCP/ cardiology Latest Assessment & Plan (1) Chest pain Current Visit: No Status: Resolved Assessment & Plan: Serial troponins and EKGs, on telemetry monitoring. Placed on ASA. Reassuring that the patient had a negative cardiac stress test within the past year. Can refer to Dr. Richards for follow up as an outpatient. Code(s): R07.9 - CHEST PAIN, UNSPECIFIED (2) Sinusitis Current Visit: No Status: Acute Assessment & Plan: Diagnosed at PCP office. Received azithromycin (first dose in evening). Can continue tomorrow at home after anticipated discharge. Will need to follow up with PCP. Code(s): J32.9 - CHRONIC SINUSITIS, UNSPECIFIED (3) Hypertension Current Visit: No Status: Acute Assessment & Plan: Continue current regimen and monitor BP. Code(s): I10 - ESSENTIAL (PRIMARY) HYPERTENSION I spent greater than 45 minutes [id number] with the patient on the day of discharge performing discharge exam, discussing hospital stay and discharge instructions with patient and caregivers, preparation of discharge records, prescriptions & referral forms and addressing any questions/concerns the patient had as documented above. - Vitals & Intake/Output Vital Signs: Vital Signs Temperature 97.3 F 02/12/23 11:10 Pulse Rate 65 02/12/23 11:10 Respiratory Rate 17 02/12/23 11:10 Blood Pressure 97/59 02/12/23 11:10 O2 Sat by Pulse Oximetry 96 02/12/23 11:10 Intake & Output: Intake & Output 02/10/23 02/11/23 02/12/23 02/13/23 11:59 11:59 11:59 11:59 Intake Total 440 Balance 440 Weight 109.3 kg - Lab Result Diagrams: 02/12/23 05:14 02/12/23 05:14 Lab Results-Last 24 Hrs: Lab Results-Last 24 Hours 02/11/23 02/11/23 02/11/23 Range/Units 21:05 21:05 21:05 WBC 7.2 (4.0-10.5) x10^3/uL RBC 4.23 (4.1-5.6) x10^6/uL Hgb 12.3 L (12.5-18.0) g/dL Hct 36.9 L (42-50) % MCV 87.2 (78-100) fL MCH 29.1 (26-32) pg MCHC 33.3 (32-36) g/dL RDW 12.9 (11.5-14.0) % Plt Count 185 (150-450) x10^3/uL MPV 8.8 (7.5-11.0) fL Gran % 59.0 (36.0-66.0) % Immature Gran % (Auto) 0.3 (0.00-0.4) % Nucleat RBC Rel Count 0.0 (0.00-0.1) % Eos # (Auto) 0.14 (0-0.5) x10^3/uL Immature Gran # (Auto) 0.02 (0.00-0.03) x10^3u/L Absolute Lymphs (auto) 2.13 (1.0-4.6) x10^3/uL Absolute Monos (auto) 0.62 (0.0-1.3) x10^3/uL Absolute Nucleated RBC 0.00 (0.00-0.01) x10^3u/L Lymphocytes % 29.5 (24.0-44.0) % Monocytes % 8.6 (0.0-12.0) % Eosinophils % 1.9 (0.00-5.0) % Basophils % 0.7 (0.0-0.4) % Absolute Granulocytes 4.26 (1.4-6.9) x10^3/uL Basophils # 0.05 (0-0.4) x10^3/uL D-Dimer (0.0-0.50) mg/L Sodium 133 L (137-145) mmol/L Potassium 3.9 (3.5-5.1) mmol/L Chloride 97 L (98-107) mmol/L Carbon Dioxide 26 (22-30) mmol/L Anion Gap 13.7 (5-15) MEQ/L BUN 7 L (9-20) mg/dL Creatinine 1.09 (0.66-1.25) mg/dL Estimated GFR > 60.0 ML/MIN Glucose 96 (74-106) mg/dL Calcium 8.9 (8.4-10.2) mg/dL Magnesium (1.6-2.3) mg/dL Total Bilirubin 0.40 (0.2-1.3) mg/dL AST 22 (17-59) U/L ALT 23 (0-50) U/L Alkaline Phosphatase 81 (38-126) U/L Troponin I < 0.012 (0.000-0.034) ng/mL Serum Total Protein 7.0 (6.3-8.2) g/dL Albumin 4.2 (3.5-5.0) g/dL Triglycerides (30-150) mg/dL Cholesterol (50-200) mg/dL LDL Cholesterol (30-100) mg/dL HDL Cholesterol (40-60) mg/dL Heart Disease Risk Ratio Influenza Type A Ag (NEGATIVE) Influenza Type B Ag (NEGATIVE) RSV (PCR) (NEGATIVE) SARS-CoV-2 (PCR) (NEGATIVE) 02/11/23 02/11/23 02/12/23 Range/Units 21:05 23:30 00:10 WBC (4.0-10.5) x10^3/uL RBC (4.1-5.6) x10^6/uL Hgb (12.5-18.0) g/dL Hct (42-50) % MCV (78-100) fL MCH (26-32) pg MCHC (32-36) g/dL RDW (11.5-14.0) % Plt Count (150-450) x10^3/uL MPV (7.5-11.0) fL Gran % (36.0-66.0) % Immature Gran % (Auto) (0.00-0.4) % Nucleat RBC Rel Count (0.00-0.1) % Eos # (Auto) (0-0.5) x10^3/uL Immature Gran # (Auto) (0.00-0.03) x10^3u/L Absolute Lymphs (auto) (1.0-4.6) x10^3/uL Absolute Monos (auto) (0.0-1.3) x10^3/uL Absolute Nucleated RBC (0.00-0.01) x10^3u/L Lymphocytes % (24.0-44.0) % Monocytes % (0.0-12.0) % Eosinophils % (0.00-5.0) % Basophils % (0.0-0.4) % Absolute Granulocytes (1.4-6.9) x10^3/uL Basophils # (0-0.4) x10^3/uL D-Dimer 0.22 (0.0-0.50) mg/L Sodium (137-145) mmol/L Potassium (3.5-5.1) mmol/L Chloride (98-107) mmol/L Carbon Dioxide (22-30) mmol/L Anion Gap (5-15) MEQ/L BUN (9-20) mg/dL Creatinine (0.66-1.25) mg/dL Estimated GFR ML/MIN Glucose (74-106) mg/dL Calcium (8.4-10.2) mg/dL Magnesium (1.6-2.3) mg/dL Total Bilirubin (0.2-1.3) mg/dL AST (17-59) U/L ALT (0-50) U/L Alkaline Phosphatase (38-126) U/L Troponin I < 0.012 (0.000-0.034) ng/mL Serum Total Protein (6.3-8.2) g/dL Albumin (3.5-5.0) g/dL Triglycerides (30-150) mg/dL Cholesterol (50-200) mg/dL LDL Cholesterol (30-100) mg/dL HDL Cholesterol (40-60) mg/dL Heart Disease Risk Ratio Influenza Type A Ag NEGATIVE (NEGATIVE) Influenza Type B Ag NEGATIVE (NEGATIVE) RSV (PCR) NEGATIVE (NEGATIVE) SARS-CoV-2 (PCR) NEGATIVE (NEGATIVE) 02/12/23 02/12/23 02/12/23 Range/Units 05:05 05:05 05:14 WBC 6.5 (4.0-10.5) x10^3/uL RBC 4.08 L (4.1-5.6) x10^6/uL Hgb 11.6 L (12.5-18.0) g/dL Hct 35.1 L (42-50) % MCV 86.0 (78-100) fL MCH 28.4 (26-32) pg MCHC 33.0 (32-36) g/dL RDW 13.0 (11.5-14.0) % Plt Count 176 (150-450) x10^3/uL MPV 8.9 (7.5-11.0) fL Gran % 57.6 (36.0-66.0) % Immature Gran % (Auto) 0.2 (0.00-0.4) % Nucleat RBC Rel Count 0.0 (0.00-0.1) % Eos # (Auto) 0.12 (0-0.5) x10^3/uL Immature Gran # (Auto) 0.01 (0.00-0.03) x10^3u/L Absolute Lymphs (auto) 1.97 (1.0-4.6) x10^3/uL Absolute Monos (auto) 0.61 (0.0-1.3) x10^3/uL Absolute Nucleated RBC 0.00 (0.00-0.01) x10^3u/L Lymphocytes % 30.4 (24.0-44.0) % Monocytes % 9.4 (0.0-12.0) % Eosinophils % 1.9 (0.00-5.0) % Basophils % 0.5 (0.0-0.4) % Absolute Granulocytes 3.74 (1.4-6.9) x10^3/uL Basophils # 0.03 (0-0.4) x10^3/uL D-Dimer (0.0-0.50) mg/L Sodium (137-145) mmol/L Potassium (3.5-5.1) mmol/L Chloride (98-107) mmol/L Carbon Dioxide (22-30) mmol/L Anion Gap (5-15) MEQ/L BUN (9-20) mg/dL Creatinine (0.66-1.25) mg/dL Estimated GFR ML/MIN Glucose (74-106) mg/dL Calcium (8.4-10.2) mg/dL Magnesium (1.6-2.3) mg/dL Total Bilirubin (0.2-1.3) mg/dL AST (17-59) U/L ALT (0-50) U/L Alkaline Phosphatase (38-126) U/L Troponin I < 0.012 (0.000-0.034) ng/mL Serum Total Protein (6.3-8.2) g/dL Albumin (3.5-5.0) g/dL Triglycerides 339 H (30-150) mg/dL Cholesterol 161 (50-200) mg/dL LDL Cholesterol 73 (30-100) mg/dL HDL Cholesterol 38 L (40-60) mg/dL Heart Disease Risk Ratio 4.3 Influenza Type A Ag (NEGATIVE) Influenza Type B Ag (NEGATIVE) RSV (PCR) (NEGATIVE) SARS-CoV-2 (PCR) (NEGATIVE) 02/12/23 Range/Units 05:14 WBC (4.0-10.5) x10^3/uL RBC (4.1-5.6) x10^6/uL Hgb (12.5-18.0) g/dL Hct (42-50) % MCV (78-100) fL MCH (26-32) pg MCHC (32-36) g/dL RDW (11.5-14.0) % Plt Count (150-450) x10^3/uL MPV (7.5-11.0) fL Gran % (36.0-66.0) % Immature Gran % (Auto) (0.00-0.4) % Nucleat RBC Rel Count (0.00-0.1) % Eos # (Auto) (0-0.5) x10^3/uL Immature Gran # (Auto) (0.00-0.03) x10^3u/L Absolute Lymphs (auto) (1.0-4.6) x10^3/uL Absolute Monos (auto) (0.0-1.3) x10^3/uL Absolute Nucleated RBC (0.00-0.01) x10^3u/L Lymphocytes % (24.0-44.0) % Monocytes % (0.0-12.0) % Eosinophils % (0.00-5.0) % Basophils % (0.0-0.4) % Absolute Granulocytes (1.4-6.9) x10^3/uL Basophils # (0-0.4) x10^3/uL D-Dimer (0.0-0.50) mg/L Sodium 137 (137-145) mmol/L Potassium 3.7 (3.5-5.1) mmol/L Chloride 102 (98-107) mmol/L Carbon Dioxide 25 (22-30) mmol/L Anion Gap 13.5 (5-15) MEQ/L BUN 10 (9-20) mg/dL Creatinine 1.09 (0.66-1.25) mg/dL Estimated GFR > 60.0 ML/MIN Glucose 109 H (74-106) mg/dL Calcium 8.7 (8.4-10.2) mg/dL Magnesium 2.0 (1.6-2.3) mg/dL Total Bilirubin 0.30 (0.2-1.3) mg/dL AST 21 (17-59) U/L ALT 21 (0-50) U/L Alkaline Phosphatase 79 (38-126) U/L Troponin I (0.000-0.034) ng/mL Serum Total Protein 6.3 (6.3-8.2) g/dL Albumin 3.7 (3.5-5.0) g/dL Triglycerides (30-150) mg/dL Cholesterol (50-200) mg/dL LDL Cholesterol (30-100) mg/dL HDL Cholesterol (40-60) mg/dL Heart Disease Risk Ratio Influenza Type A Ag (NEGATIVE) Influenza Type B Ag (NEGATIVE) RSV (PCR) (NEGATIVE) SARS-CoV-2 (PCR) (NEGATIVE) - Radiology Exams Ordered Rad Exams-Entire Visit: Radiology Procedures Category Date Time Status CHEST 1 VIEW (PORTABLE) Stat Exams 02/11/23 22:11 Completed - Procedures and Test Procedures and Tests throughout Hospitalization: Therapy Orders & Screens 02/12/23 01:25 EKG [id number],[id number],PRN Comment: Diagnosis: Shortness of breath, dizziness, chest pain 02/12/23 05:00 EKG ROUTINE Comment: Diagnosis: Shortness of breath, dizziness, chest pain 02/13/23 05:00 EKG ROUTINE Comment: Diagnosis: Shortness of breath, dizziness, chest pain 02/14/23 05:00 EKG ROUTINE Comment: Diagnosis: Shortness of breath, dizziness, chest pain 02/15/23 05:00 EKG ROUTINE Comment: Diagnosis: Shortness of breath, dizziness, chest pain Discharge Exam General Appearance: no apparent distress Neurologic Exam: alert, 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, cooperative Eye Exam: PERRL Ears, Nose, Throat Exam: normal ENT inspection Neck Exam: normal inspection Respiratory Exam: normal breath sounds, lungs clear Cardiovascular Exam: regular rate/rhythm, normal heart sounds Gastrointestinal/Abdomen Exam: soft, normal bowel sounds Male Genitalia Exam: deferred Rectal Exam: deferred Back Exam: normal inspection Extremity Exam: normal inspection Skin Exam: normal color Final Diagnosis/Problem List - Final Discharge Diagnosis/Problem (1) Chest pain Current Visit: Yes Status: Resolved Code(s): R07.9 - CHEST PAIN, UNSPECIFIED (2) Hypertension Current Visit: No Status: Chronic Code(s): I10 - ESSENTIAL (PRIMARY) HYPERTENSION (3) Sinusitis Current Visit: No Status: Acute Code(s): J32.9 - CHRONIC SINUSITIS, UNSPECIFIED - Discharge Prescriptions: Continue Fexofenadine HCl [Dominique] 180 mg PO HS [id number] [Diazepam] 2 mg PO BID Propranolol HCl [Inderal Xl] 80 mg PO DAILY Losartan Potassium 50 mg [Cozaar 50 MG] 50 mg PO DAILY Amitriptyline HCl 25 mg [Amitriptyline 25 mg Tablet] 25 mg PO HS Doxazosin Mesylate 2 mg PO HS Atogepant [Qulipta] 60 mg PO QHS Meloxicam 7.5 mg PO HS #0 OXcarbazepine [Trileptal] 150 mg PO BID PANTOPRAZOLE 40 mg Tablet [Protonix 40MG Tablet] 40 mg PO QHS Follow up with: TUAN NOBLE MD [Primary Care Provider] -
[2023-02-12] MEDS ORDERED: FEXOFENADINE HCL 180 MG PO SCH (22:00)
[2023-02-12] MEDS ORDERED: DOXAZOSIN MESYLATE 1 MG PO SCH (22:00)
[2023-02-12] MEDS ORDERED: CLARITIN 10 MG PO SCH (22:00)
[2023-02-12] MEDS ORDERED: CARDURA 2 MG PO SCH (22:00)
[2023-02-12] MEDS ORDERED: NON-FORMULARY ITEM (Atogepant [Qulipta] 60 MG Tablet) PO SCH (22:00)
== END 2023-02-12 13:25 | disposition home or self-care (01) ==
LOC: ED 20:25 → MED SURG 23:19
PROVIDERS: ADMIT Internal Medicine; ATTEND Internal Medicine
DX: R07.9 Chest pain, unspecified (principal); J32.9 Chronic sinusitis, unspecified; I10 Essential (primary) hypertension; Z86.73 Personal history of transient ischemic attack (TIA), and cerebral infarction without residual deficits; Z79.899 Other long term (current) drug therapy; Z20.828 Contact with and (suspected) exposure to other viral communicable diseases
CPT/HCPCS: 0241U; 36000; 36415; 71045; 80053; 80061; 83721; 83735; 84484; 85025; 85379; 87040; 93005; 93041; 93268; 94760; 94762; 99283; G0378; Q3014; J1650; J2405; A9270-GY

== ENCOUNTER 2023-02-17 22:14 | Emergency (ER) | payer OTHER ==
[2023-02-17 22:31] VITALS: TEMP 98.2
[2023-02-17 22:55] LABS: Absolute Neutrophil Ct (ANC) 4.41 x10^3/uL (1.4-6.9); BASOPHIL % 0.7 % (0.0-0.4); Basophil (Absolute #) 0.05 x10^3/uL (0-0.4); Eosinophil % 1.7 % (0.00-5.0); Eosinophil (Absolute #) 0.12 x10^3/uL (0-0.5); Hematocrit 39.4 % (42-50); IMMATURE GRAN # 0.02 x10^3u/L (0.00-0.03); IMMATURE GRAN % 0.3 % (0.00-0.4); Lymphocyte (Absolute #) 1.95 x10^3/uL (1.0-4.6); Lymphocytes % 27.5 % (24.0-44.0); Mean Cell Volume 86.2 fL (78-100); Mean Corpuscular Hemoglobin 28.4 pg (26-32); Mean Platelet Volume 9.1 fL (7.5-11.0); Monocyte (Absolute #) 0.55 x10^3/uL (0.0-1.3); Monocytes % 7.7 % (0.0-12.0); Neutrophil % 62.1 % (36.0-66.0); Platelet Count 209 x10^3/uL (150-450); Red Blood Count 4.57 x10^6/uL (4.1-5.6); Red Cell Distribution Width 12.8 % (11.5-14.0); White Blood Count 7.1 x10^3/uL (4.0-10.5)
[2023-02-17 23:36] LABS: ALBUMIN 4.3 g/dL (3.5-5.0); ALKALINE PHOSPHATASE 78 U/L (38-126); ANION GAP 8.9 MEQ/L (5-15); BLOOD UREA NITROGEN 5 mg/dL (9-20); CHLORIDE 96 mmol/L (98-107); Calcium 9.2 mg/dL (8.4-10.2); Carbon Dioxide 32 mmol/L (22-30); EST GLOMERULAR FILTRATION RATE > 60.0 ML/MIN; Glucose 95 mg/dL (74-106); SGOT/AST 23 U/L (17-59); SGPT/ALT 22 U/L (0-50); SODIUM 133 mmol/L (137-145); Total Protein 6.9 g/dL (6.3-8.2)
[2023-02-17 23:47] LABS: NT PRO BNPII 128 pg/mL (<300); TROPONIN < 0.012 ng/mL (0.000-0.034)
[2023-02-18 03:05] VITALS: RESP 18; O2SAT 95
--- NOTE | 2023-02-18 03:12 | ERPHSYRPT ---
- History of Present Illness Time Seen by Provider: 02/17/23 22:35 Historian: patient Exam Limitations: no limitations Patient Subjective Stated Complaint: pt states he has been having chest pain since approx 1915. states he has been having some lightheadedness, palpitations, and shortness of breath with chest pain. rates pain 4-5/10 and describes as aching. Triage Nursing Assessment: pt alert and oriented, answers questions approp. pt ambulates into room with steadyg ait noted. respirations nonlabored. skin warm and dry. heart rate 74, sinus rhythm on monitor. Physician History: Patient is a 52-year-old male presents to our ED for evaluation of chest pain. Patient was in our ED last week for the same. Patient was admitted with a negative work-up and discharged home. Patient states that chest pain started at approximately 7:15 PM. Patient felt lightheaded and had some heart palpitations. Pain described as an ache that is localized to the substernal region. No radiation. Patient rated his pain 4 out of 10. No associated nausea vomiting or diaphoresis. No trauma. No fever. No other complaints. P atient voices no other complaints or concerns at this time. Portions of this note were created with voice recognition technology. There may be grammatical, spelling, punctuation or sound alike errors Timing/Duration: today Activities at Onset: none Quality: aching Location: substernal Chest Pain Radiation: no radiation Severity of Pain-Max: moderate Severity of Pain-Current: mild Modifying Factors: Improves With: nothing Associated Symptoms: denies symptoms Nitro Today/Relief: no nitro taken today Aspirin Treatment Today: no aspirin today Allergies/Adverse Reactions: albuterol Allergy (Severe, Verified 02/17/23 22:31) Anaphylactic Reaction resp arrest amlodipine [From Norvasc] Allergy (Intermediate, Verified 02/17/23 22:31) Hives amoxicillin [From Augmentin] Adverse Reaction (Intermediate, Verified 02/17/23 22:31) Diarrhea clavulanic acid [From Augmentin] Adverse Reaction (Intermediate, Verified 02/17/23 22:31) Diarrhea sulfamethoxazole [From Bactrim] Adverse Reaction (Intermediate, Verified 02/17/23 22:31) Diarrhea trimethoprim [From Bactrim] Adverse Reaction (Intermediate, Verified 02/17/23 22:31) Diarrhea Home Medications: Fexofenadine HCl [Dominique] 180 mg PO HS 04/22/16 [History] diazePAM [Diazepam] 2 mg PO BID 10/14/17 [History] Propranolol HCl [Inderal Xl] 80 mg PO DAILY 07/19/18 [History] Amitriptyline HCl 25 mg [Amitriptyline 25 mg Tablet] 25 mg PO HS 08/23/20 [History] Losartan Potassium 50 mg [Cozaar 50 MG] 50 mg PO DAILY 08/23/20 [History] Atogepant [Qulipta] 60 mg PO QHS 10/23/21 [History] Doxazosin Mesylate 2 mg PO HS 10/23/21 [History] OXcarbazepine [Trileptal] 150 mg PO BID 12/17/22 [History] PANTOPRAZOLE 40 mg Tablet [Protonix 40MG Tablet] 40 mg PO QHS 12/17/22 [History] Hx Tetanus, Diphtheria Vaccination/Date Given: No Hx Influenza Vaccination/Date Given: No Hx Pneumococcal Vaccination/Date Given: No Immunizations Up to Date: No Travel Risk - International Travel Have you traveled outside of the country in past 3 weeks: No - Coronavirus Screening Are you exhibiting any of the following symptoms?: No Close contact with a COVID-19 positive Pt in past 14-21 Days: No - Vaccine Status Have you recieved a Covid-19 vaccination: Yes Size Tester: Vixar - Vaccination Dates Date of 2cond Vaccination (if applicable): not received - Review of Systems Constitutional: No Symptoms, No Fever, No Chills Eyes: No Symptoms Ears, Nose, & Throat: No Symptoms Respiratory: No Symptoms, No Cough, No Dyspnea Cardiac: No Symptoms, No Chest Pain, No Edema, No Syncope Abdominal/Gastrointestinal: No Symptoms, No Abdominal Pain, No Nausea, No Vomiting, No Diarrhea Genitourinary Symptoms: No Symptoms, No Dysuria Musculoskeletal: No Symptoms, No Back Pain, No Neck Pain Skin: No Symptoms, No Rash Neurological: No Symptoms, No Dizziness, No Focal Weakness, No Sensory Changes Psychological: No Symptoms Endocrine: No Symptoms Hematologic/Lymphatic: No Symptoms Immunological/Allergic: No Symptoms All Other Systems: Reviewed and Negative - Past Medical History Pertinent Past Medical History: Yes Neurological History: Migraines, Peripheral Neuropathy, Stroke, TIA ENT History: No Pertinent History Cardiac History: Angina, Hypertension Respiratory History: Bronchitis Endocrine Medical History: No Pertinent History Musculoskeletal History: No Pertinent History GI Medical History: GERD History: No Pertinent History Psycho-Social History: Anxiety Male Reproductive Disorders: No Pertinent History Other Medical History: CVA, SEASONAL ALLERGIES, 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 PT STATES HE IS HAVING SOME GI PROBLEMS, PT IS SEEING GI DR. - Past Surgical History Past Surgical History: Yes Neuro Surgical History: No Pertinent History Cardiac: No Pertinent History Respiratory: No Pertinent History Gastrointestinal: No Pertinent History Genitourinary: No Pertinent History Musculoskeletal: No Pertinent History Male Surgical History: No Pertinent History Other Surgical History: Endoscpopy to examine for gastric ulcers as stated per pt; sinus surgery,egd,colonoscopy - Social History Smoking Status: Former smoker How long have you smoked: years Exposure to second hand smoke: Yes Drug Use: none Patient Lives Alone: No Significant Family History: no pertinent family hx - Nursing Vital Signs Nursing Vital Signs: Initial Vital Signs Temperature 98.2 F 02/17/23 22:15 Pulse Rate 74 02/17/23 22:15 Respiratory Rate 18 02/17/23 22:15 Blood Pressure 152/85 02/17/23 22:15 O2 Sat by Pulse Oximetry 100 02/17/23 22:15 Pain Scale Pain Intensity 4 - Physical Exam General Appearance: no apparent distress, alert Eye Exam: PERRL/EOMI, eyes nml inspection Ears, Nose, Throat Exam: normal ENT inspection, TMs normal, pharynx normal, moist mucous membranes Neck Exam: normal inspection, non-tender, supple, full range of motion Respiratory Exam: normal breath sounds, lungs clear, airway intact, No res piratory distress Cardiovascular Exam: regular rate/rhythm, normal heart sounds, normal peripheral pulses Gastrointestinal/Abdomen Exam: soft, No tenderness, No mass Back Exam: normal inspection, No CVA tenderness, No vertebral tenderness Extremity Exam: normal inspection, normal range of motion Neurologic Exam: alert, 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, cooperative, normal mood/affect, sensation nml, No motor deficits Skin Exam: normal color, warm, dry Lymphatic Exam: No adenopathy SpO2 Interpretation: normal SpO2: 95 O2 Delivery: Room Air - Course Nursing assessment & vital signs reviewed: Yes EKG Interpreted by Me: RATE (69), Sinus Rhythm, NORMAL AXIS, NORMAL INTERVALS - Radiology Exams Chest X-ray Interpretation: Interpreted by me (No acute findings) Ordered Tests: Active Orders 24 hr Category Date Time Status Onyx [employer]ra[employer] Worker STAT Care 02/17/23 22:33 Active EKG-ER Only STAT Care 02/17/23 22:32 Active IV Insertion STAT Care 02/17/23 22:32 Active Pulse Oximetry (ED) STAT Care 02/17/23 22:32 Active CHEST 1 VIEW (PORTABLE) Stat Exams 02/17/23 22:33 Taken CBC W DIFF Stat Lab 02/17/23 22:50 Completed CMP Stat Lab 02/17/23 22:50 Completed NT PRO BNPII Stat Lab 02/17/23 22:50 Completed TROPONIN Q4H Lab 02/17/23 22:50 Completed TROPONIN Q4H Lab 02/18/23 01:55 Completed TROPONIN Q4H Lab 02/18/23 06:45 Ordered Holter Monitor ONCE RT 02/18/23 03:25 Active Lab/Rad Data: Laboratory Result Diagrams 02/17/23 22:50 02/17/23 22:50 Laboratory Results 02/18/23 02/17/23 02/17/23 Range/Units 01:55 22:50 22:50 WBC (4.0-10.5) x10^3/uL RBC (4.1-5.6) x10^6/uL Hgb (12.5-18.0) g/dL Hct (42-50) % MCV (78-100) fL MCH (26-32) pg MCHC (32-36) g/dL RDW (11.5-14.0) % Plt Count (150-450) x10^3/uL MPV (7.5-11.0) fL Gran % (36.0-66.0) % Immature Gran % (Auto) (0.00-0.4) % Nucleat RBC Rel Count (0.00-0.1) % Eos # (Auto) (0-0.5) x10^3/uL Immature Gran # (Auto) (0.00-0.03) x10^3u/L Absolute Lymphs (auto) (1.0-4.6) x10^3/uL Absolute Monos (auto) (0.0-1.3) x10^3/uL Absolute Nucleated RBC (0.00-0.01) x10^3u/L Lymphocytes % (24.0-44.0) % Monocytes % (0.0-12.0) % Eosinophils % (0.00-5.0) % Basophils % (0.0-0.4) % Absolute Granulocytes (1.4-6.9) x10^3/uL Basophils # (0-0.4) x10^3/uL Sodium 133 L (137-145) mmol/L Potassium 4.0 (3.5-5.1) mmol/L Chloride 96 L (98-107) mmol/L Carbon Dioxide 32 H (22-30) mmol/L Anion Gap 8.9 (5-15) MEQ/L BUN 5 L (9-20) mg/dL Creatinine 1.10 (0.66-1.25) mg/dL Estimated GFR > 60.0 ML/MIN Glucose 95 (74-106) mg/dL Calcium 9.2 (8.4-10.2) mg/dL Total Bilirubin 0.30 (0.2-1.3) mg/dL AST 23 (17-59) U/L ALT 22 (0-50) U/L Alkaline Phosphatase 78 (38-126) U/L Troponin I < 0.012 < 0.012 (0.000-0.034) ng/mL NT-Pro-B Natriuret Pep 128 (<300) pg/mL Serum Total Protein 6.9 (6.3-8.2) g/dL Albumin 4.3 (3.5-5.0) g/dL 02/17/23 Range/Units 22:50 WBC 7.1 (4.0-10.5) x10^3/uL RBC 4.57 (4.1-5.6) x10^6/uL Hgb 13.0 (12.5-18.0) g/dL Hct 39.4 L (42-50) % MCV 86.2 (78-100) fL MCH 28.4 (26-32) pg MCHC 33.0 (32-36) g/dL RDW 12.8 (11.5-14.0) % Plt Count 209 (150-450) x10^3/uL MPV 9.1 (7.5-11.0) fL Gran % 62.1 (36.0-66.0) % Immature Gran % (Auto) 0.3 (0.00-0.4) % Nucleat RBC Rel Count 0.0 (0.00-0.1) % Eos # (Auto) 0.12 (0-0.5) x10^3/uL Immature Gran # (Auto) 0.02 (0.00-0.03) x10^3u/L Absolute Lymphs (auto) 1.95 (1.0-4.6) x10^3/uL Absolute Monos (auto) 0.55 (0.0-1.3) x10^3/uL Absolute Nucleated RBC 0.00 (0.00-0.01) x10^3u/L Lymphocytes % 27.5 (24.0-44.0) % Monocytes % 7.7 (0.0-12.0) % Eosinophils % 1.7 (0.00-5.0) % Basophils % 0.7 (0.0-0.4) % Absolute Granulocytes 4.41 (1.4-6.9) x10^3/uL Basophils # 0.05 (0-0.4) x10^3/uL Sodium (137-145) mmol/L Potassium (3.5-5.1) mmol/L Chloride (98-107) mmol/L Carbon Dioxide (22-30) mmol/L Anion Gap (5-15) MEQ/L BUN (9-20) mg/dL Creatinine (0.66-1.25) mg/dL Estimated GFR ML/MIN Glucose (74-106) mg/dL Calcium (8.4-10.2) mg/dL Total Bilirubin (0.2-1.3) mg/dL AST (17-59) U/L ALT (0-50) U/L Alkaline Phosphatase (38-126) U/L Troponin I (0.000-0.034) ng/mL NT-Pro-B Natriuret Pep (<300) pg/mL Serum Total Protein (6.3-8.2) g/dL Albumin (3.5-5.0) g/dL - Progress Progress: improved Air Movement: good Progress Note: Patient is a 52-year-old male presents to our ED for evaluation of chest pain. Physical exam unremarkable. EKG sinus rhythm. Chest x-ray unchanged from previous. No acute findings. CBC CMP unremarkable. BNP within normal limits. Troponin negative x2. The patient's complaint of heart palpitations we ordered a 24-hour Holter monitor. Patient admits to drinking caffeine. Father bedside. Patient currently pain-free. Heart score is 2. Portions of this note were created with voice recognition technology. There may be grammatical, spelling, punctuation or sound alike errors Complexity problems addressed is moderate acute complicated No critical care time Complexity reviewed and analyzed is moderate. Test ordered. Test reviewed by Dr. Oneal including EKG and chest x-ray. Clinical correlation made between findings and history and physical examination. Risk of complication and or risk of morbidity/mortality of patient management is moderate. Holter monitor ordered and applied in our ED. Results to be forwarded to Dr. Morse at patient's primary care doctor. Vital stable. Time spent to discharge patient approximately 15 minutes. Plan of care established for shared decision making. No social determinants of health present to be follow-up. Portions of this note were created with voice recognition technology. There may be grammatical, spelling, punctuation or sound alike errors 02/18/23 03:36 Patient unable to take Aspirin due to medication interaction 02/18/23 03:42 Blood Culture(s) Obtained: No Antibiotics given: No Counseled pt/family regarding: lab results, diagnosis, need for follow-up, rad results - Departure Departure Disposition: Home Clinical Impression: Heart palpitations, Chest pain Condition: Stable Critical Care Time: No Referrals: TUAN NOBLE MD [Primary Care Provider] - Follow up/PCP as directed Additional Instructions: Discharge/Care Plan CANDYJUSTYNA DHILLON was seen on 02/18/23 in the Emergency Room. The patient was counseled regarding Diagnosis,Lab results, Imaging studies, need for follow up and when to return to the Emergency Room. Prescriptions given: Discharge Note I have spoken with the patient and/or caregivers. I have explained the patient's condition, diagnosis and treatment plan based on the information available to me at this time. I have answered the patient's and/or caregiver's questions and addressed any concerns. The patient and/or caregivers have as good understanding of the patient's diagnosis, condition and treatment plan as can be expected at this point. The vital signs have been stable. The patient's condition is stable and appropriate for discharge from the emergency department. The patient will pursue further outpatient evaluation with the primary care physician or other designated or consulting physician as outlined in the discharge instructions. The patient and/or caregivers are agreeable to this plan of care and follow-up instructions have been explained in detail. The patient and/or caregivers have received these instruction. The patient/and or caregivers are aware that any significant change in condition or worsening of symptoms should prompt an immediate return to this or the closest emergency department or call 911.
[2023-02-18 03:51] VITALS: BP 124/87; PULSE 68
--- NOTE | 2023-02-18 08:42 | XRAY ---
Indication: Chest pain. Comparison: February 11, 2023 Portable chest continues to be underinflated more than before without focal infiltrate, consolidation, or large effusion. Heart not enlarged. No new/acute findings.
== END 2023-02-18 03:51 | disposition home or self-care (01) ==
LOC: ED 22:14
DX: R00.2 Palpitations (principal); R07.9 Chest pain, unspecified; I10 Essential (primary) hypertension; Z79.899 Other long term (current) drug therapy
CPT/HCPCS: 36000; 36415; 71045; 80053; 83880; 84484; 85025; 93005; 93041; 93225; 94760; 99284

== ENCOUNTER 2024-06-14 15:22 | Emergency (ER) | payer OTHER ==
[2024-06-14 15:44] VITALS: TEMP 98
[2024-06-14] MEDS ORDERED: Sodium Chloride 0.9% 1000 ML 1,000 ML ONE (15:56)
[2024-06-14] MEDS ORDERED: Zofran 4 MG/2 ML VIAL ONE (15:56)
[2024-06-14] MEDS: Sodium Chloride 0.9% 1000 ML 1,000 ML IV SCH (16:00)
[2024-06-14] MEDS: Zofran 4 MG/2 ML VIAL IV ONE (16:00)
[2024-06-14 16:12] LABS: BASOPHIL % 0.1 % (0.2-1.2); Basophil (Absolute #) 0.01 x10^3/uL (0.01-0.08); Eosinophil % 0.4 % (0.8-7.0); Eosinophil (Absolute #) 0.04 x10^3/uL (0.04-0.54); Hematocrit 41.7 % (40.1-51.0); Hemoglobin 13.6 g/dL (13.7-17.5); IMMATURE GRAN # 0.03 x10^3u/L (0.001-0.031); IMMATURE GRAN % 0.3 % (0.001-0.429); Lymphocyte (Absolute #) 0.38 x10^3/uL (1.32-3.57); Lymphocytes % 4.1 % (21.8-53.1); Mean Cell Volume 83.6 fL (79.0-92.2); Mean Corpuscular Hemoglobin 27.3 pg (25.7-32.2); Mean Corpuscular Hgb Concent. 32.6 g/dL (32.3-36.5); Mean Platelet Volume 8.8 fL (9.4-12.4); Monocyte (Absolute #) 0.62 x10^3/uL (0.30-0.82); Monocytes % 6.6 % (5.3-12.2); Neutrophil % 88.5 % (34.0-67.9); Platelet Count 195 x10^3/uL (163-337); Red Blood Count 4.99 x10^6/uL (4.63-6.08); White Blood Count 9.4 x10^3/uL (4.23-9.07)
[2024-06-14 16:28] LABS: ALBUMIN 4.2 g/dL (3.5-5.0); ANION GAP 12.7 MEQ/L (5-15); BILIRUBIN,TOTAL 0.5 mg/dL (0.2-1.3); Calcium 8.7 mg/dL (8.4-10.2); Creatinine 1 1.1 mg/dL (0.66-1.25); EST GLOMERULAR FILTRATION RATE 80.3 ML/MIN; Potassium 4.7 mmol/L (3.5-5.1)
--- NOTE | 2024-06-14 17:44 | ERPHSYRPT ---
- History of Present Illness Time Seen by Provider: 06/14/24 15:50 Source: patient Exam Limitations: no limitations Patient Subjective Stated Complaint: pt here for n/v/d/ today, he states he has not felt well for 5 days now. aslo co headache and chills Triage Nursing Assessment: pt alert, walked in, resp easy, skin w/d/p. abd soft, no edema noted Physician History: 54-year-old male presents to our emergency department for evaluation of nausea vomiting diarrhea chills headache. Patient reports he has been feeling unwell for the past week. However nausea vomiting diarrhea started today. No fever no photophobia no nuchal rigidity or neck pain. No meningeal signs. Symptoms have been ongoing for approximately 5 days. No obvious sick contacts. Symptoms are mild to moderate in intensity. No specific worsening or improving factors. Patient otherwise feels well. He voices no other complaints or concerns at this time. Portions of this note were created with voice recognition technology. There may be grammatical, spelling, punctuation or sound alike errors Timing/Duration: day(s) (5 days) Severity: moderate Modifying Factors: Improves With: nothing Associated Symptoms: denies symptoms Allergies/Adverse Reactions: albuterol Allergy (Severe, Verified 06/14/24 15:45) Anaphylactic Reaction resp arrest amlodipine [From Norvasc] Allergy (Intermediate, Verified 06/14/24 15:45) Hives amoxicillin [From Augmentin] Adverse Reaction (Intermediate, Verified 06/14/24 15:45) Diarrhea clavulanic acid [From Augmentin] Adverse Reaction (Intermediate, Verified 06/14/24 15:45) Diarrhea sulfamethoxazole [From Bactrim] Adverse Reaction (Intermediate, Verified 06/14/24 15:45) Diarrhea trimethoprim [From Bactrim] Adverse Reaction (Intermediate, Verified 06/14/24 15:45) Diarrhea Home Medications: Fexofenadine HCl [Dominique] 180 mg PO HS 04/22/16 [History] diazePAM [Diazepam] 2 mg PO BID 10/14/17 [History] Propranolol HCl [Inderal Xl] 80 mg PO DAILY 07/19/18 [History] Amitriptyline HCl 25 mg [Amitriptyline 25 mg Tablet] 25 mg PO HS 08/23/20 [History] Losartan Potassium 50 mg [Cozaar 50 MG] 50 mg PO DAILY 08/23/20 [History] Atogepant [Qulipta] 60 mg PO QHS 10/23/21 [History] Doxazosin Mesylate 2 mg PO HS 10/23/21 [History] OXcarbazepine [Trileptal] 150 mg PO BID 12/17/22 [History] PANTOPRAZOLE 40 mg Tablet [Protonix 40MG Tablet] 40 mg PO QHS 12/17/22 [History] Hx Tetanus, Diphtheria Vaccination/Date Given: No Hx Influenza Vaccination/Date Given: No Hx Pneumococcal Vaccination/Date Given: No Immunizations Up to Date: Yes Travel Risk - International Travel Have you traveled outside of the country in past 3 weeks: No - Emerging Infectious Disease Are you exhibiting symptoms associated with any current EIDs: Yes Symptoms: Diarrhea, Headaches/Body Aches/, Vomitting - Review of Systems Constitutional: No Symptoms, No Fever, No Chills Eyes: No Symptoms Ears, Nose, & Throat: No Symptoms Respiratory: No Symptoms, No Cough, No Dyspnea Cardiac: No Symptoms, No Chest Pain, No Edema, No Syncope Abdominal/Gastrointestinal: No Symptoms, No Abdominal Pain, No Nausea, No Vomiting, No Diarrhea Genitourinary Symptoms: No Symptoms, No Dysuria Musculoskeletal: No Symptoms, No Back Pain, No Neck Pain Skin: No Symptoms, No Rash Neurological: No Symptoms, No Dizziness, No Focal Weakness, No Sensory Changes Psychological: No Symptoms Endocrine: No Symptoms Hematologic/Lymphatic: No Symptoms Immunological/Allergic: No Symptoms All Other Systems: Reviewed and Negative - Past Medical History Pertinent Past Medical History: Yes Neurological History: Migraines, Seizures ENT History: No Pertinent History Cardiac History: Arrhythmia, Hypertension Respiratory History: No Pertinent History Endocrine Medical History: No Pertinent History Musculoskeletal History: Osteoarthritis GI Medical History: GERD, Ulcer History: No Pertinent History Psycho-Social History: Anxiety Male Reproductive Disorders: No Pertinent History Other Medical History: STATES HAD EEG DONE DUE TO FOCAL "JERKING" AND FOUND TO HAVE FOCAL SEIZUIRES. STATES NO JERKING SINCE STARTING SOME EPILEPTIC MEDICINES - Past Surgical History Past Surgical History: Yes Neuro Surgical History: No Pertinent History Cardiac: No Pertinent History Respiratory: No Pertinent History Gastrointestinal: No Pertinent History Genitourinary: No Pertinent History Musculoskeletal: No Pertinent History Male Surgical History: No Pertinent History Other Surgical History: Endoscpopy to examine for gastric ulcers as stated per pt; sinus surgery,egd,colonoscopy Significant Family History: no pertinent family hx - Social History Smoking Status: Former smoker How long have you smoked: years Exposure to second hand smoke: Yes Drug Use: none Patient Lives Alone: No - Social Determinants of Health Will the patient participate in the screening: Yes Do you worry about a steady place to live?: No Do you have any problems with any of the following?: No known problems In the past 12 months,have you had to go without utilities?: No Transportation Issues: No Has anyone in your support network made you feel unsafe?: No Have you or anyone in your house had to go without enough: No - Nursing Vital Signs Nursing Vital Signs: Initial Vital Signs Temperature 98.0 F 06/14/24 15:43 Pulse Rate 94 H 06/14/24 15:43 Respiratory Rate 18 06/14/24 15:43 Blood Pressure 121/81 06/14/24 15:43 O2 Sat by Pulse Oximetry 95 06/14/24 15:43 Pain Scale Pain Intensity 0 - Physical Exam General Appearance: no apparent distress, alert Eye Exam: PERRL/EOMI, eyes nml inspection Ears, Nose, Throat Exam: normal ENT inspection, pharynx normal, moist mucous membranes Neck Exam: normal inspection, non-tender, supple, full range of motion Respiratory Exam: normal breath sounds, lungs clear, airway intact, No respiratory distress Cardiovascular Exam: regular rate/rhythm, normal heart sounds, normal peripheral pulses Gastrointestinal/Abdomen Exam: soft, normal bowel sounds, No tenderness, No mass Back Exam: normal inspection, normal range of motion, No CVA tenderness, No vertebral tenderness Extremity Exam: normal inspection, normal range of motion, pelvis stable Neurologic Exam: alert, 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, cooperative, normal mood/affect, sensation nml, No motor deficits Skin Exam: normal color, warm, dry, No rash Lymphatic Exam: No adenopathy SpO2 Interpretation: normal SpO2: 97 O2 Delivery: Room Air - Course Nursing assessment & vital signs reviewed: Yes Ordered Tests: Active Orders 24 hr Category Date Time Status IV Insertion STAT Care 06/14/24 15:51 Active ABDOMEN AND PELVIS W/0 CONTRAS [CT] Stat Exams 06/14/24 18:46 Taken CBC W DIFF Stat Lab 06/14/24 16:12 Completed CMP Stat Lab 06/14/24 16:12 Completed TROPONIN Q4H Lab 06/14/24 16:12 Completed TROPONIN Q4H Lab 06/14/24 20:05 Completed TROPONIN Q4H Lab 06/15/24 00:00 Ordered Medication Summary Generic Name Dose Route Start Last Admin Trade Name Tio PRN Reason Stop Dose Admin Sodium Chloride 1,000 mls @ 100 mls/hr 06/14/24 16:00 06/14/24 16:00 Sodium Chloride 0.9% 1000 Ml IV 07/14/24 15:59 100 mls/hr .Q10H ALEX Administration Discontinued Medications Generic Name Dose Route Start Last Admin Trade Name Priteshq PRN Reason Stop Dose Admin Ondansetron HCl 4 mg 06/14/24 15:53 06/14/24 16:00 Ondansetron Hcl 4 Mg/2 Ml Vial IV 06/14/24 15:54 4 mg STAT ONE Administration Ondansetron HCl Confirm 06/14/24 15:56 Ondansetron Hcl 4 Mg/2 Ml Vial Administered 06/14/24 15:57 Dose 4 mg .ROUTE .STK-MED ONE Lab/Rad Data: Laboratory Result Diagrams 06/14/24 16:12 06/14/24 16:12 Laboratory Results 06/14/24 06/14/24 06/14/24 Range/Units 20:05 17:45 16:12 WBC (4.23-9.07) x10^3/uL RBC (4.63-6.08) x10^6/uL Hgb (13.7-17.5) g/dL Hct (40.1-51.0) % MCV (79.0-92.2) fL MCH (25.7-32.2) pg MCHC (32.3-36.5) g/dL RDW (11.6-14.4) % Plt Count (163-337) x10^3/uL MPV (9.4-12.4) fL Gran % (34.0-67.9) % Immature Gran % (Auto) (0.001-0.429) % Nucleat RBC Rel Count (0.00-0.2) % Eos # (Auto) (0.04-0.54) x10^3/uL Immature Gran # (Auto) (0.001-0.031) x10^3u/L Absolute Lymphs (auto) (1.32-3.57) x10^3/uL Absolute Monos (auto) (0.30-0.82) x10^3/uL Absolute Nucleated RBC (0.00-0.012) x10^3u/L Lymphocytes % (21.8-53.1) % Monocytes % (5.3-12.2) % Eosinophils % (0.8-7.0) % Basophils % (0.2-1.2) % Absolute Granulocytes (1.78-5.38) x10^3/uL Basophils # (0.01-0.08) x10^3/uL Sodium (135-145) mmol/L Potassium (3.5-5.1) mmol/L Chloride (98-107) mmol/L Carbon Dioxide (22-30) mmol/L Anion Gap (5-15) MEQ/L BUN (9-20) mg/dL Creatinine (0.66-1.25) mg/dL Estimated GFR ML/MIN Glucose (74-106) mg/dL Calcium (8.4-10.2) mg/dL Total Bilirubin (0.2-1.3) mg/dL AST (17-59) U/L ALT (0-50) U/L Alkaline Phosphatase (38-126) U/L Troponin I < 0.012 < 0.012 (0.000-0.033) ng/mL Serum Total Protein (6.3-8.2) g/dL Albumin (3.5-5.0) g/dL Influenza Type A Ag NEGATIVE (NEGATIVE) Influenza Type B Ag NEGATIVE (NEGATIVE) RSV (PCR) NEGATIVE (NEGATIVE) SARS-CoV-2 (PCR) NEGATIVE (NEGATIVE) 06/14/24 06/14/24 Range/Units 16:12 16:12 WBC 9.4 H (4.23-9.07) x10^3/uL RBC 4.99 (4.63-6.08) x10^6/uL Hgb 13.6 L (13.7-17.5) g/dL Hct 41.7 (40.1-51.0) % MCV 83.6 (79.0-92.2) fL MCH 27.3 (25.7-32.2) pg MCHC 32.6 (32.3-36.5) g/dL RDW 14.0 (11.6-14.4) % Plt Count 195 (163-337) x10^3/uL MPV 8.8 L (9.4-12.4) fL Gran % 88.5 H (34.0-67.9) % Immature Gran % (Auto) 0.3 (0.001-0.429) % Nucleat RBC Rel Count 0.0 (0.00-0.2) % Eos # (Auto) 0.04 (0.04-0.54) x10^3/uL Immature Gran # (Auto) 0.03 (0.001-0.031) x10^3u/L Absolute Lymphs (auto) 0.38 L (1.32-3.57) x10^3/uL Absolute Monos (auto) 0.62 (0.30-0.82) x10^3/uL Absolute Nucleated RBC 0.00 (0.00-0.012) x10^3u/L Lymphocytes % 4.1 L (21.8-53.1) % Monocytes % 6.6 (5.3-12.2) % Eosinophils % 0.4 L (0.8-7.0) % Basophils % 0.1 L (0.2-1.2) % Absolute Granulocytes 8.30 H (1.78-5.38) x10^3/uL Basophils # 0.01 (0.01-0.08) x10^3/uL Sodium 132 L (135-145) mmol/L Potassium 4.7 (3.5-5.1) mmol/L Chloride 98 (98-107) mmol/L Carbon Dioxide 26 (22-30) mmol/L Anion Gap 12.7 (5-15) MEQ/L BUN 14 (9-20) mg/dL Creatinine 1.10 (0.66-1.25) mg/dL Estimated GFR 80.3 ML/MIN Glucose 113 H (74-106) mg/dL Calcium 8.7 (8.4-10.2) mg/dL Total Bilirubin 0.50 (0.2-1.3) mg/dL AST 24 (17-59) U/L ALT 21 (0-50) U/L Alkaline Phosphatase 77 (38-126) U/L Troponin I (0.000-0.033) ng/mL Serum Total Protein 7.0 (6.3-8.2) g/dL Albumin 4.2 (3.5-5.0) g/dL Influenza Type A Ag (NEGATIVE) Influenza Type B Ag (NEGATIVE) RSV (PCR) (NEGATIVE) SARS-CoV-2 (PCR) (NEGATIVE) - Progress Progress: improved Progress Note: 54-year-old male presents to emergency department for evaluation of nausea vomiting diarrhea. Patient also experienced chills and a headache. No mening eal signs. No abdominal pain. No chest pain or shortness of breath. Patient symptoms are mild to moderate in intensity. Physical exam otherwise nonremarkable. Patient's labs were not immediately concerning. Patient tolerated p.o. however after drinking patient stated his abdomen began to hurt. A CT scan was then completed. No acute findings observed on the CAT scan. Patient reassessed he is resting comfortably. No vomiting no diarrhea in our ED. Headache resolved. at bedside. Patient voices ready for discharge. Patient agrees to follow-up with his primary care doctor within 48 hours for reevaluation. They voiced no other complaints or concerns at this time. Portions of this note were created with voice recognition technology. There may be grammatical, spelling, punctuation or sound alike errors Complexity of problem addressed is moderate acute complicated no critical care time. Complex of data reviewed and analyzed is moderate. Test ordered chest reviewed results analyzed and correlated clinically with history and physical exam. Risk of complication and or risk of morbidity/mortality of patient management is low. Vital stable. Time spent to discharge patient is approximately 15 minutes. Plan of care established for shared decision making. No social determinants of health present to impede follow-up. Portions of this note were created with voice recognition technology. There may be grammatical, spelling, punctuation or sound alike errors 06/14/24 21:12 Counseled pt/family regarding: lab results, diagnosis, need for follow-up - Departure Departure Disposition: Home Clinical Impression: Nausea vomiting and diarrhea, Abdominal pain Condition: Stable Critical Care Time: No Referrals: TUAN NOBLE MD [Primary Care Provider] - Follow up/PCP as directed Additional Instructions: Discharge/Care Plan JUSTYNA GUPTA was seen on 06/14/24 in the Emergency Room. The patient was counseled regarding Diagnosis,Lab results, Imaging studies, need for follow up and when to return to the Emergency Room. Prescriptions given: Discharge Note I have spoken with the patient and/or caregivers. I have explained the patient's condition, diagnosis and treatment plan based on the information available to me at this time. I have answered the patient's and/or caregiver's questions and addressed any concerns. The patient and/or caregivers have as good understanding of the patient's diagnosis, condition and treatment plan as can be expected at this point. The vital signs have been stable. The patient's condition is stable and appropriate for discharge from the emergency department. The patient will pursue further outpatient evaluation with the primary care physician or other designated or consulting physician as outlined in the discharge instructions. The patient and/or caregivers are agreeable to this plan of care and follow-up instructions have been explained in detail. The patient and/or caregivers have received these instruction. The patient/and or caregivers are aware that any significant change in condition or worsening of symptoms should prompt an immediate return to this or the closest emergency department or call 911.
[2024-06-14 18:26] LABS: INFLUENZA A NEGATIVE (NEGATIVE); INFLUENZA B NEGATIVE (NEGATIVE); RESPIRATORY SYNCTIAL VIRUS NEGATIVE (NEGATIVE); SARS-CoV-2 Xpert Express NEGATIVE (NEGATIVE)
[2024-06-14 20:03] VITALS: RESP 18
[2024-06-14 21:04] VITALS: BP 107/72; PULSE 84
[2024-06-14 21:13] VITALS: O2SAT 97
--- NOTE | 2024-06-15 08:43 | XRAY ---
Indication: Pain. Multiple contiguous axial images obtained through the abdomen and pelvis without contrast. Comparison: October 23, 2021 Lung bases remain clear. Heart not enlarged. Stable small hiatal hernia. Noncontrasted stomach and bowel loops appear nonobstructed with normal appendix. Interval cholecystectomy. No free fluid/air. Remaining liver, pancreas, spleen, adrenal glands, kidneys, ureters, and bladder are unremarkable for noncontrast exam. Very minimal aortic calcifications without AAA. Osseous structures intact again with minimal/mild degenerative changes throughout thoracolumbar spine and stable incidental L5 Schmorl node. Again small bilateral fatty inguinal hernias. Impression: Chronic findings including hiatal hernia, arteriosclerotic disease, chronic bony findings, and bilateral fatty inguinal hernias. No new/acute findings on this noncontrast exam.
== END 2024-06-14 21:18 | disposition home or self-care (01) ==
LOC: ED 15:22
DX: R11.2 Nausea with vomiting, unspecified (principal); R19.7 Diarrhea, unspecified; R10.9 Unspecified abdominal pain; I10 Essential (primary) hypertension; Z79.899 Other long term (current) drug therapy
CPT/HCPCS: 0241U; 36415; 74176; 80053; 84484; 85025; 96374; 99285; 99284; J2405

== ENCOUNTER 2024-08-05 11:56 | Emergency (ER) | payer OTHER ==
--- NOTE | 2024-08-05 12:03 | ERPHSYRPT ---
- History of Present Illness Time Seen by Provider: 08/05/24 12:03 Historian: patient, family Exam Limitations: no limitations Physician History: This is a 54-year-old white male patient who arrives by private vehicle accompanied by family. Patient states that he has had flulike symptoms for the last 3 days including coughing and vomiting. The vomiting began 2 days ago with associated, intermittent episodes of dry heaving. His symptoms are not improving. He has decreased appetite. He denies chest pain. He has no history of coronary artery disease. Patient does have a history of arrhythmias, hypertension, gastroesophageal reflux disease, peptic ulcer disease, anxiety, migraine headaches and seizures. Timing/Duration: day(s) (Flulike symptoms for 3 days), worse, other (Dry heaves and vomiting for 2 days) Quality: sharpness (Right lower quadrant with coughing and vomiting) Pain Radiation: no radiation Severity of Pain-Max: moderate Severity of Pain-Current: moderate Modifying Factors: Improves With: coughing, vomiting Associated Symptoms: loss of appetite, nausea, vomiting, weakness Previous symptoms: no prior history, no recent treatment Allergies/Adverse Reactions: albuterol Allergy (Severe, Verified 08/05/24 12:16) Anaphylactic Reaction resp arrest amlodipine [From Norvasc] Allergy (Intermediate, Verified 08/05/24 12:16) Hives amoxicillin [From Augmentin] Adverse Reaction (Intermediate, Verified 08/05/24 12:16) Diarrhea clavulanic acid [From Augmentin] Adverse Reaction (Intermediate, Verified 08/05/24 12:16) Diarrhea sulfamethoxazole [From Bactrim] Adverse Reaction (Intermediate, Verified 08/05/24 12:16) Diarrhea trimethoprim [From Bactrim] Adverse Reaction (Intermediate, Verified 08/05/24 12:16) Diarrhea Home Medications: Propranolol HCl [Inderal Xl] 80 mg PO DAILY 07/19/18 [History] Losartan Potassium 50 mg [Cozaar 50 MG] 50 mg PO DAILY 08/23/20 [History] OXcarbazepine [Trileptal] 300 mg PO BID 12/17/22 [History] PANTOPRAZOLE 40 mg Tablet [Protonix 40MG Tablet] 40 mg PO QHS 12/17/22 [History] Alfuzosin HCl [Alfuzosin HCl ER] 10 mg PO DAILY 08/05/24 [History] Famotidine 20 mg [Pepcid 20 MG] 20 mg PO BID 08/05/24 [History] Galcanezumab-Gnlm [Emgality] 300 mg SQ UD 08/05/24 [History] Melatonin 10 mg PO HS 08/05/24 [History] Hx Tetanus, Diphtheria Vaccination/Date Given: No Hx Influenza Vaccination/Date Given: No Hx Pneumococcal Vaccination/Date Given: No Travel Risk - Emerging Infectious Disease Are you exhibiting symptoms associated with any current EIDs: Yes Symptoms: Diarrhea, Headaches/Body Aches/, Vomitting - Review of Systems Constitutional: No Symptoms Eyes: No Symptoms Ears, Nose, & Throat: No Symptoms Respiratory: Cough Cardiac: No Symptoms Abdominal/Gastrointestinal: Abdominal Pain (Right lower quadrant primarily with coughing), Nausea, Vomiting, Appetite Changes Genitourinary Symptoms: No Symptoms Musculoskeletal: No Symptoms Skin: No Symptoms Neurological: No Symptoms Psychological: No Symptoms Endocrine: No Symptoms Hematologic/Lymphatic: No Symptoms Immunological/Allergic: No Symptoms All Other Systems: Reviewed and Negative - Past Medical History Pertinent Past Medical History: Yes Neurological History: Migraines, Seizures ENT History: No Pertinent History Cardiac History: Arrhythmia, Hypertension Respiratory History: No Pertinent History Endocrine Medical History: No Pertinent History Musculoskeletal History: Osteoarthritis GI Medical History: GERD, Ulcer History: No Pertinent History Psycho-Social History: Anxiety Male Reproductive Disorders: No Pertinent History Other Medical History: STATES HAD EEG DONE DUE TO FOCAL "JERKING" AND FOUND TO HAVE FOCAL SEIZUIRES. STATES NO JERKING SINCE STARTING SOME EPILEPTIC MEDICINES - Past Surgical History Past Surgical History: Yes Neuro Surgical History: No Pertinent History Cardiac: No Pertinent History Respiratory: No Pertinent History Gastrointestinal: No Pertinent History Genitourinary: No Pertinent History Musculoskeletal: No Pertinent History Male Surgical History: No Pertinent History Other Surgical History: Endoscpopy to examine for gastric ulcers as stated per pt; sinus surgery,egd,colonoscopy Significant Family History: no pertinent family hx - Social History Smoking Status: Former smoker How long have you smoked: years Exposure to second hand smoke: Yes Drug Use: none Patient Lives Alone: No - Social Determinants of Health Will the patient participate in the screening: Yes Do you worry about a steady place to live?: No In the past 12 months,have you had to go without utilities?: No Transportation Issues: No Has anyone in your support network made you feel unsafe?: No Have you or anyone in your house had to go w/o enough food: No - Nursing Vital Signs Nursing Vital Signs: Initial Vital Signs Temperature 97.8 F 08/05/24 12:07 Pulse Rate 67 08/05/24 12:07 Respiratory Rate 18 08/05/24 12:07 Blood Pressure 134/100 08/05/24 12:07 O2 Sat by Pulse Oximetry 98 08/05/24 12:07 Pain Scale Pain Intensity 0 - Physical Exam General Appearance: mild distress, alert, anxiety Eye Exam: PERRL/EOMI, eyes nml inspection Ears, Nose, Throat Exam: normal ENT inspection, moist mucous membranes Neck Exam: normal inspection, non-tender, supple, full range of motion Respiratory Exam: normal breath sounds, lungs clear, airway intact, No chest tenderness, No respiratory distress Cardiovascular Exam: regular rate/rhythm, normal heart sounds, normal peripheral pulses Gastrointestinal/Abdomen Exam: soft, normal bowel sounds, tenderness (Right lower quadrant to palpation and with coughing), guarding (Right lower quadrant with palpation), No rebound Rectal Exam: not done Back Exam: normal inspection, normal range of motion, No CVA tenderness, No vertebral tenderness Extremity Exam: normal inspection, normal range of motion, pelvis stable Neurologic Exam: alert, 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, cooperative, 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, nml cerebellar function, nml station & gait, sensation nml Skin Exam: normal color, warm, dry Lymphatic Exam: No adenopathy SpO2 Interpretation: normal O2 Delivery: Room Air - Course Nursing assessment & vital signs reviewed: Yes Ordered Tests: Active Orders 24 hr Category Date Time Status IV Insertion STAT Care 08/05/24 12:30 Active ABDOMEN AND PELVIS W/0 CONTRAS [CT] Stat Exams 08/05/24 12:52 Completed CHEST 1 VIEW (PORTABLE) Stat Exams 08/05/24 12:52 Completed AMYLASE Stat Lab 08/05/24 12:45 Completed CBC W DIFF Stat Lab 08/05/24 12:45 Completed CMP Stat Lab 08/05/24 12:45 Completed LIPASE Stat Lab 08/05/24 12:45 Completed MONO SCREEN Stat Lab 08/05/24 12:45 Completed UA W/RFX UR CULTURE Stat Lab 08/05/24 12:53 Completed Medication Summary Discontinued Medications Generic Name Dose Route Start Last Admin Trade Name Freq PRN Reason Stop Dose Admin Hydromorphone HCl 1 mg 08/05/24 12:37 08/05/24 13:27 Hydromorphone 1 Mg/1ml Inj IV 08/05/24 12:38 1 mg STAT ONE Administration Hydromorphone HCl Confirm 08/05/24 12:59 Hydromorphone 1 Mg/1ml Inj Administered 08/05/24 13:00 Dose 1 mg .ROUTE .STK-MED ONE Sodium Chloride 1,000 mls @ 999 mls/hr 08/05/24 12:30 08/05/24 14:55 Sodium Chloride 0.9% 1000 Ml IV 08/05/24 13:30 Infused .Q1H1M STA Infusion Sodium Chloride Confirm 08/05/24 12:59 Sodium Chloride 0.9% 1000 Ml Administered 08/05/24 13:00 Dose 1,000 mls @ ud .ROUTE .STK-MED ONE Ondansetron HCl 4 mg 08/05/24 12:30 08/05/24 13:27 Ondansetron Hcl 4 Mg/2 Ml Vial IV 08/05/24 12:31 4 mg STAT ONE Administration Ondansetron HCl Confirm 08/05/24 12:58 Ondansetron Hcl 4 Mg/2 Ml Vial Administered 08/05/24 12:59 Dose 4 mg .ROUTE .STK-MED ONE Pantoprazole Sodium 40 mg 08/05/24 12:30 08/05/24 13:27 Pantoprazole 40 Mg Vial IV 08/05/24 12:31 40 mg STAT ONE Administration Pantoprazole Sodium Confirm 08/05/24 12:59 Pantoprazole 40 Mg Vial Administered 08/05/24 13:00 Dose 40 mg IV .STK-MED ONE Lab/Rad Data: Laboratory Result Diagrams 08/05/24 12:45 08/05/24 12:45 Laboratory Results 08/05/24 08/05/24 08/05/24 Range/Units 12:53 12:45 12:45 WBC (4.23-9.07) x10^3/uL RBC (4.63-6.08) x10^6/uL Hgb (13.7-17.5) g/dL Hct (40.1-51.0) % MCV (79.0-92.2) fL MCH (25.7-32.2) pg MCHC (32.3-36.5) g/dL RDW (11.6-14.4) % Plt Count (163-337) x10^3/uL MPV (9.4-12.4) fL Gran % (34.0-67.9) % Immature Gran % (Auto) (0.001-0.429) % Nucleat RBC Rel Count (0.00-0.2) % Eos # (Auto) (0.04-0.54) x10^3/uL Immature Gran # (Auto) (0.001-0.031) x10^3u/L Absolute Lymphs (auto) (1.32-3.57) x10^3/uL Absolute Monos (auto) (0.30-0.82) x10^3/uL Absolute Nucleated RBC (0.00-0.012) x10^3u/L Lymphocytes % (21.8-53.1) % Monocytes % (5.3-12.2) % Eosinophils % (0.8-7.0) % Basophils % (0.2-1.2) % Absolute Granulocytes (1.78-5.38) x10^3/uL Basophils # (0.01-0.08) x10^3/uL Sodium (135-145) mmol/L Potassium (3.5-5.1) mmol/L Chloride (98-107) mmol/L Carbon Dioxide (22-30) mmol/L Anion Gap (5-15) MEQ/L BUN (9-20) mg/dL Creatinine (0.66-1.25) mg/dL Estimated GFR ML/MIN Glucose (74-106) mg/dL Calcium (8.4-10.2) mg/dL Total Bilirubin (0.2-1.3) mg/dL AST (17-59) U/L ALT (0-50) U/L Alkaline Phosphatase (38-126) U/L Serum Total Protein (6.3-8.2) g/dL Albumin (3.5-5.0) g/dL Amylase (30-110) U/L Lipase (23-300) U/L Urine Color Yellow (Yellow) Urine Appearance Clear (Clear) Urine pH 6.0 (4.6-8.0) Ur Specific [place] 1.015 (1.005-1.030) Urine Protein Negative (Negative) Urine Glucose (UA) Negative (Negative) mg/dL Urine Ketones Negative (Negative) Urine Blood Negative (Negative) Urine Nitrite Negative (Negative) Urine Bilirubin Negative (Negative) Urine Urobilinogen 1.0 A (0.2) mg/dL Ur Leukocyte Esterase Negative (Negative) U Hyaline Cast (Auto) NONE SEEN (0-2) /LPF Urine Microscopic RBC 0-2 (0-5) /HPF Urine Microscopic WBC 0-2 (0-5) /HPF Ur Epithelial Cells None Seen (None Seen) /HPF Urine Bacteria None Seen (None Seen) /HPF Urine Culture Reflexed NO (NO) Monoscreen NEGATIVE (NEGATIVE) Influenza Type A Ag NEGATIVE (NEGATIVE) Influenza Type B Ag NEGATIVE (NEGATIVE) RSV (PCR) NEGATIVE (NEGATIVE) SARS-CoV-2 (PCR) POSITIVE A (NEGATIVE) 08/05/24 08/05/24 Range/Units 12:45 12:45 WBC 3.7 L (4.23-9.07) x10^3/uL RBC 4.51 L (4.63-6.08) x10^6/uL Hgb 12.5 L (13.7-17.5) g/dL Hct 36.1 L (40.1-51.0) % MCV 80.0 (79.0-92.2) fL MCH 27.7 (25.7-32.2) pg MCHC 34.6 (32.3-36.5) g/dL RDW 13.4 (11.6-14.4) % Plt Count 122 L (163-337) x10^3/uL MPV 8.7 L (9.4-12.4) fL Gran % 61.5 (34.0-67.9) % Immature Gran % (Auto) 0.3 (0.001-0.429) % Nucleat RBC Rel Count 0.0 (0.00-0.2) % Eos # (Auto) 0.03 L (0.04-0.54) x10^3/uL Immature Gran # (Auto) 0.01 (0.001-0.031) x10^3u/L Absolute Lymphs (auto) 0.65 L (1.32-3.57) x10^3/uL Absolute Monos (auto) 0.72 (0.30-0.82) x10^3/uL Absolute Nucleated RBC 0.00 (0.00-0.012) x10^3u/L Lymphocytes % 17.6 L (21.8-53.1) % Monocytes % 19.5 H (5.3-12.2) % Eosinophils % 0.8 (0.8-7.0) % Basophils % 0.3 (0.2-1.2) % Absolute Granulocytes 2.27 (1.78-5.38) x10^3/uL Basophils # 0.01 (0.01-0.08) x10^3/uL Sodium 128 L (135-145) mmol/L Potassium 4.1 (3.5-5.1) mmol/L Chloride 91 L (98-107) mmol/L Carbon Dioxide 28 (22-30) mmol/L Anion Gap 13.6 (5-15) MEQ/L BUN 8 L (9-20) mg/dL Creatinine 0.97 (0.66-1.25) mg/dL Estimated GFR 93.4 ML/MIN Glucose 112 H (74-106) mg/dL Calcium 8.8 (8.4-10.2) mg/dL Total Bilirubin 0.50 (0.2-1.3) mg/dL AST 28 (17-59) U/L ALT 21 (0-50) U/L Alkaline Phosphatase 68 (38-126) U/L Serum Total Protein 7.0 (6.3-8.2) g/dL Albumin 4.4 (3.5-5.0) g/dL Amylase 60 (30-110) U/L Lipase 104 (23-300) U/L Urine Color (Yellow) Urine Appearance (Clear) Urine pH (4.6-8.0) Ur Specific [place] (1.005-1.030) Urine Protein (Negative) Urine Glucose (UA) (Negative) mg/dL Urine Ketones (Negative) Urine Blood (Negative) Urine Nitrite (Negative) Urine Bilirubin (Negative) Urine Urobilinogen (0.2) mg/dL Ur Leukocyte Esterase (Negative) U Hyaline Cast (Auto) (0-2) /LPF Urine Microscopic RBC (0-5) /HPF Urine Microscopic WBC (0-5) /HPF Ur Epithelial Cells (None Seen) /HPF Urine Bacteria (None Seen) /HPF Urine Culture Reflexed (NO) Monoscreen (NEGATIVE) Influenza Type A Ag (NEGATIVE) Influenza Type B Ag (NEGATIVE) RSV (PCR) (NEGATIVE) SARS-CoV-2 (PCR) (NEGATIVE) - Progress Progress: improved, pain not gone completely Progress Note: 08/05/24 12:50 My medical decision making in the assignment of moderate complexity to this patient's medical issue today is based on review of the patient's past medical history, review of the patient's medication list, review the patient drug allergy list, history present illness and physical findings on examination. The workup in this patient includes placement of intravenous line, infusion of normal saline solution, infusion of Dilaudid 1 mg, infusion of Zofran 4 mg, infusion of 40 mg Protonix, CBC, CMP, amylase, lipase, viral swabs, monotest, amylase and lipase, urinalysis, CT scan of the abdomen pelvis without contrast, chest x-ray 08/05/24 12:51 Differential diagnosis includes but is not limited to viral illness, upper respiratory infection, pneumonia, intra-abdominal/pelvic abnormality, urinary tract infection, dehydration 08/05/24 17:05 I interpreted the patient's laboratory data results. Based on the laboratory data results, there are no acute, emergent medical issues other than positive COVID-19 infection. Patient does have a sodium of 128. However we did provide him with a liter of sodium chloride. We will have him increase his sodium intake for the next 48 hours and I will repeat a BMP on 08/07/2024. 08/05/24 17:[address] scan of the abdomen pelvis without contrast was interpreted by the radiologist and I review the impression. The impression states no acute findings. Patient does have a chronic hiatal hernia and bilateral fatty inguinal hernias present. Chest x-ray preliminary report was interpreted by me. I do not appreciate an acute cardiopulmonary process. 08/05/24 17:15 I did not prescribe Paxlovid in this patient. There are significant drug interactions with his medications. Counseled pt/family regarding: lab results, diagnosis, need for follow-up, rad results Medical Desision Making - Independent Historian Additional History obtained from: Family - Diagnostic Testing Diagnostic test were ordered, analyzed, and reviewed by me: Yes Radiological Interpretation: Interpreted by me, Reviewed by me, Teleradiologist Report - Risk of complications The pt has a mod risk of morbidity or mortality based on: Need for prescription drug management - Departure Departure Disposition: Home Clinical Impression: Hyponatremia, COVID-19 virus infection Condition: Stable Critical Care Time: No Referrals: RYANNE NAYAK [Primary Care Provider] - Follow up/PCP as directed Additional Instructions: Drink plenty of clear liquids. Increase your sodium intake over the next 48 hours. Follow-up at the [facility] lab on 08/07/2024 to recheck your sodium level. Call your primary care provider on 08/08/2024, to make a follow-up appointment to be seen in the next 5 to 7 days.
[2024-08-05 12:50] LABS: Absolute Neutrophil Ct (ANC) 2.27 x10^3/uL (1.78-5.38); BASOPHIL % 0.3 % (0.2-1.2); Basophil (Absolute #) 0.01 x10^3/uL (0.01-0.08); Eosinophil % 0.8 % (0.8-7.0); Eosinophil (Absolute #) 0.03 x10^3/uL (0.04-0.54); Hematocrit 36.1 % (40.1-51.0); Hemoglobin 12.5 g/dL (13.7-17.5); IMMATURE GRAN # 0.01 x10^3u/L (0.001-0.031); IMMATURE GRAN % 0.3 % (0.001-0.429); Lymphocyte (Absolute #) 0.65 x10^3/uL (1.32-3.57); Lymphocytes % 17.6 % (21.8-53.1); Mean Corpuscular Hemoglobin 27.7 pg (25.7-32.2); Mean Corpuscular Hgb Concent. 34.6 g/dL (32.3-36.5); Mean Platelet Volume 8.7 fL (9.4-12.4); Monocyte (Absolute #) 0.72 x10^3/uL (0.30-0.82); Monocytes % 19.5 % (5.3-12.2); Neutrophil % 61.5 % (34.0-67.9); Platelet Count 122 x10^3/uL (163-337); Red Blood Count 4.51 x10^6/uL (4.63-6.08); Red Cell Distribution Width 13.4 % (11.6-14.4); White Blood Count 3.7 x10^3/uL (4.23-9.07)
[2024-08-05] MEDS ORDERED: Zofran 4 MG/2 ML VIAL ONE (12:58)
[2024-08-05] MEDS ORDERED: Sodium Chloride 0.9% 1000 ML 1,000 ML ONE (12:59)
[2024-08-05] MEDS ORDERED: PROTONIX 40 MG IV IV ONE (12:59)
[2024-08-05] MEDS ORDERED: Hydromorphone 1 mg/ml Injection ONE (12:59)
[2024-08-05 13:03] LABS: ALBUMIN 4.4 g/dL (3.5-5.0); ANION GAP 13.6 MEQ/L (5-15); BILIRUBIN,TOTAL 0.5 mg/dL (0.2-1.3); Calcium 8.8 mg/dL (8.4-10.2); Creatinine 1 0.97 mg/dL (0.66-1.25); EST GLOMERULAR FILTRATION RATE 93.4 ML/MIN; Potassium 4.1 mmol/L (3.5-5.1)
[2024-08-05 13:26] LABS: INFLUENZA A NEGATIVE (NEGATIVE); INFLUENZA B NEGATIVE (NEGATIVE); RESPIRATORY SYNCTIAL VIRUS NEGATIVE (NEGATIVE)
[2024-08-05] MEDS: PROTONIX 40 MG IV IV ONE (13:27)
[2024-08-05] MEDS: Hydromorphone 1 mg/ml Injection IV ONE (13:27)
[2024-08-05] MEDS: Zofran 4 MG/2 ML VIAL IV ONE (13:27)
[2024-08-05] MEDS: Sodium Chloride 0.9% 1000 ML 1,000 ML IV STA (13:28)
[2024-08-05 13:34] LABS: SARS-CoV-2 Xpert Express POSITIVE (NEGATIVE)
--- NOTE | 2024-08-05 14:17 | XRAY ---
Indication: Right lower quadrant pain. Nausea and vomiting. Multiple contiguous axial images obtained through the abdomen and pelvis without contrast. Comparison: June 14, 2024 Lung bases remain clear again with incidental left midlung calcified granuloma. Heart not enlarged. Stable small hiatal hernia. Noncontrasted stomach and bowel loops remain nonobstructed again with normal appendix. Again cholecystectomy. No free fluid/air. Remaining liver, pancreas, spleen, adrenal glands, kidneys, ureters, bladder, and aorta are unremarkable for noncontrast exam. Osseous structures intact again with mild degenerative changes throughout spine and small L5 Schmorl node. Stable small bilateral fatty inguinal hernias. Impression: No change. Again chronic findings including hiatal hernia, chronic bony findings, and bilateral fatty inguinal hernias. No new/acute findings on this noncontrast exam.
--- NOTE | 2024-08-05 14:17 | XRAY ---
Indication: Cough. Comparison: March 30, 2023 Portable apical lordotic chest less inflated and remains clear. Heart not enlarged. Bony thorax intact again with osteopenia and degenerative changes. No new/acute findings.
[2024-08-05 14:42] VITALS: TEMP 98
[2024-08-05 15:48] LABS: Appearance Clear (Clear); Bacteria None Seen /HPF (None Seen); Bilirubin Negative (Negative); Blood Negative (Negative); Epithelial Cells None Seen /HPF (None Seen); Glucose, Urine Negative (Negative); Hyaline Casts NONE SEEN /LPF (0-2); Ketones Negative (Negative); Leukocyte Esterase Negative (Negative); Nitrite Negative (Negative); Protein,Urine Dip Negative (Negative); RBC 0-2 /HPF (0-5); Specific Gravity 1.015 (1.005-1.030); WBC 0-2 /HPF (0-5)
[2024-08-05 17:25] VITALS: RESP 18
[2024-08-05 18:01] VITALS: BP 102/75; PULSE 70; O2SAT 98
== END 2024-08-05 18:01 | disposition home or self-care (01) ==
LOC: ED 11:56
DX: U07.1 COVID-19 (principal); E87.1 Hypo-osmolality and hyponatremia; R11.2 Nausea with vomiting, unspecified; I10 Essential (primary) hypertension; Z79.899 Other long term (current) drug therapy
CPT/HCPCS: 0241U; 36415; 71045; 74176; 80053; 81001; 82150; 83690; 85025; 86308; 96361; 96374; 96375; 99285; 99284; J1171; J2405

== ENCOUNTER 2024-09-08 19:20 | Emergency (ER) | payer OTHER ==
[2024-09-08 19:26] VITALS: TEMP 97.5
[2024-09-08 19:51] LABS: Absolute Neutrophil Ct (ANC) 5.34 x10^3/uL (1.78-5.38); BASOPHIL % 0.4 % (0.2-1.2); Basophil (Absolute #) 0.03 x10^3/uL (0.01-0.08); Eosinophil % 1.5 % (0.8-7.0); Eosinophil (Absolute #) 0.11 x10^3/uL (0.04-0.54); Hematocrit 37.3 % (40.1-51.0); Hemoglobin 12.6 g/dL (13.7-17.5); IMMATURE GRAN # 0.02 x10^3u/L (0.001-0.031); IMMATURE GRAN % 0.3 % (0.001-0.429); Lymphocytes % 21.2 % (21.8-53.1); Mean Corpuscular Hemoglobin 27.7 pg (25.7-32.2); Mean Corpuscular Hgb Concent. 33.8 g/dL (32.3-36.5); Mean Platelet Volume 8.5 fL (9.4-12.4); Monocyte (Absolute #) 0.44 x10^3/uL (0.30-0.82); Monocytes % 5.8 % (5.3-12.2); Neutrophil % 70.8 % (34.0-67.9); Platelet Count 170 x10^3/uL (163-337); Red Blood Count 4.55 x10^6/uL (4.63-6.08); Red Cell Distribution Width 13.5 % (11.6-14.4); White Blood Count 7.5 x10^3/uL (4.23-9.07)
[2024-09-08] MEDS ORDERED: BABY ASPIRIN 81 MG CHEW ONE (19:58)
[2024-09-08] MEDS ORDERED: MORPHINE SULFATE 4 MG INJ ONE (19:58)
[2024-09-08] MEDS ORDERED: Zofran 4 MG/2 ML VIAL ONE (19:58)
[2024-09-08] MEDS: BABY ASPIRIN 81 MG CHEW PO ONE (19:59)
[2024-09-08] MEDS: Zofran 4 MG/2 ML VIAL IV ONE (19:59)
[2024-09-08] MEDS: MORPHINE SULFATE 4 MG INJ IV ONE (20:00)
--- NOTE | 2024-09-08 20:06 | ERPHSYRPT ---
- History of Present Illness Time Seen by Provider: 09/08/24 19:31 Historian: patient, family Exam Limitations: no limitations Patient Subjective Stated Complaint: palpitations/chest pain Triage Nursing Assessment: Pt ambulated into ER without diff, spouse at bedside. Pt c/o palpitations/chest pain since 1030 this morning that radiates to left s houlder. Lungs clear, heart tones reg, no edema noted. Pt saw his green chainer, Dr. Umaña 2 weeks ago and said everything was good. Pt denies any cough or sob. Physician History: 54-year-old male with history of congestive heart failure, hypertension, presented in the ER with left-sided chest pain since 10:30 AM, mild to moderate with radiation to the left shoulde/right side of the chest r/, also report associated palpitation but no shortness of breath. Aggravated with palpation on the left side of the chest. Patient report he has no history of coronary artery disease. No cough fever or chills reported. Allergies/Adverse Reactions: albuterol Allergy (Severe, Verified 09/08/24 19:46) Anaphylactic Reaction resp arrest amlodipine [From Norvasc] Allergy (Intermediate, Verified 09/08/24 19:46) Hives amoxicillin [From Augmentin] Adverse Reaction (Intermediate, Verified 09/08/24 19:46) Diarrhea clavulanic acid [From Augmentin] Adverse Reaction (Intermediate, Verified 09/08/24 19:46) Diarrhea sulfamethoxazole [From Bactrim] Adverse Reaction (Intermediate, Verified 09/08/24 19:46) Diarrhea trimethoprim [From Bactrim] Adverse Reaction (Intermediate, Verified 09/08/24 19:46) Diarrhea Home Medications: Propranolol HCl [Inderal Xl] 120 mg PO DAILY 07/19/18 [History] Losartan Potassium 50 mg [Cozaar 50 MG] 50 mg PO DAILY 08/23/20 [History] OXcarbazepine [Trileptal] 300 mg PO BID 12/17/22 [History] Alfuzosin HCl [Alfuzosin HCl ER] 10 mg PO HS 08/05/24 [History] Famotidine 20 mg [Pepcid 20 MG] 20 mg PO BID 08/05/24 [History] Melatonin 10 mg PO HS 08/05/24 [History] Omeprazole 40 mg PO DAILY 09/08/24 [History] Hx Tetanus, Diphtheria Vaccination/Date Given: Yes Hx Influenza Vaccination/Date Given: No Hx Pneumococcal Vaccination/Date Given: No Travel Risk - International Travel Have you traveled outside of the country in past 3 weeks: No - Emerging Infectious Disease Are you exhibiting symptoms associated with any current EIDs: No Symptoms: Diarrhea, Headaches/Body Aches/, Vomitting - Review of Systems Constitutional: No Symptoms Ears, Nose, & Throat: No Symptoms Respiratory: No Symptoms Cardiac: Chest Pain, Palpitations Abdominal/Gastrointestinal: No Symptoms Genitourinary Symptoms: No Symptoms Musculoskeletal: No Symptoms Skin: No Symptoms Neurological: No Symptoms Hematologic/Lymphatic: No Symptoms Immunological/Allergic: No Symptoms - Past Medical History Pertinent Past Medical History: Yes Neurological History: Migraines, Seizures ENT History: No Pertinent History Cardiac History: Arrhythmia, Hypertension Respiratory History: No Pertinent History Endocrine Medical History: No Pertinent History Musculoskeletal History: Osteoarthritis GI Medical History: GERD, Ulcer History: No Pertinent History Psycho-Social History: Anxiety Male Reproductive Disorders: No Pertinent History Other Medical History: STATES HAD EEG DONE DUE TO FOCAL "JERKING" AND FOUND TO HAVE FOCAL SEIZUIRES. STATES NO JERKING SINCE STARTING SOME EPILEPTIC MEDICINES - Past Surgical History Past Surgical History: Yes Neuro Surgical History: No Pertinent History Cardiac: No Pertinent History Respiratory: No Pertinent History Gastrointestinal: No Pertinent History Genitourinary: No Pertinent History Musculoskeletal: No Pertinent History Male Surgical History: No Pertinent History Other Surgical History: Endoscpopy to examine for gastric ulcers as stated per pt; sinus surgery,egd,colonoscopy Significant Family History: no pertinent family hx - Social History Smoking Status: Never smoker Exposure to second hand smoke: Yes Drug Use: none - Social Determinants of Health Will the patient participate in the screening: Yes Do you worry about a steady place to live?: No Do you have any problems with any of the following?: No known problems In the past 12 months,have you had to go without utilities?: No Transportation Issues: No Has anyone in your support network made you feel unsafe?: No Have you or anyone in your house had to go w/o enough food: No - Nursing Vital Signs Nursing Vital Signs: Initial Vital Signs Temperature 97.5 F 09/08/24 19:23 Pulse Rate 73 09/08/24 19:23 Respiratory Rate 20 09/08/24 19:23 Blood Pressure 146/82 09/08/24 19:23 O2 Sat by Pulse Oximetry 97 09/08/24 19:23 Pain Scale Pain Intensity 2 - Physical Exam General Appearance: no apparent distress, alert, anxiety Eye Exam: PERRL/EOMI Ears, Nose, Throat Exam: normal ENT inspection Neck Exam: normal inspection, supple, full range of motion Respiratory Exam: normal breath sounds, chest tenderness (Left lateral chest wall with no rash), lungs clear Cardiovascular Exam: regular rate/rhythm, normal heart sounds Gastrointestinal/Abdomen Exam: soft, normal bowel sounds, No tenderness Back Exam: normal inspection, normal range of motion Extremity Exam: normal inspection, normal range of motion Neurologic Exam: alert, 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, cooperative Skin Exam: normal color SpO2 Interpretation: normal SpO2: 97 O2 Delivery: Room Air - Course EKG Interpreted by Me: Sinus Rhythm, NORMAL AXIS, NORMAL INTERVALS, Non-specific ST Changes Ordered Tests: Active Orders 24 hr Category Date Time Status Farm Implement Mechanic STAT Care 09/08/24 19:43 Active EKG-ER Only STAT Care 09/08/24 19:43 Active IV Insertion STAT Care 09/08/24 19:43 Active CHEST WITH CONTRAST [CT] Stat Exams 09/08/24 21:13 Taken CBC W DIFF Stat Lab 09/08/24 19:30 Completed CMP Stat Lab 09/08/24 19:30 Completed D-DIMER QUANTITATIVE Stat Lab 09/08/24 19:30 Completed NT PRO BNPII Stat Lab 09/08/24 19:30 Completed TROPONIN Q4H Lab 09/08/24 19:30 Completed TROPONIN Q4H Lab 09/08/24 23:10 Completed TROPONIN Q4H Lab 09/09/24 03:45 Ordered Medication Summary Discontinued Medications Generic Name Dose Route Start Last Admin Trade Name Freq PRN Reason Stop Dose Admin Aspirin 324 mg 09/08/24 19:43 09/08/24 19:59 Aspirin 81 Mg Tab.Chew PO 09/08/24 19:44 324 mg STAT ONE Administration Aspirin Confirm 09/08/24 19:58 Aspirin 81 Mg Tab.Chew Administered 09/08/24 19:59 Dose 324 mg .ROUTE .STK-MED ONE Morphine Sulfate 4 mg 09/08/24 19:43 09/08/24 20:00 Morphine Sulfate 4 Mg/Ml Injection IV 09/08/24 19:44 4 mg STAT ONE Administration Morphine Sulfate Confirm 09/08/24 19:58 Morphine Sulfate 4 Mg/Ml Injection Administered 09/08/24 19:59 Dose 4 mg .ROUTE .STK-MED ONE Ondansetron HCl 4 mg 09/08/24 19:43 09/08/24 19:59 Ondansetron Hcl 4 Mg/2 Ml Vial IV 09/08/24 19:44 4 mg STAT ONE Administration Ondansetron HCl Confirm 09/08/24 19:58 Ondansetron Hcl 4 Mg/2 Ml Vial Administered 09/08/24 19:59 Dose 4 mg .ROUTE .STK-MED ONE Lab/Rad Data: Laboratory Result Diagrams 09/08/24 19:30 09/08/24 19:30 Laboratory Results 09/08/24 09/08/24 09/08/24 Range/Units 23:10 19:30 19:30 WBC (4.23-9.07) x10^3/uL RBC (4.63-6.08) x10^6/uL Hgb (13.7-17.5) g/dL Hct (40.1-51.0) % MCV (79.0-92.2) fL MCH (25.7-32.2) pg MCHC (32.3-36.5) g/dL RDW (11.6-14.4) % Plt Count (163-337) x10^3/uL MPV (9.4-12.4) fL Gran % (34.0-67.9) % Immature Gran % (Auto) (0.001-0.429) % Nucleat RBC Rel Count (0.00-0.2) % Eos # (Auto) (0.04-0.54) x10^3/uL Immature Gran # (Auto) (0.001-0.031) x10^3u/L Absolute Lymphs (auto) (1.32-3.57) x10^3/uL Absolute Monos (auto) (0.30-0.82) x10^3/uL Absolute Nucleated RBC (0.00-0.012) x10^3u/L Lymphocytes % (21.8-53.1) % Monocytes % (5.3-12.2) % Eosinophils % (0.8-7.0) % Basophils % (0.2-1.2) % Absolute Granulocytes (1.78-5.38) x10^3/uL Basophils # (0.01-0.08) x10^3/uL D-Dimer 0.37 (0.0-0.50) mg/L Sodium (135-145) mmol/L Potassium (3.5-5.1) mmol/L Chloride (98-107) mmol/L Carbon Dioxide (22-30) mmol/L Anion Gap (5-15) MEQ/L BUN (9-20) mg/dL Creatinine (0.66-1.25) mg/dL Estimated GFR ML/MIN Glucose (74-106) mg/dL Calcium (8.4-10.2) mg/dL Total Bilirubin (0.2-1.3) mg/dL AST (17-59) U/L ALT (0-50) U/L Alkaline Phosphatase (38-126) U/L Troponin I < 0.012 < 0.012 (0.000-0.033) ng/mL NT-Pro-B Natriuret Pep (<300) pg/mL Serum Total Protein (6.3-8.2) g/dL Albumin (3.5-5.0) g/dL 09/08/24 09/08/24 Range/Units 19:30 19:30 WBC 7.5 (4.23-9.07) x10^3/uL RBC 4.55 L (4.63-6.08) x10^6/uL Hgb 12.6 L (13.7-17.5) g/dL Hct 37.3 L (40.1-51.0) % MCV 82.0 (79.0-92.2) fL MCH 27.7 (25.7-32.2) pg MCHC 33.8 (32.3-36.5) g/dL RDW 13.5 (11.6-14.4) % Plt Count 170 (163-337) x10^3/uL MPV 8.5 L (9.4-12.4) fL Gran % 70.8 H (34.0-67.9) % Immature Gran % (Auto) 0.3 (0.001-0.429) % Nucleat RBC Rel Count 0.0 (0.00-0.2) % Eos # (Auto) 0.11 (0.04-0.54) x10^3/uL Immature Gran # (Auto) 0.02 (0.001-0.031) x10^3u/L Absolute Lymphs (auto) 1.60 (1.32-3.57) x10^3/uL Absolute Monos (auto) 0.44 (0.30-0.82) x10^3/uL Absolute Nucleated RBC 0.00 (0.00-0.012) x10^3u/L Lymphocytes % 21.2 L (21.8-53.1) % Monocytes % 5.8 (5.3-12.2) % Eosinophils % 1.5 (0.8-7.0) % Basophils % 0.4 (0.2-1.2) % Absolute Granulocytes 5.34 (1.78-5.38) x10^3/uL Basophils # 0.03 (0.01-0.08) x10^3/uL D-Dimer (0.0-0.50) mg/L Sodium 130 L (135-145) mmol/L Potassium 3.8 (3.5-5.1) mmol/L Chloride 96 L (98-107) mmol/L Carbon Dioxide 23 (22-30) mmol/L Anion Gap 15.2 H (5-15) MEQ/L BUN 4 L (9-20) mg/dL Creatinine 0.80 (0.66-1.25) mg/dL Estimated GFR 105.8 ML/MIN Glucose 127 H (74-106) mg/dL Calcium 8.9 (8.4-10.2) mg/dL Total Bilirubin 0.40 (0.2-1.3) mg/dL AST 30 (17-59) U/L ALT 30 (0-50) U/L Alkaline Phosphatase 78 (38-126) U/L Troponin I (0.000-0.033) ng/mL NT-Pro-B Natriuret Pep 84.8 (<300) pg/mL Serum Total Protein 6.5 (6.3-8.2) g/dL Albumin 4.1 (3.5-5.0) g/dL - Progress Progress: improved, re-examined Air Movement: good Progress Note: 09/09/24 00:03 54-year-old is evaluated in ER for chest pain., EKG did not show any acute ischemic changes Patient has negative troponins x 2. Chest x-ray is negative for any acute cardiopulmonary findings reviewed by me Has normal white count, unremarkable chemistries. CTA chest is negative for any acute cardiopulmonary or preliminary report, o fficial final read is pending. He is given pain medication and feeling better on reevaluation. Patient has no history of coronary artery disease and does have some element of reproducibility, not very typical of cardiac, do not think patient needs to be admitted, does have cardiology appointment next month, recommended follow-up with cardiology earlier than next month. Shared the results of workup with patient and family, plan of outpatient follow- up which they understand and agree. Discussed signs symptoms of worsening needing return to ER which he seems understanding. Stable for discharge. Blood Culture(s) Obtained: No Antibiotics given: No Counseled pt/family regarding: lab results, diagnosis, need for follow-up, rad results Medical Desision Making - Independent Historian Additional History obtained from: Spouse - Diagnostic Testing Diagnostic test were ordered, analyzed, and reviewed by me: Yes Radiological Interpretation: Reviewed by me, Teleradiologist Report - Risk of complications The pt has a mod risk of morbidity or mortality based on: Need for prescription drug management - Departure Departure Disposition: Home Clinical Impression: Atypical chest pain Condition: Stable Critical Care Time: No Referrals: RYANNE NAYAK [Primary Care Provider] - Follow up with PCP 1 day MER UMAÑA [CONSULTING PHYSICIAN] - Follow up/PCP as directed (Call for appointment for reevaluation) Instructions: Angina (DC), Chest Pain (DC) Additional Instructions: Take Tylenol as needed. Follow-up with your primary care and green chainer for reevaluation in 1 to 2 days. Return to ER for if again having chest pain palpitations or shortness of breath etc.
[2024-09-08 20:13] LABS: ALBUMIN 4.1 g/dL (3.5-5.0); ANION GAP 15.2 MEQ/L (5-15); BILIRUBIN,TOTAL 0.4 mg/dL (0.2-1.3); Calcium 8.9 mg/dL (8.4-10.2); Creatinine 1 0.8 mg/dL (0.66-1.25); EST GLOMERULAR FILTRATION RATE 105.8 ML/MIN; NT PRO BNPII 84.8 pg/mL (<300); Potassium 3.8 mmol/L (3.5-5.1); Total Protein 6.5 g/dL (6.3-8.2)
[2024-09-08 23:05] VITALS: O2SAT 97
[2024-09-09 00:52] VITALS: BP 127/84; PULSE 58; RESP 18
--- NOTE | 2024-09-09 09:13 | XRAY ---
Indication: Chest pain. Pulmonary embolus. D-dimer within normal limits. Multiple contiguous axial images obtained through the chest using 80 cc Isovue 370 contrast and PE protocol. Comparison: December 29, 2021 Good opacification pulmonary arteries to include the lobar and segmental branches. No pulmonary embolus. Heart not enlarged. Aorta is normal in course and caliber. No pathologic mediastinal/hilar lymphadenopathy. Lungs inflated with stable tiny lingula calcified granuloma. No suspicious pulmonary mass/nodule, infiltrate, or effusion. Bony thorax intact again with mild degenerative changes throughout spine. Limited upper abdomen demonstrates interval cholecystectomy. Impression: Continued negative pulmonary embolus. Again chronic findings including degenerative spondylosis and lingula calcified granuloma. No new/acute cardiopulmonary abnormalities.
== END 2024-09-09 00:58 | disposition home or self-care (01) ==
LOC: ED 19:20
DX: R07.89 Other chest pain (principal); R00.2 Palpitations; I11.0 Hypertensive heart disease with heart failure; I50.9 Heart failure, unspecified; Z79.899 Other long term (current) drug therapy
CPT/HCPCS: 36415; 71260; 80053; 83880; 84484; 85025; 85379; 93005; 93041; 96374; 96375; 99284; 99285; J2270; J2405; A9270-GY

== ENCOUNTER 2025-02-10 12:14 | Emergency (ER) | payer OTHER ==
[2025-02-10 12:28] VITALS: BP 142/89; PULSE 62; RESP 18; TEMP 97.7; O2SAT 98
--- NOTE | 2025-02-10 12:29 | ERPHSYRPT ---
- History of Present Illness Time Seen by Provider: 02/10/25 12:28 Historian: patient, family Exam Limitations: no limitations Physician History: This is a 54-year-old white male patient who arrives by private vehicle accompanied by his spouse and is a patient of primary care provider Dr. Michelle Nayak and accounting tutor Dr. Richards who presents with complaint of left upper chest wall pain. The pain is reproducible with palpation. However, the patient's primary care provider today, in the office felt that the patient should be evaluated from the chest pain standpoint. Yesterday, 02/09/2025, patient was seen at the patient's accounting tutor office and per patient report, twelve-lead EKG was performed and was not emergent or abnormal. Patient was seen here with similar symptoms dated 09/08/2024. At that time he had an extensive workup including a CTA of the chest which was negative. He also had 2 troponin levels that were negative. Patient has a history of arrhythmia, hypertension, gastroesophageal reflux disease, peptic ulcer disease, anxiety, seizure disorder, migraine headaches. He has never been diagnosed with coronary artery disease. Timing/Duration: today Activities at Onset: none Quality: sharpness Location: other (Left anterior chest wall) Severity of Pain-Max: mild Severity of Pain-Current: none Associated Symptoms: denies symptoms Nitro Today/Relief: no nitro taken today Aspirin Treatment Today: 81 mg x 4, provided by ED Allergies/Adverse Reactions: albuterol Allergy (Severe, Verified 09/08/24 19:46) Anaphylactic Reaction resp arrest amlodipine [From Norvasc] Allergy (Intermediate, Verified 09/08/24 19:46) Hives amoxicillin [From Augmentin] Adverse Reaction (Intermediate, Verified 09/08/24 19:46) Diarrhea clavulanic acid [From Augmentin] Adverse Reaction (Intermediate, Verified 09/08/24 19:46) Diarrhea sulfamethoxazole [From Bactrim] Adverse Reaction (Intermediate, Verified 09/08/24 19:46) Diarrhea trimethoprim [From Bactrim] Adverse Reaction (Intermediate, Verified 09/08/24 19:46) Diarrhea Home Medications: Propranolol HCl [Inderal Xl] 120 mg PO DAILY 07/19/18 [History] Losartan Potassium 50 mg [Cozaar 50 MG] 50 mg PO DAILY 08/23/20 [History] OXcarbazepine [Trileptal] 300 mg PO BID 12/17/22 [History] Alfuzosin HCl [Alfuzosin HCl ER] 10 mg PO HS 08/05/24 [History] Famotidine 20 mg [Pepcid 20 MG] 20 mg PO BID 08/05/24 [History] Melatonin 10 mg PO HS 08/05/24 [History] Omeprazole 40 mg PO DAILY 09/08/24 [History] Hx Tetanus, Diphtheria Vaccination/Date Given: Yes Hx Influenza Vaccination/Date Given: No Hx Pneumococcal Vaccination/Date Given: No Travel Risk - International Travel Have you traveled outside of the country in past 3 weeks: No - Emerging Infectious Disease Are you exhibiting symptoms associated with any current EIDs: No Symptoms: Diarrhea, Headaches/Body Aches/, Vomitting - Review of Systems Constitutional: No Symptoms Eyes: No Symptoms Ears, Nose, & Throat: No Symptoms Respiratory: No Symptoms Cardiac: Chest Pain (Left anterior localized) Abdominal/Gastrointestinal: No Symptoms Genitourinary Symptoms: No Symptoms Musculoskeletal: No Symptoms Skin: No Symptoms Neurological: No Symptoms Psychological: No Symptoms Endocrine: No Symptoms Hematologic/Lymphatic: No Symptoms Immunological/Allergic: No Symptoms All Other Systems: Reviewed and Negative - Past Medical History Pertinent Past Medical History: Yes Neurological History: Migraines, Seizures ENT History: No Pertinent History Cardiac History: Arrhythmia, Hypertension Respiratory History: No Pertinent History Endocrine Medical History: No Pertinent History Musculoskeletal History: Osteoarthritis GI Medical History: GERD, Ulcer History: No Pertinent History Psycho-Social History: Anxiety Male Reproductive Disorders: No Pertinent History Other Medical History: STATES HAD EEG DONE DUE TO FOCAL "JERKING" AND FOUND TO HAVE FOCAL SEIZUIRES. STATES NO JERKING SINCE STARTING SOME EPILEPTIC MEDICINES, Low EF, Leaky heart valve - Past Surgical History Past Surgical History: Yes Neuro Surgical History: No Pertinent History Cardiac: No Pertinent History Respiratory: No Pertinent History Gastrointestinal: No Pertinent History Genitourinary: No Pertinent History Musculoskeletal: No Pertinent History Male Surgical History: No Pertinent History Other Surgical History: Endoscpopy to examine for gastric ulcers as stated per pt; sinus surgery,egd,colonoscopy Significant Family History: no pertinent family hx - Social History Smoking Status: Never smoker Exposure to second hand smoke: Yes Drug Use: none - Social Determinants of Health Will the patient participate in the screening: Yes Do you worry about a steady place to live?: No In the past 12 months,have you had to go without utilities?: No Transportation Issues: No Has anyone in your support network made you feel unsafe?: No Have you or anyone in your house had to go w/o enough food: No - Nursing Vital Signs Nursing Vital Signs: Initial Vital Signs Temperature 97.7 F 02/10/25 12:15 Pulse Rate 62 02/10/25 12:15 Respiratory Rate 18 02/10/25 12:15 Blood Pressure 142/89 02/10/25 12:15 O2 Sat by Pulse Oximetry 98 02/10/25 12:15 Pain Scale Pain Intensity 6 - Physical Exam General Appearance: no apparent distress, alert, anxiety Eye Exam: PERRL/EOMI, eyes nml inspection Ears, Nose, Throat Exam: normal ENT inspection, moist mucous membranes Neck Exam: normal inspection, non-tender, supple, full range of motion Respiratory Exam: normal breath sounds, chest tenderness (Localized and reproducible with palpation left anterior chest wall), lungs clear, airway intact, No respiratory distress Cardiovascular Exam: regular rate/rhythm, normal heart sounds, normal peripheral pulses Gastrointestinal/Abdomen Exam: soft, normal bowel sounds, No tenderness Rectal Exam: not done Extremity Exam: normal inspection, normal range of motion, pelvis stable Neurologic Exam: alert, 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, cooperative, polysom tech II-XII nml as tested, nml cerebellar function, nml station & gait, sensation nml Skin Exam: normal color, warm, dry Lymphatic Exam: No adenopathy SpO2 Interpretation: normal SpO2: 98 O2 Delivery: Room Air - Course Nursing assessment & vital signs reviewed: Yes EKG Interpreted by Me: RATE (60), Sinus Rhythm, NORMAL AXIS, NORMAL INTERVALS, NORMAL QRS, Non-specific ST Changes (QTc is 426. No acute ischemia on today's twelve-lead EKG), Other Ordered Tests: Active Orders 24 hr Category Date Time Status Firer Retort STAT Care 02/10/25 12:37 Active EKG-ER Only STAT Care 02/10/25 12:36 Active IV Insertion STAT Care 02/10/25 12:36 Active Pulse Oximetry (ED) STAT Care 02/10/25 12:36 Active CBC W DIFF Stat Lab 02/10/25 12:30 Completed CMP Stat Lab 02/10/25 12:30 Completed NT PRO BNPII Stat Lab 02/10/25 12:30 Completed TROPONIN Q4H Lab 02/10/25 12:30 Completed TROPONIN Q4H Lab 02/10/25 16:45 Ordered TROPONIN Q4H Lab 02/10/25 20:45 Ordered Medication Summary Discontinued Medications Generic Name Dose Route Start Last Admin Trade Name Freq PRN Reason Stop Dose Admin Aspirin 324 mg 02/10/25 12:48 02/10/25 13:04 Aspirin 81 Mg Tab.Chew PO 02/10/25 12:49 324 mg STAT ONE Administration Aspirin Confirm 02/10/25 13:04 Aspirin 81 Mg Tab.Chew Administered 02/10/25 13:05 Dose 324 mg .ROUTE .STK-MED ONE Lab/Rad Data: Laboratory Result Diagrams 02/10/25 12:30 02/10/25 12:30 Laboratory Results 02/10/25 02/10/25 02/10/25 Range/Units 12:30 12:30 12:30 WBC 7.7 (4.23-9.07) x10^3/uL RBC 4.66 (4.63-6.08) x10^6/uL Hgb 13.3 L (13.7-17.5) g/dL Hct 39.9 L (40.1-51.0) % MCV 85.6 (79.0-92.2) fL MCH 28.5 (25.7-32.2) pg MCHC 33.3 (32.3-36.5) g/dL RDW 12.9 (11.6-14.4) % Plt Count 203 (163-337) x10^3/uL MPV 8.7 L (9.4-12.4) fL Gran % 62.2 (34.0-67.9) % Immature Gran % (Auto) 0.5 H (0.001-0.429) % Nucleat RBC Rel Count 0.0 (0.00-0.2) % Eos # (Auto) 0.30 (0.04-0.54) x10^3/uL Immature Gran # (Auto) 0.04 H (0.001-0.031) x10^3u/L Absolute Lymphs (auto) 1.68 (1.32-3.57) x10^3/uL Absolute Monos (auto) 0.85 H (0.30-0.82) x10^3/uL Absolute Nucleated RBC 0.00 (0.00-0.012) x10^3u/L Lymphocytes % 21.8 (21.8-53.1) % Monocytes % 11.0 (5.3-12.2) % Eosinophils % 3.9 (0.8-7.0) % Basophils % 0.6 (0.2-1.2) % Absolute Granulocytes 4.78 (1.78-5.38) x10^3/uL Basophils # 0.05 (0.01-0.08) x10^3/uL Sodium 128 L (135-145) mmol/L Potassium 4.8 (3.5-5.1) mmol/L Chloride 94 L (98-107) mmol/L Carbon Dioxide 24 (22-30) mmol/L Anion Gap 14.6 (5-15) MEQ/L BUN 10 (9-20) mg/dL Creatinine 0.88 (0.66-1.25) mg/dL Estimated GFR 102.8 ML/MIN Glucose 103 (74-106) mg/dL Calcium 9.5 (8.4-10.2) mg/dL Total Bilirubin 0.30 (0.2-1.3) mg/dL AST 26 (17-59) U/L ALT 18 (0-50) U/L Alkaline Phosphatase 86 (38-126) U/L Troponin I < 0.012 (0.000-0.033) ng/mL NT-Pro-B Natriuret Pep 30.6 (<300) pg/mL Serum Total Protein 7.2 (6.3-8.2) g/dL Albumin 4.3 (3.5-5.0) g/dL - Progress Progress: improved, re-examined Air Movement: good Progress Note: 02/10/25 12:47 My medical decision making and the assignment of moderate complexity to this patient's medical issue today is based on review of the patient's past medical history, review the patient's medication list, review the patient drug allergy list, history of present illness and physical findings on examination. The workup in this patient includes placement of intravenous line, CBC, CMP, troponin level, BNP level, twelve-lead EKG. And we will provide the patient with 4 baby aspirin. Differential diagnosis includes was not limited to myocardial infarction, arrhythmia, electrolyte abnormalities, muscle skeletal pain, anxiety 02/10/25 13:41 Interpreted the patient's laboratory data. Based on laboratory data results, the patient does have hyponatremia. He has chronically low sodium level in the 128-133 range chronically. Blood Culture(s) Obtained: No Antibiotics given: No Counseled pt/family regarding: lab results, diagnosis, need for follow-up Medical Desision Making - Independent Historian Additional History obtained from: Spouse - Diagnostic Testing Diagnostic test were ordered, analyzed, and reviewed by me: Yes - Risk of complications Low Risk: Low risk of morbidity from additional dx testing or treatment - Departure Departure Disposition: Home Clinical Impression: Nonspecific chest pain Condition: Stable Critical Care Time: No Referrals: RYANNE NAYAK [Primary Care Provider, INTERNAL MEDICINE] - Follow up/PCP as directed Additional Instructions: Take your medications as prescribed. Call your primary care provider today, 02/10/2025 , to make arrangements for follow-up appointment to be seen next week in order to discuss your chronically low sodium level.
[2025-02-10 12:56] LABS: BASOPHIL % 0.6 % (0.2-1.2); Basophil (Absolute #) 0.05 x10^3/uL (0.01-0.08); Eosinophil (Absolute #) 0.30 x10^3/uL (0.04-0.54); Hematocrit 39.9 % (40.1-51.0); Hemoglobin 13.3 g/dL (13.7-17.5); IMMATURE GRAN # 0.04 x10^3u/L (0.001-0.031); IMMATURE GRAN % 0.5 % (0.001-0.429); Lymphocyte (Absolute #) 1.68 x10^3/uL (1.32-3.57); Mean Corpuscular Hemoglobin 28.5 pg (25.7-32.2); Mean Corpuscular Hgb Concent. 33.3 g/dL (32.3-36.5); Monocyte (Absolute #) 0.85 x10^3/uL (0.30-0.82); NUCLEATED RBC # 0.00 x10^3u/L (0.00-0.012); NUCLEATED RBC % 0.0 % (0.00-0.2); Platelet Count 203 x10^3/uL (163-337); Red Blood Count 4.66 x10^6/uL (4.63-6.08); White Blood Count 7.7 x10^3/uL (4.23-9.07)
[2025-02-10] MEDS: BABY ASPIRIN 81 MG CHEW PO ONE (13:04)
[2025-02-10] MEDS ORDERED: BABY ASPIRIN 81 MG CHEW ONE (13:04)
[2025-02-10 13:09] LABS: Calcium 9.5 mg/dL (8.4-10.2); Carbon Dioxide 24.0 mmol/L (22-30); Creatinine 1 0.88 mg/dL (0.66-1.25); EST GLOMERULAR FILTRATION RATE 102.8 ML/MIN; Glucose 103.0 mg/dL (74-106); Potassium 4.8 mmol/L (3.5-5.1); SGOT/AST 26.0 U/L (17-59); SGPT/ALT 18.0 U/L (0-50); Total Protein 7.2 g/dL (6.3-8.2)
[2025-02-10 13:25] LABS: NT PRO BNPII 30.6 pg/mL (<300); TROPONIN < 0.012 ng/mL (0.000-0.033)
== END 2025-02-10 14:15 | disposition home or self-care (01) ==
LOC: ED 12:14
DX: R07.9 Chest pain, unspecified (principal); I10 Essential (primary) hypertension; Z79.899 Other long term (current) drug therapy